=== PATIENT | male | born 1980 | race Caucasian/White ===

== ENCOUNTER 2020-06-23 06:54 | Emergency (ER) | payer OTHER, SELFPAY ==
[2020-06-23 07:03] VITALS: BP 157/84; PULSE 60; RESP 16; TEMP 36.7; O2SAT 100; BMI 22.8
--- NOTE | 2020-06-23 07:28 | PC.NURSE ---
seen by dr leo at this time
--- NOTE | 2020-06-23 07:31 | XR_ITS ---
EXAMINATION: XR HAND, LEFT CLINICAL INFORMATION: Evaluate foreign body at the first MCP joint. Patient unable to straighten fingers. COMPARISON: None TECHNIQUE: PA, lateral, and oblique views of the left hand. FINDINGS: Soft tissue swelling is present at the index finger, most notably at the level of the MCP joint. No acute fracture or malalignment. Bone mineralization is normal. No radiodense foreign bodies. XR/XR hand LT min 3V IMPRESSION: Soft tissue swelling of the index finger without evidence of a radiodense foreign body.
--- NOTE | 2020-06-23 07:31 | ED_ITS ---
HPI - Extremity Problem General Chief complaint: Extremity Injury, Upper Stated complaint: left hand injury Time Seen by Provider: 06/23/20 07:31 Source: patient Mode of arrival: ambulatory Limitations: no limitations History of Present Illness HPI Narrative: R hand dominant MD Complaint: extremity swelling (L 2nd knuckle) Onset (ago): day(s) (3 was doing better but then soaked in salt water today and became more swollen and painful) Pain Consistency: constant Location: left (2nd MCP joint dorsum) Quality: aching Radiation: none Relieving factors: nothing Exacerbating factors: nothing Associated symptoms: denies other symptoms Context: other (scraped area on metal while moving furniture tried to super glue it) Related Data Previous Rx's Medication Instructions Recorded cephalexin 500 mg PO Q8H 7 Days #21 cap 06/23/20 doxycycline hyclate 100 mg PO BID 7 Days #14 tab 06/23/20 hydrocodone-acetaminophen 1 tab PO Q6H PRN #12 tab 06/23/20 Allergies Allergy/AdvReac Type Severity Reaction Status Date / Time Fish Containing Products Allergy Unknown UNKNOWN Unverified 05/06/20 15:22 Review of Systems Review of Systems: Constitutional : No Fever, No Chills ENT/Mouth : No sore throat, No Rhinorrhea Eyes: No Eye Pain, No Swelling, No Redness Cardiovascular : No Chest Pain, No SOB Respiratory : No Cough, No Sputum Gastrointestinal : No Nausea, No Vomiting, No Diarrhea, No abdominal Pain Genitourinary : No Dysuria, No Hematuria Musculoskeletal : pos joint pain, No Myalgias, No Joint Swelling Skin : No Skin Lesions, positive skin rash Neuro : No Weakness, No Numbness, No Headache Psych : No Anxiety, No Depression PMFSH Past Medical History Attestation statement: The following information was validated with the patient. Medical History (Updated 06/23/20 @ 07:56 by Carley Keita DO) No known health problems Surgical History History of back surgery Social History Social History (Updated 06/23/20 @ 07:33 by Carley Keita DO) Smoking Status: Current every day smoker Use of substances other than those prescribed or required for medical reasons: No Advance Directives: No Advance Directives Information Provided: No Physical Exam Vital Signs: Vital Signs: Vital Signs Temp Pulse Resp BP Pulse Ox 06/23/20 07:03 98.1 F 60 16 157/84 H 100 Body Mass Index 22.8 Appearance: Alert. Oriented X3. No acute distress. Eyes: Pupils equal, round and reactive to light. ENT: Pharynx normal. Neck: Normal inspection. Neck supple. CVS: Normal heart rate and rhythm. Pulses normal. Respiratory: No respiratory distress. Breath sounds normal. Abdomen: Soft and nontender. Skin: Skin warm and dry. Normal skin color. Normal skin turgor. Extremities: No lower extremity edema. No calf ttp L hand on dorsum of 2nd MCP joint mild swelling, mild warmth/erythema, abrasion is open mild yellow and no significant drainage, can range index finger - no signs of infection on volar surface, wrist is normal Neuro: Oriented X 3. No motor deficit. No sensory deficit. MDM - Extremity (Nontraumatic) MDM Narrative Medical decision making narrative: 40 yo male with no medical problems scraped his L 2nd knuckle on metal while moving furniture, tried to super glue it, today soaked the area in salt water and then hand became swollen and painful, he has localized swelling/slightly yellow drainage over MCP but able to rage finger, no extension, he is NV intact, I offered IV antibiotics and admission but he declined due to family reasons - he is aware he needs to come back here for any worsening symptoms, xray for FB, PO cephalexin/doxycycline and update tdap. Patient given strict precautions to return. Discharge Plan Discharge Clinical Impression: Cellulitis Qualifiers: Site of cellulitis: extremity Site of cellulitis of extremity: upper extremity Laterality: left Qualified Code(s): L03.114 - Cellulitis of left upper limb Patient Disposition: Home, Self-Care Instructions: Cellulitis (ED) Additional Instructions: return to ED for any worsening symptoms or concerns, you were offered admission but declined, YOU CAN COME BACK AT ANY TIME, DO NOT WAIT IF YOU FEEL LIKE IT IS WORSENING. Prescriptions: New cephalexin 500 mg capsule 500 mg PO Q8H 7 Days Qty: 21 RF: 0 doxycycline hyclate 100 mg tablet 100 mg PO BID 7 Days Qty: 14 RF: 0 hydrocodone-acetaminophen 5-325 mg tablet 1 tab PO Q6H PRN (Reason: pain) Qty: 12 RF: 0 Referrals: [facility] [Primary Care Provider] - 2 days Stand Alone Forms: Work/School Release
[2020-06-23] MEDS: HYDROcodone Bit/Acetam 5/325 TABLET 1 TAB PO ×2 (07:43)
[2020-06-23] MEDS: cephALEXin 500 MG CAPSULE PO (07:43)
--- NOTE | 2020-06-23 07:52 | PC.NURSE ---
medicated per orders with td and tdp
--- NOTE | 2020-06-23 08:19 | PC.NURSE ---
MEDICATED AND XRAYED - CLEARED FOR DC PER ATTENDING. LEFT ED W/O PROBLEMS. WILL RETURN IF REDNESS WORSENS
== END 2020-06-23 08:20 | disposition home or self-care (01) ==
PROVIDERS: Emergency Provider Emergency Medicine
DX: L03.114 Cellulitis of left upper limb (principal); M79.642 Pain in left hand; S60.512A Abrasion of left hand, initial encounter; S60.511A Abrasion of right hand, initial encounter; F17.200 Nicotine dependence, unspecified, uncomplicated; Z71.6 Tobacco abuse counseling; Z79.899 Other long term (current) drug therapy; X58.XXXA Exposure to other specified factors, initial encounter; Y93.9 Activity, unspecified; Y92.9 Unspecified place or not applicable; Y99.9 Unspecified external cause status; Z23 Encounter for immunization
CPT/HCPCS: 73130; 90471; 90715; 99282; 99284

== ENCOUNTER 2020-07-18 19:55 | Emergency (ER) | payer OTHER, SELFPAY ==
[2020-07-18 20:21] VITALS: BP 142/81; PULSE 100; RESP 18; TEMP 36.6; O2SAT 97; BMI 22.1
--- NOTE | 2020-07-18 20:33 | ED.MALEGU ---
HPI - Male Genitourinary General Chief complaint: Urogenital-Male Stated complaint: STD Time Seen by Provider: 07/18/20 20:19 Source: patient Mode of arrival: ambulatory Limitations: no limitations History of Present Illness HPI Narrative: 40-year-old male presents with exposure to sexually transmitted infection. He is asking for treatment, does not want any other testing. Does not report any other symptoms. MD Complaint: penile discharge and possible STD exposure Onset (ago): day(s) Duration: constant Location: penis Severity: moderate Quality: burning Relieving factors: none Exacerbating factors: urination Context: known STD exposure Associated symptoms: Reports discharge and dysuria Related Data Sexually active: Yes Previous Rx's Medication Instructions Recorded cephalexin 500 mg PO Q8H 7 Days #21 cap 06/23/20 doxycycline hyclate 100 mg PO BID 7 Days #14 tab 06/23/20 hydrocodone-acetaminophen 1 tab PO Q6H PRN #12 tab 06/23/20 Allergies Allergy/AdvReac Type Severity Reaction Status Date / Time Fish Containing Products Allergy Unknown UNKNOWN Unverified 05/06/20 15:22 Review of Systems Review of Systems: Constitutional: No Weight loss, No Fever, No Chills, ENT/Mouth: No Hearing loss, No Ear Pain, No Nasal Congestion, No Sinus Pain, No Hoarseness, No sore throat, No Rhinorrhea, No Swallowing Difficulty Cardiovascular: No Chest Pain, No SOB Respiratory: No Cough, No Dyspnea Gastrointestinal: No Nausea, No Vomiting, No Diarrhea, No abdominal Pain, No Hematochezia, No Melena Genitourinary: Positive Dysuria, No Urinary Frequency, No Hematuria, No Urinary Incontinence, positive penile discharge, positive penile pain Musculoskeletal: no back pain Skin: No Skin Lesions, No rash Neuro: No Weakness, No Numbness, No Paresthesias, no loss of bowel or bladder incontinence, no saddle anesthesia Yes all other systems are reviewed and are negative PMFSH Past Medical History Attestation statement: The following information was validated with the patient. Medical History No known health problems Surgical History History of back surgery Social History Social History Smoking Status: Current every day smoker Advance Directives: No Advance Directives Information Provided: Yes Physical Exam Vital Signs: Vital Signs: Last Vital Signs Temp 97.8 F 07/18/20 20:21 Pulse 100 07/18/20 20:21 Resp 18 07/18/20 20:21 BP 142/81 H 07/18/20 20:21 Pulse Ox 97 07/18/20 20:21 Body Mass Index 22.1 Appearance: Alert. Oriented X3. No acute distress. Eyes: Pupils equal, round and reactive to light. ENT: Pharynx normal. Neck: Normal inspection. Neck supple. CVS: Normal heart rate and rhythm. Pulses normal. Respiratory: No respiratory distress. Breath sounds normal. Abdomen: Soft and nontender. Skin: Skin warm and dry. Normal skin color. Normal skin turgor. Extremities: No lower extremity edema. Neuro: No motor deficit. No sensory deficit. Course Course Course Narrative: 40-year-old male with positive exposure to sexually transmitted infection requests treatment. Detailed description regarding need for azithromycin, ceftriaxone, and treatment and testing for syphilis. When RN brought in medications for STI treatment, he stated that he only wanted the p.o. medications and did not want IM antibiotics. He does understand that if he tests positive for these infections that he would need to return for treatment. Patient verbalized understanding of and agrees to plan of care to discharge home. MDM - Male Genitourinary MDM Narrative Medical decision making narrative: Sexually transmitted infection Differential Diagnosis Differential diagnosis: Likely urinary tract infection Discharge Plan Discharge Clinical Impression: Chlamydia, Gonorrhea, Syphilis Patient Disposition: Home, Self-Care Instructions: Chlamydia (ED), Sexually Transmitted Diseases (ED) Additional Instructions: you were evaluated for exposure to chlamydia and other possible sexually transmitted infections. We treated you for syphilis, gonorrhea, and chlamydia. you declined ceftriaxone and penicillin. Your treatment is incomplete at this time. If you test positive you must return for further care. Please use safe sex practices. Thank you for choosing this emergency department for evaluation. Please follow-up with primary care physician as needed. Return to the emergency department for any new, concerning, or worsening symptoms. Prescriptions: No Action cephalexin 500 mg capsule 500 mg PO Q8H 7 Days Qty: 21 RF: 0 doxycycline hyclate 100 mg tablet 100 mg PO BID 7 Days Qty: 14 RF: 0 hydrocodone-acetaminophen 5-325 mg tablet 1 tab PO Q6H PRN (Reason: pain) Qty: 12 RF: 0 Interventions: ED Discharge Assessment Last Done: 07/18/20 21:29 Discharge Date/Time: 07/18/20 21:31
[2020-07-18] MEDS: cefTRIAXone sodium 250 MG, Lidocaine HCl 1 % MPF 0.9 ML IM (21:19)
[2020-07-18] MEDS: Azithromycin 500 MG TABLET 1000 MG PO (21:19)
[2020-07-19 04:18] LABS: Syphilis Screen Nonreactive (Nonreactive)
[2020-07-19 05:57] LABS: CT PCR NOT DETECTED (Not Detect.); NG PCR DETECTED (Not Detect.)
== END 2020-07-18 21:31 | disposition home or self-care (01) ==
PROVIDERS: Nurse Practitioner Family; Emergency Provider Emergency Medicine
DX: A74.9 Chlamydial infection, unspecified (principal); A54.9 Gonococcal infection, unspecified; A53.9 Syphilis, unspecified; F17.200 Nicotine dependence, unspecified, uncomplicated; Z71.6 Tobacco abuse counseling; Z79.899 Other long term (current) drug therapy; Z20.2 Contact with and (suspected) exposure to infections with a predominantly sexual mode of transmission
CPT/HCPCS: 86780; 87491; 87591; 96372; 99283; 99284; J0696

== ENCOUNTER 2023-08-23 18:41 | Emergency (ER) | payer OTHER, SELFPAY ==
[2023-08-23] VITALS (15 sets, daily range): BP systolic 123–164; BP diastolic 71–106; PULSE 16–123; RESP 14–24; TEMP 36.8; O2SAT 88–98; BMI 27.4
--- NOTE | 2023-08-23 19:25 | ED.PSYCH ---
HPI - Psych General Chief Complaint: ETOH/Substance Use Stated Complaint: SI, ETOH/Drug use Source: patient Mode of arrival: EMS Limitations: other (intoxicated) History of Present Illness HPI Narrative: 43 yo male with PMH of substance abuse and ETOH abuse on methadone no dose in 2 days states he got out of [facility] 2 days ago and relapsed on heroin, ETOH, cocaine. He called 911 for help and then made HI statements and possibly SI per EMS. The patient is belligerent. He is aggressive and attempting to leave. Brought in by police. No trauma reported. MD complaint: feels depressed, homicidal ideation and substance abuse Onset (ago): day(s) Duration: intermittent History of same: Yes Relieving factors: none Exacerbating factors: drug use Context: recent drug abuse Associated psychiatric symptoms: depression and homicidal ideation ( I was joking ) Associated symptoms: denies other symptoms Related Data Previous Rx's Medication Instructions Recorded cephalexin 500 mg capsule 500 mg PO Q8H 7 days #21 caps 06/23/20 doxycycline hyclate 100 mg tablet 100 mg PO BID 7 days #14 tabs 06/23/20 hydrocodone 5 mg-acetaminophen 325 1 tab PO Q6H PRN pain #12 tabs 06/23/20 mg tablet cefixime 400 mg capsule 400 mg PO DAILY #1 cap 07/21/20 Allergies Allergy/AdvReac Type Severity Reaction Status Date / Time Fish Containing Products Allergy Unknown UNKNOWN Unverified 08/27/20 12:57 Review of Systems Review of Systems: ROS unable to be obtained due to agitation PMFSH Past Medical History Attestation statement: The following information was validated with the patient. Source: old records reviewed Onset Date is defined in the Problem List Problems that require an onset date and time if occurred within 24 hrs of arrival to the ED Aortic Dissection and Rupture; Neurologic impairment; Cardiopulmonary Arrest; Endotracheal Intubation; Insertion or Replacement of Mechanical Circulatory Assist Device Medical History Alcohol abuse Opiate use No known health problems Surgical History History of back surgery Social History Social History (Updated 08/23/23 @ 19:27 by Jasmina Keita DO) Patient Tobacco Use Status: Current someday Tobacco user Substance Use Type: Crack/Cocaine and Heroin Advance Directives: No Advance Directives Information Provided: No Physical Exam Vital Signs: Vital Signs: Last Vital Signs Temp 98.3 F 08/23/23 18:56 Pulse 111 H 08/23/23 18:56 Resp 20 08/23/23 18:56 BP 164/106 H 08/23/23 18:56 Pulse Ox 97 08/23/23 18:56 O2 Del Method Room Air 08/23/23 18:56 BMI result Body Mass Index 27.4 Appearance: Alert. Oriented X3. appears intoxicated agitated/belligerent, aggressive, posturing at staff, swung at security, has nips and attempting to hide or drink them. moderate acute distress. Eyes: Pupils equal, round and reactive to light. ENT: Pharynx normal. atraumatic Neck: Normal inspection. Neck supple. CVS: Normal heart rate and rhythm. Pulses normal. Respiratory: No respiratory distress. Breath sounds normal. Abdomen: Soft and nontender. Skin: Skin warm and dry. Normal skin color. Normal skin turgor. Extremities: No lower extremity edema. No calf ttp Neuro: Oriented X 3. No motor deficit. No sensory deficit. CN2-12 intact Course Course Course Narrative: on arrival aggressive could not be calmed down posturing threatening to leave states he was joking about HI - could not de-escalate IM medications ordered after IM medications patient still agitated attempted to swing at security had to be physically restrained for patient and staff safety Reevaluation(s) Reevaluation #1: Physician observation started at 734pm. Patient placed in physician observation because the patient needed more time for CARE team to assess the need for psych admission. At the time observation was started the patient's vitals were stable, patient is alert and oriented but agitated, Neuro: nonfocal, CV RRR, Lungs clear Reevaluation #2: slightly hypoxic after medications responds to 4L NC Reevaluation #3: signed out to oncoming provider pending labs and reassessments Medications Administered Discontinued Medications Generic Name Dose Route Start Last Admin Trade Name Freq PRN Reason Stop Dose Admin Diphenhydramine HCl 50 mg 08/23/23 18:50 08/23/23 19:02 Diphenhydramine Hcl 50 Mg/Ml Vial IM 08/23/23 18:51 50 mg ONCE ONE Administration Haloperidol Lactate 5 mg 08/23/23 18:50 08/23/23 19:01 Haloperidol Lactate 5 Mg/Ml Vial IM 08/23/23 18:51 5 mg STAT STA Administration Lorazepam 2 mg 08/23/23 18:50 08/23/23 19:02 Lorazepam 2 Mg/Ml Vial IM 08/23/23 18:51 2 mg STAT STA Administration Medical Decision Making Medical Decision Making [facility] Narrative: 43 yo male with PMH of substance abuse here with recent relapse who made vague HI statements now recants he is volatile and belligerent at this time he will need basic labs, IM medications for aggressive behaviors and agitation, CARE team consult once he is awake in AM. He has no medical complaints - PRN ativan for withdrawal ordered. EKG given cocaine use. No signs of head trauma Differential Diagnosis Differential Diagnoses: The differential diagnosis associated with the presentation includes substance abuse Admission/Observation Consideration of admission/observation: Escalation of care including admission/observation considered observe until seen by CARE team Lab Data [facility] Lab Attestation statement: I reviewed the patient's lab results. 08/23/23 21:28 08/23/23 21:28 Labs: Lab Results 08/23/23 Range/Units 21:28 WBC 6.1 (4.8-10.8) X10*3/uL RBC 4.42 L (4.60-5.80) X10*6/uL Hgb 12.6 L (14.0-18.0) g/dl Hct 37.1 L (42.0-52.0) % MCV 83.9 (80.0-98.0) fL MCH 28.5 (27.0-33.0) pg MCHC 34.0 (31.0-36.0) g/dl RDW 13.7 (11.0-16.0) % Plt Count 180 (160-400) X10*3/uL MPV 8.3 L (9.4-12.4) fL Immature Gran % (Auto) 0.5 H (0.0-0.4) % Neut % (Auto) 50.8 (45-73) % Lymph % (Auto) 37.3 (20-40) % [place] % (Auto) 10.9 (2-11) % Eos % (Auto) 0.2 (0-4) % Baso % (Auto) 0.3 (0-2) % Lymph # (Auto) 2.3 (1.2-4.9) X10*3/uL [place] # (Auto) 0.7 (0.1-1.2) X10*3/uL Eos # (Auto) 0.0 (0.0-0.4) X10*3/uL Baso # (Auto) 0.0 (0.0-0.2) X10*3/uL Abs Immat Gran (auto) 0.03 (0.00-0.03) X10*3/uL Absolute Neuts (auto) 3.1 (2.0-8.3) x10*3/uL Absolute Nucleated RBC 0.000 (0.0-0.012) X10*3/uL Nucleated RBC % (auto) 0.0 (0.0-0.2) /100WBC Sodium 145 (135-145) mmol/L Potassium 3.5 (3.3-5.1) mmol/L Chloride 110 H (96-108) mmol/L Carbon Dioxide 22 (22-29) mmol/L Anion Gap 17 (12-20) BUN 10 (9-16) mg/dL Creatinine 0.74 (0.5-1.4) mg/dL Estim Creat Clear Calc 124.5 Estimated GFR > 60 Random Glucose 101 (60-115) mg/dL Calcium 8.5 (8.4-10.2) mg/dL Total Bilirubin 0.2 (0.0-1.0) mg/dL Direct Bilirubin < 0.2 (0.0-0.5) mg/dL AST 32 (5-37) U/L ALT 23 (0-40) U/L Alkaline Phosphatase 85 (39-117) U/L Total Protein 7.5 (6.5-8.0) g/dL Albumin 4.0 (3.5-5.0) g/dL Ethyl Alcohol 218 mg/dL Independent Interpretation I performed an independent interpretation of an: EKG Interpretation: Rate: 94 Rhythm: NSR [place]: normal Normal P waves. Normal CEDRICK. Normal QRS complex. ST T wave : no NGA, nonspecific anterior changes qTC: 507 prior studies: no acute ischemia The study has been interpreted contemporaneously by me. . Independent Historian Clinical information obtained from an independent historian. History obtained from or confirmed by: EMS External Record Review External record reviewed: Inpatient record Social Determinants Patient?s care significantly limited by Social Determinants of Health including: Problems related to primary support group Critical Care Time Critical Care Time Critical Care Time: Yes Total Critical Care Time: 40 Attestation: acute management of agitation and IM medications/restraints I attest to this time spent taking care of the patient Discharge Plan Discharge Clinical Impression: Polysubstance abuse Alcoholic intoxication Qualifiers: Complication of substance-induced condition: with unspecified complication Qualified Code(s): F10.929 - Alcohol use, unspecified with intoxication, unspecified Patient Disposition: Still a Patient Prescriptions: No Action cefixime 400 mg capsule 400 mg PO DAILY Qty: 1 0RF Rx Instructions: one time dose cephalexin 500 mg capsule 500 mg PO Q8H 7 Days Qty: 21 0RF doxycycline hyclate 100 mg tablet 100 mg PO BID 7 Days Qty: 14 0RF hydrocodone-acetaminophen 5-325 mg tablet 1 tab PO Q6H PRN (Reason: pain) Qty: 12 0RF
[2023-08-23 21:50] LABS: Alanine Aminotransferase 23 U/L (0-40); Alkaline Phosphatase 85 U/L (39-117); Anion Gap 17 (12-20); Aspartate Amino Transferase 32 U/L (5-37); Bilirubin Direct < 0.2 mg/dL (0.0-0.5); Bilirubin Total 0.2 mg/dL (0.0-1.0); Blood Urea Nitrogen 10 mg/dL (9-16); Calcium 8.5 mg/dL (8.4-10.2); Carbon Dioxide 22 mmol/L (22-29); Chloride 110 mmol/L (96-108); Creatinine Clr Calc Pharmacy 124.5; Estimated Glomerular Filt Rate > 60; Ethanol 218 mg/dL; Glucose Random 101 mg/dL (60-115); Potassium 3.5 mmol/L (3.3-5.1); Sodium 145 mmol/L (135-145); Total Protein 7.5 g/dL (6.5-8.0)
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
[2023-08-24 00:12] VITALS: RESP 16
[2023-08-24 03:00] VITALS: BP 119/67; PULSE 90; RESP 18; TEMP 36.8; O2SAT 97
[2023-08-24 05:59] VITALS: BP 127/73; PULSE 80; RESP 18; O2SAT 99
--- NOTE | 2023-08-24 08:49 | HE.PHANOTE ---
METHADONE CONFIRMATION FORM PATIENT TAKES 160 MG FROM [facility]. LAST DOSE OF 08/21
[2023-08-24 10:45] VITALS: BP 136/93; PULSE 83; RESP 15; O2SAT 98
--- NOTE | 2023-08-24 13:07 | MHC.CARE ---
assessment faxed to [facility] for dual dx referral.
[2023-08-24 15:48] VITALS: BP 152/105; PULSE 94; RESP 20; TEMP 36.4; O2SAT 96
--- NOTE | 2023-08-24 15:56 | PC.NURSE ---
Report taken from Valentin RN, assumed care of pt at 1500. Pt A&Ox3 calm and cooperative with care, noted to be tremulous while on phone with spouse. MARIAN Vera MD notified. VSS. Plan for admission to [facility], awaiting details, pt aware of plan of care.
--- NOTE | 2023-08-24 16:24 | PC.NURSE ---
Pt medicated per MAR. Remains calm and cooperative, offers no complaints. On continuous video monitoring for safety, safety maintained.
--- NOTE | 2023-08-24 16:58 | PC.NURSE ---
Pt resting eyes closed, skin pwd respirations even unlabored, NAD. Safety maintained in [facility] Pod, will continue to monitor.
== END 2023-08-24 18:01 | disposition other institution (70) ==
PROVIDERS: Emergency Provider Emergency Medicine
DX: F19.10 Other psychoactive substance abuse, uncomplicated (principal); F10.120 Alcohol abuse with intoxication, uncomplicated; Y90.7 Blood alcohol level of 200-239 mg/100 ml; R45.850 Homicidal ideations; R45.1 Restlessness and agitation; R45.6 Violent behavior; F32.A Depression, unspecified; Z11.52 Encounter for screening for COVID-19; F17.200 Nicotine dependence, unspecified, uncomplicated; Z78.1 Physical restraint status; Z79.899 Other long term (current) drug therapy
CPT/HCPCS: 80048; 80076; 80307; 85025; 87635; 93005; 96372; 99285; J1200; J1630; J2060; S9485

== ENCOUNTER → 2023-08-23 18:51 | Outpatient (BNV) | payer OTHER, SELFPAY | PROVIDERS: Emergency Provider Emergency Medicine; Visit Provider Internal Medicine Cardiovascular Disease | DX: I45.81 Long QT syndrome (principal) | CPT/HCPCS: 93010 ==

== ENCOUNTER 2024-02-17 15:34 | Emergency (ER) | payer OTHER, SELFPAY ==
[2024-02-17 15:39] VITALS: BP 190/110; PULSE 115; O2SAT 100
[2024-02-17 16:01] VITALS: BP 171/99; PULSE 125; RESP 20; TEMP 36.1; O2SAT 99; BMI 34.2
--- NOTE | 2024-02-17 16:10 | ECG_ITS ---
Test Reason : ETOH Blood Pressure : / mmHG Vent. Rate : 102 BPM Atrial Rate : 102 BPM P-R Int : 138 ms QRS Dur : 088 ms QT Int : 370 ms P-R-T Axes : 069 017 040 degrees QTc Int : 482 ms Sinus tachycardia Otherwise normal ECG When compared with ECG of 23-AUG-2023 20:01, Criteria for Inferior infarct are no longer Present Referred By: Jamia Velazquez Electronically Signed By:CARSON CARL
--- NOTE | 2024-02-17 16:11 | ED.ALCOHOL ---
HPI - Alcohol General Chief Complaint: ETOH/Substance Use Stated Complaint: ETOH Time Seen by Provider: 02/17/24 16:03 Source: patient and EMS Mode of arrival: EMS Limitations: other History of Present Illness ED Provider: Dr. Jamia Velazquez HPI narrative: Patient comes to the emergency room via ambulance from home. Patient's mother called because the patient was intoxicated. According to the family, the patient has not been eating or drinking for several days because he drinks too much alcohol. Patient admits to drinking 15 nips today. Patient has not had methadone for 6 days. Patient complaining of nausea and vomiting, no significant abdominal pain. Patient states that he is fine Related Data Home Medications ?Medication ?Instructions ?Recorded ?Confirmed acamprosate 333 mg tablet,delayed 666 mg PO TID 08/24/23 08/24/23 release buspirone 30 mg tablet 30 mg PO BID 08/24/23 08/24/23 clonidine HCl 0.1 mg tablet 0.1 mg PO Q4H PRN Anxiety 08/24/23 08/24/23 cyclobenzaprine 5 mg tablet 5 mg PO TID PRN Pain 08/24/23 08/24/23 hydroxyzine HCl 50 mg tablet 50 mg PO BID 08/24/23 08/24/23 quetiapine 100 mg tablet 100 mg PO BEDTIME 08/24/23 08/24/23 sertraline 100 mg tablet 100 mg PO DAILY 08/24/23 08/24/23 trazodone 100 mg tablet 100 mg PO BEDTIME 08/24/23 08/24/23 Allergies Allergy/AdvReac Type Severity Reaction Status Date / Time Fish Containing Products Allergy Unknown UNKNOWN Verified 02/17/24 16:04 Review of Systems Review of Systems: Constitutional : No Weight loss, No Fever, No Chills, No Night Sweats, No Fatigue, No Malaise ENT/Mouth : No Hearing loss, No Ear Pain, No Nasal Congestion, No Sinus Pain, No Hoarseness, No sore throat, No Rhinorrhea, No Swallowing Difficulty Eyes: No Eye Pain, No Swelling, No Redness, No Foreign Body, No Discharge, No Vision Changes Cardiovascular : No Chest Pain, No SOB, No Dyspnea on Exertion, No Orthopnea, No Edema, No Palpitations Respiratory : No Cough, No Sputum, No Wheezing, No Smoke Exposure, No Dyspnea Gastrointestinal : Complaining of nausea and vomiting No Diarrhea, No Constipation, No abdominal Pain, No Hematochezia, No Melena Genitourinary : no irregular bleeding, No Dysuria, No Urinary Frequency, No Hematuria, No Urinary Incontinence, No Urgency, No Flank Pain, No Urinary Flow Changes, No Hesitancy Musculoskeletal : No joint pain, No Myalgias, No Joint Swelling Skin : No Skin Lesions, No rash Neuro : No Weakness, No Numbness, No Paresthesias, No Loss of Consciousness, No Dizziness, No Headache Psych : No Anxiety/Panic, No Depression, No SI/HI/AH/VH, admits to daily alcohol drinking Heme/Lymph: No Bruising, No Bleeding,No Lymphadenopathy Endocrine : No Polyuria, No Polydipsia, No Temperature Intolerance PMFSH Past Medical History Medical History Alcohol abuse Opiate use No known health problems Surgical History History of back surgery Social History Social History (Updated 08/23/23 @ 19:27 by Jasmina Keita DO) Alcohol intake: current Alcohol intake frequency: 3 or more drinks per day Alcohol type: beer and hard liquor Patient Tobacco Use Status: Current someday Tobacco user Smoked in Last 30 Days: No Use of substances other than those prescribed or required for medical reasons: Refusing to respond Substance Use Type: Crack/Cocaine and Marijuana Advance Directives: No Advance Directives Information Provided: No Do you have a plan to hurt others: No Plan Physical Exam ED Vital Signs: Vital Signs - 24 hr 02/17/24 16:01 02/17/24 18:22 02/17/24 20:32 Temperature 97.0 F 97.0 F 98.7 F Pulse Rate 125 H 107 H 115 H Respiratory Rate 20 18 16 Blood Pressure 171/99 H 156/100 H 159/90 H Pulse Oximetry 99 97 97 Oxygen Delivery Method Room Air Room Air Room Air BMI result Body Mass Index 34.2 Const Other: Appearance: Alert. Oriented X3. No acute distress. Patient is intoxicated Eyes: Pupils equal, round and reactive to light. ENT: Pharynx normal. Neck: Normal inspection. Neck supple. No lymph nodes noted. No crepitus CVS: Normal heart rate and rhythm. Pulses normal. Normal S1 and S2 Respiratory: No respiratory distress. Breath sounds normal. No Wheezing. No rales Abdomen: Soft and nontender. No rigidity. No distention. Actively vomiting Skin: Skin warm and dry. Normal skin color. Normal skin turgor. Extremities: No lower extremity edema. No Lacerations. No Rash Neuro: Oriented X 3. Moving all extremities, answering questions, intoxicated Psych: calm, cooperative, normal affect Course Course Course Narrative: -patient denies falling, no signs of trauma -all of patient's labs pending -patient receiving IV fluids, Zofran Medical Decision Making Medical Decision Making [facility] Narrative: -my interpretation of labs, hematology and chemistry at baseline. ETOH positive, U tox pending. -patient was given Tylenol, lorazepam, Zofran and Compazine p.o.. -we are waiting for the morning to confirm patient's methadone dose. -patient requesting detox for EtOH -care team consult pending -patient is not SI or HI, section 12 not indicated Differential Diagnosis Differential Diagnoses: The differential diagnosis associated with the presentation includes (Polysubstance abuse, alcohol dependence, alcohol abuse) Admission/Observation Consideration of admission/observation: Escalation of care including admission/observation considered (Patient is under physician observation waiting to be seen by the care team) Lab Data [facility] Lab Attestation statement: I reviewed the patient's lab results. 02/17/24 17:09 02/17/24 17:09 Labs: Lab Results 02/17/24 02/17/24 Range/Units 17:09 22:02 WBC 5.2 (4.8-10.8) X10*3/uL RBC 5.66 D (4.60-5.80) X10*6/uL Hgb 16.6 D (14.0-18.0) g/dl Hct 47.2 D (42.0-52.0) % MCV 83.4 (80.0-98.0) fL MCH 29.3 (27.0-33.0) pg MCHC 35.2 (31.0-36.0) g/dl RDW 14.6 (11.0-16.0) % Plt Count 222 (160-400) X10*3/uL MPV 8.2 L (9.4-12.4) fL Immature Gran % (Auto) 0.4 (0.0-0.4) % Neut % (Auto) 71.7 (45-73) % Lymph % (Auto) 20.8 (20-40) % [place] % (Auto) 6.9 (2-11) % Eos % (Auto) 0.0 (0-4) % Baso % (Auto) 0.2 (0-2) % Lymph # (Auto) 1.1 L (1.2-4.9) X10*3/uL [place] # (Auto) 0.4 (0.1-1.2) X10*3/uL Eos # (Auto) 0.0 (0.0-0.4) X10*3/uL Baso # (Auto) 0.0 (0.0-0.2) X10*3/uL Abs Immat Gran (auto) 0.02 (0.00-0.03) X10*3/uL Absolute Neuts (auto) 3.8 (2.0-8.3) x10*3/uL Absolute Nucleated RBC 0.000 (0.0-0.012) X10*3/uL Nucleated RBC % (auto) 0.0 (0.0-0.2) /100WBC PT 11.9 (11.1-13.3) SEC INR 1.0 (0.9-1.1) Sodium 142 (135-145) mmol/L Potassium 4.0 (3.3-5.1) mmol/L Chloride 98 (96-108) mmol/L Carbon Dioxide 25 (22-29) mmol/L Anion Gap 23 H (12-20) BUN 22 H (9-16) mg/dL Creatinine 0.86 (0.5-1.4) mg/dL Estim Creat Clear Calc 126.9 Estimated GFR > 60 Random Glucose 114 (60-115) mg/dL Calcium 8.8 (8.4-10.2) mg/dL Magnesium 2.6 (1.6-2.6) mg/dL Total Bilirubin 0.6 (0.0-1.0) mg/dL Direct Bilirubin 0.3 (0.0-0.5) mg/dL AST 216 H (5-37) U/L ALT 106 H (0-40) U/L Alkaline Phosphatase 101 (39-117) U/L Total Protein 8.2 H (6.5-8.0) g/dL Albumin 4.3 (3.5-5.0) g/dL Lipase 12 (8-78) U/L Urine Color Yellow Urine Appearance Clear Urine pH 7.0 (5.0-9.0) Ur Specific [place] 1.020 (1.005-1.025) Urine Protein Trace (Neg-Trace) mg/dL Urine Glucose (UA) Negative (Negative) mg/dL Urine Ketones Negative (Negative) mg/dL Urine Blood Negative (Negative) Urine Nitrite Negative (Negative) Ur Leukocyte Esterase Negative (Negative) Urine Opiates Screen Not Detected (Not Detect) Ur Buprenorphine Scrn Not Detected (Not Detect) ng/mL Ur Oxycodone Screen Not Detected (Not Detect) ng/mL Urine Methadone Screen Positive H (Not Detect) ng/mL Urine Fentanyl Screen POSITIVE H (Not Detect) Ur Barbiturates Screen Not Detected (Not Detect) Ur Phencyclidine Scrn Not Detected (Not Detect) Ur Amphetamines Screen Not Detected (Not Detect) U Benzodiazepines Scrn POSITIVE H (Not Detect) Urine Cocaine Screen Not Detected (Not Detect) U Marijuana (THC) Screen Not Detected (Not Detect) Ethyl Alcohol 276 mg/dL Medications Administered Discontinued Medications Generic Name Dose Route Start Last Admin Trade Name Freq PRN Reason Stop Dose Admin Acetaminophen 650 mg 02/17/24 19:31 02/17/24 19:33 Acetaminophen 325 Mg Tablet PO 02/17/24 19:32 650 mg ONCE ONE Administration Sodium Chloride 1,000 mls @ 999 mls/hr 02/17/24 16:10 02/17/24 16:58 Ns IVCONT 02/17/24 17:10 0 mls/hr .Q1H1M ONE Infusion Lorazepam 2 mg 02/17/24 22:29 02/17/24 22:35 Lorazepam 1 Mg Tablet PO 02/17/24 22:30 2 mg ONCE ONE Administration Ondansetron HCl 4 mg 02/17/24 16:10 02/17/24 16:23 Ondansetron Hcl 4 Mg/2 Ml Vial IVPUSH 02/17/24 16:11 4 mg ONCE ONE Administration Prochlorperazine Maleate 10 mg 02/17/24 22:30 02/17/24 22:53 Prochlorperazine Maleate 5 Mg Tablet PO 02/17/24 22:31 10 mg ONCE ONE Administration Critical Care Time Critical Care Time Critical Care Time: Yes Total Critical Care Time: 40 Attestation: I have personally provided critical care time. Time includes review of lab data, radiology results, discussion with consultants, and monitoring for potential decompensation. Intervention performed as documented. Discharge Plan Discharge Clinical Impression: Alcoholic intoxication, Alcohol dependence Patient Disposition: Still a Patient Prescriptions: No Action clonidine HCl 0.1 mg tablet 0.1 mg PO Q4H PRN (Reason: Anxiety) sertraline 100 mg tablet 100 mg PO DAILY hydroxyzine HCl 50 mg tablet 50 mg PO BID quetiapine 100 mg tablet 100 mg PO BEDTIME trazodone 100 mg tablet 100 mg PO BEDTIME buspirone 30 mg tablet 30 mg PO BID cyclobenzaprine 5 mg tablet 5 mg PO TID PRN (Reason: Pain) acamprosate 333 mg tablet,delayed release (DR/EC) 666 mg PO TID Print Language: Zambian
[2024-02-17] MEDS: 0.9 % Sodium Chloride 1,000 ML 999 ML IVCONT (16:23)
[2024-02-17] MEDS: ondansetron HCL 4 MG/2 ML VIAL IVPUSH (16:23)
[2024-02-17 17:13] LABS: MANUAL DIFF FLAG NO
[2024-02-17 17:14] LABS: Basophils Percent Auto 0.2 % (0-2); Hematocrit 47.2 % (42.0-52.0); Hemoglobin 16.6 g/dl (14.0-18.0); Imm Gran Abs Auto 0.02 X10*3/uL (0.00-0.03); Imm Gran Pct Auto 0.4 % (0.0-0.4); Lymphocytes Absolute Auto 1.1 X10*3/uL (1.2-4.9); Lymphocytes Percent Auto 20.8 % (20-40); Mean Corpuscular HGB Conc 35.2 g/dl (31.0-36.0); Mean Corpuscular Hemoglobin 29.3 pg (27.0-33.0); Mean Corpuscular Volume 83.4 fL (80.0-98.0); Mean Platelet Volume 8.2 fL (9.4-12.4); Monocytes Absolute Auto 0.4 X10*3/uL (0.1-1.2); Monocytes Percent Auto 6.9 % (2-11); Neutrophils Absolute Auto 3.8 x10*3/uL (2.0-8.3); Neutrophils Percent Auto 71.7 % (45-73); Platelet Count 222 X10*3/uL (160-400); Red Blood Count 5.66 X10*6/uL (4.60-5.80); Red Cell Distribution Width 14.6 % (11.0-16.0); White Blood Count 5.2 X10*3/uL (4.8-10.8)
[2024-02-17 17:21] LABS: Prothrombin Time 11.9 SEC (11.1-13.3)
[2024-02-17 17:29] LABS: Alanine Aminotransferase 106 U/L (0-40); Albumin Level 4.3 g/dL (3.5-5.0); Alkaline Phosphatase 101 U/L (39-117); Anion Gap 23 (12-20); Aspartate Amino Transferase 216 U/L (5-37); Bilirubin Direct 0.3 mg/dL (0.0-0.5); Bilirubin Total 0.6 mg/dL (0.0-1.0); Blood Urea Nitrogen 22 mg/dL (9-16); Calcium 8.8 mg/dL (8.4-10.2); Carbon Dioxide 25 mmol/L (22-29); Chloride 98 mmol/L (96-108); Creatinine Clr Calc Pharmacy 126.9; Estimated Glomerular Filt Rate > 60; Ethanol 276 mg/dL; Glucose Random 114 mg/dL (60-115); Lipase 12 U/L (8-78); Magnesium 2.6 mg/dL (1.6-2.6); Sodium 142 mmol/L (135-145); Total Protein 8.2 g/dL (6.5-8.0)
[2024-02-17 18:22] VITALS: BP 156/100; PULSE 107; RESP 18; TEMP 36.1; O2SAT 97
--- NOTE | 2024-02-17 19:20 | PC.NURSE ---
Patient continues to telling staff passing by I am withdrawing from methadone and alcohol. Informed both patient and family member at bedside that provider is aware patient has not taken methadone in 6 days and ETOH level is almost 300.
[2024-02-17] MEDS: Acetaminophen 325 MG TABLET 650 MG PO (19:33)
--- NOTE | 2024-02-17 19:35 | PC.NURSE ---
Patient continues to refuse IV line, provider aware and okay without line.
[2024-02-17 20:32] VITALS: BP 159/90; PULSE 115; RESP 16; TEMP 37.1; O2SAT 97
--- NOTE | 2024-02-17 20:51 | PC.NURSE ---
Patient changed over with security assistance, patient's belongings in locker 9.
[2024-02-17 22:16] LABS: Appearance Urine Clear; Color Urine Yellow; Glucose Urine UA Negative (Negative); Leukocyte Esterase Urine Negative (Negative); Nitrite Urine Negative (Negative); Urine Blood Negative (Negative); Urine Ketones Negative (Negative); Urine Protein Trace mg/dL (Neg-Trace)
--- NOTE | 2024-02-17 22:20 | PC.NURSE ---
Patient continues to complain of withdrawal, patient now visibly sweaty, c/o nausea w/ dry heaves, wants either methadone or ativan. Provider Dr. Velazquez aware.
[2024-02-17 22:31] LABS: Amphetamine Screen Urine Not Detected (Not Detect); Barbiturates, Urine Not Detected (Not Detect); Benzodiazepines Screen Urine POSITIVE (Not Detect); Buprenorphine Scr Not Detected (Not Detect); Cannabinoid Screen Urine Not Detected (Not Detect); Cocaine Screen Urine Not Detected (Not Detect); Fentanyl, urine POSITIVE (Not Detect); Methadone Screen, Urine Positive (Not Detect); Opiate Screen Urine Not Detected (Not Detect); Oxycodone Screen Urine Not Detected (Not Detect); Phencyclidine Screen Urine Not Detected (Not Detect)
[2024-02-17] MEDS: LORazepam 1 MG TABLET 2 MG PO (22:35)
--- NOTE | 2024-02-17 22:50 | PC.NURSE ---
Pharmacy called regarding compazine
[2024-02-17] MEDS: Prochlorperazine Maleate 5 MG TABLET 10 MG PO (22:53)
[2024-02-18] VITALS: BP 161/95; PULSE 110; RESP 16; TEMP 36.4; O2SAT 96
--- NOTE | 2024-02-18 00:07 | PC.NURSE ---
Assumed care of pt. Pt endorsing tremors, anxious feeling. Ativan previously administered.
[2024-02-18] MEDS: Ondansetron ODT 4 MG TAB.RAPDIS TRANSLINGU (00:28)
[2024-02-18] MEDS: LORazepam 1 MG TABLET 2 MG PO ×5 (00:35→15:13)
--- NOTE | 2024-02-18 00:41 | PC.NURSE ---
Per MD, remaining fluids to be DC'd.
--- NOTE | 2024-02-18 04:35 | PC.NURSE ---
pt medicated with po ativan per MD orders. pt c/o withdrawing from alcohol and also requesting methadone.
[2024-02-18 05:08] VITALS: BP 146/91; PULSE 110; RESP 17; TEMP 37.2; O2SAT 98
--- NOTE | 2024-02-18 05:37 | PC.NURSE ---
this rn called [facility] in [place], [place] to verify methadone dose. pt was last dosed at the clinic on 02/11/24, then received a take home bottle of 190mg from clinic on 02/12/24. dose confirmed will notify
[2024-02-18] MEDS: methADONE HCl 20 MG/2 ML ORAL.CONC 30 MG PO (06:45)
--- NOTE | 2024-02-18 06:46 | HE.PHANOTE ---
RE: METHADONE DOSING Last dose of methadone 190 mg was given at [facility] on 02/11/24 @0545. Nurse Bree Santana called [facility] back and got more info Becky UP is who I spoke with. He was dosed in person at the clinic on 02/10, and then received (1) take home dose for 02/11. So technically his last dose was 02/11.
[2024-02-18 08:00] VITALS: BP 159/89; PULSE 102; RESP 18; TEMP 35.9; O2SAT 95
--- NOTE | 2024-02-18 11:32 | MHC.RECOVRN ---
Met with pt in [id number] after consult placed to CARE Team for ATS. Pt had presented to the ED reporting not eating or drinking x days except for alcohol as well as not having methadone in 6 days. Per notes, pt received last dose of methadone at [facility] (formally [facility] [place] [place] on 02/11/24 and received a take home bottle for 02/12/24, 190 mg. Pt laying in bed, asleep, wakes to voice. Appears diaphoretic and uncomfortable. Pt reports he has been drinking alcohol, 40 nips daily of [place] 100 proof liqueur. Pt reports using one bag heroin/fentanyl, IV, in the past few days due to not being able to receive his methadone dose due to positive breathalyzers. Prior to that, pt reports last opioid use was 5 years ago. Pt reports he has been on methadone x 5 years. Pt reports he has been in and out of detox 20 times in the last year. Pt reports he has a bed at [facility] later today. Plans for girlfriend to pick him up after she gets out of work at 4PM and will transport to [facility]. Pt denies questions or concerns for t/w. Discussed with pts RN as well as ED provider.
[2024-02-18 12:14] VITALS: BP 133/84; PULSE 85; RESP 17; TEMP 36.8; O2SAT 94
--- NOTE | 2024-02-18 12:26 | MHC.EDTECH ---
this tech provided patient with gingerale at their request
[2024-02-18 16:36] VITALS: BP 165/99; PULSE 104; RESP 18; TEMP 36.7; O2SAT 94
[2024-02-18 17:33] VITALS: BP 165/99; PULSE 104; RESP 18; TEMP 36.7; O2SAT 94
== END 2024-02-18 17:33 | disposition home or self-care (01) ==
PROVIDERS: Emergency Provider Emergency Medicine
DX: F10.229 Alcohol dependence with intoxication, unspecified (principal); Y90.8 Blood alcohol level of 240 mg/100 ml or more; R11.2 Nausea with vomiting, unspecified; R00.0 Tachycardia, unspecified; Z79.899 Other long term (current) drug therapy
CPT/HCPCS: 36415; 80048; 80076; 80307; 81003; 83690; 83735; 85025; 85610; 93005; 96361; 96374; 99284; 99285; J2405

== ENCOUNTER → 2024-02-17 16:10 | Outpatient (BNV) | payer OTHER, SELFPAY | PROVIDERS: Emergency Provider Emergency Medicine; Visit Provider Internal Medicine | DX: R00.0 Tachycardia, unspecified (principal) | CPT/HCPCS: 93010 ==

== ENCOUNTER 2024-04-28 13:51 | Outpatient (AMB) | payer OTHER, SELFPAY ==
--- NOTE | 2024-04-28 14:03 | A.OFFPC_ITS ---
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 Intake Note: establish [facility] Allergies Fish Containing Products Allergy (Unknown, Verified 04/28/24 14:03) UNKNOWN Tobacco use date assessed: 04/28/24 Dental Screening Dental Screen Date: 04/28/24 Did you have a dental visit in the last 12 months?: Yes Did you have a dental problem in the last 6 months where you did not have access to dental care?: Yes Was dental information given to patient?: Patient has dentist HPI HPI Comments History of Present Illness Details This is a 44 year old male with a pmhx of alcohol dependence, methadone dependence, anxiety and depression presenting to [facility]. He is here with Daphne- she is a nurse healthcare navigator. He was in the ER in January this year for alcohol intoxication. He is on Acamprosate 666 mg TID. He is followed by [facility]. He is on Methadone from [facility]. He was on 190 mg three weeks ago. He is currently taking 160 mg daily, but he expects the dose is increasing this week. His therapist is out of [facility], [place]. He needs a referral to Psychiatry. His physician at [facility] is prescribing his psychiatric medications temporarily. He had a psych med consult. He is concerned about stutter and tremor on Thorazine. He has a history of hepatitis-C. Denies abdominal pain. He did not see Gastroenterology to discuss treatment. His blood pressure was 165/99 02/18/24 per chart review, and today it is normal today. He is on Nifedipine and Clonidine. He takes inhaler as needed, but it might be . He started walking a mile per day. Smokes MJ and 1 ppd. He has a rash on his neck for five years that is not painful of itchy. Fish allergy-throat itching/tight. He can eat shellfish. He gets mgiraines. Requests Rx for Ibuprofen. Patient is asking today about GLP 1 for weight loss and blood sugar. He had nonfasting labs at [facility], and his glucose was 138. He does not have a history of diabetes or prediabetes. When we were discussing the medications I asked if he has a history of pancreatitis, and he says that they did an ultrasound or CT scan at [facility] that showed his pancreas was ?large. ? Per medical history in chart he has a history of syphilis. Patient says he had chlamydia which was treated, but he does not have a history of syphilis. Agreeable to STI screenings. ROS: Constitutional: No unexplained weight loss, fever, chills Cardiovascular: No chest pain. No palpitations Gastrointestinal: No anorexia, nausea, vomiting or diarrhea. No abdominal pain or blood in stool. Physical exam: Constitutional: Alert, in no distress. Eyes: Pupils are equal, round and reactive to light. Extraocular muscles intact. Neck: Supple, Full range of motion. No lymphadenopathy. No palpable thyroid masses. Respiratory: Clear to auscultation. Cardiovascular: S1 S2 regular. No murmurs. Neurologic: Moves all extremities spontaneously. Sensation intact bilaterally. Patient is shaky and has stutter when speaking sometimes. Skin: Hypo/hyperpigmented macular rash on the neck Extremities: Warm and well perfused. No clubbing, cyanosis or edema. 3+ peripheral pulses bilaterally. Psychiatric: Normal mood and affect [facility] Medical History (Updated 04/28/24 @ 15:52 by JAMES Escudero) Asthma Tobacco use disorder Essential hypertension Atrial fibrillation Depression Anxiety Hepatitis C infection Methadone dependence History of syphilis Polysubstance abuse Alcohol dependence Alcohol abuse Opiate use No known health problems Surgical History History of back surgery Social History (Updated 04/28/24 @ 14:15 by China Coughlin MA) Housing: House Alcohol intake: current Alcohol intake frequency: 3 or more drinks per day Alcohol type: beer and hard liquor Patient Tobacco Use Status: Current everyday Tobacco user Cigarette Packs Per Day: 1 Cigarettes Per Day: 20 e-Cigarette/Vaping Use: Never Used Second Hand Smoke Exposure: Yes Substance Use Type: Crack/Cocaine, Heroin, Marijuana and Opiates service: No Current occupational status: unemployed Current occupational exposures/hazards: No Cognitive needs: Yes (adhd) Hearing needs: No Vision needs: No Questionnaire PHQ-9 Over the last 2 weeks, how often have you been bothered by any of the following problems? 1. Little interest or pleasure in doing things: more than half the days 2. Feeling down, depressed, or hopeless: several days 3. Trouble falling or staying asleep, or sleeping too much: nearly every day 4. Feeling tired or having little energy: several days 5. Poor appetite or overeating: more than half the days 6. Feeling bad about yourself - or that you are a failure or have let yourself or your family down: several days 7. Trouble concentrating on things, such as reading the newspaper or watching television: several days 8. Moving or speaking so slowly that other people could have noticed. Or the opposite - being so fidgety or restless that you have been moving around a lot more than usual: nearly every day 9. Thoughts that you would be better off or of hurting yourself in some way: not at all Total score: 14 Depression Screening Interpretation: Positive Depression Screening Follow-up: Existing condition Depression Screening Done: Yes 32628 - PHQ-9 Billing: Yes Source: Developed by Drs. Christiano Fisher, Rhonda Bernal, Cholo Taylor and colleagues, with an educational renée from [employer]. Thrive Questionnaire Date Thrive assessed: 04/28/24 I am a: Patient What is your living situation today?: I have a place to live, but I am worried about losing it in the future Within the past 12 months, did the food you bought not last and you didn't have the money to get more?: Sometimes True Within the past 12 months, did you worry whether your food would run out before you got money to buy more?: Sometimes True Do you have trouble paying for medicines?: No Do you have trouble getting transportation to medical appointments?: Yes Do you have trouble paying your heating and electricity bill?: Yes Do you have trouble taking care of your child, family member or friend?: No Do you have trouble with day-to-day activities such as bathing, preparing meals, shopping, managing finances, etc.?: I choose not to answer this question Are you currently unemployed and looking for a job?: Yes Are you interested in more education?: Yes Please select the resources that you would like help with: Housing/Fci, Transportation and Education Currently or been in a relationship where the following occur: No concerns reported THRIVE Score: 5 AUDIT C Alcohol Use Questionnaire (AUDIT-C) 1. How often do you have a drink containing alcohol?: 4 or more times a week 2. How many drinks containing alcohol do you have on a typical day when you are drinking?: 10 or more 3. How often do you have six or more drinks on one occasion?: Daily or almost daily Total Score: 12 Score Reviewed/Action Taken: Yes DANAY-7 AMB Questionnaire DANAY-7 Date DANAY - 7 assessed: 04/28/24 Feeling nervous, anxious, or on edge: 3 = Nearly every day Not being able to stop or control worryin = Nearly every day Worrying too much about different things: 3 = Nearly every day Trouble relaxin = Nearly every day Being so restless that it is hard to sit still: 2 = More than half the days Becoming easily annoyed or irritable: 0 = Not at all Feeling afraid as if something awful might happen: 1 = Several days Total DANAY-7 score (0-4 normal; 5-9 mild; 10-14 moderate; 15-21 severe): 15 Source: Developed by Drs. Christiano Fisher, Rhonda Bernal, Cholo Taylor and colleagues, with an educational renée from [employer]. DANAY-7 Assessment Billing DANAY-7 Assessment Tool: DANAY-7 Assessment 21778 ACT Questionnaire During the past 4 weeks, how often have you had shortness of breath?: More than once a day During the past 4 weeks, how often did your asthma symptoms wake you up at night or earlier than usual in the morning?: 2-3 nights a week During the past 4 weeks, how often have you had to use your rescue inhaler or nebulizer medication?: 2-3 times a week How would you rate your asthma control during the past 4 weeks?: Poorly controlled ACT Interpretation: Positive Score: 8 Physical exam (Primary Care) Vital Signs: Last Vital Signs Temp 98.2 F 04/28/24 14:26 Pulse 100 04/28/24 14:26 Resp 16 04/28/24 14:26 BP 125/71 04/28/24 14:26 Pulse Ox 96 04/28/24 14:26 Oxygen Delivery Method Room Air 04/28/24 14:26 BMI result Body Mass Index 34.1 Tobacco/Smoking Status: Tobacco use Status Tobacco use date assessed 04/28/24 04/28/24 14:18 Patient Tobacco Use Status Current everyday Tobacco 04/28/24 14:18 e-Cigarette/Vaping Use Never Used 04/28/24 14:18 PHQ-9: PHQ-9 Score PHQ-9: Total score 14 04/28/24 15:06 Depression Screening Interpretation: Positive Depression Screening Follow-up: Existing condition Thrive Assessment: Date of Thrive Assessment Date Thrive assessed 04/28/24 04/28/24 14:25 Currently or been in a relationship where the following occur: No concerns reported Assessment and Plan Assessment & Plan (1) Alcohol dependence: Code(s): F10.20 - Alcohol dependence, uncomplicated Qualifiers: Substance use status: with intoxication Complication of substance- induced condition: uncomplicated Qualified Code(s): F10.220 - Alcohol dependence with intoxication, uncomplicated (2) Polysubstance abuse: Code(s): F19.10 - Other psychoactive substance abuse, uncomplicated (3) Methadone dependence: Code(s): F11.20 - Opioid dependence, uncomplicated (4) Essential hypertension: Code(s): I10 - Essential (primary) hypertension (5) Tobacco use disorder: Code(s): F17.200 - Nicotine dependence, unspecified, uncomplicated (6) Anxiety: Code(s): F41.9 - Anxiety disorder, unspecified (7) Depression: Code(s): F32.A - Depression, unspecified (8) Hepatitis C infection: Code(s): B19.20 - Unspecified viral hepatitis C without hepatic coma Plan Patient is referred to Psychiatry. He will continue his current medication regimen. Ordered fasting labs and screening for STIs. Refer to Gastroenterology for hepatitis-C. Prescribed topical ketoconazole cream for possible tinea versicolor rash on neck. Sent ibuprofen 600 mg for headaches as needed. Take with food. We will need to discuss headaches in greater detail at his follow up appointment. Continue avoidance of fish. EpiPen sent to pharmacy. Continue albuterol as needed for asthma. Smoking cessation is recommended, but this is not the priority at this time. Patient trying to get sober. Schedule CPE in 1 month to review labs. Orders: Orders Lipid Panel Today B19.20 - Unspecified viral hepatitis C without hepatic coma Hemoglobin A1c Today B19.20 - Unspecified viral hepatitis C without hepatic coma Prostate Specific Antigen Scr Today B19.20 - Unspecified viral hepatitis C without hepatic coma, Z12.5 - Encounter for screening for malignant neoplasm of prostate Hepatitis C Viral Load Today B19.20 - Unspecified viral hepatitis C without hepatic coma HIV Ab/Ag Today B19.20 - Unspecified viral hepatitis C without hepatic coma CT NG by PCR Today B19.20 - Unspecified viral hepatitis C without hepatic coma TSH reflex Free T4 Today B19.20 - Unspecified viral hepatitis C without hepatic coma, E66.9 - Obesity, unspecified Hepatitis C Antibody Today B19.20 - Unspecified viral hepatitis C without hepatic coma Syphilis Screen Today B19.20 - Unspecified viral hepatitis C without hepatic coma Referrals Gastroenterology Referral B19.20 - Unspecified viral hepatitis C without hepatic coma Psychiatry Referral F10.20 - Alcohol dependence, uncomplicated, F19.10 - Other psychoactive substance abuse, uncomplicated, F32.A - Depression, unspecified, F41.9 - Anxiety disorder, unspecified Medications: New ibuprofen 600 mg PO Q8H PRN 30 tabs 0RF pain ketoconazole 2% 1 appl topical BID 14 days 30 grams 0RF albuterol sulfate 90 mcg/actuation 2 inhalations inhalation Q4H PRN 8.5 grams 3RF shortness of breath or wheezing epinephrine (EpiPen) call 911 after administration 0.3 mg (0.3 mL) IM ONCE PRN 2 ea 0RF anaphylaxis Coding Level of Care Code New Pt Level 4 (56175) Complex EM visit Add On G2211 Diagnoses Alcohol dependence with uncomplicated intoxication F10.220 Substance use status: with intoxication Complication of substance-induced condition: uncomplicated Polysubstance abuse F19.10 Methadone dependence F11.20 Essential hypertension I10 Tobacco use disorder F17.200 Anxiety F41.9 Depression F32.A Hepatitis C infection B19.20 Additional Codes DANAY-7 Assessment Billing - DANAY-7 Assessment Tool: DANAY-7 Assessment [id number] ([id number])
[2024-04-28 14:26] VITALS: BP 125/71; PULSE 100; RESP 16; TEMP 36.8; O2SAT 96; BMI 34.1
== END 2024-04-28 15:06 | disposition home or self-care (01) ==
PROVIDERS: PCP Physician Assistant Medical; Visit Provider Physician Assistant Medical
DX: I10 Essential (primary) hypertension (principal); F10.220 Alcohol dependence with intoxication, uncomplicated; F19.10 Other psychoactive substance abuse, uncomplicated; F11.20 Opioid dependence, uncomplicated; F17.200 Nicotine dependence, unspecified, uncomplicated; F41.9 Anxiety disorder, unspecified; F32.A Depression, unspecified; B19.20 Unspecified viral hepatitis C without hepatic coma
CPT/HCPCS: 99204; G2211

== ENCOUNTER 2024-05-20 16:56 | Outpatient (REF) | payer OTHER, SELFPAY ==
[2024-05-20 17:22] LABS: Estimated Average Glucose 108 mg/dL; Hemoglobin A1C 119.9358 umol/L; Hemoglobin A1c % 5.4 % (<6.0); Total Hemoglobin (HGBA1C) 3380.6787 umol/L
[2024-05-20 17:39] LABS: Cholesterol 228 mg/dL (<200); HDL Cholesterol 44 mg/dL (>40); LDL Cholesterol Calculated 128 mg/dL (<100); Triglycerides 280 mg/dL (<150)
[2024-05-20 17:54] LABS: Prostate Specific Antigen Scr 0.22 ng/mL (<0.05-4.0); TSH reflex Free T4 1.74 uIU/mL (0.32-4.0)
[2024-05-21 08:02] LABS: Syphilis Screen Nonreactive (Nonreactive)
[2024-05-21 08:29] LABS: HIV AB/AG Nonreactive (Nonreactive); HIV Num 1 0.47 S/CO (0.00-0.99); ~HepC Num1 15.77 S/CO (0.00-0.79); ~Hepatitis C Antibody Reactive (Nonreactive)
[2024-05-22 09:33] LABS: HCV Log PCR <1.18 NOT DETECTED Log IU/mL (NOT DETECTED); HepC Viral Load <15 NOT DETECTED IU/mL (NOT DETECTED)
== END 2024-05-20 16:57 | disposition home or self-care (01) ==
LOC: HO.LAB 16:56
PROVIDERS: PCP Physician Assistant Medical; Visit Provider Physician Assistant Medical
DX: B19.20 Unspecified viral hepatitis C without hepatic coma (principal); Z12.5 Encounter for screening for malignant neoplasm of prostate; E66.9 Obesity, unspecified
CPT/HCPCS: 36415; 80061; 83036; 84153; 84443; 86780; 86803; 87389; 87522

== ENCOUNTER 2024-08-14 09:17 | Outpatient (AMB) | payer OTHER, SELFPAY ==
--- NOTE | 2024-08-14 09:21 | A.OFFPC_ITS ---
Vital Signs 08/14/24 09:23 Height 5 ft 9 in Weight 220 lb BMI 32.5 BP 134/72 Blood Pressure Location Rt brachial Position Sitting Respiration 14 Pulse 86 Pulse Source Pulse Oximeter Temp 98.5 F Temp Source Oral Pulse Oximetry (%) 94 Oxygen Delivery Method Room Air Intake Visit Reasons: Med Management Intake Note: follow up on med management Count Room Clerk Required: No Allergies Fish Containing Products Allergy (Unknown, Verified 08/14/24 09:21) UNKNOWN Tobacco use date assessed: 04/28/24 Dental Screening Dental Screen Date: 04/28/24 HPI HPI Comments History of Present Illness Details This is a 44 year old male with a pmhx of alcohol dependence, methadone dependence, anxiety and depression presenting for follow up. He is here with his girlfriend. He is not taking Acamprosate anymore. It's unclear why. Patient says he detoxed at [facility] for 11 days since I last saw him, and he was in [facility] in [place] after that. Patient says he's been sober the past month. He is on Methadone from [facility]. He says his current dose is 170 mg daily. He had a therapist from [facility], [place]. It's been a while since he's talked to him. I referred to psychiatry urgently in April. The patient says he was not contacted to schedule this. He reports taking more Seroquel than was prescribed to him, and he has been off this medication for 4 weeks. He also stopped Thorazine. Patient says he is taking Amitriptyline, Clonidine, Hydroxyzine, Buspirone. He has a history of hepatitis-C. Denies abdominal pain. He no showed his appointment with Gastroenterology scheduled 07/07/2024. Hepatitis-C antibody was reactive, but viral load was not detectable. He has a rash on his neck for five years that is not painful of itchy. Topical Ketoconazole ineffective. He would like to see dermatology. Endorses bumpy rash on right upper arm that started three weeks ago. Itching resolved. No pustular discharge. No fevers or chills. Seems to be drying out now. Endorses dry mouth on medications. He gets mgiraines. Requests refil on Ibuprofen. Patient says that he was hospitalized at [facility] 6 weeks ago. MA was able to print a discharge summary. Patient was admitted 06/16/2024 to 06/21/2024. He presented with 5 days of in creased swelling in the bilateral lower extremities, abdominal distention and right upper quadrant pain and orthopnea. Initial vitals showed slight tachycardia to 107, RR 15, BP 125/71 and saturation 91% on room air. D-dimer negative. ProBNP 1300, troponin 7, AST/ALT 35/63, COVID-19 negative. Right upper quadrant ultrasound showed hepatic steatosis and CT of the abdomen showed abdominal wall edema and portal hypertension. Overall was hypervolemic. He was admitted for severe alcohol withdrawal (reported drinking 40 nips per day) along with a new diagnosis of acute systolic heart failure (likely due to alcoholic cardiomyopathy). Echo demonstrated EF 40-45% with mild global hypokinesis of the left ventricle. There was no ascites on the CT abdomen. He was started on aspirin and metoprolol. The patient says he does get episodes of chest pain sometimes which occur when he lays down and he associates it with his chronic acid reflux. Patient reports he is on famotidine 20 mg twice daily. He was seen by Cardiology. His volume status was optimized. Reviewed labs from hospitalization: Total cholesterol 172 HDL 44 Triglycerides 95 LDL 109 The patient was also seen at the emergency department on 06/26/2024 at [facility]. [place] was [place] in [place]. He was initially cooperative when EMS arrived and then became agitated requiring restraints. He denied acute trauma, but he told the ED he wanted to kill himelf. He was not cooperative and was chemically sedated. He was re-evaluated at a later time. He denied homicide or suicidal ideations. He was discharged. ROS: Constitutional: No unexplained weight loss or gain, fever, chills, fatigue or night sweats. Respiratory: No cough or sputum production. Cardiovascular: No chest pain currently. Patient endorses chest pain when he lays down which he associated with reflux. No exertional chest pain. Endorses stable AGUIRRE. No palpitations or pedal edema. Gastrointestinal: No anorexia, nausea, vomiting or diarrhea. No abdominal pain or blood in stool. Genitourinary: No dysuria, hematuria, urinary frequency. Skin: see HPI Psychiatric: No SI/HI. Physical exam: Constitutional: Alert, in no distress. Eyes: Pupils are equal, round and reactive to light. Extraocular muscles intact. Neck: Supple, Full range of motion. No lymphadenopathy. Respiratory: Clear to auscultation. Cardiovascular: S1 S2 regular. No murmurs. Abdomen: soft, nontender, nondistended, no palpable masses Skin: Hypo/hyperpigmented macular rash on the neck. Papular rash on right upper arm with hemorrhagic crusts. Extremities: Warm and well perfused. No clubbing, cyanosis or edema. Psychiatric: Normal mood and affect [facility] Medical History (Updated 08/15/24 @ 14:49 by JAMES Escudero) Dry mouth Alcoholic cardiomyopathy Systolic heart failure Rash of neck Portal hypertension Hepatic steatosis Chest pain Mixed hyperlipidemia Asthma Tobacco use disorder Essential hypertension Atrial fibrillation Depression Anxiety Hepatitis C infection Methadone dependence History of syphilis Polysubstance abuse Alcohol dependence Alcohol abuse Opiate use No known health problems Surgical History History of back surgery Social History (Updated 04/28/24 @ 14:[address] [facility]) Housing: House Alcohol intake: current Alcohol intake frequency: 3 or more drinks per day Alcohol type: beer and hard liquor Patient Tobacco Use Status: Current everyday Tobacco user Cigarette Packs Per Day: 1 Cigarettes Per Day: 20 e-Cigarette/Vaping Use: Never Used Second Hand Smoke Exposure: Yes Substance Use Type: Crack/Cocaine, Heroin, Marijuana and Opiates service: No Current occupational status: unemployed Current occupational exposures/hazards: No Cognitive needs: Yes (adhd) Hearing needs: No Vision needs: No Questionnaire PHQ-9 Over the last 2 weeks, how often have you been bothered by any of the following problems? 1. Little interest or pleasure in doing things: nearly every day 2. Feeling down, depressed, or hopeless: nearly every day 3. Trouble falling or staying asleep, or sleeping too much: nearly every day 4. Feeling tired or having little energy: more than half the days 5. Poor appetite or overeating: not at all 6. Feeling bad about yourself - or that you are a failure or have let yourself or your family down: more than half the days 7. Trouble concentrating on things, such as reading the newspaper or watching television: several days 8. Moving or speaking so slowly that other people could have noticed. Or the opposite - being so fidgety or restless that you have been moving around a lot more than usual: not at all 9. Thoughts that you would be better off or of hurting yourself in some way: not at all Total score: 14 14055 - PHQ-9 Billing: Yes Source: Developed by Drs. Christiano Fisher, Rhonda Bernal, Cholo Taylor and colleagues, with an educational renée from [employer]. Thrive Questionnaire Date Thrive assessed: 08/14/24 I am a: Patient What is your living situation today?: I have a steady place to live Within the past 12 months, did the food you bought not last and you didn't have the money to get more?: Never true Within the past 12 months, did you worry whether your food would run out before you got money to buy more?: Never true Do you have trouble paying for medicines?: No Do you have trouble getting transportation to medical appointments?: No Do you have trouble paying your heating and electricity bill?: No Do you have trouble taking care of your child, family member or friend?: No Do you have trouble with day-to-day activities such as bathing, preparing meals, shopping, managing finances, etc.?: No Are you currently unemployed and looking for a job?: Yes Are you interested in more education?: No Please select the resources that you would like help with: None Currently or been in a relationship where the following occur: No concerns reported THRIVE Score: 0 AUDIT C Alcohol Use Questionnaire (AUDIT-C) 1. How often do you have a drink containing alcohol?: Monthly or less 2. How many drinks containing alcohol do you have on a typical day when you are drinking?: 10 or more 3. How often do you have six or more drinks on one occasion?: Daily or almost daily Total Score: 9 DANAY-7 AMB Questionnaire DANAY-7 Date DANAY - 7 assessed: 08/14/24 Feeling nervous, anxious, or on edge: 2 = More than half the days Not being able to stop or control worryin = Several days Worrying too much about different things: 1 = Several days Trouble relaxin = More than half the days Being so restless that it is hard to sit still: 2 = More than half the days Becoming easily annoyed or irritable: 1 = Several days Feeling afraid as if something awful might happen: 0 = Not at all Total DANAY-7 score (0-4 normal; 5-9 mild; 10-14 moderate; 15-21 severe): 9 Source: Developed by Drs. Christiano Fisher, Rhonda Bernal, Cholo Taylor and colleagues, with an educational renée from [employer]. DANAY-7 Assessment Billing DANAY-7 Assessment Tool: DANAY-7 Assessment 03195 Physical exam (Primary Care) Vital Signs: Last Vital Signs Temp 98.5 F 08/14/24 09:23 Pulse 86 08/14/24 09:23 Resp 14 08/14/24 09:23 BP 134/72 08/14/24 09:23 Pulse Ox 94 08/14/24 09:23 Oxygen Delivery Method Room Air 08/14/24 09:23 BMI result Body Mass Index 32.5 Tobacco/Smoking Status: Tobacco use Status Tobacco use date assessed 04/28/24 08/14/24 09:21 Patient Tobacco Use Status Current everyday Tobacco 08/14/24 09:21 e-Cigarette/Vaping Use Never Used 08/14/24 09:21 PHQ-9: PHQ-9 Score PHQ-9: Total score 14 08/14/24 09:27 Thrive Assessment: Date of Thrive Assessment Date Thrive assessed 08/14/24 08/14/24 09:21 Currently or been in a relationship where the following occur: No concerns reported Office Procedures EKG Details: EKG shows normal sinus rhythm, QT/Qtc 414/480 ms, ventricular rate 81 bpm [id number], Complete Coding Level of Care Code Est Pt Level 5 (08762) Complex EM visit Add On G2211 Diagnoses Alcoholic cardiomyopathy I42.6 Systolic heart failure I50.20 Rash of neck R21 Portal hypertension K76.6 Hepatic steatosis K76.0 Essential hypertension I10 Depression F32.A Anxiety F41.9 Hepatitis C infection B19.20 Polysubstance abuse F19.10 Dry mouth R68.2 Skin rash R21 CPT Codes EKG - CPT: 71623-[id number], Complete ([id number]) Additional Codes DANAY-7 Assessment Billing - DANAY-7 Assessment Tool: DANAY-7 Assessment 64568 ([id number]) PHQ-9 - 67306 - PHQ-9 Billing: Yes ([id number]) Time Spent (min) 65 Comment review chart/records, direct care, documenting Assessment & Plan Assessment & Plan (1) Alcoholic cardiomyopathy: Code(s): I42.6 - Alcoholic cardiomyopathy Category: Medical (2) Systolic heart failure: Code(s): I50.20 - Unspecified systolic (congestive) heart failure Category: Medical (3) Rash of neck: Code(s): R21 - Rash and other nonspecific skin eruption Category: Medical (4) Portal hypertension: Code(s): K76.6 - Portal hypertension Category: Medical (5) Hepatic steatosis: Code(s): K76.0 - Fatty (change of) liver, not elsewhere classified Category: Medical (6) Essential hypertension: Code(s): I10 - Essential (primary) hypertension Category: Medical (7) Depression: Code(s): F32.A - Depression, unspecified Category: Medical (8) Anxiety: Code(s): F41.9 - Anxiety disorder, unspecified Category: Medical (9) Hepatitis C infection: Code(s): B19.20 - Unspecified viral hepatitis C without hepatic coma Category: Medical (10) Polysubstance abuse: Code(s): F19.10 - Other psychoactive substance abuse, uncomplicated Category: Medical (11) Dry mouth: Code(s): R68.2 - Dry mouth, unspecified Category: Medical (12) Skin rash: Code(s): R21 - Rash and other nonspecific skin eruption Plan Patient is referred to Psychiatry again urgently. Recommended follow up with therapist at [facility]. Reviewed importance of sobriety and discussed this in the context of his medical issues. I will see if we can get his notes from detox at [facility]. Refer anew to Gastroenterology for history of hep c (viral load undetectable now), hepatic steatosis, portal hypertension. Refer to dermatology for chronic neck rash, likely tinea versicolor. Apply Mupirocin to rash on arm for 1-2 weeks until resolved. Sent ibuprofen 600 mg for headaches as needed. Take with food. EKG reviewed with Dr. Cohen. Mild QT prolongation. No ischemic change. Refer to cardiology. Continue ASA and current antihypertensive regimen. EKG given to patient for appointment at Methadone clinic tomorrow morning. Follow low sodium diet. Warning signs warranting reevaluation at ED reviewed. Check b12, folate. Patient requests testosterone level. Follow up in 4 weeks. Orders: Orders AMB EKG-In Office 08/14/24 R07.9 - Chest pain, unspecified Vitamin B12 and Folate 08/14/24 F10.220 - Alcohol dependence with intoxication, uncomplicated Testosterone, Free/Total 08/14/24 F19.10 - Other psychoactive substance abuse, uncomplicated Referrals Cardiology Referral I42.6 - Alcoholic cardiomyopathy, I50.20 - Unspecified systolic (congestive) heart failure Dermatology Referral R21 - Rash and other nonspecific skin eruption Gastroenterology Referral B19.20 - Unspecified viral hepatitis C without hepatic coma, K76.0 - Fatty (change of) liver, not elsewhere classified, K76.6 - Portal hypertension Psychiatry Outpatient Consultation Service F10.220 - Alcohol dependence with intoxication, uncomplicated, F19.10 - Other psychoactive substance abuse, uncomplicated, F32.A - Depression, unspecified, F41.9 - Anxiety disorder, unspecified Medications: New mupirocin 2% 1 appl topical TID 10 days 22 grams 0RF saliva stimulant comb. no.3 (Biotene Moisturizing Mouth mucosal spray) while awake 1 appl mucous membrane Q2H PRN 44.3 mL 5RF dry mouth Refilled ibuprofen 600 mg PO Q8H PRN 30 tabs 0RF pain Discontinued ketoconazole 2% Discontinued Reason: Doctor's Order 1 appl topical BID 14 days 30 grams 0RF acamprosate Discontinued Reason: Doctor's Order 666 mg (2 x 333 mg) PO TID 30 days 180 tabs 0RF quetiapine Discontinued Reason: Doctor's Order 100 mg PO BEDTIME 30 tabs 0RF
[2024-08-14 09:23] VITALS: BP 134/72; PULSE 86; RESP 14; TEMP 36.9; O2SAT 94; BMI 32.5
== END 2024-08-14 10:41 | disposition home or self-care (01) ==
PROVIDERS: PCP Physician Assistant Medical; Visit Provider Physician Assistant Medical
DX: I50.20 Unspecified systolic (congestive) heart failure (principal); I42.6 Alcoholic cardiomyopathy; K76.6 Portal hypertension; F19.10 Other psychoactive substance abuse, uncomplicated; R21 Rash and other nonspecific skin eruption; K76.0 Fatty (change of) liver, not elsewhere classified; I10 Essential (primary) hypertension; F32.A Depression, unspecified; F41.9 Anxiety disorder, unspecified; B19.20 Unspecified viral hepatitis C without hepatic coma; R68.2 Dry mouth, unspecified

== ENCOUNTER → 2024-08-14 09:17 | Outpatient (BNVA) | payer OTHER, SELFPAY | PROVIDERS: PCP Physician Assistant Medical; Visit Provider Physician Assistant Medical | DX: I42.6 Alcoholic cardiomyopathy (principal); F10.20 Alcohol dependence, uncomplicated; I50.20 Unspecified systolic (congestive) heart failure; R21 Rash and other nonspecific skin eruption; K76.6 Portal hypertension; K76.0 Fatty (change of) liver, not elsewhere classified; I10 Essential (primary) hypertension; F32.A Depression, unspecified; F41.9 Anxiety disorder, unspecified; B19.20 Unspecified viral hepatitis C without hepatic coma; R68.2 Dry mouth, unspecified; G43.909 Migraine, unspecified, not intractable, without status migrainosus; F19.10 Other psychoactive substance abuse, uncomplicated; F11.20 Opioid dependence, uncomplicated; Z79.899 Other long term (current) drug therapy | CPT/HCPCS: 93005; 96127; 99212 ==

== ENCOUNTER 2024-08-14 10:50 | Outpatient (REF) | payer OTHER, SELFPAY ==
[2024-08-14 15:25] LABS: Folate 8.6 ng/mL (> or = 4.0); Vitamin B12 514 pg/mL (200-900)
[2024-08-19 12:54] LABS: Testosterone, Free 35.4 pg/mL (35.0-155.0); Testosterone, Total 268 ng/dL (250-1100)
== END 2024-08-14 10:51 | disposition home or self-care (01) ==
LOC: HO.WFDLDS 10:50
PROVIDERS: Visit Provider Physician Assistant Medical
DX: F19.10 Other psychoactive substance abuse, uncomplicated (principal); F10.220 Alcohol dependence with intoxication, uncomplicated
CPT/HCPCS: 36415; 82607; 82746; 84402; 84403

== ENCOUNTER 2024-11-08 13:31 | Emergency (ER) | payer OTHER, SELFPAY ==
--- NOTE | ~2024-11-08 | US_ITS ---
CLINICAL HISTORY: pain, swelling bilateral legs Bilateral lower extremity venous duplex ultrasound Comparison: None Findings: The visualized deep veins are fully compressible with normal flow. No popliteal cyst. Prominent sized lymph nodes in the groin are seen with normal morphology, likely reactive. Impression: No deep vein thrombosis. This document has been electronically signed by: Carey William MD on 11/08/2024 18:32:05
--- NOTE | ~2024-11-08 | XR_ITS ---
CLINICAL HISTORY: SOB Chest Radiographs, 2 views Comparison: None Findings: No cardiomegaly. Normal mediastinal contours. No pneumothorax. Faint opacity throughout the right lung seen on the PA view. Peribronchial thickening. Linear opacity in the lingula could be subsegmental atelectasis or scarring. No pleural effusion. Normal upper abdomen. No fracture. Impression: Peribronchial thickening may indicate bronchitis. Question developing right-sided pneumonia. This document has been electronically signed by: Carey William MD on 11/08/2024 14:29:10
[2024-11-08 13:37] VITALS: BP 132/88; PULSE 104; RESP 18; TEMP 37.2; O2SAT 95; BMI 38.2
--- NOTE | 2024-11-08 13:37 | ED.SOB ---
HPI - SOB/Dyspnea General Chief Complaint: Extremity Injury, Lower Stated Complaint: legs swelling and hot to touch, diff breathing Time Seen by Provider: 11/08/24 16:38 Source: patient Mode of arrival: ambulatory Limitations: no limitations History of Present Illness ED Provider: Dr. Jamia Velazquez HPI Narrative: patient comes to the emergency room complaining of 1 week of dry cough, shortness of breath. Patient states that he has been using inhalers with minimal relief. Also, patient complaining of reoccurring bilateral lower extremity redness, edema and pain. Patient states that he has been seen at [facility], given Lasix. Patient denies any chest pain, denies fever chills. Related Data Home Medications ?Medication ?Instructions ?Recorded ?Confirmed methadone 10 mg tablet 170 mg PO DAILY 08/14/24 08/14/24 aspirin 81 mg tablet,delayed 81 mg PO DAILY 08/15/24 08/15/24 release (Adult Aspirin Regimen) metoprolol succinate 25 mg 25 mg PO DAILY 08/15/24 08/15/24 tablet,extended release 24 hr Previous Rx's ?Medication ?Instructions ?Recorded epinephrine 0.3 mg/0.3 mL 0.3 mg (0.3 mL) IM ONCE PRN 04/28/24 injection, auto-injector (EpiPen) anaphylaxis #2 ea albuterol sulfate 90 mcg/actuation 2 inh inhalation Q4H PRN shortness 05/23/24 aerosol inhaler of breath or wheezing #8.5 grams cyclobenzaprine 5 mg tablet 5 mg PO TID PRN Pain #60 tabs 05/23/24 nifedipine 60 mg tablet,extended 60 mg PO DAILY #90 tabs 05/23/24 release 24 hr buspirone 30 mg tablet 30 mg PO BID #180 tabs 06/06/24 amitriptyline 100 mg tablet 100 mg PO BEDTIME #90 tabs 06/17/24 hydroxyzine HCl 50 mg tablet 50 mg PO BID #180 tabs 06/17/24 ibuprofen 600 mg tablet 600 mg PO Q8H PRN pain #30 tabs 08/14/24 mupirocin 2 % topical ointment 1 appl topical TID 10 days #22 08/14/24 grams saliva stimulant comb. no.3 1 appl mucous membrane Q2H PRN dry 08/14/24 (Biotene Moisturizing Mouth mouth #44.3 mL mucosal spray) clonidine HCl 0.1 mg tablet 0.1 mg PO Q6H PRN for anxiety #270 10/03/24 tabs omeprazole 20 mg capsule,delayed 20 mg PO DAILY #90 caps 10/20/24 release cefuroxime axetil 500 mg tablet 500 mg PO BID #14 tabs 11/08/24 doxycycline hyclate 100 mg tablet 100 mg PO BID #14 tabs 11/08/24 furosemide 40 mg tablet (Lasix) 40 mg PO DAILY #5 tabs 11/08/24 Allergies Allergy/AdvReac Type Severity Reaction Status Date / Time Fish Containing Products Allergy Unknown UNKNOWN Verified 11/08/24 13:40 Review of Systems Review of Systems: Constitutional : No Weight loss, No Fever, No Chills, No Night Sweats, No Fatigue, No Malaise ENT/Mouth : No Hearing loss, No Ear Pain, No Nasal Congestion, No Sinus Pain, No Hoarseness, No sore throat, No Rhinorrhea, No Swallowing Difficulty Eyes: No Eye Pain, No Swelling, No Redness, No Foreign Body, No Discharge, No Vision Changes Cardiovascular : No Chest Pain, No SOB, No Dyspnea on Exertion, No Orthopnea, no palpitations Respiratory : Complaining of dry Cough, No Sputum, No Wheezing, No Smoke Exposure, No Dyspnea Gastrointestinal : No Nausea, No Vomiting, No Diarrhea, No Constipation, No abdominal Pain, No Hematochezia, No Melena Genitourinary : no irregular bleeding, No Dysuria, No Urinary Frequency, No Hematuria, No Urinary Incontinence, No Urgency, No Flank Pain, No Urinary Flow Changes, No Hesitancy Musculoskeletal : complaining of bilateral lower extremity edema redness and pain.No joint pain, No Myalgias, No Joint Swelling Skin : Erythema in bilateral lower extremites Neuro : No Weakness, No Numbness, No Paresthesias, No Loss of Consciousness, No Dizziness, No Headache Psych : No Anxiety/Panic, No Depression, No SI/HI/AH/VH, No Social Issues, Heme/Lymph: No Bruising, No Bleeding,No Lymphadenopathy Endocrine : No Polyuria, No Polydipsia, No Temperature Intolerance PMFSH Past Medical History Medical History (Updated 11/08/24 @ 18:24 by Jamia Velazquez MD) Dry mouth Alcoholic cardiomyopathy Systolic heart failure Rash of neck Portal hypertension Hepatic steatosis Chest pain Mixed hyperlipidemia Asthma Tobacco use disorder Essential hypertension Atrial fibrillation Depression Anxiety Hepatitis C infection Methadone dependence History of syphilis Polysubstance abuse Alcohol dependence Alcohol abuse Opiate use No known health problems Surgical History History of back surgery Social History Social History (Updated 04/28/24 @ 14:15 by MELANIE Castorena) Housing: House Alcohol intake: current Alcohol intake frequency: 3 or more drinks per day Alcohol type: beer and hard liquor Patient Tobacco Use Status: Current everyday Tobacco user Cigarette Packs Per Day: 1 Cigarettes Per Day: 20 e-Cigarette/Vaping Use: Never Used Second Hand Smoke Exposure: Yes Substance Use Type: Crack/Cocaine, Heroin, Marijuana and Opiates Advance Directives: No Advance Directives Information Provided: No service: No Current occupational status: unemployed Current occupational exposures/hazards: No Cognitive needs: Yes (adhd) Hearing needs: No Vision needs: No Physical Exam Vital Signs: Vital Signs: Last Vital Signs Temp 98.9 F 11/08/24 13:37 Pulse 104 H 11/08/24 13:37 Resp 18 11/08/24 13:37 BP 132/88 11/08/24 13:37 Pulse Ox 95 11/08/24 13:37 O2 Del Method Room Air 11/08/24 13:37 BMI result Body Mass Index 38.2 Const: Other: Appearance: Alert. Oriented X3. No acute distress. Eyes: Pupils equal, round and reactive to light. ENT: Pharynx normal. Neck: Normal inspection. Neck supple. No lymph nodes noted. No crepitus CVS: Normal heart rate and rhythm. Pulses normal. Normal S1 and S2 Respiratory: No respiratory distress. Breath sounds normal. No Wheezing. No rales Abdomen: Soft and nontender. No rigidity. No distention. Skin: Skin warm and dry. Normal skin color. Normal skin turgor. Extremities: +2 pitting edema bilaterally, erythema from the feet up to the ankles bilaterally. pain to palpation in bilateral calves Neuro: Oriented X 3. No motor deficit. No sensory deficit. Moving all extremities. No slurred speech. CN 2 through 12 grossly intact Psych: calm, cooperative, normal affect Course Course Course Narrative: This is an RME performed by Jaida Monroy CNP: Additional HPI, ROS, PE not included below will be deferred to primary provider. patient is a 44 old male who presents to the emergency department for evaluation of One week with new onset bilateral lower extremity swelling started at the feet increasing up to the proximal thighs at this point, shortness of breath, difficulty breathing, intermittent chest pain. SOB unrelieved with home nebulizers. Endorses some remote history of previously being prescribed Lasix, history of ETOH such drug abuse, sober for the past 3-4 months. History of Pepsi states no cirrhosis. Went to [facility] 5 days ago and was given 2 day prescription for furosemide without improvement plan: Serum labs, viral serologies, CXR Medications Administered Discontinued Medications Generic Name Dose Route Start Last Admin Trade Name Freq PRN Reason Stop Dose Admin Cefuroxime Axetil 500 mg 11/08/24 16:53 11/08/24 17:00 Cefuroxime Axetil 500 Mg Tablet PO 11/08/24 16:54 500 mg ONCE ONE Administration Doxycycline Monohydrate 100 mg 11/08/24 16:53 11/08/24 17:00 Doxycycline Monohydrate 100 Mg Capsule PO 11/08/24 16:54 100 mg ONCE ONE Administration Medical Decision Making Medical Decision Making [facility] [place] Narrative: my interpretation of EKG: Normal sinus rhythm, heart rate 100, no ST segment depression or elevation, no T-wave inversion, QTC 470 my interpretation of labs: Patient's hemoglobin slightly decreased at 10.2, hematocrit 29 0.3. Patient does have history of chronic anemia , no significant abnormality in patient's chemistry, normal troponin, BNP slightly elevated at 113. Chest x-ray shows possible right-sided pneumonia. discussed with the patient that we will give him antibiotics to cover both, pneumonia and the lower extremity cellulitis. Patient was given a dose of cefuroxime and doxycycline. Patient's oxygen saturation remained steady at 95% On room air even after walking. I discussed with the patient that he will also need a higher dose of Lasix, currently taking Lasix 20 mg I reviewed patient's record, the last time with the patient was taking any Lasix was in 2023. Pending: Ultrasound Patient did not want to wait for results. Patient left against medical advice Lab Data [facility] [place] Lab Attestation statement: I reviewed the patient's lab results. 11/08/24 14:01 11/08/24 14:01 Labs: Lab Results 03/22/25 03/22/25 Range/Units 14:01 14:17 WBC 9.9 (4.8-10.8) X10*3/uL RBC 3.62 L D (4.60-5.80) X10*6/uL Hgb 10.2 L D (14.0-18.0) g/dl Hct 29.3 L D (42.0-52.0) % MCV 80.9 (80.0-98.0) fL MCH 28.2 (27.0-33.0) pg MCHC 34.8 (31.0-36.0) g/dl RDW 15.3 (11.0-16.0) % Plt Count 258 (160-400) X10*3/uL MPV 8.2 L (9.4-12.4) fL Immature Gran % (Auto) 1.8 H (0.0-0.4) % Neut % (Auto) 69.8 (45-73) % Lymph % (Auto) 17.9 L (20-40) % Banner % (Auto) 6.9 (2-11) % Eos % (Auto) 3.2 (0-4) % Baso % (Auto) 0.4 (0-2) % Lymph # (Auto) 1.8 (1.2-4.9) X10*3/uL Banner # (Auto) 0.7 (0.1-1.2) X10*3/uL Eos # (Auto) 0.3 (0.0-0.4) X10*3/uL Baso # (Auto) 0.0 (0.0-0.2) X10*3/uL Abs Immat Gran (auto) 0.18 H (0.00-0.03) X10*3/uL Absolute Neuts (auto) 6.9 (2.0-8.3) x10*3/uL Absolute Nucleated RBC 0.000 (0.0-0.012) X10*3/uL Nucleated RBC % (auto) 0.0 (0.0-0.2) /100WBC PT 11.2 (10.9-12.4) SEC INR 1.0 (0.9-1.1) Sodium 138 (135-145) mmol/L Potassium 3.3 (3.3-5.1) mmol/L Chloride 100 (96-108) mmol/L Carbon Dioxide 27 (22-29) mmol/L Anion Gap 14 (12-20) BUN 9 (9-16) mg/dL Creatinine 0.97 (0.5-1.4) mg/dL Estim Creat Clear Calc 119.0 Estimated GFR > 60 Random Glucose 110 (60-115) mg/dL Calcium 8.8 (8.4-10.2) mg/dL Magnesium 1.8 (1.6-2.6) mg/dL Total Bilirubin 0.3 (0.0-1.0) mg/dL AST 30 (5-37) U/L ALT 30 (0-40) U/L Alkaline Phosphatase 113 (39-117) U/L Troponin I High Sens < 2.7 (<3.5-35.0) ng/L B-Natriuretic Peptide 113 H (<100) pg/mL Total Protein 7.8 (6.5-8.0) g/dL Albumin 3.7 (3.5-5.0) g/dL Lipase 6 L (8-78) U/L Urine Color Yellow Urine Appearance Clear Urine pH 5.5 (5.0-9.0) Ur Specific Turner <= 1.005 (1.005-1.025) Urine Protein Negative (Neg-Trace) mg/dL Urine Glucose (UA) Negative (Negative) mg/dL Urine Ketones Negative (Negative) mg/dL Urine Blood Negative (Negative) Urine Nitrite Negative (Negative) Ur Leukocyte Esterase Negative (Negative) Ethyl Alcohol < 10 mg/dL Influenza Type A (PCR) NEGATIVE (Negative) Influenza Type B (PCR) NEGATIVE (Negative) RSV RNA Qual (PCR) NEGATIVE (Negative) SARS-CoV-2 RNA (RT-PCR) NEGATIVE (Negative) Discharge Plan Discharge Clinical Impression: Cellulitis, Bilateral edema of lower extremity, Pneumonia Patient Disposition: Left Against Medical Advice Instructions: Cellulitis (ED), Leg Edema (ED), Community Acquired Pneumonia (DC) Additional Instructions: You did not want to wait for the results of your ultrasound, we can not rule out blood clot in your legs. per medical records, last time that the you had any Lasix was in 2023. Therefore, we will start you on 40 mg once a day. Is follow-up with your primary care physician. You are leaving against medical advice. Please follow-up with your primary care physician tomorrow. If you have any worsening or new symptoms, please return to the emergency room or call 911 Prescriptions: New cefuroxime axetil 500 mg tablet 500 mg PO BID Qty: 14 0RF doxycycline hyclate 100 mg tablet 100 mg PO BID Qty: 14 0RF furosemide [Lasix] 40 mg tablet 40 mg PO DAILY Qty: 5 0RF No Action nifedipine 60 mg tablet extended release 24hr 60 mg PO DAILY Qty: 90 3RF cyclobenzaprine 5 mg tablet 5 mg PO TID PRN (Reason: Pain) Qty: 60 0RF albuterol sulfate 90 mcg/actuation HFA aerosol inhaler 2 inh inhalation Q4H PRN (Reason: shortness of breath or wheezing) Qty: 8.5 3RF buspirone 30 mg tablet 30 mg PO BID Qty: 180 0RF hydroxyzine HCl 50 mg tablet 50 mg PO BID Qty: 180 0RF amitriptyline 100 mg tablet 100 mg PO BEDTIME Qty: 90 0RF clonidine HCl 0.1 mg tablet 0.1 mg PO Q6H PRN (Reason: for anxiety) Qty: 270 0RF omeprazole 20 mg capsule,delayed release(DR/EC) 20 mg PO DAILY Qty: 90 0RF epinephrine [EpiPen] 0.3 mg/0.3 mL auto-injector 0.3 mg IM ONCE PRN (Reason: anaphylaxis) Qty: 2 0RF Rx Instructions: call 911 after administration methadone 10 mg tablet 170 mg PO DAILY mupirocin 2 % ointment 1 appl topical TID 10 Days Qty: 22 0RF ibuprofen 600 mg tablet 600 mg PO Q8H PRN (Reason: pain) Qty: 30 0RF Biotene Moisturizing Mouth [place],Non-Aerosol 1 appl mucous membrane Q2H PRN (Reason: dry mouth) Qty: 44.3 5RF Rx Instructions: while awake aspirin [Adult Aspirin Regimen] 81 mg tablet,delayed release (DR/EC) 81 mg PO DAILY metoprolol succinate 25 mg tablet extended release 24 hr 25 mg PO DAILY Stand Alone Forms: Against Medical Advice Print Language: Barbadian
--- NOTE | 2024-11-08 13:42 | ECG_ITS ---
Test Reason : A FIB Blood Pressure : */* mmHG Vent. Rate : 100 BPM Atrial Rate : 100 BPM P-R Int : 126 ms QRS Dur : 92 ms QT Int : 372 ms P-R-T Axes : 66 25 48 degrees QTcB Int : 479 ms Normal sinus rhythm Normal ECG When compared with ECG of 17-Feb-2024 16:29, No significant change was found Referred By: Marlena Monroy Electronically Signed By: KAMERON VILLATORO MD
[2024-11-08 14:08] LABS: MANUAL DIFF FLAG NO
[2024-11-08 14:20] LABS: Basophils Percent Auto 0.4 % (0-2); Eosinophils Absolute Auto 0.3 X10*3/uL (0.0-0.4); Eosinophils Percent Auto 3.2 % (0-4); Hematocrit 29.3 % (42.0-52.0); Imm Gran Abs Auto 0.18 X10*3/uL (0.00-0.03); Imm Gran Pct Auto 1.8 % (0.0-0.4); Lymphocytes Absolute Auto 1.8 X10*3/uL (1.2-4.9); Lymphocytes Percent Auto 17.9 % (20-40); Mean Corpuscular HGB Conc 34.8 g/dl (31.0-36.0); Mean Corpuscular Hemoglobin 28.2 pg (27.0-33.0); Mean Corpuscular Volume 80.9 fL (80.0-98.0); Mean Platelet Volume 8.2 fL (9.4-12.4); Monocytes Absolute Auto 0.7 X10*3/uL (0.1-1.2); Monocytes Percent Auto 6.9 % (2-11); Neutrophils Absolute Auto 6.9 x10*3/uL (2.0-8.3); Neutrophils Percent Auto 69.8 % (45-73); Platelet Count 258 X10*3/uL (160-400); Prothrombin Time 11.2 SEC (10.9-12.4); Red Blood Count 3.62 X10*6/uL (4.60-5.80); Red Cell Distribution Width 15.3 % (11.0-16.0); White Blood Count 9.9 X10*3/uL (4.8-10.8)
[2024-11-08 14:24] LABS: Appearance Urine Clear; Color Urine Yellow; Glucose Urine UA Negative (Negative); Leukocyte Esterase Urine Negative (Negative); Nitrite Urine Negative (Negative); PH 5.5 (5.0-9.0); Specific Gravity - Urine <= 1.005 (1.005-1.025); Urine Blood Negative (Negative); Urine Ketones Negative (Negative); Urine Protein Negative (Neg-Trace)
[2024-11-08 14:25] LABS: Hemoglobin 10.2 g/dl (14.0-18.0)
[2024-11-08 14:55] LABS: B Type Natriuretic Peptide 113 pg/mL (<100)
[2024-11-08 14:58] LABS: Alanine Aminotransferase 30 U/L (0-40); Albumin Level 3.7 g/dL (3.5-5.0); Alkaline Phosphatase 113 U/L (39-117); Anion Gap 14 (12-20); Aspartate Amino Transferase 30 U/L (5-37); Bilirubin Total 0.3 mg/dL (0.0-1.0); Blood Urea Nitrogen 9 mg/dL (9-16); Calcium 8.8 mg/dL (8.4-10.2); Carbon Dioxide 27 mmol/L (22-29); Chloride 100 mmol/L (96-108); Estimated Glomerular Filt Rate > 60; Ethanol < 10 mg/dL; Glucose Random 110 mg/dL (60-115); Lipase 6 U/L (8-78); Magnesium 1.8 mg/dL (1.6-2.6); Potassium 3.3 mmol/L (3.3-5.1); Sodium 138 mmol/L (135-145); Total Protein 7.8 g/dL (6.5-8.0); Troponin-I High Sensitivity < 2.7 ng/L (<3.5-35.0)
[2024-11-08 15:24] LABS: Influenza A PCR NEGATIVE (Negative); Influenza B PCR NEGATIVE (Negative); Resp Syncy Virus RNA Qual PCR NEGATIVE (Negative); SARS COV2 PCR INHOUSE NEGATIVE (Negative)
[2024-11-08] MEDS: cefuroxime axetiL 500 MG TABLET PO (17:00)
[2024-11-08] MEDS: Doxycycline Monohydrate 100 MG CAPSULE PO (17:00)
--- NOTE | 2024-11-08 18:24 | PC.NURSE ---
t/w spoke to MD donis as pt sts he wishes to leave, per MD pt will be leaving AMA as US is not resulted. upon return to exam area pt had left exam room before paperwork was complete.
[2024-11-08 18:26] VITALS: BP 132/88; PULSE 104; RESP 18; TEMP 37.2; O2SAT 95
== END 2024-11-08 18:26 | disposition left against medical advice (07) ==
PROVIDERS: Nurse Practitioner Family; Emergency Provider Emergency Medicine; PCP Physician Assistant Medical
DX: L03.116 Cellulitis of left lower limb (principal); L03.115 Cellulitis of right lower limb; R60.0 Localized edema; J18.9 Pneumonia, unspecified organism; R05.9 Cough, unspecified; R06.02 Shortness of breath; M79.605 Pain in left leg; M79.604 Pain in right leg; Z03.818 Encounter for observation for suspected exposure to other biological agents ruled out; I10 Essential (primary) hypertension; E78.5 Hyperlipidemia, unspecified; J45.909 Unspecified asthma, uncomplicated; B19.20 Unspecified viral hepatitis C without hepatic coma; F11.20 Opioid dependence, uncomplicated; F17.210 Nicotine dependence, cigarettes, uncomplicated; Z79.82 Long term (current) use of aspirin; Z79.899 Other long term (current) drug therapy; Z53.29 Procedure and treatment not carried out because of patient's decision for other reasons
CPT/HCPCS: 0241U; 71046; 80053; 80307; 81003; 83690; 83735; 83880; 84484; 85025; 85610; 93005; 93970; 99283; 99284

== ENCOUNTER → 2024-11-08 13:42 | Outpatient (BNV) | payer OTHER, SELFPAY | PROVIDERS: Emergency Provider Emergency Medicine; PCP Physician Assistant Medical; Visit Provider Internal Medicine Cardiovascular Disease | DX: I48.91 Unspecified atrial fibrillation (principal) | CPT/HCPCS: 93010 ==

== ENCOUNTER → 2024-11-08 13:43 | Outpatient (BNV) | payer OTHER, SELFPAY | PROVIDERS: PCP Physician Assistant Medical; Visit Provider Radiology Diagnostic Radiology | DX: M79.604 Pain in right leg (principal); M79.605 Pain in left leg; R22.43 Localized swelling, mass and lump, lower limb, bilateral; J98.4 Other disorders of lung | CPT/HCPCS: 71046; 93970 ==

== ENCOUNTER 2024-11-13 13:46 | Outpatient (AMB) | payer OTHER, SELFPAY ==
--- NOTE | 2024-11-13 13:48 | MHC.PC.OV ---
Vital Signs 11/13/24 13:51 Height 5 ft 9 in Weight 243 lb 2 oz BMI 35.9 BP 138/74 Blood Pressure Location Rt brachial Position Sitting Respiration 12 Pulse 93 Pulse Source Pulse Oximeter Temp 96.9 F Temp Source Oral Pulse Oximetry (%) 94 Oxygen Delivery Method Room Air Intake Visit Reasons: ed follow up from [facility] [place] Intake Note: ED follow up from [facility] [place] Finishing Operator Required: No Allergies Fish Containing Products Allergy (Unknown, Verified 11/13/24 13:48) UNKNOWN Tobacco use date assessed: 11/13/24 Dental Screening Dental Screen Date: 11/13/24 Did you have a dental visit in the last 12 months?: Yes Did you have a dental problem in the last 6 months where you did not have access to dental care?: No Was dental information given to patient?: Patient has dentist HPI HPI Comments History of Present Illness Details This is a 44 year old male with a pmhx of alcohol dependence, alcoholic cardiomyopathy, methadone dependence, anxiety and depression presents for ER follow up. He is accompanied by his mother. [facility] ED note 11/08/2024 states patient was seen at [facility] for dry cough, shortness of breath and increased lower extremity edema. Patient was reportedly given Lasix at [facility]. He endorsed difficulty breathing and intermittent chest pain. He had shortness of breath unrelieved with nebulizers at home. Patient had EKG with no ischemic changes. Negative troponin. BNP slightly elevated at 113. His chest x-ray showed possible right-sided pneumonia versus bronchitis. He was given cefuroxime and doxycycline to cover for pneumonia and possible lower extremity cellulitis. His oxygen saturation remained steady at 95% even with ambulation. Patient left hospital against medical advice. Was discharged on Lasix 40 mg a day. Bilateral lower extremity ultrasound negative for DVT. Patient reports improvement in swelling in his lower legs. He is happy can put on sneakers again. He still has a mild cough but denies chest pain, shortness of breath, dizziness, hemoptysis. He has a history of hepatitis-C. No known history of cirrhosis. LFTs at ED normal. Denies abdominal pain. He no showed his appointment with Gastroenterology scheduled 07/07/2024. Hepatitis-C antibody was reactive, but viral load was not detectable. Patient states he has been sober for the past 3 months. He still has not seen Gastroenterology. Patient was previously admitted to [facility] 06/16/2024 to 06/21/2024. He presented with 5 days of increased swelling in the bilateral lower extremities, abdominal distention and right upper quadrant pain and orthopnea. Initial vitals showed slight tachycardia to 107, RR 15, BP 125/71 and saturation 91% on room air. D-dimer negative. ProBNP 1300, troponin 7, AST/ALT 35/63, COVID-19 negative. Right upper quadrant ultrasound showed hepatic steatosis and CT of the abdomen showed abdominal wall edema and portal hypertension. Overall was hypervolemic. He was admitted for severe alcohol withdrawal (reported drinking 40 nips per day) along with a new diagnosis of acute systolic heart failure (likely due to alcoholic cardiomyopathy). Echo demonstrated EF 40-45% with mild global hypokinesis of the left ventricle. There was no ascites on the CT abdomen. I referred to Cardiology, but he did not follow up with them. Reviewed labs from hospitalization: Total cholesterol 172 HDL 44 Triglycerides 95 LDL 109 Patient is on 170 mg of methadone. He is not following with a psychiatrist. He has been referred multiple times. Patient says he has bought methadone on the street but is currently getting it from clinic. ROS: Constitutional: No unexplained weight loss or gain, fever, chills, fatigue or night sweats. Respiratory: No hemoptysis, wheezing or shortness of breath. See HPI. Cardiovascular: Denies chest pain, palpitations. +lower extremity edema-see HPI Gastrointestinal: No anorexia, nausea, vomiting or diarrhea. No abdominal pain or blood in stool. Genitourinary: No dysuria, hematuria, urinary frequency. Psychiatric: No SI/HI. Physical exam: Constitutional: Alert, in no distress. Eyes: Pupils are equal, round and reactive to light. Extraocular muscles intact. Neck: Supple, Full range of motion. No lymphadenopathy. Respiratory: Clear to auscultation. No tachypnea. Cardiovascular: S1 S2 regular. No murmurs. Abdomen: soft, nontender, nondistended, no palpable masses Extremities: Warm and well perfused. Intact DP pulses. 2+ edema of the lower legs, ankles and feet. No open wounds. No weeping. There is mild erythema of both feet and lower legs, but there is no calor or shininess or tenderness to palpation. Psychiatric: Tangential, but he is cooperative. [facility] Medical History (Updated 11/13/24 @ 14:08 by JAMES Escudero) Abnormal chest x-ray Dry mouth Alcoholic cardiomyopathy Systolic heart failure Rash of neck Portal hypertension Hepatic steatosis Chest pain Mixed hyperlipidemia Asthma Tobacco use disorder Essential hypertension Atrial fibrillation Depression Anxiety Hepatitis C infection Methadone dependence History of syphilis Polysubstance abuse Alcohol dependence Alcohol abuse Opiate use No known health problems Surgical History History of back surgery Social History (Updated 04/28/24 @ 14:15 by China Coughlin [facility]) Housing: House Alcohol intake: current Alcohol intake frequency: 3 or more drinks per day Alcohol type: beer and hard liquor Patient Tobacco Use Status: Current everyday Tobacco user Cigarette Packs Per Day: 1 Cigarettes Per Day: 20 e-Cigarette/Vaping Use: Never Used Second Hand Smoke Exposure: Yes Substance Use Type: Crack/Cocaine, Heroin, Marijuana and Opiates service: No Current occupational status: unemployed Current occupational exposures/hazards: No Cognitive needs: Yes (adhd) Hearing needs: No Vision needs: No Questionnaire PHQ-9 Over the last 2 weeks, how often have you been bothered by any of the following problems? 1. Little interest or pleasure in doing things: several days 2. Feeling down, depressed, or hopeless: several days 3. Trouble falling or staying asleep, or sleeping too much: several days 4. Feeling tired or having little energy: more than half the days 5. Poor appetite or overeating: several days 6. Feeling bad about yourself - or that you are a failure or have let yourself or your family down: nearly every day 7. Trouble concentrating on things, such as reading the newspaper or watching television: several days 8. Moving or speaking so slowly that other people could have noticed. Or the opposite - being so fidgety or restless that you have been moving around a lot more than usual: several days 9. Thoughts that you would be better off or of hurting yourself in some way: not at all Total score: 11 Depression Screening Interpretation: Positive Depression Screening Follow-up: Other (Referred) Depression Screening Done: Yes 12304 - PHQ-9 Billing: Yes Source: Developed by Drs. Christiano Fisher, Rhonda Bernal, Cholo Taylor and colleagues, with an educational renée from [employer]. Thrive Questionnaire Date Thrive assessed: 11/13/24 I am a: Patient What is your living situation today?: I have a steady place to live Within the past 12 months, did the food you bought not last and you didn't have the money to get more?: Sometimes True Within the past 12 months, did you worry whether your food would run out before you got money to buy more?: Sometimes True Do you have trouble paying for medicines?: Yes Do you have trouble getting transportation to medical appointments?: No Do you have trouble paying your heating and electricity bill?: No Do you have trouble taking care of your child, family member or friend?: No Do you have trouble with day-to-day activities such as bathing, preparing meals, shopping, managing finances, etc.?: Yes Are you currently unemployed and looking for a job?: Yes Are you interested in more education?: No Please select the resources that you would like help with: Paying for medicine and Daily support Currently or been in a relationship where the following occur: No concerns reported THRIVE Score: 2 AUDIT C Alcohol Use Questionnaire (AUDIT-C) 1. How often do you have a drink containing alcohol?: 2-4 times a month 2. How many drinks containing alcohol do you have on a typical day when you are drinking?: 7 to 9 3. How often do you have six or more drinks on one occasion?: Weekly Total Score: 8 DANAY-7 AMB Questionnaire DANAY-7 Date DANAY - 7 assessed: 11/13/24 Feeling nervous, anxious, or on edge: 1 = Several days Not being able to stop or control worryin = More than half the days Worrying too much about different things: 2 = More than half the days Trouble relaxin = More than half the days Being so restless that it is hard to sit still: 2 = More than half the days Becoming easily annoyed or irritable: 2 = More than half the days Feeling afraid as if something awful might happen: 1 = Several days Total DANAY-7 score (0-4 normal; 5-9 mild; 10-14 moderate; 15-21 severe): 12 Source: Developed by Drs. Christiano Fisher, hColo Agnuiano and colleagues, with an educational renée from [employer]. DANAY-7 Assessment Billing DANAY-7 Assessment Tool: DANAY-7 Assessment 67145 Physical exam (Primary Care) Vital Signs: Last Vital Signs Temp 96.9 F 11/13/24 13:51 Pulse 93 11/13/24 13:51 Resp 12 11/13/24 13:51 BP 138/74 11/13/24 13:51 Pulse Ox 94 11/13/24 13:51 Oxygen Delivery Method Room Air 11/13/24 13:51 BMI result Body Mass Index 35.9 Tobacco/Smoking Status: Tobacco use Status Tobacco use date assessed 11/13/24 11/13/24 13:53 Patient Tobacco Use Status Current everyday Tobacco 11/13/24 13:53 e-Cigarette/Vaping Use Never Used 11/13/24 13:53 PHQ-9: PHQ-9 Score PHQ-9: Total score 11 11/13/24 13:53 Depression Screening Interpretation: Positive Depression Screening Follow-up: Other (Referred) Thrive Assessment: Date of Thrive Assessment Date Thrive assessed 11/13/24 11/13/24 13:53 Currently or been in a relationship where the following occur: No concerns reported Coding Level of Care Code Est Pt Level 4 (93068) Complex EM visit Add On G2211 Diagnoses Alcoholic cardiomyopathy I42.6 Systolic heart failure I50.20 Portal hypertension K76.6 Hepatic steatosis K76.0 Essential hypertension I10 Depression F32.A Anxiety F41.9 Hepatitis C infection B19.20 Polysubstance abuse F19.10 Abnormal chest x-ray R93.89 Additional Codes DANAY-7 Assessment Billing - DANAY-7 Assessment Tool: DANAY-7 Assessment 43507 ([id number]) PHQ-9 - 57111 - PHQ-9 Billing: Yes ([id number]) Assessment & Plan Assessment & Plan (1) Alcoholic cardiomyopathy: Code(s): I42.6 - Alcoholic cardiomyopathy Category: Medical (2) Systolic heart failure: Code(s): I50.20 - Unspecified systolic (congestive) heart failure Category: Medical (3) Portal hypertension: Code(s): K76.6 - Portal hypertension Category: Medical (4) Hepatic steatosis: Code(s): K76.0 - Fatty (change of) liver, not elsewhere classified Category: Medical (5) Essential hypertension: Code(s): I10 - Essential (primary) hypertension Category: Medical (6) Depression: Code(s): F32.A - Depression, unspecified Category: Medical (7) Anxiety: Code(s): F41.9 - Anxiety disorder, unspecified Category: Medical (8) Hepatitis C infection: Code(s): B19.20 - Unspecified viral hepatitis C without hepatic coma Category: Medical (9) Polysubstance abuse: Code(s): F19.10 - Other psychoactive substance abuse, uncomplicated Category: Medical (10) Abnormal chest x-ray: Code(s): R93.89 - Abnormal findings on diagnostic imaging of other specified body structures Category: Medical Plan ER follow up for lower extremity swelling likely secondary to acute on chronic systolic heart failure and alcoholic cardiomyopathy and abnormal chest x-ray with possible bronchitis versus pneumonia Patient is instructed to complete both courses of antibiotics. He is improving. We will repeat chest x-ray in 6 weeks to ensure resolution of findings. Continue Lasix 40 mg daily. Check renal function and CBC today. Check echocardiogram and refer to Cardiology. Patient is referred to Psychiatry again urgently. I have also referred to addiction Medicine. Patient says he is getting methadone from clinic now and is aware of the risks of buying this drug on the street. Recommended follow up with therapist at [facility]. Reviewed importance of sobriety and discussed this in the context of his medical issues. Refer anew to Gastroenterology for history of hep c (viral load undetectable now), hepatic steatosis, portal hypertension. Follow up in 1 week. Orders: Orders XR chest 2V 6 Weeks R93.89 - Abnormal findings on diagnostic imaging of other specified body structures Complete Blood Count Auto Diff Today I50.20 - Unspecified systolic (congestive) heart failure CA echo transthoracic complete Today I42.6 - Alcoholic cardiomyopathy Basic Metabolic Panel Today I50.20 - Unspecified systolic (congestive) heart failure Referrals Cardiology Referral I42.6 - Alcoholic cardiomyopathy, I50.20 - Unspecified systolic (congestive) heart failure Gastroenterology Referral B19.20 - Unspecified viral hepatitis C without hepatic coma, K76.0 - Fatty (change of) liver, not elsewhere classified, K76.6 - Portal hypertension Addiction Medicine Referral F19.10 - Other psychoactive substance abuse, uncomplicated Psychiatry Referral F10.220 - Alcohol dependence with intoxication, uncomplicated, F19.10 - Other psychoactive substance abuse, uncomplicated, F32.A - Depression, unspecified, F41.9 - Anxiety disorder, unspecified Medications: Refilled furosemide (Lasix) 40 mg PO DAILY 90 tabs 0RF
[2024-11-13 13:51] VITALS: BP 138/74; PULSE 93; RESP 12; TEMP 36.1; O2SAT 94; BMI 35.9
== END 2024-11-13 14:25 | disposition home or self-care (01) ==
LOC: HO.HMCFM 13:47
PROVIDERS: PCP Physician Assistant Medical; Visit Provider Physician Assistant Medical
DX: I50.20 Unspecified systolic (congestive) heart failure (principal); I42.6 Alcoholic cardiomyopathy; K76.6 Portal hypertension; F19.10 Other psychoactive substance abuse, uncomplicated; K76.0 Fatty (change of) liver, not elsewhere classified; I10 Essential (primary) hypertension; F32.A Depression, unspecified; F41.9 Anxiety disorder, unspecified; B19.20 Unspecified viral hepatitis C without hepatic coma; R93.89 Abnormal findings on diagnostic imaging of other specified body structures

== ENCOUNTER → 2024-11-13 13:46 | Outpatient (BNVA) | payer OTHER, SELFPAY | PROVIDERS: PCP Physician Assistant Medical; Visit Provider Physician Assistant Medical | DX: I42.6 Alcoholic cardiomyopathy (principal); I11.0 Hypertensive heart disease with heart failure; I50.20 Unspecified systolic (congestive) heart failure; K76.6 Portal hypertension; K76.0 Fatty (change of) liver, not elsewhere classified; F32.A Depression, unspecified; F41.9 Anxiety disorder, unspecified; B19.20 Unspecified viral hepatitis C without hepatic coma; F19.10 Other psychoactive substance abuse, uncomplicated; R93.89 Abnormal findings on diagnostic imaging of other specified body structures; Z79.899 Other long term (current) drug therapy | CPT/HCPCS: 96127; 99212 ==

== ENCOUNTER 2024-11-13 14:41 | Outpatient (REF) | payer OTHER, SELFPAY ==
[2024-11-13 17:58] LABS: MANUAL DIFF FLAG NO
[2024-11-13 18:05] LABS: Basophils Absolute Auto 0.1 X10*3/uL (0.0-0.2); Basophils Percent Auto 0.8 % (0-2); Eosinophils Absolute Auto 0.3 X10*3/uL (0.0-0.4); Eosinophils Percent Auto 3.3 % (0-4); Hematocrit 33.8 % (42.0-52.0); Hemoglobin 11.1 g/dl (14.0-18.0); Lymphocytes Absolute Auto 2.5 X10*3/uL (1.2-4.9); Lymphocytes Percent Auto 31.4 % (20-40); Mean Corpuscular HGB Conc 32.8 g/dl (31.0-36.0); Mean Corpuscular Hemoglobin 27.3 pg (27.0-33.0); Mean Corpuscular Volume 83.3 fL (80.0-98.0); Mean Platelet Volume 8.4 fL (9.4-12.4); Monocytes Absolute Auto 0.7 X10*3/uL (0.1-1.2); Monocytes Percent Auto 9.3 % (2-11); Neutrophils Percent Auto 50.2 % (45-73); Platelet Count 378 X10*3/uL (160-400); Red Blood Count 4.06 X10*6/uL (4.60-5.80); Red Cell Distribution Width 15.4 % (11.0-16.0)
[2024-11-13 18:16] LABS: Anion Gap 13 (12-20); Blood Urea Nitrogen 15 mg/dL (9-16); Calcium 9.3 mg/dL (8.4-10.2); Carbon Dioxide 28 mmol/L (22-29); Chloride 101 mmol/L (96-108); Estimated Glomerular Filt Rate 58; Glucose Random 98 mg/dL (60-115); Potassium 3.4 mmol/L (3.3-5.1); Sodium 139 mmol/L (135-145)
== END 2024-11-13 14:42 | disposition home or self-care (01) ==
LOC: HO.WFDLDS 14:41
PROVIDERS: Visit Provider Physician Assistant Medical
DX: I50.20 Unspecified systolic (congestive) heart failure (principal); F32.A Depression, unspecified; I10 Essential (primary) hypertension
CPT/HCPCS: 36415; 80048; 85025

== ENCOUNTER → 2025-01-01 11:18 | Outpatient (BNVA) | payer OTHER, SELFPAY | PROVIDERS: PCP Physician Assistant Medical ==

== ENCOUNTER 2025-02-21 08:52 | Inpatient (IN) | payer OTHER, SELFPAY ==
[2025-02-21] VITALS (10 sets, daily range): BP systolic 92–135; BP diastolic 52–89; PULSE 78–93; RESP 14–22; TEMP 36.3–36.9; O2SAT 92–97; BMI 35.7; BMI 34.5
--- NOTE | 2025-02-21 | ECG_ITS ---
Test Reason : SHORTNESS OF BREATH Blood Pressure : */* mmHG Vent. Rate : 91 BPM Atrial Rate : 91 BPM P-R Int : 132 ms QRS Dur : 98 ms QT Int : 412 ms P-R-T Axes : 47 49 40 degrees QTcB Int : 506 ms Normal sinus rhythm Prolonged QT Abnormal ECG When compared with ECG of 08-Nov-2024 13:45, No significant change was found Referred By: Generic ED Physician Electronically Signed By: KAMERON VILLATORO MD
--- NOTE | ~2025-02-21 | CT_ITS ---
CLINICAL HISTORY: abdominal distention and abdominal pain CT abdomen and pelvis without IV or oral contrast Comparison: None Findings: Minimal discoid atelectasis lung bases. No dependent layering pleural effusions. The heart is not enlarged. No stones are identified in the kidneys, ureters or bladder. There is no hydronephrosis or perinephric stranding/fluid. Evaluation of the liver, spleen, adrenal glands and pancreas demonstrates no lesions. Hepatomegaly with hepatic steatosis. It should be noted that isodense masses may be obscured in the absence of intravenous contrast. No radiopaque gallstones. Heavy stool burden throughout. No evidence of mechanical bowel obstruction. Normal appendix. No pathologically enlarged lymph nodes . No ascites demonstrated. Well-distended urinary bladder. No prostatomegaly. No vertebral body compression fractures or spondylolisthesis. No bony destructive lesions. Discogenic changes L3-4 and L4-5 level. Associated spur disc complexes. Impression: 1. No nephrolithiasis or urinary tract obstruction demonstrated. 2. Hepatomegaly with hepatic steatosis. Diffuse increased stool burden without a transition point to suggest mechanical bowel obstruction. Normal appendix. 3. Ancillary findings as described This document has been electronically signed by: Alvin Leahy MD on 02/21/2025 11:13:19
--- NOTE | ~2025-02-21 | XR_ITS ---
CLINICAL HISTORY: CP Single view chest Comparison: CR - XR CHEST 2V - 11/08/24 14:07 EDT Findings: No consolidation or pneumothorax/pleural effusion. Minimal discoid atelectasis. Mild interstitial/ peribronchial wall thickening. The cardiac silhouette appears prominent due to the slight lordotic positioning No mediastinal shift or tracheal deviation. Osseous structures intact. Impression: 1. Mild central interstitial/ bronchial wall thickening. 2. No airspace disease. This document has been electronically signed by: Alvin Leahy MD on 02/21/2025 11:03:59
--- NOTE | 2025-02-21 09:24 | ED_ITS ---
HPI - General Adult General Chief complaint: Dyspnea Stated complaint: SOB,ABD/BACK PAIN Time Seen by Provider: 02/21/25 09:13 Source: patient and EMS Mode of arrival: EMS Limitations: no limitations History of Present Illness ED Provider: DR. Alas HPI narrative: 45-year-old male history of alcoholic cardiomyopathy, systolic heart failure, hepatitis-C, portal hypertension, polysubstance abuse, alcohol abuse patient was brought in by EMS for evaluation of shortness of breath and abdominal distention. Patient stated he was sober from ETOH for while but he relapsed for about week and a half now been drinking every day including last night, patient report severe distention of the abdomen, causing him difficulty breathing. bilateral ankle edema. No fever, no chills, improvement of shortness of breath , no nausea, no vomiting. Patient admitted to drinking alcohol last night. Related Data Home Medications ?Medication ?Instructions ?Recorded ?Confirmed methadone 10 mg tablet 170 mg PO DAILY 08/14/24 aspirin 81 mg tablet,delayed 81 mg PO DAILY 08/15/24 1 10/16/23 release (Adult Aspirin Regimen) metoprolol succinate 25 mg 25 mg PO DAILY 08/15/24 tablet,extended release 24 hr Previous Rx's ?Medication ?Instructions ?Recorded epinephrine 0.3 mg/0.3 mL 0.3 mg (0.3 mL) IM ONCE PRN 04/28/24 injection, auto-injector (EpiPen) anaphylaxis #2 ea albuterol sulfate 90 mcg/actuation 2 inh inhalation Q4 H PRN shortness 05/23/24 aerosol inhaler of breath or wheezing #8.5 g ale cyclobenzaprine 5 mg tablet 5 mg PO TID PRN Pain #60 t abs 05/23/24 nifedipine 60 mg tablet,extended 60 mg PO DAILY #90 ta bs 05/23/24 release 24 hr buspirone 30 mg tablet 30 mg PO BID #180 tabs 06/06 amitriptyline 100 mg tablet 100 mg PO BEDTIME #90 tabs 06/17/24 hydroxyzine HCl 50 mg tablet 50 mg PO BID #180 tabs mupirocin 2 % topical ointment 1 appl topical TID 10 d ays #22 08/14/24 grams saliva stimulant comb. no.3 1 appl mucous membrane Q2H PRN dry 08/14/24 (Biotene Moisturizing Mouth mouth #44.3 mL mucosal spray) clonidine HCl 0.1 mg tablet 0.1 mg PO Q6H PRN for anxi ety #270 10/03/24 tabs cefuroxime axetil 500 mg tablet 500 mg PO BID #14 tabs 11/08/24 doxycycline hyclate 100 mg tablet 100 mg PO BID #14 ta bs 11/08/24 furosemide 40 mg tablet (Lasix) 40 mg PO DAILY #90 tab s 11/13/24 ibuprofen 600 mg tablet 600 mg PO Q8H PRN pain #30 t abs 11/18/24 omeprazole 20 mg capsule,delayed 20 mg PO DAILY #90 ca ps 02/02/25 release Allergies Allergy/AdvReac Type Severity Reaction Status Date / Time Fish Containing Products Allergy Unknown UNKNOWN Verified 02/21/25 09:05 Review of Systems 2 Review of Systems: All other systems are reviewed and are negative Constitutional: Reports as per HPI and Reports no additional constitutional complaints Eyes: Reports as per HPI and Reports no additional eye complaints Reports system reviewed and no additional complaints, except as documented Cardiovascular: Reports as per HPI and Reports no additional cardiovascular complaints Respiratory: Reports as per HPI and Reports no additional respiratory complaints Gastrointestinal: Reports as per HPI and Reports no additional gastrointestinal complaints Genitourinary: Reports no additional female genitourinary complaints Musculoskeletal: Reports no additional musculoskeletal complaints Skin/Breast: Reports system reviewed and no additional complaints, except as docu Psychiatric: Reports no additional psychiatric complaints Endocrine: Reports no additional endocrine complaints Hematologic/Lymphatic: Reports no additional hematologic/lymphatic complaints Allergic/Immunologic: Reports no additional allergic/immunologic complaints Reports system reviewed and no additional complaints, except as documented and Reports Abnormal speech present [facility] Past Medical History Medical History Abnormal chest x-ray Dry mouth Alcoholic cardiomyopathy Systolic heart failure Rash of neck Portal hypertension Hepatic steatosis Chest pain Mixed hyperlipidemia Asthma Tobacco use disorder Essential hypertension Atrial fibrillation Depression Anxiety Hepatitis C infection Methadone dependence History of syphilis Polysubstance abuse Alcohol dependence Alcohol abuse Opiate use No known health problems Surgical History History of back surgery Social History Social History Housing: House Alcohol intake: current Alcohol intake frequency: 3 or more drinks per day Alcohol type: beer and hard liquor Patient Tobacco Use Status: Current everyday Tobacco user Cigarette Packs Per Day: 1 Cigarettes Per Day: 20 Smoked in Last 30 Days: Yes e-Cigarette/Vaping Use: Never Used Second Hand Smoke Exposure: Yes Use of substances other than those prescribed or required for medical reasons: Yes Substance Use Type: Crack/Cocaine and Opiates Substance Use Frequency: Chronic Longstanding Last Used Substance: Unknown Any prior treatment program specific to substance use: Yes (on methadone) Advance Directives: No Advance Directives Information Provided: No Do you have a plan to hurt others: No Plan service: No Current occupational status: unemployed Current occupational exposures/hazards: No Cognitive needs: Yes (adhd) Hearing needs: No Vision needs: No Physical Exam ED Vital Signs: Vital Signs - 24 hr 02/21/25 09:02 02/21/25 09:03 02/21/25 10:14 Temperature 98.2 F 97.8 F Pulse Rate 92 93 80 Respiratory Rate 22 H 20 16 Blood Pressure 92/53 L 92/53 L 92/52 L Pulse Oximetry 93 97 93 Oxygen Delivery Method Room Air Nasal Cannula Nasal Cannula Oxygen Flow Rate 2 2 02/21/25 11:49 02/21/25 12:00 Temperature 98 F 98.4 F Pulse Rate 80 79 Respiratory Rate 18 14 Blood Pressure 98/59 L 97/52 L Pulse Oximetry 93 92 Oxygen Delivery Method Nasal Cannula Nasal Cannula Oxygen Flow Rate 4 2 BMI result Body Mass Index 35.7 Vital signs have been reviewed and appear to be correct. Blood pressure elevated. Heart rate normal. Respiratory rate normal. Temperature normal. Oxygen saturation normal. Appearance: Alert. Oriented X3. No acute distress. Head: Normal external exam. Normocephalic. Atraumatic. No [place] signs noted. No raccoon eyes noted Eyes: PERRLA. EOMI. Conjunctiva and sclera normal. Eyelids normal. ENT: TM's Normal. Pharynx normal. Uvula midline. Moist mucous membranes. No trismus noted. No drooling noted. No muffled voice noted. Neck: Normal inspection. Neck supple. FROM. No adenopathy. Thyroid Normal. No meningeal signs. No neck mass noted. CVS: Normal heart rate and rhythm. Heart sound normal. No murmurs noted. Pulses normal throughout. Respiratory: No respiratory distress. Painless inspiration. Breath sounds normal. No wheezes/rales/rhonchi noted. Chest nontender. No accessory muscle usage noted or decreased air movement noted. Abdomen: Soft and nontender. Bowel sounds normal in all 4 quadrants. No distention noted. No organomegaly noted. No visible injury noted. Back: No CVA tenderness. Full range of motion noted. Skin: Skin warm and dry. Normal skin color. Normal skin turgor. No rashes/lesions/lacerations noted. Extremities: No lower extremity edema. Extremities exhibit normal range of motion. Extremities nontender. Neuro: Oriented X 3. Cranial nerve exam: II-XII are grossly intact No motor deficit. No sensory deficit. Reflexes normal. Course Reevaluation(s) Reevaluation #1: patient feeling very anxious, tremor, tongue fasciculation, feeling nauseous, vomited once, no visual hallucination, CIWA score is 16 will start the patient on phenobarb. Patient with history of hypertension his blood pressure in the 90s, no sepsis, patient received 1 empirical dose of ceftriaxone and albumin to support his hypotension, will discontinue antibiotic. Has not urinated today complaining of abdominal distention, CT showed distended bladder Angel catheter was placed 1000 cc of clear urine was drained. Will admit the patient. Time: 13:40 Medications Administered Discontinued Medications Generic Name Dose Route Start Last Admin Trade Name Freq PRN Reason Stop Dose Admin Ceftriaxone Sodium 1 gm 02/21/25 11:45 02/21/25 11:53 Ceftriaxone Sodium 1 Gm Vial IVPUSH 02/21/25 11:46 1 gm ONCE ONE Administration Albumin Human 100 mls @ 133.333 mls/hr 02/21/25 09:30 02/21/25 11:16 Kedbumin 25 % IV 02/21/25 11:14 Infused Q1H JEAN Infusion Sodium Chloride 1,000 mls @ 999 mls/hr 02/21/25 10:45 02/21/25 11:16 Ns IV 02/21/25 11:45 Infused .Q1H1M JEAN Infusion Medical Decision Making Differential Diagnosis Differential Diagnoses: The differential diagnosis associated with the presentation includes ( ascites, hypotension, ACS, electrolyte derangement, urinary retention, UTI, alcohol withdrawal.) Admission/Observation Consideration of admission/observation: Escalation of care including admission/observation considered Consult Healthcare Provider Management of the patient was discussed with: Hospitalist ( Dr. Monroy) Lab Data MDM Lab Attestation statement: I reviewed the patient's lab results. 02/21/25 09:20 02/21/25 09:20 Labs: Lab Results 02/21/25 02/21/25 02/21/25 Range/Units 09:20 09:22 10:42 WBC 6.9 (4.8-10.8) X10*3/uL RBC 4.21 L (4.60-5.80) X10*6/uL Hgb 11.6 L (14.0-18.0) g/dl Hct 34.2 L (42.0-52.0) % MCV 81.2 (80.0-98.0) fL MCH 27.6 (27.0-33.0) pg MCHC 33.9 (31.0-36.0) g/dl RDW 15.1 (11.0-16.0) % Plt Count 250 D (160-400) X10*3/uL MPV 8.1 L (9.4-12.4) fL Immature Gran % (Auto) 0.4 (0.0-0.4) % Neut % (Auto) 65.1 (45-73) % Lymph % (Auto) 23.0 (20-40) % [place] % (Auto) 8.9 (2-11) % Eos % (Auto) 2.2 (0-4) % Baso % (Auto) 0.4 (0-2) % Lymph # (Auto) 1.6 (1.2-4.9) X10*3/uL [place] # (Auto) 0.6 (0.1-1.2) X10*3/uL Eos # (Auto) 0.2 (0.0-0.4) X10*3/uL Baso # (Auto) 0.0 (0.0-0.2) X10*3/uL Abs Immat Gran (auto) 0.03 (0.00-0.03) X10*3/uL Absolute Neuts (auto) 4.5 (2.0-8.3) x10*3/uL Absolute Nucleated RBC 0.000 (0.0-0.012) X10*3/uL Nucleated RBC % (auto) 0.0 (0.0-0.2) /100WBC Sodium 136 (135-145) mmol/L Potassium 3.8 (3.3-5.1) mmol/L Chloride 101 (96-108) mmol/L Carbon Dioxide 22 (22-29) mmol/L Anion Gap 17 (12-20) BUN 5 L (9-16) mg/dL Creatinine 1.37 (0.5-1.4) mg/dL Estim Creat Clear Calc 83.1 Estimated GFR 56 Random Glucose 240 H (60-115) mg/dL Lactic Acid 3.0 H* (0.5-2.0) mmol/L Calcium 8.6 D (8.4-10.2) mg/dL Magnesium 2.0 Cancelled (1.6-2.6) mg/dL Total Bilirubin 0.2 (0.0-1.0) mg/dL AST 121 H (5-37) U/L ALT 114 H (0-40) U/L Alkaline Phosphatase 102 (39-117) U/L Ammonia 32 (13-55) umol/L Troponin I High Sens < 2.7 (<3.5-35.0) ng/L B-Natriuretic Peptide < 10 (<100) pg/mL Total Protein 7.7 (6.5-8.0) g/dL Albumin 3.8 (3.5-5.0) g/dL Lipase 15 (8-78) U/L Urine Color Urine Appearance Urine pH (5.0-9.0) Ur Specific [place] (1.005-1.025) Urine Protein (Neg-Trace) mg/dL Urine Glucose (UA) (Negative) mg/dL Urine Ketones (Negative) mg/dL Urine Blood (Negative) Urine Nitrite (Negative) Ur Leukocyte Esterase (Negative) Urine Opiates Screen (Not Detect) Ur Buprenorphine Scrn (Not Detect) ng/mL Ur Oxycodone Screen (Not Detect) ng/mL Urine Methadone Screen (Not Detect) ng/mL Urine Fentanyl Screen (Not Detect) Ur Barbiturates Screen (Not Detect) Ur Phencyclidine Scrn (Not Detect) Ur Amphetamines Screen (Not Detect) U Benzodiazepines Scrn (Not Detect) Urine Cocaine Screen (Not Detect) U Marijuana (THC) Screen (Not Detect) Ethyl Alcohol 140 mg/dL Influenza Type A (PCR) NEGATIVE (Negative) Influenza Type B (PCR) NEGATIVE (Negative) RSV RNA Qual (PCR) NEGATIVE (Negative) SARS-CoV-2 RNA (RT-PCR) NEGATIVE (Negative) 02/21/25 Range/Units 11:44 WBC (4.8-10.8) X10*3/uL RBC (4.60-5.80) X10*6/uL Hgb (14.0-18.0) g/dl Hct (42.0-52.0) % MCV (80.0-98.0) fL MCH (27.0-33.0) pg MCHC (31.0-36.0) g/dl RDW (11.0-16.0) % Plt Count (160-400) X10*3/uL MPV (9.4-12.4) fL Immature Gran % (Auto) (0.0-0.4) % Neut % (Auto) (45-73) % Lymph % (Auto) (20-40) % [place] % (Auto) (2-11) % Eos % (Auto) (0-4) % Baso % (Auto) (0-2) % Lymph # (Auto) (1.2-4.9) X10*3/uL [place] # (Auto) (0.1-1.2) X10*3/uL Eos # (Auto) (0.0-0.4) X10*3/uL Baso # (Auto) (0.0-0.2) X10*3/uL Abs Immat Gran (auto) (0.00-0.03) X10*3/uL Absolute Neuts (auto) (2.0-8.3) x10*3/uL Absolute Nucleated RBC (0.0-0.012) X10*3/uL Nucleated RBC % (auto) (0.0-0.2) /100WBC Sodium (135-145) mmol/L Potassium (3.3-5.1) mmol/L Chloride (96-108) mmol/L Carbon Dioxide (22-29) mmol/L Anion Gap (12-20) BUN (9-16) mg/dL Creatinine (0.5-1.4) mg/dL Estim Creat Clear Calc Estimated GFR Random Glucose (60-115) mg/dL Lactic Acid (0.5-2.0) mmol/L Calcium (8.4-10.2) mg/dL Magnesium (1.6-2.6) mg/dL Total Bilirubin (0.0-1.0) mg/dL AST (5-37) U/L ALT (0-40) U/L Alkaline Phosphatase (39-117) U/L Ammonia (13-55) umol/L Troponin I High Sens (<3.5-35.0) ng/L B-Natriuretic Peptide (<100) pg/mL Total Protein (6.5-8.0) g/dL Albumin (3.5-5.0) g/dL Lipase (8-78) U/L Urine Color Yellow Urine Appearance Clear Urine pH 6.0 (5.0-9.0) Ur Specific [place] 1.010 (1.005-1.025) Urine Protein Negative (Neg-Trace) mg/dL Urine Glucose (UA) Negative (Negative) mg/dL Urine Ketones Negative (Negative) mg/dL Urine Blood Negative (Negative) Urine Nitrite Negative (Negative) Ur Leukocyte Esterase Negative (Negative) Urine Opiates Screen Not Detected (Not Detect) Ur Buprenorphine Scrn Not Detected (Not Detect) ng/mL Ur Oxycodone Screen Not Detected (Not Detect) ng/mL Urine Methadone Screen Positive H (Not Detect) ng/mL Urine Fentanyl Screen POSITIVE H (Not Detect) Ur Barbiturates Screen Not Detected (Not Detect) Ur Phencyclidine Scrn Not Detected (Not Detect) Ur Amphetamines Screen Not Detected (Not Detect) U Benzodiazepines Scrn POSITIVE H (Not Detect) Urine Cocaine Screen Not Detected (Not Detect) U Marijuana (THC) Screen Not Detected (Not Detect) Ethyl Alcohol mg/dL Influenza Type A (PCR) (Negative) Influenza Type B (PCR) (Negative) RSV RNA Qual (PCR) (Negative) SARS-CoV-2 RNA (RT-PCR) (Negative) Independent Interpretation I performed an independent interpretation of an: Plain X-Ray ( Chest:. Mild central interstitial/ bronchial wall thickening. 2. No airspace disease.) and CT Scan ( abdomen pelvis:1. No nephrolithiasis or urinary tract obstruction demonstrated. 2. Hepatomegaly with hepatic steatosis. Diffuse increased stool burden without a transition point to suggest mechanical bowel obstruction. Normal appendix. 3. Ancillary findings as described) Radiology Impression Discussion of test interpretation with radiology: I have reviewed the radiologist's reading. Discharge Plan Discharge Clinical Impression: Alcohol withdrawal, Hypotension, Acute urinary retention Patient Disposition: Admitted As Inpatient Print Language: Chinese
[2025-02-21 09:28] LABS: MANUAL DIFF FLAG NO
[2025-02-21 09:32] LABS: Hematocrit 34.2 % (42.0-52.0); Hemoglobin 11.6 g/dl (14.0-18.0); Imm Gran Abs Auto 0.03 X10*3/uL (0.00-0.03); Imm Gran Pct Auto 0.4 % (0.0-0.4); Lymphocytes Absolute Auto 1.6 X10*3/uL (1.2-4.9); Mean Corpuscular HGB Conc 33.9 g/dl (31.0-36.0); Mean Corpuscular Hemoglobin 27.6 pg (27.0-33.0); Mean Corpuscular Volume 81.2 fL (80.0-98.0); NRBC Abs Auto 0.000 X10*3/uL (0.0-0.012); NRBC Pct Auto 0.0 /100WBC (0.0-0.2); Platelet Count 250 X10*3/uL (160-400); Red Blood Count 4.21 X10*6/uL (4.60-5.80); White Blood Count 6.9 X10*3/uL (4.8-10.8)
[2025-02-21] MEDS: Albumin Human 25 % 100 ML 133.33 ML IV ×2 (09:54→10:35)
--- NOTE | 2025-02-21 10:07 | PC.NURSE ---
Pt's methadone removed from box and sealed bottle of 100mg/10ml sent to pharmacy; pt is aware; receipt in chart
[2025-02-21 10:10] LABS: Alanine Aminotransferase 114 U/L (0-40); Albumin Level 3.8 g/dL (3.5-5.0); Alkaline Phosphatase 102 U/L (39-117); Anion Gap 17 (12-20); Aspartate Amino Transferase 121 U/L (5-37); Blood Urea Nitrogen 5 mg/dL (9-16); Calcium 8.6 mg/dL (8.4-10.2); Carbon Dioxide 22 mmol/L (22-29); Chloride 101 mmol/L (96-108); Creatinine Clr Calc Pharmacy 83.1; Estimated Glomerular Filt Rate 56; Lipase 15 U/L (8-78); Magnesium 2.0 mg/dL (1.6-2.6); Potassium 3.8 mmol/L (3.3-5.1); Sodium 136 mmol/L (135-145); Total Protein 7.7 g/dL (6.5-8.0)
[2025-02-21 10:11] LABS: Ammonia 32 umol/L (13-55)
--- NOTE | 2025-02-21 10:11 | PC.NURSE ---
Pt hypotensive since arrival; Albumin infusing per orders; MD aware
[2025-02-21 10:22] LABS: Resp Syncy Virus RNA Qual PCR NEGATIVE (Negative); SARS COV2 PCR INHOUSE NEGATIVE (Negative)
[2025-02-21 11:42] LABS: B Type Natriuretic Peptide < 10 pg/mL (<100)
[2025-02-21 11:46] LABS: Troponin-I High Sensitivity < 2.7 ng/L (<3.5-35.0)
--- NOTE | 2025-02-21 11:46 | PC.NURSE ---
Per MD, pt's bladder full on xray; pt attempted to use urinal unsuccessfully/states he has difficulty urinating at time; 16Fr Angel cather inserted per orders; pt tolerated well; 8ooml clear yellow urine out immediately; pt's bp 99/59; pt reports he feels like he's withdrawing from ETOH; pt tremulous and anxious, mild headache; MD made aware
[2025-02-21 11:58] LABS: Cannabinoid Screen Urine Not Detected (Not Detect)
[2025-02-21 12:47] LABS: Reflex Lactate? Lactic Acid Added
[2025-02-21 13:04] LABS: Appearance Urine Clear; Glucose Urine UA Negative (Negative); PH 6.0 (5.0-9.0); Specific Gravity - Urine 1.010 (1.005-1.025)
[2025-02-21] MEDS: PHENobarbitaL sodium 130 MG/ML IM ONCE 283 MG IM (13:46)
[2025-02-21] MEDS: diazePAM 10 MG/2 ML CARTRIDGE 5 MG IVPUSH (13:47)
[2025-02-21 13:51] LABS: ~Lactic Acid-LAB USE ONLY 2.2 mmol/L (0.5-2.0)
--- NOTE | 2025-02-21 13:54 | PM.IMHP ---
History of Present Illness Date of Service: 02/21/25 Attending physician on admission: Luis Rodriguez Chief Complaint: SOB, abd distention Pt is a 45-year-old male with a PMH significant for?alcoholic cardiomyopathy with systolic dysfunction, hepatitis-C, portal hypertension, polysubstance use disorder with IVDU on methadone, alcohol use disorder with hx of withdrawal, and mood disorder who presents to the ED with?with abdominal pain and swelling, back pain, and SOB for the past 2-3 days. Per EMS pt called earlier this morning with slurred speech and actively intoxicated on ETOH, with last drink 07:00 this morning. Pt has been drinking 20 nips per day for the past few weeks. Reports has not been urinating much the past 2-3 days and last bowel movement 3 days ago. No previous episodes of urinary retention, but reports urinary hesitancy for many years. Angel catheter was inserted in the ED which drained 1 L of urine. Currently abdominal and back pain have resolved since Angel insertion. Abdominal distention better, though still more than baseline. Some increased anxiety and headache. Denies auditory or visual hallucinations; no tactile disturbances. Pt reports normally sees black bugs when goes through withdrawals. Denies chest pain/pressure. No cough. Of note, pt reports relapsed 10 days ago, injecting heroin into his neck. Has not seen a PCP for many years. In the ED pt with soft BP as as 9252 vitals otherwise stable. Labs were significant for random glucose 240, initial lactic acid 3.0 with repeat 2.2, AST 121, and ALT 114. No leukocytosis. Stable H&H. No significant electrolyte abnormalities. Creatinine 1.37, similar to prior. Troponins negative. Ammonia WNL. UA negative for UTI. Tox screen positive for methadone, fentanyl, and benzos. CXR showed no airspace disease but mild central interstitial/bronchial wall thickening. CT?abdomen/pelvis negative for nephrolithiasis or urinary tract obstruction. Did show hepatomegaly with hepatic steatosis, as well as diffuse increased stool burden without transition point. EKG demonstrated normal sinus rhythm with QTc of 506 but no evidence of significant ST elevations or depressions. Pt was treated in the ED with IVF, albumin, ceftriaxone, diazepam, and started on phenobarb protocol. Pt is admitted to the hospital for treatment and further evaluation of acute urinary retention and likely impending acute alcohol withdrawal. Review of Systems Review of Systems: Negative except for that which is stated in the HPI. [facility] Medical History Abnormal chest x-ray Dry mouth Alcoholic cardiomyopathy Systolic heart failure Rash of neck Portal hypertension Hepatic steatosis Chest pain Mixed hyperlipidemia Asthma Tobacco use disorder Essential hypertension Atrial fibrillation Depression Anxiety Hepatitis C infection Methadone dependence History of syphilis Polysubstance abuse Alcohol dependence Alcohol abuse Opiate use No known health problems Surgical History History of back surgery Social History Housing: House Alcohol intake: current Alcohol intake frequency: 3 or more drinks per day Alcohol type: beer and hard liquor Patient Tobacco Use Status: Current someday Tobacco user Cigarette Packs Per Day: 1 Cigarettes Per Day: 20 Smoked in Last 30 Days: Yes e-Cigarette/Vaping Use: Never Used Second Hand Smoke Exposure: Yes Use of substances other than those prescribed or required for medical reasons: Yes Substance Use Type: Crack/Cocaine and Opiates Substance Use Frequency: Chronic Longstanding Last Used Substance: Unknown Any prior treatment program specific to substance use: Yes (on methadone) Advance Directives: No Advance Directives Information Provided: No Do you have a plan to hurt others: No Plan Nutrition Risks: No Nutritional Risk service: No Current occupational status: unemployed Current occupational exposures/hazards: No Cognitive needs: Yes (adhd) Hearing needs: No Vision needs: No Meds Allergies Allergy/AdvReac Type Severity Reaction Status Date / Time Fish Containing Products Allergy Unknown UNKNOWN Verified 02/21/25 09:05 Active Medications: Current Medications Pharmacy Consult (Consult Rx Etoh Phenob Im/Po) 1 each MISCELLANE ONCE PRN; Protocol PRN Reason: Consult order Phenobarbital (Phenobarbital 15 Mg Tablet) 45 mg PO BID [facility] Stop: 02/23/25 21:01 Phenobarbital (Phenobarbital 30 Mg Tablet) 30 mg PO BID [facility] Stop: 02/25/25 21:01 Phenobarbital (Phenobarbital 30 Mg Tablet) 30 mg PO DAILY [facility] Stop: 02/27/25 09:01 Phenobarbital Sodium (Phenobarbital Sodium 130 Mg/Ml Im Once) 283 mg IM ONCE ONE Stop: 02/21/25 14:01 Last Admin: 02/21/25 13:46 Dose: 283 mg Phenobarbital Sodium (Phenobarbital Sodium 130 Mg/Ml Vial Im Q3hx2) 212 mg IM Q3H JEAN Stop: 02/21/25 20:01 Home Medications ?Medication ?Instructions ?Recorded ?Confirmed ?Last Taken ?Type aspirin 81 mg tablet,delayed 81 mg PO DAILY 08/15/24 02/21/25 02/20/25 History release (Adult Aspirin Regimen) calcium 600 mg (as 1 tab PO DAILY 02/21/25 02/21/25 02/20/25 History carbonate)-vitamin D3 10 mcg (400 unit) tablet chlorpromazine 50 mg tablet 50 mg PO BID 02/21/25 02/21/25 02/20/25 History clonidine HCl 0.1 mg tablet 0.1 mg PO TID PRN for anxiety 02/21/25 02/21/25 Unknown History hydroxyzine pamoate 50 mg capsule 50 mg PO TID 02/21/25 02/21/25 02/20/25 History magnesium oxide 400 mg (241.3 mg 400 mg PO DAILY 02/21/25 02/21/25 02/20/25 History magnesium) tablet methadone 10 mg/mL oral concentrate 180 mg PO DAILY 02/21/25 Unknown History metoprolol succinate 50 mg 50 mg PO DAILY 02/21/25 02/21/25 02/20/25 History tablet,extended release 24 hr potassium chloride 10 mEq 40 meq PO DAILY 02/21/25 02/21/25 02/20/25 History tablet,extended release(part/cryst) quetiapine 100 mg tablet 200 mg PO BEDTIME 02/21/25 02/21/25 02/20/25 History quetiapine 50 mg tablet 50 mg PO BID@0800,1400 02/21/25 02/21/25 Unknown History Physical Exam Vital Signs and Narrative: Vital Signs: Last Vital Signs Temp 98.4 F 02/21/25 12:00 Pulse 79 02/21/25 12:00 Resp 14 02/21/25 12:00 BP 97/52 L 02/21/25 12:00 Pulse Ox 92 02/21/25 12:00 O2 Del Method Nasal Cannula 02/21/25 12:00 O2 Flow Rate 2 02/21/25 12:00 BMI result Body Mass Index 35.7 General: AOx3, no acute distress Resp: Trace diffuse wheezing bilaterally CVS: S1, S2, RRR GI: +BS, firm with moderate distension, NT Skin: Warm, dry Neuro: Cranial nerves II-XII grossly intact bilaterally. Motor grossly intact bilaterally. Minor upper extremity tremors noted. Extremities: No edema Psych: Appropriate affect Results Labs 02/21/25 09:20 02/21/25 09:20 Labs: Laboratory Results - last 24 hr 02/21/25 02/21/25 02/21/25 09:20 09:22 10:42 MCV 81.2 MCH 27.6 MCHC 33.9 RDW 15.1 Plt Count 250 D MPV 8.1 L Immature Gran % (Auto) 0.4 Neut % (Auto) 65.1 Lymph % (Auto) 23.0 [place] % (Auto) 8.9 Eos % (Auto) 2.2 Baso % (Auto) 0.4 Lymph # (Auto) 1.6 [place] # (Auto) 0.6 Eos # (Auto) 0.2 Baso # (Auto) 0.0 Abs Immat Gran (auto) 0.03 Absolute Neuts (auto) 4.5 Absolute Nucleated RBC 0.000 Nucleated RBC % (auto) 0.0 Anion Gap 17 Estim Creat Clear Calc 83.1 Estimated GFR 56 Random Glucose 240 H Lactic Acid 3.0 H* Lactic Acid F/U @ 2Hr Calcium 8.6 D Magnesium 2.0 Cancelled Total Bilirubin 0.2 AST 121 H ALT 114 H Alkaline Phosphatase 102 Ammonia 32 Troponin I High Sens < 2.7 B-Natriuretic Peptide < 10 Total Protein 7.7 Albumin 3.8 Lipase 15 Urine Color Urine Appearance Urine pH Ur Specific [place] Urine Protein Urine Glucose (UA) Urine Ketones Urine Blood Urine Nitrite Ur Leukocyte Esterase Urine Opiates Screen Ur Buprenorphine Scrn Ur Oxycodone Screen Urine Methadone Screen Urine Fentanyl Screen Ur Barbiturates Screen Ur Phencyclidine Scrn Ur Amphetamines Screen U Benzodiazepines Scrn Urine Cocaine Screen U Marijuana (THC) Screen Ethyl Alcohol 140 Influenza Type A (PCR) NEGATIVE Influenza Type B (PCR) NEGATIVE RSV RNA Qual (PCR) NEGATIVE SARS-CoV-2 RNA (RT-PCR) NEGATIVE 02/21/25 02/21/25 11:44 13:20 MCV MCH MCHC RDW Plt Count MPV Immature Gran % (Auto) Neut % (Auto) Lymph % (Auto) [place] % (Auto) Eos % (Auto) Baso % (Auto) Lymph # (Auto) [place] # (Auto) Eos # (Auto) Baso # (Auto) Abs Immat Gran (auto) Absolute Neuts (auto) Absolute Nucleated RBC Nucleated RBC % (auto) Anion Gap Estim Creat Clear Calc Estimated GFR Random Glucose Lactic Acid Lactic Acid F/U @ 2Hr 2.2 H* Calcium Magnesium Total Bilirubin AST ALT Alkaline Phosphatase Ammonia Troponin I High Sens B-Natriuretic Peptide Total Protein Albumin Lipase Urine Color Yellow Urine Appearance Clear Urine pH 6.0 Ur Specific [place] 1.010 Urine Protein Negative Urine Glucose (UA) Negative Urine Ketones Negative Urine Blood Negative Urine Nitrite Negative Ur Leukocyte Esterase Negative Urine Opiates Screen Not Detected Ur Buprenorphine Scrn Not Detected Ur Oxycodone Screen Not Detected Urine Methadone Screen Positive H Urine Fentanyl Screen POSITIVE H Ur Barbiturates Screen Not Detected Ur Phencyclidine Scrn Not Detected Ur Amphetamines Screen Not Detected U Benzodiazepines Scrn POSITIVE H Urine Cocaine Screen Not Detected U Marijuana (THC) Screen Not Detected Ethyl Alcohol Influenza Type A (PCR) Influenza Type B (PCR) RSV RNA Qual (PCR) SARS-CoV-2 RNA (RT-PCR) Assessment and Plan (1) Acute urinary retention: Status: Acute (2) Alcohol withdrawal: Status: Acute (3) Constipation: Status: Acute Plan Pt is a 45-year-old male with a PMH significant for?alcoholic cardiomyopathy with systolic dysfunction, hepatitis-C, portal hypertension, polysubstance use disorder with IVDU on methadone, alcohol use disorder with hx of withdrawal, and mood disorder who presents to the ED with?with abdominal pain and swelling, back pain, and SOB for the past 2-3 days. Pt is admitted to the hospital for treatment and further evaluation of acute urinary retention and likely impending acute alcohol withdrawal. Acute urinary retention Little urine output x2-3 days, abd distention, lower abd and back pain Hx of urinary hesitancy for many years Angel inserted in ED, immediately drained over 1 L Continue with Angel Start tamsulosin Urology consult Constipation No bowel movement for the past 2-[address] showing large amount of stool burden, no clear evidence of bowel obstruction Will give lactulose 30g Colace bid, miralax prn Impending alcohol withdrawal Pt drinking 20 nips daily, hx of withdrawal Continue Phenobarb protocol Daily multivitamin, folic acid, thiamine, famotidine Follow lytes, Mag, BMP CIWA scale Addiction medicine consult Monitor on telemetry Acute lactic acidosis Initial lactic acid 3.0 with repeat 2.2 after IVF Multifactorial: Secondary to alcohol use and urinary retention, not sepsis No indication to continue ABX at this time Elevated glucose Unclear falsely elevated due to urinary retention; past readings have been WNL Follow labs, check A1c tomorrow HTN BP has been soft Pt received IVF and albumin Hold clonidine, metoprolol, nifedipine Resume antihypertensives as warranted Chronic lower leg edema Hold furosemide due to soft BP Mood disorder Continue amitriptyline, buspirone, and quetiapine Full Code Attending:?Dr. oRdriguez DVT Prophylaxis: Lovenox Pt will require a hospitalization of at least two nights for treatment of acute urinary retention and likely impending alcohol withdrawal. Pt will require hospital level care while Angel is inserted, and awaiting specialist consultation with Urology, as well as being on phenobarb protocol for impending withdrawal. Quality Stroke Does the patient have a stroke diagnosis?: No VTE Prior VTE?: No VTE Risk Level:: Medical - moderate - high VTE Device Contraindication: Treatment Not Indicated VTE Drug Contraindication: N/A - Med Ordered
[2025-02-21 14:08] LABS: Cancel Lactic Acid Canceled
--- NOTE | 2025-02-21 15:20 | PHA.MEDREC ---
Pharmacy Consult ? Medication Reconciliation Pharmacy has completed the medication reconciliation, spoke to patient at bedside who was able to confirm all medications when presented with the name. Pt stated he is not taking omeprazole, and ran out of his BID quetiapine but is supposed to be on it.
[2025-02-21] MEDS: Nicotine 21 MG PATCH.TD24 TRANSDERMA (16:48)
[2025-02-21] MEDS: PHENobarbitaL sodium 130 MG/ML VIAL IM Q3Hx2 212 MG IM ×2 (16:50→20:47)
[2025-02-21] MEDS: 0.9 % Sodium Chloride Flush 3 ML SYRINGE IVFLUSH ×2 (17:07→20:53)
[2025-02-22 03:13] VITALS: BP 131/87; PULSE 80; RESP 18; TEMP 36.6; O2SAT 98
[2025-02-22 07:40] VITALS: BP 120/82; PULSE 72; RESP 20; TEMP 36.8; O2SAT 95
[2025-02-22 07:41] LABS: Hemoglobin A1C 124.8788 umol/L; Total Hemoglobin (HGBA1C) 2967.7402 umol/L
[2025-02-22 07:43] LABS: Anion Gap 13 (12-20); Blood Urea Nitrogen 6 mg/dL (9-16); Calcium 8.3 mg/dL (8.4-10.2); Carbon Dioxide 27 mmol/L (22-29); Chloride 102 mmol/L (96-108); Creatinine Clr Calc Pharmacy 145.3; Estimated Glomerular Filt Rate > 60; Potassium 3.4 mmol/L (3.3-5.1); Sodium 139 mmol/L (135-145)
--- NOTE | 2025-02-22 08:42 | P.PNIM_ITS ---
Subjective Subjective Date of Service: 02/22/25 Interval History: anxious, no bm, abd discomfort Physical Exam 2 Vital Signs: Vital Signs: Last Vital Signs Temp 98.3 F 02/22/25 07:40 Pulse 72 02/22/25 07:40 Resp 20 02/22/25 07:40 BP 120/82 02/22/25 07:40 Pulse Ox 95 02/22/25 07:40 O2 Del Method Room Air 02/22/25 07:40 O2 Flow Rate 2 02/22/25 03:13 BMI result Body Mass Index 34.5 General: AO X 3, anxious Resp: CTA bilateral, no accessory muscles used CVS: S1,S2,RRR GI: soft, non tender, distended Neuro: motor grossly intact, alert, tremor Psych: appropriate affect, appropriate insight Objective Data Active Medications Acetaminophen (Acetaminophen 325 Mg Tablet) 650 mg PO Q6H PRN PRN Reason: Pain, Mild 1-3,fever,headache Albuterol Sulfate (Albuterol Sulfate 90 Mcg 8 Gm Inhaler) 2 puff INHALE Q4H PRN PRN Reason: shortness of breath or wheezing Albuterol/Ipratropium (Albuterol/Iprat 2.5/0.5mg 3 Ml Ampul.Neb) 3 ml INHALE RQ4H WHILE AWAKE PRN PRN Reason: Shortness of Breath/Wheezing Amitriptyline HCl (Amitriptyline Hcl 50 Mg Tablet) 100 mg PO BEDTIME [facility] Last Admin: 02/21/25 20:47 Dose: 100 mg Documented By: CLARITZA Aspirin (Aspirin Enteric Coated 81 Mg Tablet.Dr) 81 mg PO DAILY [facility] Buspirone HCl (Buspirone Hcl 10 Mg Tablet) 30 mg PO BID [facility] Last Admin: 02/21/25 20:47 Dose: 30 mg Documented By: CLARITZA Calcium Carbonate (Calcium Carbonate 750 Mg Tab.Chew) 750 mg PO Q4H PRN PRN Reason: Heartburn Chlorpromazine HCl (Chlorpromazine Hcl 25 Mg Tablet) 50 mg PO BID [facility] Last Admin: 02/21/25 20:47 Dose: 50 mg Documented By: CLARITZA Cyclobenzaprine HCl (Cyclobenzaprine Hcl 5 Mg Tablet) 5 mg PO TID PRN PRN Reason: Pain, Mild (Pain Scale 1-3) Docusate Sodium (Docusate Sodium 100 Mg Capsule) 100 mg PO BID [facility] Last Admin: 02/21/25 20:47 Dose: 100 mg Documented By: CLARITZA Enoxaparin Sodium (Enoxaparin Sodium 40 Mg/0.4 Ml Syringe) 40 mg SUBCUT Q24H [facility] Last Admin: 02/21/25 17:12 Dose: 40 mg Documented By: CHRISTI Famotidine (Famotidine 20 Mg Tablet) 20 mg PO BID [facility] Last Admin: 02/21/25 20:47 Dose: 20 mg Documented By: CLARITZA Folic Acid (Folic Acid 1 Mg Tablet) 1 mg PO DAILY [facility] Stop: 02/24/25 15:24 Last Admin: 02/21/25 16:49 Dose: 1 mg Documented By: CHRISTI Hydroxyzine HCl (Hydroxyzine Hcl 50 Mg Tablet) 50 mg PO TID [facility] Last Admin: 02/21/25 20:47 Dose: 50 mg Documented By: CLARITZA Ibuprofen (Ibuprofen 600 Mg Tablet) 600 mg PO Q8H PRN PRN Reason: Pain, Mild (Pain Scale 1-3) Magnesium Hydroxide (Milk Of Magnesia 30 Ml Oral.Susp) 30 ml PO DAILY PRN PRN Reason: Constipation Magnesium Oxide (Magnesium Oxide 400 Mg Tablet) 400 mg PO DAILY [facility] Last Admin: 02/21/25 16:50 Dose: 400 mg Documented By: CHRISTI Multivitamins/Vitamin C (Multivitamin Tablet) 1 tab PO DAILY [facility] Stop: 02/24/25 15:24 Last Admin: 02/21/25 16:49 Dose: 1 tab Documented By: CHRISTI Nicotine (Nicotine 21 Mg Patch.Td24) 21 mg TRANSDERMA DAILY [facility] Last Admin: 02/21/25 16:48 Dose: 21 mg Documented By: CHRISTI Pharmacy Consult (Consult Rx Etoh Phenob Im/Po) 1 each MISCELLANE ONCE PRN; Protocol PRN Reason: Consult order Phenobarbital (Phenobarbital 15 Mg Tablet) 45 mg PO BID [facility] Stop: 02/23/25 21:01 Last Admin: 02/22/25 05:15 Dose: 45 mg Documented By: CLARITZA Comments: okay to give early per dr. clayton Phenobarbital (Phenobarbital 30 Mg Tablet) 30 mg PO BID [facility] Stop: 02/25/25 21:01 Phenobarbital (Phenobarbital 30 Mg Tablet) 30 mg PO DAILY [facility] Stop: 02/27/25 09:01 Polyethylene Glycol (Polyethylene Glycol 3350 17 Gm Powd.Pack) 17 gm PO DAILY PRN PRN Reason: Constipation Potassium Chloride (Potassium Chloride Er 20 Meq Tab.Er.Prt) 40 meq PO DAILY [facility] Quetiapine Fumarate (Quetiapine Fumarate 50 Mg Tablet) 50 mg PO BID@0800,1400 [facility] Quetiapine Fumarate (Quetiapine Fumarate 200 Mg Tablet) 200 mg PO BEDTIME [facility] Last Admin: 02/21/25 20:47 Dose: 200 mg Documented By: CLARITZA Sodium Chloride (0.9 % Sodium Chloride Flush 3 Ml Syringe) 3 ml IVFLUSH QSHIFT [facility] Last Admin: 02/21/25 20:53 Dose: 3 ml Documented By: CLARITZA Tamsulosin HCl (Tamsulosin Hcl 0.4 Mg Capsule) 0.4 mg PO BEDTIME [facility] Last Admin: 02/21/25 14:59 Dose: 0.4 mg Documented By: CHRISTI Thiamine HCl (Thiamine Hcl 100 Mg Tablet) 100 mg PO DAILY [facility] Stop: 02/24/25 15:24 Last Admin: 02/21/25 16:49 Dose: 100 mg Documented By: CHRISTI Labs 02/21/25 09:20 02/22/25 07:06 Labs: Laboratory Results - last 24 hr 02/21/25 02/21/25 02/21/25 09:20 09:22 10:42 MCV 81.2 MCH 27.6 MCHC 33.9 RDW 15.1 Plt Count 250 D MPV 8.1 L Immature Gran % (Auto) 0.4 Neut % (Auto) 65.1 Lymph % (Auto) 23.0 [place] % (Auto) 8.9 Eos % (Auto) 2.2 Baso % (Auto) 0.4 Lymph # (Auto) 1.6 [place] # (Auto) 0.6 Eos # (Auto) 0.2 Baso # (Auto) 0.0 Abs Immat Gran (auto) 0.03 Absolute Neuts (auto) 4.5 Absolute Nucleated RBC 0.000 Nucleated RBC % (auto) 0.0 Anion Gap 17 Estim Creat Clear Calc 83.1 Estimated GFR 56 Random Glucose 240 H Estimat Average Glucose Hemoglobin A1c % Lactic Acid 3.0 H* Lactic Acid F/U @ 2Hr Calcium 8.6 D Magnesium 2.0 Cancelled Total Bilirubin 0.2 AST 121 H ALT 114 H Alkaline Phosphatase 102 Ammonia 32 Troponin I High Sens < 2.7 B-Natriuretic Peptide < 10 Total Protein 7.7 Albumin 3.8 Lipase 15 Urine Color Urine Appearance Urine pH Ur Specific [place] Urine Protein Urine Glucose (UA) Urine Ketones Urine Blood Urine Nitrite Ur Leukocyte Esterase Urine Opiates Screen Ur Buprenorphine Scrn Ur Oxycodone Screen Urine Methadone Screen Urine Fentanyl Screen Ur Barbiturates Screen Ur Phencyclidine Scrn Ur Amphetamines Screen U Benzodiazepines Scrn Urine Cocaine Screen U Marijuana (THC) Screen Ethyl Alcohol 140 Influenza Type A (PCR) NEGATIVE Influenza Type B (PCR) NEGATIVE RSV RNA Qual (PCR) NEGATIVE SARS-CoV-2 RNA (RT-PCR) NEGATIVE 02/21/25 02/21/25 02/22/25 11:44 13:20 07:06 MCV MCH MCHC RDW Plt Count MPV Immature Gran % (Auto) Neut % (Auto) Lymph % (Auto) [place] % (Auto) Eos % (Auto) Baso % (Auto) Lymph # (Auto) [place] # (Auto) Eos # (Auto) Baso # (Auto) Abs Immat Gran (auto) Absolute Neuts (auto) Absolute Nucleated RBC Nucleated RBC % (auto) Anion Gap 13 Estim Creat Clear Calc 145.3 Estimated GFR > 60 Random Glucose 108 Estimat Average Glucose 126 Hemoglobin A1c % 6.0 Lactic Acid Lactic Acid F/U @ 2Hr 2.2 H* Calcium 8.3 L Magnesium Total Bilirubin AST ALT Alkaline Phosphatase Ammonia Troponin I High Sens B-Natriuretic Peptide Total Protein Albumin Lipase Urine Color Yellow Urine Appearance Clear Urine pH 6.0 Ur Specific [place] 1.010 Urine Protein Negative Urine Glucose (UA) Negative Urine Ketones Negative Urine Blood Negative Urine Nitrite Negative Ur Leukocyte Esterase Negative Urine Opiates Screen Not Detected Ur Buprenorphine Scrn Not Detected Ur Oxycodone Screen Not Detected Urine Methadone Screen Positive H Urine Fentanyl Screen POSITIVE H Ur Barbiturates Screen Not Detected Ur Phencyclidine Scrn Not Detected Ur Amphetamines Screen Not Detected U Benzodiazepines Scrn POSITIVE H Urine Cocaine Screen Not Detected U Marijuana (THC) Screen Not Detected Ethyl Alcohol Influenza Type A (PCR) Influenza Type B (PCR) RSV RNA Qual (PCR) SARS-CoV-2 RNA (RT-PCR) Assessment and Plan (1) Anxiety: Status: Acute Plan 45M PMH alcohol dependence with alcoholic cardiomyopathy and systolic dysfunction, hepatitis-C, portal hypertension, polysubstance dependence on methadone, mood disorder presented with abdominal pain and swelling and shortness of breath. Found to have 1 L urinary retention Acute urinary retention 1 L after Angel insertion, continue Flomax, urology eval Constipation Continue oral laxatives No ileus or obstruction on imaging Alcohol dependence with withdrawal Phenobarbital protocol Monitor CIWA Acute lactic acidosis Due to alcohol and liver disease, no sepsis Alcoholic steatohepatitis Abstinence recommended History of hypertension Blood pressures have been low normal, continue to hold diuretics and antihypertensives Mood disorder Continue buspirone, Seroquel, amitriptyline Polysubstance dependence Addiction eval DVT prophylaxis with Lovenox Full code reason for continued hospitalization: Active withdrawal Quality Stroke Does the patient have a stroke diagnosis?: No VTE Prior VTE?: No VTE Risk Level:: Medical - moderate - high VTE Device Contraindication: Treatment Not Indicated VTE Drug Contraindication: N/A - Med Ordered
[2025-02-22] MEDS: Nicotine 21 MG PATCH.TD24 TRANSDERMA (09:04)
[2025-02-22] MEDS: Potassium Chloride ER 20 MEQ TAB.ER.PRT 40 MEQ PO (09:04)
[2025-02-22] MEDS: Aspirin Enteric Coated 81 MG TABLET.DR PO (09:04)
--- NOTE | 2025-02-22 09:07 | HE.PHANOTE ---
Methadone Verification Patient brought in methadone take home bottles from home. Patient receives Methadone 100 mg from [facility]. Last had take home bottles filled on 02/21/25. Patient reporting he took his last methadone dose on 02/21. Nae Slater, PharmD
[2025-02-22] MEDS: 0.9 % Sodium Chloride Flush 3 ML SYRINGE IVFLUSH ×3 (09:09→21:50)
[2025-02-22] MEDS: methADONE HCl 20 MG/2 ML ORAL.CONC 100 MG PO (09:44)
[2025-02-22 11:57] VITALS: BP 124/72; PULSE 80; RESP 20; TEMP 36.3; O2SAT 96
--- NOTE | 2025-02-22 14:25 | MHC.CM.PN ---
DX ETOH WITHDRAWAL He lives with his and adult children. He reports that he is independent with all functional mobility. No DME Consult Recovery Team ETOH Polysubstance He is active with Nurse Navigator [facility] Declined offer to document a HCP. DP Home vs community resource info provided by the Recovery team
[2025-02-22 15:11] VITALS: BP 130/81; PULSE 86; RESP 17; TEMP 36.9; O2SAT 96
[2025-02-22 19:06] VITALS: BP 151/82; PULSE 100; RESP 18; TEMP 36.4; O2SAT 98
[2025-02-22] MEDS: Milk of Magnesia 30 ML ORAL.SUSP PO (21:49)
[2025-02-22 23:21] VITALS: BP 144/95; PULSE 92; RESP 18; TEMP 36.1; O2SAT 92
--- NOTE | 2025-02-23 | ECG_ITS ---
Test Reason : check qt Blood Pressure : */* mmHG Vent. Rate : 77 BPM Atrial Rate : 77 BPM P-R Int : 130 ms QRS Dur : 88 ms QT Int : 396 ms P-R-T Axes : 60 29 40 degrees QTcB Int : 448 ms Sinus rhythm with marked sinus arrhythmia Otherwise normal ECG When compared with ECG of 21-Feb-2025 09:08, QT has shortened Referred By: Cailin Regan Electronically Signed By: Lucio Jean-Baptiste
[2025-02-23 04:00] VITALS: BP 153/94; PULSE 77; RESP 18; TEMP 36.6; O2SAT 96
[2025-02-23 06:52] LABS: Alanine Aminotransferase 95 U/L (0-40); Albumin Level 3.9 g/dL (3.5-5.0); Alkaline Phosphatase 99 U/L (39-117); Anion Gap 14 (12-20); Aspartate Amino Transferase 78 U/L (5-37); Blood Urea Nitrogen 8 mg/dL (9-16); Calcium 8.6 mg/dL (8.4-10.2); Carbon Dioxide 25 mmol/L (22-29); Chloride 103 mmol/L (96-108); Creatinine Clr Calc Pharmacy 128.6; Estimated Glomerular Filt Rate > 60; Magnesium 2.3 mg/dL (1.6-2.6); Potassium 3.9 mmol/L (3.3-5.1); Sodium 138 mmol/L (135-145); Total Protein 7.2 g/dL (6.5-8.0)
[2025-02-23 06:55] LABS: Hematocrit 34.8 % (42.0-52.0); Hemoglobin 11.7 g/dl (14.0-18.0); Mean Corpuscular HGB Conc 33.6 g/dl (31.0-36.0); Mean Corpuscular Hemoglobin 27.8 pg (27.0-33.0); Mean Corpuscular Volume 82.7 fL (80.0-98.0); NRBC Abs Auto 0.000 X10*3/uL (0.0-0.012); NRBC Pct Auto 0.0 /100WBC (0.0-0.2); Platelet Count 211 X10*3/uL (160-400); Red Blood Count 4.21 X10*6/uL (4.60-5.80); White Blood Count 5.1 X10*3/uL (4.8-10.8)
[2025-02-23 07:00] LABS: INTERNATIONAL NORM RATIO 1.0 (0.9-1.1); Prothrombin Time 10.9 SEC (10.9-12.4)
[2025-02-23 07:12] VITALS: BP 140/70; PULSE 100; RESP 18; TEMP 36.6; O2SAT 98
--- NOTE | 2025-02-23 09:18 | HO.PM.IMPN ---
Subjective Subjective Date of Service: 02/23/25 Interval History: anxious, no bm, abd discomfort Physical Exam Vital Signs: Vital Signs: Last Vital Signs Temp 97.9 F 02/23/25 07:12 Pulse 100 02/23/25 07:12 Resp 18 02/23/25 07:12 BP 140/70 H 02/23/25 07:12 Pulse Ox 98 02/23/25 07:12 O2 Del Method Room Air 02/23/25 07:12 O2 Flow Rate 2 02/22/25 03:13 BMI result Body Mass Index 34.5 General: AO X 3, anxious Resp: CTA bilateral, no accessory muscles used CVS: S1,S2,RRR GI: soft, non tender, distended Neuro: motor grossly intact, alert, tremor Psych: appropriate affect, appropriate insight Objective Data Active Medications Acetaminophen (Acetaminophen 325 Mg Tablet) 650 mg PO Q6H PRN PRN Reason: Pain, Mild 1-3,fever,headache Albuterol Sulfate (Albuterol Sulfate 90 Mcg 8 Gm Inhaler) 2 puff INHALE Q4H PRN PRN Reason: shortness of breath or wheezing Albuterol/Ipratropium (Albuterol/Iprat 2.5/0.5mg 3 Ml Ampul.Neb) 3 ml INHALE RQ4H WHILE AWAKE PRN PRN Reason: Shortness of Breath/Wheezing Amitriptyline HCl (Amitriptyline Hcl 50 Mg Tablet) 100 mg PO BEDTIME [facility] Last Admin: 02/22/25 21:39 Dose: 100 mg Documented By: DIANNA Aspirin (Aspirin Enteric Coated 81 Mg Tablet.) 81 mg PO DAILY [facility] Last Admin: 02/22/25 09:04 Dose: 81 mg Documented By: CÉSAR Buspirone HCl (Buspirone Hcl 10 Mg Tablet) 30 mg PO BID [facility] Last Admin: 02/22/25 21:42 Dose: 30 mg Documented By: DIANNA Calcium Carbonate (Calcium Carbonate 750 Mg Tab.Chew) 750 mg PO Q4H PRN PRN Reason: Heartburn Chlorpromazine HCl (Chlorpromazine Hcl 25 Mg Tablet) 50 mg PO BID [facility] Last Admin: 02/22/25 21:38 Dose: 50 mg Documented By: DIANNA Cyclobenzaprine HCl (Cyclobenzaprine Hcl 5 Mg Tablet) 5 mg PO TID PRN PRN Reason: Pain, Mild (Pain Scale 1-3) Last Admin: 02/23/25 05:37 Dose: 5 mg Documented By: DIANNA Docusate Sodium (Docusate Sodium 100 Mg Capsule) 100 mg PO BID [facility] Last Admin: 02/22/25 21:43 Dose: 100 mg Documented By: DIANNA Enoxaparin Sodium (Enoxaparin Sodium 40 Mg/0.4 Ml Syringe) 40 mg SUBCUT Q24H [facility] Last Admin: 02/22/25 16:34 Dose: 40 mg Documented By: GERARDO Famotidine (Famotidine 20 Mg Tablet) 20 mg PO BID [facility] Last Admin: 02/22/25 21:39 Dose: 20 mg Documented By: DIANNA Folic Acid (Folic Acid 1 Mg Tablet) 1 mg PO DAILY [facility] Stop: 02/24/25 15:24 Last Admin: 02/22/25 09:04 Dose: 1 mg Documented By: CÉSAR Hydroxyzine HCl (Hydroxyzine Hcl 50 Mg Tablet) 50 mg PO TID [facility] Last Admin: 02/22/25 21:44 Dose: 50 mg Documented By: DIANNA Ibuprofen (Ibuprofen 600 Mg Tablet) 600 mg PO Q8H PRN PRN Reason: Pain, Mild (Pain Scale 1-3) Last Admin: 02/23/25 05:38 Dose: 600 mg Documented By: DIANNA Magnesium Hydroxide (Milk Of Magnesia 30 Ml Oral.Susp) 30 ml PO DAILY PRN PRN Reason: Constipation Last Admin: 02/22/25 21:49 Dose: 30 ml Documented By: DIANNA Magnesium Oxide (Magnesium Oxide 400 Mg Tablet) 400 mg PO DAILY [facility] Last Admin: 02/22/25 09:03 Dose: 400 mg Documented By: CÉSAR Methadone HCl (Methadone Hcl 20 Mg/2 Ml Oral.Conc) 100 mg PO DAILY [facility] Last Admin: 02/22/25 09:44 Dose: 100 mg Documented By: CÉSAR Co-signed By: GERARDO Multivitamins/Vitamin C (Multivitamin Tablet) 1 tab PO DAILY [facility] Stop: 02/24/25 15:24 Last Admin: 02/22/25 09:03 Dose: 1 tab Documented By: HO.MALDONA Nicotine (Nicotine 21 Mg Patch.Td24) 21 mg TRANSDERMA DAILY [facility] Last Admin: 02/22/25 09:04 Dose: 21 mg Documented By: CÉSAR Pharmacy Consult (Consult Rx Etoh Phenob Im/Po) 1 each MISCELLANE ONCE PRN; Protocol PRN Reason: Consult order Phenobarbital (Phenobarbital 15 Mg Tablet) 45 mg PO BID [facility] Stop: 02/23/25 21:01 Last Admin: 02/22/25 21:39 Dose: 45 mg Documented By: DIANNA Phenobarbital (Phenobarbital 30 Mg Tablet) 30 mg PO BID [facility] Stop: 02/25/25 21:01 Phenobarbital (Phenobarbital 30 Mg Tablet) 30 mg PO DAILY [facility] Stop: 02/27/25 09:01 Polyethylene Glycol (Polyethylene Glycol 3350 17 Gm Powd.Pack) 17 gm PO DAILY PRN PRN Reason: Constipation Potassium Chloride (Potassium Chloride Er 20 Meq Tab.Er.Prt) 40 meq PO DAILY [facility] Last Admin: 02/22/25 09:04 Dose: 40 meq Documented By: CÉSAR Quetiapine Fumarate (Quetiapine Fumarate 50 Mg Tablet) 50 mg PO BID@0800,1400 [facility] Last Admin: 02/22/25 13:56 Dose: 50 mg Documented By: CÉSAR Quetiapine Fumarate (Quetiapine Fumarate 200 Mg Tablet) 200 mg PO BEDTIME [facility] Last Admin: 02/22/25 21:38 Dose: 200 mg Documented By: DIANNA Sodium Chloride (0.9 % Sodium Chloride Flush 3 Ml Syringe) 3 ml IVFLUSH QSHIFT [facility] Last Admin: 02/22/25 21:50 Dose: 3 ml Documented By: DIANNA Tamsulosin HCl (Tamsulosin Hcl 0.4 Mg Capsule) 0.4 mg PO BEDTIME [facility] Last Admin: 02/22/25 21:38 Dose: 0.4 mg Documented By: DIANNA Thiamine HCl (Thiamine Hcl 100 Mg Tablet) 100 mg PO DAILY [facility] Stop: 02/24/25 15:24 Last Admin: 02/22/25 09:03 Dose: 100 mg Documented By: CÉSAR Labs 02/23/25 05:50 02/23/25 05:50 Labs: Laboratory Results - last 24 hr 02/23/25 05:50 MCV 82.7 MCH 27.8 MCHC 33.6 RDW 15.3 Plt Count 211 MPV 8.6 L Absolute Nucleated RBC 0.000 Nucleated RBC % (auto) 0.0 PT 10.9 INR 1.0 Anion Gap 14 Estim Creat Clear Calc 128.6 Estimated GFR > 60 Random Glucose 138 H Calcium 8.6 Magnesium 2.3 Total Bilirubin 0.2 Direct Bilirubin < 0.2 AST 78 H ALT 95 H Alkaline Phosphatase 99 Total Protein 7.2 Albumin 3.9 Microbiology Microbiology Results: Microbiology 02/21/25 10:36 Blood Culture - Preliminary Blood - Venous No growth after 24 hours. 02/21/25 10:42 Blood Culture - Preliminary Blood - Venous No growth after 24 hours. Assessment and Plan (1) Anxiety: Status: Acute Plan 45M PMH alcohol dependence with alcoholic cardiomyopathy and systolic dysfunction, hepatitis-C, portal hypertension, polysubstance dependence on methadone, mood disorder presented with abdominal pain and swelling and shortness of breath. Found to have 1 L urinary retention Acute urinary retention 1 L after Angel insertion, continue Flomax, will do trial of void Constipation Continue oral laxatives and HI No ileus or obstruction on imaging Alcohol dependence with withdrawal Phenobarbital protocol Monitor CIWA Acute lactic acidosis Due to alcohol and liver disease, no sepsis Alcoholic steatohepatitis Abstinence recommended History of hypertension Blood pressures have been low normal, continue to hold diuretics and antihypertensives Mood disorder Continue buspirone, Seroquel, amitriptyline Polysubstance dependence Addiction eval DVT prophylaxis with Lovenox Full code reason for continued hospitalization: Active withdrawal Quality Stroke Does the patient have a stroke diagnosis?: No VTE Prior VTE?: No VTE Risk Level:: Medical - moderate - high VTE Device Contraindication: Treatment Not Indicated VTE Drug Contraindication: N/A - Med Ordered
[2025-02-23] MEDS: Potassium Chloride ER 20 MEQ TAB.ER.PRT 40 MEQ PO (09:30)
[2025-02-23] MEDS: Aspirin Enteric Coated 81 MG TABLET.DR PO (09:31)
[2025-02-23] MEDS: Nicotine 21 MG PATCH.TD24 TRANSDERMA (09:36)
[2025-02-23] MEDS: methADONE HCl 20 MG/2 ML ORAL.CONC 100 MG PO (09:37)
--- NOTE | 2025-02-23 11:04 | MHC.CM.PN ---
Per ROUNDS discussion, Patient is still withdrawing and not yet medically cleared for dc. Home/resume services is the goal and CM will continue to follow.
--- NOTE | 2025-02-23 11:47 | HO.ADDICT_ITS ---
History of Present Illness Date of Service: 02/23/2025 Chief Complaint: Alcohol withdrawl Reason for Consult: NONA Sources of Information: patient interviewed and chart reviewed HPI Narrative: Patient is a 45 year old male with history of AUD, OUD, portal hypertension, and alcohol related cardiopmyopathy. Presented to ED with abdominal discomfort, found to retaining 1,000ml of urine and shortly after showing sx of acute alcohol withdrawal and subsequently admitted. Seen by correctional nurse on 02/22, history obtained and reviewed. When seen by t/w patient requesting methadone dose increase. He reports regular dose is 180mg, however when he presented to the [facility] on Sunday, he was administered a brethalyzer test and due to alcohol level, provider decreased dose for that day and take home bottle of 100mg given as well. Patient was to see provider today, 02/23, however ended up admitted. When seen by this advertising copy writer, he is awake, alert, appropriate. He does not appear to be in any distress. He states that he is starting to not feel well due to dose decrease. correctional nurse called clinic and verified patients report. [facility] staff advising that increasing dose back to 180mg would be appropriate, given that dose was decreased due to active alcohol use. In terms of alcohol use-patient states he is planning to restart ESTEPHANIA. Found Campral to be the most helpful, however this medication has been on backorder for many months. No withdrawal sx noted or reported Labs and EKG reviewed--QTcB 507 at admission Medical Evaluation Reviewed: Yes Review of Systems Constitutional: Reports as per HPI and Reports body ache(s) Gastrointestinal: Denies diarrhea, Denies loose stools and Denies nausea Musculoskeletal: Reports myalgias Psychiatric: Reports irritability Diagnostics Vital Signs (24Hr): Vital Signs - 24 hr 02/22/25 11:57 02/22/25 15:11 02/22/25 19:06 Temperature 97.3 F 98.5 F 97.6 F Pulse Rate 80 86 100 Respiratory Rate 20 17 18 Blood Pressure 124/72 130/81 151/82 H Pulse Oximetry 96 96 98 Oxygen Delivery Method Room Air Room Air Room Air 02/22/25 23:21 02/23/25 04:00 02/23/25 07:12 Temperature 96.9 F 97.8 F 97.9 F Pulse Rate 92 77 100 Respiratory Rate 18 18 18 Blood Pressure 144/95 H 153/94 H 140/70 H Pulse Oximetry 92 96 98 Oxygen Delivery Method Room Air Room Air Room Air BMI result Body Mass Index 34.5 Labs 02/23/25 05:50 02/23/25 05:50 Labs: Laboratory Results - last 48 hr 02/21/25 02/21/25 02/21/25 09:20 11:44 13:20 WBC RBC Hgb Hct MCV MCH MCHC RDW Plt Count MPV Absolute Nucleated RBC Nucleated RBC % (auto) PT INR Sodium Potassium Chloride Carbon Dioxide Anion Gap BUN Creatinine Estim Creat Clear Calc Estimated GFR Random Glucose Estimat Average Glucose Hemoglobin A1c % Lactic Acid F/U @ 2Hr 2.2 H* Calcium Magnesium Total Bilirubin Direct Bilirubin AST ALT Alkaline Phosphatase Troponin I High Sens < 2.7 Total Protein Albumin Urine Color Yellow Urine Appearance Clear Urine pH 6.0 Ur Specific [place] 1.010 Urine Protein Negative Urine Glucose (UA) Negative Urine Ketones Negative Urine Blood Negative Urine Nitrite Negative Ur Leukocyte Esterase Negative Urine Opiates Screen Not Detected Ur Buprenorphine Scrn Not Detected Ur Oxycodone Screen Not Detected Urine Methadone Screen Positive H Urine Fentanyl Screen POSITIVE H Ur Barbiturates Screen Not Detected Ur Phencyclidine Scrn Not Detected Ur Amphetamines Screen Not Detected U Benzodiazepines Scrn POSITIVE H Urine Cocaine Screen Not Detected U Marijuana (THC) Screen Not Detected 02/22/25 02/23/25 07:06 05:50 WBC 5.1 RBC 4.21 L Hgb 11.7 L Hct 34.8 L MCV 82.7 MCH 27.8 MCHC 33.6 RDW 15.3 Plt Count 211 MPV 8.6 L Absolute Nucleated RBC 0.000 Nucleated RBC % (auto) 0.0 PT 10.9 INR 1.0 Sodium 139 138 Potassium 3.4 3.9 Chloride 102 103 Carbon Dioxide 27 25 Anion Gap 13 14 BUN 6 L 8 L Creatinine 0.77 0.87 Estim Creat Clear Calc 145.3 128.6 Estimated GFR > 60 > 60 Random Glucose 108 138 H Estimat Average Glucose 126 Hemoglobin A1c % 6.0 Lactic Acid F/U @ 2Hr Calcium 8.3 L 8.6 Magnesium 2.3 Total Bilirubin 0.2 Direct Bilirubin < 0.2 AST 78 H ALT 95 H Alkaline Phosphatase 99 Troponin I High Sens Total Protein 7.2 Albumin 3.9 Urine Color Urine Appearance Urine pH Ur Specific [place] Urine Protein Urine Glucose (UA) Urine Ketones Urine Blood Urine Nitrite Ur Leukocyte Esterase Urine Opiates Screen Ur Buprenorphine Scrn Ur Oxycodone Screen Urine Methadone Screen Urine Fentanyl Screen Ur Barbiturates Screen Ur Phencyclidine Scrn Ur Amphetamines Screen U Benzodiazepines Scrn Urine Cocaine Screen U Marijuana (THC) Screen Mental Status Exam Mental Status Exam Patient Appearance: Appropriate Level of Consciousness: Awake, Appropriate and Alert Patient Behavior: Appropriate and Talkative Affect Description: Calm Speech Pattern: Clear Hallucinations: None Thought Content: positive for Intact Judgement: Good Medications Medications Current Medications Acetaminophen (Acetaminophen 325 Mg Tablet) 650 mg PO Q6H PRN PRN Reason: Pain, Mild 1-3,fever,headache Albuterol Sulfate (Albuterol Sulfate 90 Mcg 8 Gm Inhaler) 2 puff INHALE Q4H PRN PRN Reason: shortness of breath or wheezing Albuterol/Ipratropium (Albuterol/Iprat 2.5/0.5mg 3 Ml Ampul.Neb) 3 ml INHALE RQ4H WHILE AWAKE PRN PRN Reason: Shortness of Breath/Wheezing Amitriptyline HCl (Amitriptyline Hcl 50 Mg Tablet) 100 mg PO BEDTIME [facility] Last Admin: 02/22/25 21:39 Dose: 100 mg Aspirin (Aspirin Enteric Coated 81 Mg Tablet.Dr) 81 mg PO DAILY [facility] Last Admin: 02/23/25 09:31 Dose: 81 mg Buspirone HCl (Buspirone Hcl 10 Mg Tablet) 30 mg PO BID [facility] Last Admin: 02/23/25 09:34 Dose: 30 mg Calcium Carbonate (Calcium Carbonate 750 Mg Tab.Chew) 750 mg PO Q4H PRN PRN Reason: Heartburn Chlorpromazine HCl (Chlorpromazine Hcl 25 Mg Tablet) 50 mg PO BID [facility] Last Admin: 02/23/25 09:30 Dose: 50 mg Cyclobenzaprine HCl (Cyclobenzaprine Hcl 5 Mg Tablet) 5 mg PO TID PRN PRN Reason: Pain, Mild (Pain Scale 1-3) Last Admin: 02/23/25 05:37 Dose: 5 mg Docusate Sodium (Docusate Sodium 100 Mg Capsule) 100 mg PO BID [facility] Last Admin: 02/23/25 09:33 Dose: 100 mg Enoxaparin Sodium (Enoxaparin Sodium 40 Mg/0.4 Ml Syringe) 40 mg SUBCUT Q24H [facility] Last Admin: 02/22/25 16:34 Dose: 40 mg Famotidine (Famotidine 20 Mg Tablet) 20 mg PO BID [facility] Last Admin: 02/23/25 09:33 Dose: 20 mg Folic Acid (Folic Acid 1 Mg Tablet) 1 mg PO DAILY [facility] Stop: 02/24/25 15:24 Last Admin: 02/23/25 09:34 Dose: 1 mg Hydroxyzine HCl (Hydroxyzine Hcl 50 Mg Tablet) 50 mg PO TID [facility] Last Admin: 02/23/25 09:32 Dose: 50 mg Ibuprofen (Ibuprofen 600 Mg Tablet) 600 mg PO Q8H PRN PRN Reason: Pain, Mild (Pain Scale 1-3) Last Admin: 02/23/25 05:38 Dose: 600 mg Magnesium Hydroxide (Milk Of Magnesia 30 Ml Oral.Susp) 30 ml PO DAILY PRN PRN Reason: Constipation Last Admin: 02/22/25 21:49 Dose: 30 ml Magnesium Oxide (Magnesium Oxide 400 Mg Tablet) 400 mg PO DAILY [facility] Last Admin: 02/23/25 09:31 Dose: 400 mg Methadone HCl (Methadone Hcl 20 Mg/2 Ml Oral.Conc) 100 mg PO DAILY [facility] Last Admin: 02/23/25 09:37 Dose: 100 mg Multivitamins/Vitamin C (Multivitamin Tablet) 1 tab PO DAILY [facility] Stop: 02/24/25 15:24 Last Admin: 02/23/25 09:35 Dose: 1 tab Nicotine (Nicotine 21 Mg Patch.Td24) 21 mg TRANSDERMA DAILY [facility] Last Admin: 02/23/25 09:36 Dose: 21 mg Pharmacy Consult (Consult Rx Etoh Phenob Im/Po) 1 each MISCELLANE ONCE PRN; Protocol PRN Reason: Consult order Phenobarbital (Phenobarbital 15 Mg Tablet) 45 mg PO BID [facility] Stop: 02/23/25 21:01 Last Admin: 02/23/25 09:33 Dose: 45 mg Phenobarbital (Phenobarbital 30 Mg Tablet) 30 mg PO BID [facility] Stop: 02/25/25 21:01 Phenobarbital (Phenobarbital 30 Mg Tablet) 30 mg PO DAILY [facility] Stop: 02/27/25 09:01 Polyethylene Glycol (Polyethylene Glycol 3350 17 Gm Powd.Pack) 17 gm PO DAILY PRN PRN Reason: Constipation Potassium Chloride (Potassium Chloride Er 20 Meq Tab.Er.Prt) 40 meq PO DAILY [facility] Last Admin: 02/23/25 09:30 Dose: 40 meq Quetiapine Fumarate (Quetiapine Fumarate 50 Mg Tablet) 50 mg PO BID@0800,1400 [facility] Last Admin: 02/23/25 09:35 Dose: 50 mg Quetiapine Fumarate (Quetiapine Fumarate 200 Mg Tablet) 200 mg PO BEDTIME [facility] Last Admin: 02/22/25 21:38 Dose: 200 mg Sodium Chloride (0.9 % Sodium Chloride Flush 3 Ml Syringe) 3 ml IVFLUSH QSHIFT [facility] Last Admin: 02/22/25 21:50 Dose: 3 ml Tamsulosin HCl (Tamsulosin Hcl 0.4 Mg Capsule) 0.4 mg PO BEDTIME [facility] Last Admin: 02/22/25 21:38 Dose: 0.4 mg Thiamine HCl (Thiamine Hcl 100 Mg Tablet) 100 mg PO DAILY [facility] Stop: 02/24/25 15:24 Last Admin: 02/23/25 09:35 Dose: 100 mg Allergies Allergies Allergy/AdvReac Type Severity Reaction Status Date / Time Fish Containing Products Allergy Unknown UNKNOWN Verified 02/21/25 09:05 Assessment & Plan Assessment & Plan (1) Opioid use disorder: Status: Acute Code(s): F11.90 - Opioid use, unspecified, uncomplicated Assessment and Plan: * EKG and if no issues, methadone dose to go back to previous dose of 180mg QD * already connected to [facility] (2) Alcohol use disorder, severe, dependence: Status: Acute Code(s): F10.20 - Alcohol dependence, uncomplicated Assessment and Plan: * pheno taper in place, alcohol withdrawal sx well managed * [facility] appt to discuss ESTEPHANIA * IOP level of care may be of some benefit to patient Total time managing care of this patient today _35___ minutes. PMFSH Past Medical History Medical History Abnormal chest x-ray Dry mouth Alcoholic cardiomyopathy Systolic heart failure Rash of neck Portal hypertension Hepatic steatosis Chest pain Mixed hyperlipidemia Asthma Tobacco use disorder Essential hypertension Atrial fibrillation Depression Anxiety Hepatitis C infection Methadone dependence History of syphilis Polysubstance abuse Alcohol dependence Alcohol abuse Opiate use No known health problems Surgical History Surgical History History of back surgery Social History Social History Household Members: Spouse Housing: House Do you presently have visiting nurse or other home services: No Alcohol intake: current Alcohol intake frequency: 3 or more drinks per day Alcohol type: beer and hard liquor Patient Tobacco Use Status: Current someday Tobacco user Tobacco use type: Cigarette Cigarette Packs Per Day: 1 Cigarettes Per Day: 20.0 e-Cigarette/Vaping Use: Never Used Second Hand Smoke Exposure: Yes Substance Use Type: Crack/Cocaine and Opiates service: No Current occupational status: unemployed Current occupational exposures/hazards: No Cognitive needs: Yes (adhd) Hearing needs: No Vision needs: No
[2025-02-23 12:00] VITALS: BP 146/72; PULSE 88; RESP 15; TEMP 36.4; O2SAT 93
[2025-02-23] MEDS: methADONE HCl 20 MG/2 ML ORAL.CONC 80 MG PO (13:18)
[2025-02-23] MEDS: 0.9 % Sodium Chloride Flush 3 ML SYRINGE IVFLUSH ×2 (13:19→17:38)
[2025-02-23 15:54] VITALS: BP 154/93; PULSE 98; RESP 18; TEMP 36; O2SAT 97
[2025-02-23 19:55] VITALS: BP 148/72; PULSE 92; RESP 18; TEMP 36.6; O2SAT 94
[2025-02-24] VITALS: BP 155/100; PULSE 97; RESP 16; TEMP 36.4; O2SAT 97
[2025-02-24 03:38] VITALS: BP 157/112; PULSE 87; RESP 16; TEMP 36.3; O2SAT 97
[2025-02-24 06:43] LABS: Hematocrit 38.9 % (42.0-52.0); Hemoglobin 12.7 g/dl (14.0-18.0); Mean Corpuscular HGB Conc 32.6 g/dl (31.0-36.0); Mean Corpuscular Hemoglobin 27.3 pg (27.0-33.0); Mean Corpuscular Volume 83.7 fL (80.0-98.0); NRBC Abs Auto 0.000 X10*3/uL (0.0-0.012); NRBC Pct Auto 0.0 /100WBC (0.0-0.2); Platelet Count 215 X10*3/uL (160-400); Red Blood Count 4.65 X10*6/uL (4.60-5.80); White Blood Count 5.8 X10*3/uL (4.8-10.8)
[2025-02-24 06:46] LABS: Anion Gap 14 (12-20); Blood Urea Nitrogen 8 mg/dL (9-16); Calcium 9.0 mg/dL (8.4-10.2); Carbon Dioxide 25 mmol/L (22-29); Chloride 104 mmol/L (96-108); Creatinine Clr Calc Pharmacy 128.6; Estimated Glomerular Filt Rate > 60; Potassium 4.3 mmol/L (3.3-5.1); Sodium 139 mmol/L (135-145)
[2025-02-24 07:24] VITALS: BP 150/90; PULSE 84; RESP 20; TEMP 36.3; O2SAT 98
[2025-02-24] MEDS: methADONE HCl 20 MG/2 ML ORAL.CONC 180 MG PO (09:02)
[2025-02-24] MEDS: Potassium Chloride ER 20 MEQ TAB.ER.PRT 40 MEQ PO (09:02)
[2025-02-24] MEDS: Aspirin Enteric Coated 81 MG TABLET.DR PO (09:03)
[2025-02-24] MEDS: Nicotine 21 MG PATCH.TD24 TRANSDERMA (09:05)
--- NOTE | 2025-02-24 10:42 | P.DS_ITS ---
DS: Providers Provider Date of Service: 02/24/25 Date of admission: 02/21/25 13:47 Date of discharge: 02/24/25 Primary care physician: JAMES Escudero Consults: 02/21/25 14:27 Addiction Medicine Provider Routine Consulting Provider: Addiction Covering Reason for consultation: AUD, 20 nips daily Consult to Urology Routine Consulting Provider: [facility] Reason for consultation: Acute urinary retintion, 1L drained DS: Diagnosis Discharge Diagnosis (1) Opioid use disorder: Status: Acute (2) Alcohol use disorder, severe, dependence: Status: Acute DS: Summary Hospital Course Hospital Course: from initial hpi: 45-year-old male with a PMH significant for?alcoholic cardiomyopathy with systolic dysfunction, hepatitis-C, portal hypertension, polysubstance use disorder with IVDU on methadone, alcohol use disorder with hx of withdrawal, and mood disorder who presents to the ED with?with abdominal pain and swelling, back pain, and SOB for the past 2-3 days. Per EMS pt called earlier this morning with slurred speech and actively intoxicated on ETOH, with last drink 07:00 this morning. Pt has been drinking 20 nips per day for the past few weeks. Reports has not been urinating much the past 2-3 days and last bowel movement 3 days ago. No previous episodes of urinary retention, but reports urinary hesitancy for many years. Angel catheter was inserted in the ED which drained 1 L of urine. Currently abdominal and back pain have resolved since Angel insertion. Abdominal distention better, though still more than baseline. Some increased anxiety and headache. Denies auditory or visual hallucinations; no tactile disturbances. Pt reports normally sees black bugs when goes through withdrawals. Denies chest pain/pressure. No cough. Of note, pt reports relapsed 10 days ago, injecting heroin into his neck. Has not seen a PCP for many years. In the ED pt with soft BP as as 9252 vitals otherwise stable. Labs were significant for random glucose 240, initial lactic acid 3.0 with repeat 2.2, AST 121, and ALT 114. No leukocytosis. Stable H&H. No significant electrolyte abnormalities. Creatinine 1.37, similar to prior. Troponins negative. Ammonia WNL. UA negative for UTI. Tox screen positive for methadone, fentanyl, and benzos. CXR showed no airspace disease but mild central interstitial/bronchial wall thickening. CT?abdomen/pelvis negative for nephrolithiasis or urinary tract obstruction. Did show hepatomegaly with hepatic steatosis, as well as diffuse increased stool burden without transition point. EKG demonstrated normal sinus rhythm with QTc of 506 but no evidence of significant ST elevations or depressions. Pt was treated in the ED with IVF, albumin, ceftriaxone, diazepam, and started on phenobarb protocol. Pt is admitted to the hospital for treatment and further evaluation of acute urinary retention and likely impending acute alcohol withdrawal. hospital course: Patient was admitted for acute urinary retention likely due to alcohol use, Angel was inserted 1 L came out, was initially started on Flomax but patient did well with voiding trial and will discontinue Flomax on discharge as this was likely due to alcohol use. For constipation received oral laxatives and suppository with resolution. For alcohol dependence with withdrawal was treated with phenobarbital protocol and symptoms resolved. For acute lactic acidosis this was due to alcohol liver disease not sepsis. For alcoholic steatohepatitis abstinence is recommended. For history of hypertension nifedipine has been discontinued for low normal blood pressures. For mood disorder was continued on buspirone, Seroquel, amitriptyline. For polysubstance dependence will follow up with addiction. Patient is feeling better will be discharged home. Time Attestation Discharge Coordination Time (in mins): 33 Quality: Safe Use of Opioids Does Pt have an Active Cancer Diagnosis on the Problem List?: No Quality: Stroke Does the patient have a stroke diagnosis?: No Physical Exam Vital Signs: Vital Signs: Last Vital Signs Temp 97.4 F 02/24/25 07:24 Pulse 84 02/24/25 07:24 Resp 20 02/24/25 07:24 BP 150/90 H 02/24/25 07:24 Pulse Ox 98 02/24/25 07:24 O2 Del Method Room Air 02/24/25 07:24 O2 Flow Rate 2 02/22/25 03:13 BMI result Body Mass Index 34.5 General: AO X 3, no acute distress Resp: CTA bilateral, no accessory muscles used CVS: S1,S2,RRR GI: soft, non tender, non distended Neuro: motor grossly intact, alert Psych: appropriate affect, appropriate insight DS: Data Data Completed and Pending Labs on day of discharge: Laboratory Results - last 24 hr 02/24/25 05:41 WBC 5.8 RBC 4.65 Hgb 12.7 L Hct 38.9 L MCV 83.7 MCH 27.3 MCHC 32.6 RDW 15.3 Plt Count 215 MPV 8.8 L Absolute Nucleated RBC 0.000 Nucleated RBC % (auto) 0.0 Sodium 139 Potassium 4.3 Chloride 104 Carbon Dioxide 25 Anion Gap 14 BUN 8 L Creatinine 0.87 Estim Creat Clear Calc 128.6 Estimated GFR > 60 Random Glucose 104 Calcium 9.0 Preliminary micro results at discharge 02/21/25 10:36 Blood Culture - Preliminary Blood - Venous No growth after 48 hours. 02/21/25 10:42 Blood Culture - Preliminary Blood - Venous No growth after 48 hours. Discharge Plan Discharge Anticipated Discharge Date/Time: 02/24/25 10:35 Patient Disposition: Home, Self-Care Discharge Diagnosis: urinary retention, etoh withdrawal, constipation Referrals: [facility] [Provider Group, Addiction Medicine] - 03/03/25 9:30 am Referral Note: Please go to your appointment on March 03, 2025 @ 9:30am for your intake. It's on the 4th floor [address] ([address]). Anushka Gaona PA [Primary Care Provider, Endocrinology] - 1 Week Discharge Medications: Continued cyclobenzaprine 5 mg tablet 5 mg PO TID PRN (Reason: Pain) Qty: 60 0RF calcium carbonate-vitamin D3 600 mg-10 mcg (400 unit) tablet 1 tab PO DAILY methadone 10 mg/mL Concentrate 100 mg PO DAILY furosemide [Lasix] 40 mg tablet 40 mg PO DAILY Qty: 90 0RF metoprolol succinate 50 mg tablet extended release 24 hr 50 mg PO DAILY Qty: 90 0RF hydroxyzine pamoate 50 mg capsule 50 mg PO TID Qty: 270 0RF aspirin [Adult Aspirin Regimen] 81 mg tablet,delayed release (DR/EC) 81 mg PO DAILY Qty: 90 0RF quetiapine 100 mg tablet 200 mg PO BEDTIME 90 Days Qty: 180 0RF magnesium oxide 400 mg (241.3 mg magnesium) tablet 400 mg PO DAILY 90 Days Qty: 90 0RF buspirone 30 mg tablet 30 mg PO BID Qty: 180 0RF albuterol sulfate 90 mcg/actuation HFA aerosol inhaler 2 inh inhalation Q4H PRN (Reason: shortness of breath or wheezing) Qty: 8.5 3RF amitriptyline 100 mg tablet 100 mg PO BEDTIME Qty: 90 0RF chlorpromazine 50 mg tablet 50 mg PO BID Qty: 180 0RF quetiapine 50 mg tablet 50 mg PO BID@0800,1400 90 Days Qty: 0 0RF Changed clonidine HCl 0.1 mg tablet 0.1 mg PO TID PRN (Reason: for anxiety) Qty: 90 0RF potassium chloride 10 mEq tablet,ER particles/crystals 10 meq PO DAILY Qty: 90 0RF Discontinued nifedipine 60 mg tablet extended release 24hr 60 mg PO DAILY Qty: 90 3RF ibuprofen 600 mg tablet 600 mg PO Q8H PRN (Reason: pain) Qty: 30 0RF Discharge Orders: Discharge Order (Routine); Ordered 02/24/25 Ordered By: Luis Rodriguez Diet: Advance to usual diet Activity on Discharge: As tolerated Stand Alone Forms: Patient Portal Discharge page Print Language: Moroccan Care Plan Goals: Recovery Health Concerns: Alcohol dependence Plan of Treatment: Avoid alcohol follow up with support programs Assessment: See above
--- NOTE | 2025-02-24 10:46 | MHC.CM.PN ---
Patient has been medically cleared for dc to home today, self care.
[2025-02-24 10:56] VITALS: BP 133/98; PULSE 111; RESP 20; TEMP 36.1; O2SAT 97
== END 2025-02-24 12:43 | disposition home or self-care (01) | DRG 773 ==
LOC: HO.ED 13:39 → HO.EDOVER 14:11 → HO.IMC 16:24
PROVIDERS: Admitting Provider Student in an Organized Health Care Education/Training Program; Emergency Provider Emergency Medicine; PCP Physician Assistant Medical; Visit Provider Internal Medicine
DX: F10.239 Alcohol dependence with withdrawal, unspecified (principal); F11.20 Opioid dependence, uncomplicated; E87.21 Acute metabolic acidosis; K76.6 Portal hypertension; I11.0 Hypertensive heart disease with heart failure; K70.0 Alcoholic fatty liver; I95.9 Hypotension, unspecified; I50.22 Chronic systolic (congestive) heart failure; F39 Unspecified mood [affective] disorder; F19.20 Other psychoactive substance dependence, uncomplicated; R33.9 Retention of urine, unspecified; F17.210 Nicotine dependence, cigarettes, uncomplicated; Z71.6 Tobacco abuse counseling; Y90.6 Blood alcohol level of 120-199 mg/100 ml; K59.00 Constipation, unspecified; Z20.822 Contact with and (suspected) exposure to COVID-19; Z79.82 Long term (current) use of aspirin; Z79.899 Other long term (current) drug therapy
CPT/HCPCS: 36415; 71045; 74176; 80048; 80053; 80076; 80307; 81003; 82140; 83036; 83605; 83690; 83735; 83880; 84484; 85025; 85027; 85610; 87040; 87637; 93005; 99285; J0696; J1650; J2560; J3360; P9047; S9485

== ENCOUNTER → 2025-02-21 09:08 | Outpatient (BNV) | payer OTHER, SELFPAY | PROVIDERS: Admitting Provider Student in an Organized Health Care Education/Training Program; Emergency Provider Emergency Medicine; PCP Physician Assistant Medical; Visit Provider Internal Medicine Cardiovascular Disease | DX: R94.31 Abnormal electrocardiogram [ECG] [EKG] (principal); R06.02 Shortness of breath | CPT/HCPCS: 93010 ==

== ENCOUNTER → 2025-02-21 09:18 | Outpatient (BNV) | payer OTHER, SELFPAY | PROVIDERS: Emergency Provider Emergency Medicine; PCP Physician Assistant Medical; Visit Provider Radiology Diagnostic Radiology | DX: R10.84 Generalized abdominal pain (principal); R07.9 Chest pain, unspecified | CPT/HCPCS: 71045; 74176 ==

== ENCOUNTER 2025-02-21 13:47 | Outpatient (BNV) | payer OTHER, SELFPAY | END 2025-02-23 12:21 | PROVIDERS: Admitting Provider Student in an Organized Health Care Education/Training Program; Emergency Provider Emergency Medicine; PCP Physician Assistant Medical; Visit Provider Internal Medicine Cardiovascular Disease | DX: Z13.6 Encounter for screening for cardiovascular disorders (principal) | CPT/HCPCS: 93010 ==

== ENCOUNTER → 2025-02-21 13:47 | Outpatient (BNV) | payer OTHER, SELFPAY | PROVIDERS: Admitting Provider Student in an Organized Health Care Education/Training Program; Emergency Provider Emergency Medicine; PCP Physician Assistant Medical; Visit Provider Student in an Organized Health Care Education/Training Program | DX: R33.8 Other retention of urine (principal); F10.939 Alcohol use, unspecified with withdrawal, unspecified; K59.00 Constipation, unspecified; F41.9 Anxiety disorder, unspecified | CPT/HCPCS: 99223; 99232; 99233 ==

== ENCOUNTER → 2025-02-21 13:47 | Outpatient (BNV) | payer OTHER, SELFPAY | PROVIDERS: Admitting Provider Student in an Organized Health Care Education/Training Program; Emergency Provider Emergency Medicine; PCP Physician Assistant Medical; Visit Provider Nurse Practitioner Psychiatric/Mental Health | DX: F11.90 Opioid use, unspecified, uncomplicated (principal); F10.20 Alcohol dependence, uncomplicated | CPT/HCPCS: 99222 ==

== ENCOUNTER 2025-06-14 14:00 | Inpatient (IN) | payer OTHER, SELFPAY ==
[2025-06-14] VITALS (16 sets, daily range): BP systolic 121–152; BP diastolic 50–93; PULSE 120–144; RESP 19–35; TEMP 36.6–36.9; O2SAT 83–98; BMI 27.7
--- NOTE | ~2025-06-14 | XR_ITS ---
EXAMINATION: XR CHEST CLINICAL INFORMATION: Hypoxia COMPARISON: Previous chest x-ray most recent June 15, 2025 TECHNIQUE: Frontal view of the chest was obtained. FINDINGS: Endotracheal tube tip 4 cm above the dimitris. Nasogastric tube tip projects over the proximal to mid stomach. There is bilateral multilobar airspace disease right greater than left. This may be slightly increased at the left lung base compared to most recent June 15, 2025 exam. The lung volumes are low. The cardiac and mediastinal contours are stable. No pleural effusion or pneumothorax. Degenerative changes of the spine. There is increased sclerosis of the right femoral head questionable for AVN. XR/XR chest 1V IMPRESSION: Satisfactory position of support tubes. Bilateral multilobar airspace disease probably representing pneumonia and low lung volumes. This may be slightly increased at the left lung base compared to most recent exam. Electronically signed by: Ranjana Tinoco MD 06/18/2025 10:06 AM EDT
--- NOTE | ~2025-06-14 | XR_ITS ---
CLINICAL HISTORY: hypoxemia 1 view chest x-ray Comparison: CR/SR - XR CHEST 1 VIEW - 06/18/25 09:37 EDT CR - XR CHEST 1V - 06/15/25 04:00 EDT Findings: Persistent mid and lower lung airspace disease right worse than left, slightly improved in comparison with the prior exam. The heart size and pulmonary blood flow appear within normal limits. An endotracheal and enteric tube are in satisfactory position. Cardiac monitoring leads overlie the chest. No acute fracture. IMPRESSION: Persistent airspace disease predominating within the right lung base slightly improved on comparison with the prior exam. This should be followed to radiographic clearing. This document has been electronically signed by: Stevie Tapia MD on 06/20/2025 06:39:32
--- NOTE | ~2025-06-14 | CT_ITS ---
EXAMINATION: CT ANGIOGRAM CHEST CLINICAL INFORMATION: Tachycardia COMPARISON: Chest x-ray 06/25/2025 TECHNIQUE: Multiple axial images were obtained through the chest after the administration of 65 mL of Omnipaque 350 intravenous contrast. Extensive vascular post-processing including two-dimensional and three-dimensional reformatted images were created and reviewed on an independent workstation. This CT examination was performed using dose optimization techniques as appropriate, variously including the following: *Automated exposure control *Adjustment of mA and/or kV according to patient size (this includes techniques or standardized protocols for targeted exams where dose is matched to indication/reason for exam; i.e. extremities or head) Use of iterative reconstruction technique. DLP: 336 mGy/cm. FINDINGS: Vascular: There is good opacification of pulmonary artery and its branches without intraluminal filling defect. The thoracic aorta is of normal caliber without aneurysm or dissection. There is a three-vessel branching of the aortic arch with widely patent origins of the branches. The SVC is of unspecified normal caliber. The heart size is normal. No pericardial effusion seen. No coronary artery calcification noted. Nonvascular: Thyroid lobes are symmetrical. The central trachea and bronchial airway are widely patent. No abnormal size mediastinal or hilar lymph nodes seen. The lungs are expanded with right lower lobe superior and basilar segment consolidation/atelectasis and patchy infiltrate right upper lobe. Focal linear atelectasis seen in the left lung base and lingula as well. Visualized liver, spleen, pancreas and bilateral glands are unremarkable. CT/CT angio chest PE protocol IMPRESSION: No evidence of PE. No evidence of aneurysm or dissection. Right upper and lower lobe infiltrate/atelectasis. Platelike atelectasis in the lingula and left lower lobe. Fleischner guidelines were followed. Electronically signed by: Zac Fonseca MD 07/01/2025 07:19 AM [facility]
--- NOTE | ~2025-06-14 | XR_ITS ---
CLINICAL HISTORY: OG tube 1 view chest x-ray Comparison: CR - XR CHEST 1V - 06/20/25 06:18 EDT Findings: Endotracheal tube and enteric tubes are in stable positions. Mildly improved right-sided airspace opacity. Interval worsening of left sided airspace opacities. Stable cardiac silhouette. No acute osseous abnormality. IMPRESSION: 1. Compared to prior examination on 06/20/2025, mild improvement in right sided airspace opacity, however with worsening in left-sided airspace opacities. This document has been electronically signed by: Lynn Phlilips MD on 06/23/2025 22:06:43
--- NOTE | ~2025-06-14 | XR_ITS ---
EXAMINATION: XR CHEST 1 VIEW HISTORY: hypoxia COMPARISON: Comparison is made with the prior examination dated 06/23/2025. FINDINGS: A single AP portable view of the chest performed at 8:32 AM is submitted. Endotracheal and orogastric tubes are unchanged in position. There has been improvement in previously seen airspace opacity in the left upper lung zone. Airspace opacities in the lower lung zones are unchanged. There is no pleural effusion, pneumothorax, or pulmonary vascular congestion. The heart is normal in size. 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 XR/XR chest 1V IMPRESSION: 1. Lines and tubes in place without change. 2. Improvement in airspace opacity in the left upper lung zone. Opacities in the lower lung zones are unchanged. Electronically signed by: Christiano Avelar MD 06/25/2025 08:56 AM [facility]
--- NOTE | ~2025-06-14 | XR_ITS ---
CLINICAL HISTORY: SOB, cough ; ordering provider OK'd image for purpose of treating PT. Single view of the chest. COMPARISON: XR chest dated 02/21/25 at 10:38 EDT FINDINGS: Right heart border is obscured. Consolidation within the right mid to lower lung. No pleural effusion or pneumothorax. Degenerative changes of the bilateral shoulders. IMPRESSION: 1. Right lower lobe pneumonia. This document has been electronically signed by: Jase Mack MD on 06/14/2025 15:50:05
--- NOTE | ~2025-06-14 | XR_ITS ---
CLINICAL HISTORY: ETT OGT 1 view chest x-ray Comparison: CR - XR CHEST 1V - 06/14/25 14:28 EDT Findings: ET tube terminates approximately 4.7 cm from the dimitris. Feeding tube terminates in the left upper quadrant within the expected position of the stomach. Lungs are hypoinflated. Right mid and lower lung consolidation increased from prior with likely superimposed pleural effusion. Right heart border remains obscured. No acute fracture. IMPRESSION: 1. ETT terminates 4.7 cm from the dimitris. Feeding tube terminates in the expected position of the stomach. 2. Interval increase in right mid and lower lung consolidation with likely superimposed pleural effusion. This document has been electronically signed by: Jay Esparza MD on 06/15/2025 06:39:07
--- NOTE | 2025-06-14 14:22 | ECG_ITS ---
Test Reason : TACHY Blood Pressure : */* mmHG Vent. Rate : 132 BPM Atrial Rate : 132 BPM P-R Int : 128 ms QRS Dur : 92 ms QT Int : 264 ms P-R-T Axes : 63 48 49 degrees QTcB Int : 391 ms Poor data quality, interpretation may be adversely affected Sinus tachycardia Possible Left atrial enlargement Borderline ECG When compared with ECG of 23-Feb-2025 12:21, Vent. rate has increased by 55 bpm Referred By: Tova Jacobo Electronically Signed By: CARSON CARL
--- NOTE | 2025-06-14 14:36 | ED_ITS ---
HPI - General Adult General Chief complaint: Fever Stated complaint: DRANK LISTERINE Time Seen by Provider: 06/14/25 14:06 Source: patient and EMS Mode of arrival: EMS Limitations: no limitations History of Present Illness ED Provider: Tova Jacobo PA-C HPI narrative: Patient is a 45 year old assigned male at with a history of HTN, alcohol use disorder, hepatitis C, polysubstance use, on 200mg of methadone, HLD, and asthma presenting to the emergency department today with a cough, fever, and feeling generally unwell. Patient states that he drank a liter of alcohol last night but has only had listerine to drink today. Patient states that he has had several days of a cough. Patient states that he had his dose of methadone this morning. Patient denies any other complaints at this time. Related Data Home Medications ?Medication ?Instructions ?Recorded ?Confirmed calcium 600 mg (as 1 tab PO DAILY 02/21/2505/21 carbonate)-vitamin D3 10 mcg (400 unit) tablet methadone 10 mg/mL oral concentrate 100 mg PO DAILY 02/22/25 omeprazole 20 mg capsule,delayed 20 mg PO DAILY@0630 1 06/14/25 release Previous Rx's ?Medication ?Instructions ?Recorded cyclobenzaprine 5 mg tablet 5 mg PO TID PRN Pain #60 t abs 05/23/24 albuterol sulfate 90 mcg/actuation 2 inh inhalation Q4 H PRN shortness 02/24/25 aerosol inhaler of breath or wheezing #8.5 g ale amitriptyline 100 mg tablet 100 mg PO BEDTIME #90 tabs 02/24/25 aspirin 81 mg tablet,delayed 81 mg PO DAILY #90 tabs 0 02/24/25 release (Adult Aspirin Regimen) buspirone 30 mg tablet 30 mg PO BID #180 tabs 02/24 chlorpromazine 50 mg tablet 50 mg PO BID #180 tabs 04/13 clonidine HCl 0.1 mg tablet 0.1 mg PO TID PRN for anxi ety #90 02/24/25 tabs furosemide 40 mg tablet (Lasix) 40 mg PO DAILY #90 tab s 02/24/25 hydroxyzine pamoate 50 mg capsule 50 mg PO TID #270 ca ps 02/24/25 magnesium oxide 400 mg (241.3 mg 400 mg PO DAILY 90 da ys #90 tabs 02/24/25 magnesium) tablet metoprolol succinate 50 mg 50 mg PO DAILY #90 tabs 04/13 tablet,extended release 24 hr potassium chloride 10 mEq 10 meq PO DAILY #90 tabs 04/13 tablet,extended release(part/cryst) quetiapine 100 mg tablet 200 mg (2 x 100 mg) PO BEDTI ME 90 05/07/25 days #180 tabs quetiapine 50 mg tablet 50 mg PO BID@0800,1400 90 da ys 05/07/25 #180 tabs Allergies Allergy/AdvReac Type Severity Reaction Status Date / Time Fish Containing Products Allergy Unknown UNKNOWN Verified 06/14/25 14:19 Review of Systems 2 Constitutional: Constitutional: Reports as per HPI Eyes: Eyes: Reports as per HPI ENT: Reports as per HPI Cardiovascular: Cardiovascular: Reports as per HPI Respiratory: Respiratory: Reports as per HPI Gastrointestinal: Gastrointestinal: Reports as per HPI Genitourinary: Genitourinary: Reports as per HPI Musculoskeletal: Musculoskeletal: Reports as per HPI Integumentary/Breasts: Skin/Breast: Reports as per HPI Neurologic: Reports as per HPI Psychiatric: Psychiatric: Reports as per HPI Endocrine: Endocrine: Reports as per HPI Hematologic/Lymphatic: Hematologic/Lymphatic: Reports as per HPI Allergic/Immunologic: Allergic/Immunologic: Reports as per HPI PMF Past Medical History Attestation statement: The following information was validated with the patient. Source: old records reviewed and nursing notes reviewed Medical History Abnormal chest x-ray Dry mouth Alcoholic cardiomyopathy Systolic heart failure Rash of neck Portal hypertension Hepatic steatosis Chest pain Mixed hyperlipidemia Asthma Tobacco use disorder Essential hypertension Atrial fibrillation Depression Anxiety Hepatitis C infection Methadone dependence History of syphilis Polysubstance abuse Alcohol dependence Alcohol abuse Opiate use No known health problems Surgical History History of back surgery Social History Social History Household Members: Unknown / Unable to assess Housing: Unknown / Unable to assess Do you presently have visiting nurse or other home services: No Alcohol intake: current Alcohol intake frequency: 3 or more drinks per day Alcohol type: beer and hard liquor Patient Tobacco Use Status: Tobacco use Unknown Tobacco use type: Cigarette Cigarette Packs Per Day: 1 Cigarettes Per Day: 20.0 e-Cigarette/Vaping Use: Never Used Second Hand Smoke Exposure: Yes Substance Use Type: Crack/Cocaine and Opiates Currently Displaying Signs/Symptoms of Drug Intoxication Withdrawal: No Advance Directives: No Advance Directives Information Provided: No Do you have a plan to hurt others: No Plan service: No Current occupational status: unemployed Current occupational exposures/hazards: No Cognitive needs: Yes (adhd) Hearing needs: No Vision needs: No Physical Exam ED Vital Signs: Vital Signs - 24 hr 06/14/25 14:20 06/14/25 14:25 06/14/25 14:30 Pulse Rate 133 H Respiratory Rate 25 H Blood Pressure Pulse Oximetry 83 L 89 L 91 L Oxygen Delivery Method Oxymask Non-Rebreather Mask Non-Rebreather Mask Oxygen Flow Rate 10 15 15 06/14/25 14:54 06/14/25 14:59 06/14/25 15:04 Pulse Rate 137 H 133 H Respiratory Rate 23 H 24 H 35 H Blood Pressure 126/61 121/50 L Pulse Oximetry 88 L 92 Oxygen Delivery Method Non-Rebreather Mask Non-Rebreather Mask Oxygen Flow Rate 15 15 BMI result Body Mass Index 27.7 Const General: cooperative, no acute distress, alert and awake Nutritional Appearance: well nourished Orientation/consciousness: patient oriented x3 HENMT Head: Yes normal to inspection and Yes atraumatic Ears: hearing grossly normal bilaterally and external ears normal General nose exam: Normal external nose present, no nasal discharge noted and no epistaxis Face and sinus: Yes normal facial exam, No abrasion and No laceration Mouth: Normal oral and palatal mucosa present, no drooling and no muffled voice Eyes General: appearance normal, both eyes and all related structures Periorbital: periorbital findings normal Eyelids: Yes eyelids normal Conjunctivae: conjunctivae normal Pupils: Equal, round and reactive pupils present EOM: EOMs intact bilaterally Neck Neck: Yes normal visual inspection and Yes full ROM Resp Effort & Inspection: able to speak in complete sentences, Actively coughing and labored Cardio Rate: tachycardic Rhythm: regular rhythm GI Inspection: Yes distended Palpation (GI): Soft to palpation, not firm, nontender and no guarding Neuro General: patient oriented x3, moves all extremities and CN's II-XI intact bilaterally Cranial nerves: Yes Equal, round and reactive pupils present Cognition (Neuro): normal cognition Extrem General: Yes normal to inspection, Yes full ROM and Yes capillary refill normal Psych Appearance: grossly normal Mental Status: mental status grossly normal Affect: normal affect Attitude: cooperative Thought process: Normal thought process present Thought content: Normal thought content present Insight: Good insight present (Psych) Course Course Course Narrative: Time: 15:52 Date: 06/14/25 Provider: Ozzy Hernandez MD Attending Physician Note: 45-year-old male with a PMH significant for alcoholic cardiomyopathy with systolic dysfunction, hepatitis-C, portal hypertension, polysubstance use disorder with IVDU on methadone, alcohol use disorder with hx of withdrawal, and mood disorder who presents who presents fever, chest pain and shortness of breath. Patient was drinking alcohol earlier in the day. He states he then switch to Listerine and drank a full bottle of Listerine. Patient states that at 1 point he did have episodes of vomiting. Vital signs revealed elevated heart rate 133, elevated respiratory rate 25 and low O2 saturation of 83% on 100% non-rebreather. Exam: General: Awake, answers questions appropriately, appears dyspneic in his respiratory distress Head: Normocephalic, atraumatic EENT: PERRL, sclera and conjunctiva are normal, mouth with no erythema or exudates Neck: Supple, no adenopathy Lung: Diffuse rhonchi, diminished breath sounds at the bases Heart: Tachycardia with a regular rhythm, normal S1, S2 no murmurs or rubs Abdomen: soft, non-tender, nondistended, normal bowel sounds Neuro: Awake, alert, oriented, cranial nerves 2-12 intact, moves all extremities symmetrically Differential diagnosis: ?Includes but is not limited to acute viral syndrome, COVID-19, influenza, pneumonia, pneumothorax, alcohol intoxication, anemia, electrolyte abnormalities Course: The patient's O2 saturation was 83% on 100% non-rebreather mask which was concerning. Given his alcohol use disorder in his vomiting you were concerned that he may have aspiration pneumonia. Portable chest x-ray revealed a large right lower lobe consolidated infiltrate. Respiratory therapist place the patient on high-flow oxygen via nasal cannula in his O2 saturations came up to 92%. Given the severity of his hypoxia and his past history of alcohol withdrawal, that has patient is at high-risk for decompensating therefore patient was presented to the continuous drier operator, Dr. Wesley and the patient was accepted into the intensive care unit for further management. Patient was treated with Zosyn 3.375 g and vancomycin 2000 mg IV. Patient was also treated with the phenobarbital alcohol withdrawal protocol. I, Dr. Ozzy Hernandez, personally evaluated the patient. I reviewed the physician assistant manager airside operations, Latonya Jacobo's documentation and I was available to supervise the management of the patient throughout his course in the ED. I agree with the treatment and plan. Further, I agree with t all orders as written by the physician assistant manager airside operations Latonya Jacobo.. My note reflects my personal findings on my history and exam. Medications Administered Generic Name Dose Route Start Last Admin Trade Name Freq PRN Reason Stop Dose Admin Chlorhexidine Gluconate 15 ml 06/15/25 09:00 06/15/25 08:55 Chlorhexidine Gluc Oral Rinse 15 Ml Mouthwash BUCCAL 15 ml TID JEAN Administration Enoxaparin Sodium 40 mg 06/14/25 16:30 06/14/25 17:46 Enoxaparin Sodium 40 Mg/0.4 Ml Syringe SUBCUT 40 mg Q24H JEAN Administration Furosemide 10 mg 06/15/25 09:00 06/15/25 09:25 Furosemide 20 Mg/2 Ml Vial IVPUSH 10 mg DAILY JEAN Administration Protocol Thiamine HCl 100 mg/ Sodium 101 mls @ 202 mls/hr 06/14/25 19:40 06/15/25 09:26 Chloride IV Infused DAILY JEAN Infusion Folic Acid 1 mg/ Sodium 50.2 mls @ 100.4 mls/hr 06/14/25 19:40 06/15/25 09:58 Chloride IV Infused DAILY JEAN Infusion Piperacillin Sod/Tazobactam 100 mls @ 200 mls/hr 06/15/25 04:00 06/15/25 04:56 Sod 4.5 gm/ Sodium Chloride IV Infused Q8H JEAN Infusion Propofol 1,000 mg in 100 mls @ 0 mls/hr 06/15/25 03:45 06/15/25 06:43 Diprivan IVCONT 50 mcg/kg/min .Q0M JEAN 25.53 mls/hr Protocol Administration Per Protocol Pantoprazole Sodium 40 mg 06/15/25 06:30 06/15/25 05:29 Pantoprazole Sodium 40 Mg/10 Ml Vial IVPUSH 40 mg DAILY@0630 JEAN Administration Sodium Chloride 3 ml 06/15/25 00:00 06/15/25 08:40 0.9 % Sodium Chloride Flush 3 Ml Syringe IVFLUSH 3 ml QSHIFT JEAN Administration Discontinued Medications Generic Name Dose Route Start Last Admin Trade Name Colbyq PRN Reason Stop Dose Admin Sodium Chloride 1,000 mls @ 999 mls/hr 06/14/25 14:30 06/14/25 17:11 Ns IV 06/14/25 15:30 Infused .Q1H1M JEAN Infusion Vancomycin HCl 1,000 mg/ 270 mls @ 270 mls/hr 06/14/25 14:36 06/14/25 16:19 Sodium Chloride IV 06/14/25 15:35 Infused ONCE ONE Infusion Piperacillin Sod/Tazobactam 50 mls @ 100 mls/hr 06/14/25 14:36 06/14/25 17:11 Sod 3.375 gm/ Sodium Chloride IV 06/14/25 15:05 Infused ONCE ONE Infusion Vancomycin HCl 1,000 mg/ 270 mls @ 270 mls/hr 06/14/25 16:11 06/14/25 18:54 Sodium Chloride IV 06/14/25 17:10 Infused ONCE ONE Infusion Lactated Ringer's 1,000 mls @ 100 mls/hr 06/14/25 16:30 06/15/25 08:30 Lr IVCONT Infused .Q10H JEAN Infusion Albumin Human 100 mls @ 133.333 mls/hr 06/14/25 19:45 06/14/25 22:15 Kedbumin 25 % IV 06/14/25 21:29 Infused Q1H JEAN Infusion Piperacillin Sod/Tazobactam 100 mls @ 200 mls/hr 06/14/25 21:00 06/14/25 21:06 Sod 4.5 gm/ Sodium Chloride IV Infused Q6H JEAN Infusion Lorazepam 1 mg 06/14/25 14:21 06/14/25 15:25 Lorazepam 1 Mg Tablet PO 06/14/25 14:22 Not Given ONCE ONE Metoprolol Tartrate 5 mg 06/15/25 04:00 06/15/25 04:12 Metoprolol Tartrate 5 Mg/5 Ml Vial IVPUSH 06/15/25 04:01 5 mg ONCE ONE Administration Protocol Midazolam HCl 4 mg 06/15/25 03:59 06/15/25 03:25 Midazolam Hcl 2 Mg/2 Ml Vial IVPUSH 06/15/25 04:00 2 mg ONCE ONE Administration Pantoprazole Sodium 40 mg 06/14/25 16:45 06/14/25 17:46 Pantoprazole Sodium 40 Mg/10 Ml Vial IVPUSH 40 mg DAILY@0630 JEAN Administration Phenobarbital Sodium 280 mg 06/14/25 15:00 06/14/25 14:46 Phenobarbital Sodium 130 Mg/Ml Im Once IM 06/14/25 15:01 280 mg ONCE ONE Administration Phenobarbital Sodium 212 mg 06/14/25 18:00 06/14/25 20:06 Phenobarbital Sodium 130 Mg/Ml Vial Im Q3hx2 IM 06/14/25 21:01 212 mg Q3H JEAN Administration Propofol 100 mg 06/15/25 03:40 06/15/25 03:53 Propofol 200 Mg/20 Ml Vial IVPUSH 06/15/25 03:41 100 mg ONCE ONE Administration Propofol 50 mg 06/15/25 04:32 06/15/25 05:25 Propofol 200 Mg/20 Ml Vial IVPUSH 06/15/25 04:33 Not Given ONCE ONE Rocuronium [place] 50 mg 06/15/25 03:40 06/15/25 03:53 Rocuronium [place] 50 Mg/5 Ml Vial IVPUSH 06/15/25 03:41 50 mg ONCE ONE Administration Medical Decision Making Medical Decision Making [facility] Narrative: Patient is a 45 year old assigned male at with a history of HTN, alcohol use disorder, hepatitis C, polysubstance use, on 200mg of methadone, HLD, and asthma presenting to the emergency department today with a cough, fever, and feeling generally unwell. Patient's physical exam was as noted in the physical exam portion of this note. Patient was tachypneic, hypoxic, and tachycardic. Patient was at 82% on oxymask. Patient was maintaining his airway on his own and remained alert / oriented. Patient's blood work showed a hgb of 9.9, bandemia of 19%, sodium of 131, lactic acid of 5.0, albumin of 3.3, and ALT of 44. Patient's EKG showed sinus tachycardia. Patient's chest x-ray showed a right lower lobe pneumonia. Patient was placed on high flow oxygen which increased his oxygenation to 90% at 50lpm. I considered the patient to be septic secondary to his aspiration pneumonia [id number]. Patient was given IV vancomycin and zosyn. Given the patient's risk of severe alcohol withdrawal in the presence of his hypoxia, aspiration pneumonia, and sepsis - I consulted with my attending physician, Dr. Hill, who recommended ICU admission. I spoke with the continuous drier operator Dr. Wesley, who agreed to admission. I explained my physical exam findings as well as all test results to the patient. I answered all questions asked by the patient. Patient verbalized agreement and understanding with this treatment plan and admission. Differential Diagnosis Differential Diagnoses: The differential diagnosis associated with the presentation includes Aspiration pneumonia Sepsis Hypoxia Admission/Observation Consideration of admission/observation: Escalation of care including admission/observation considered Patient admitted to the ICU as noted in the MDM Rationale portion of this note. Consult Healthcare Provider Management of the patient was discussed with: Filter Tip Catcher (spoke with the continuous drier operator as noted in the MDM Rationale portion of this note. ) Lab Data [facility] Lab Attestation statement: I reviewed the patient's lab results. My interpretation of these results are in the MDM Rationale portion of this note. 06/15/25 06:13 06/15/25 04:25 Labs: Lab Results 06/14/25 06/14/25 Range/Units 14:31 14:45 WBC 5.9 (4.8-10.8) X10*3/uL RBC 3.63 L D (4.60-5.80) X10*6/uL Hgb 9.9 L D (14.0-18.0) g/dl Hct 30.0 L D (42.0-52.0) % MCV 82.6 (80.0-98.0) fL MCH 27.3 (27.0-33.0) pg MCHC 33.0 (31.0-36.0) g/dl RDW 13.7 (11.0-16.0) % Plt Count 183 (160-400) X10*3/uL MPV 9.2 L (9.4-12.4) fL Immature Gran % (Auto) Cancelled Neut % (Auto) Cancelled Lymph % (Auto) Cancelled Blount % (Auto) Cancelled Eos % (Auto) Cancelled Baso % (Auto) Cancelled Lymph # (Auto) Cancelled [place] # (Auto) Cancelled Eos # (Auto) Cancelled Baso # (Auto) Cancelled Abs Immat Gran (auto) Cancelled Absolute Neuts (auto) Cancelled Absolute Nucleated RBC 0.120 H (0.0-0.012) X10*3/uL Nucleated RBC % (auto) 2.0 H (0.0-0.2) /100WBC Neutrophils % (Manual) 51 (45-73) % Band Neutrophils % 19 H (3-5) % Lymphocytes % (Manual) 19 L (20-40) % Monocytes % (Manual) 6 (2-11) % Eosinophils % (Manual) 1 (0-4) % Basophils % (Manual) 1 (0-2) % Metamyelocytes % 3 % Abs Neuts (Manual) 4.1 (2.0-8.3) X10*3/uL Lymphocytes # (Manual) 1.1 L (1.2-4.9) X10*3/uL Monocytes # (Manual) 0.4 (0.1-1.2) X10*3/uL Eosinophils # (Manual) 0.1 (0.0-0.4) X10*3/uL Basophils # (Manual) 0.1 (0.0-0.2) X10*3/uL Metamyelocytes # 0.2 X10*3/uL Nucleated RBCs 2 H (0-0) /100WBC Toxic Granulation PRESENT Toxic Vacuolation PRESENT Dohle Bodies PRESENT Platelet Estimate NORMAL (NORMAL) Large Platelets PRESENT Plt Morphology Comment NOTED RBC Morphology NOTED Hypochromasia 1+ (5-14) /OIF Basophilic Stippling 1+ (0-2) /OIF O2 Saturation 92.0 % ABG pH at Pt Temp 7.43 (7.35-7.45) ABG pCO2 at Pt Temp 39 (32-45) mmHg ABG pO2 at Pt Temp 70 L (83-108) mmHg ABG HCO3 26 (22-26) mmol/L ABG Base Excess (Actual) 2.2 mmol/L Sodium 131 L (135-145) mmol/L Potassium 3.3 D (3.3-5.1) mmol/L Chloride 93 L (96-108) mmol/L Carbon Dioxide 23 (22-29) mmol/L Anion Gap 18 (12-20) BUN 18 H (9-16) mg/dL Creatinine 1.01 (0.5-1.4) mg/dL Estim Creat Clear Calc 99.8 Estimated GFR > 60 Random Glucose 223 H (60-115) mg/dL Lactic Acid 5.0 H* (0.5-2.0) mmol/L Calcium 9.0 (8.4-10.2) mg/dL Magnesium 2.0 (1.6-2.6) mg/dL Total Bilirubin 0.6 (0.0-1.0) mg/dL AST 36 (5-37) U/L ALT 44 H (0-40) U/L Alkaline Phosphatase 86 (39-117) U/L Troponin I High Sens < 2.7 (<3.5-35.0) ng/L Total Protein 7.1 (6.5-8.0) g/dL Albumin 3.3 L (3.5-5.0) g/dL Independent Interpretation I performed an independent interpretation of an: EKG and Plain X-Ray Interpretation: My interpretation is in agreement with the radiologist's impression of this imaging study. L Reason for Exam: SOB, cough CLINICAL HISTORY: SOB, cough ; ordering provider OK'd image for purpose of treating PT. Single view of the chest. COMPARISON: XR chest dated 02/21/25 at 10:38 EDT FINDINGS: Right heart border is obscured. Consolidation within the right mid to lower lung. No pleural effusion or pneumothorax. Degenerative changes of the bilateral shoulders. IMPRESSION: 1. Right lower lobe pneumonia. This document has been electronically signed by: Jase Mack MD on 06/14/2025 15:50:05 Dictated By: Jase Mack MD Signed By: Electronically signed by Jase Mack MD 06/14/25 1550 I independently interpreted this EKG and am in agreement with the below findings: Vent. Rate: 132 BPM Atrial Rate: 132 BPM P-R Int: 128 ms QRS Dur: 92 ms QT Int: 264 ms P-R-T Axes: 63 48 49 degrees QTcB Int: 391 ms Sinus tachycardia Possible Left atrial enlargement When compared with ECG of 23-Feb-2025 12:21, Vent. rate has increased by 55 bpm DD/ 1424 Radiology Impression Discussion of test interpretation with radiology: I have reviewed the radiologist's reading. Independent Historian Clinical information obtained from an independent historian. History obtained from or confirmed by: EMS (EMS provided additional history and confirmed the history provided by the patient. ) and Other (Patient's mother provided additional history over the phone. ) Critical Care Time Critical Care Time Critical Care Time: Yes Total Critical Care Time: 62 Attestation: I spent 62 minutes of Critical Care Time with this patient. This does not include time spent on separately reported billable procedures. Discharge Plan Discharge Clinical Impression: Pneumonia Qualifiers: Pneumonia type: due to unspecified organism Laterality: right Lung location: l ower lobe of lung Qualified Code(s): J18.9 - Pneumonia, unspecified organism Patient Disposition: Admitted As Inpatient Interventions: Admission Worksheet (ED) Last Done: 06/14/25 18:13 Discharge Date/Time: 06/14/25 16:50
[2025-06-14 14:41] LABS: Hematocrit 30.0 % (42.0-52.0); Hemoglobin 9.9 g/dl (14.0-18.0); Mean Corpuscular HGB Conc 33.0 g/dl (31.0-36.0); Mean Corpuscular Hemoglobin 27.3 pg (27.0-33.0); Mean Corpuscular Volume 82.6 fL (80.0-98.0); NRBC Abs Auto 0.120 X10*3/uL (0.0-0.012); Platelet Count 183 X10*3/uL (160-400); Red Blood Count 3.63 X10*6/uL (4.60-5.80)
[2025-06-14 14:42] LABS: NRBC Pct Auto 2.0 /100WBC (0.0-0.2); WBC ABN SCTR FOR CBC 1
[2025-06-14] MEDS: PHENobarbitaL sodium 130 MG/ML IM ONCE 280 MG IM (14:46)
[2025-06-14 14:49] LABS: ABG HCO3 26 mmol/L (22-26); ABG O2 % Saturation 92.0 %
[2025-06-14 15:19] LABS: Alanine Aminotransferase 44 U/L (0-40); Albumin Level 3.3 g/dL (3.5-5.0); Alkaline Phosphatase 86 U/L (39-117); Anion Gap 18 (12-20); Aspartate Amino Transferase 36 U/L (5-37); Blood Urea Nitrogen 18 mg/dL (9-16); Calcium 9.0 mg/dL (8.4-10.2); Carbon Dioxide 23 mmol/L (22-29); Chloride 93 mmol/L (96-108); Creatinine Clr Calc Pharmacy 99.8; Estimated Glomerular Filt Rate > 60; Magnesium 2.0 mg/dL (1.6-2.6); Potassium 3.3 mmol/L (3.3-5.1); Sodium 131 mmol/L (135-145); Total Protein 7.1 g/dL (6.5-8.0)
[2025-06-14 15:28] LABS: Neutrophils Percent Manual 51 % (45-73)
[2025-06-14 15:29] LABS: Troponin-I High Sensitivity < 2.7 ng/L (<3.5-35.0)
[2025-06-14 15:31] LABS: Band Neutrophils Percent 19 % (3-5); Basophils Percent Manual 1 % (0-2); Eosinophils Percent Manual 1 % (0-4); Lymphocytes Percent Manual 19 % (20-40); Metamyelocytes Percent 3 %; Monocytes Percent Manual 6 % (2-11)
[2025-06-14 15:33] LABS: Basophilic Stippling 1+ (0-2) /OIF; Hypochromasia 1+ (5-14) /OIF; RBC Morphology NOTED; Toxic Granulation PRESENT; Toxic Vacuolation PRESENT
[2025-06-14 15:34] LABS: Dohle Bodies PRESENT
[2025-06-14 15:35] LABS: Large Platelet PRESENT
--- OUTSIDE RECORDS SUMMARY | 2025-06-14 15:35 | XMS_ITS | Clinical Summary ---
Author Organization [facility] Address [address] [place] [address] Care Team Providers Care Color Paste Mixing Supervisor Name Role Phone Ref, Has No Pcp Or Primary Care Provider Unavail able Allergies Active Allergy Reactions Criticality Noted Date Comments Bee Venom Protein (Honey Bee) Itching 2023 Fish Containing Products Itching 01/26/2024 Medications busPIRone (BUSPAR) 15 mg tablet Take 30 mg by mouth 2 times a day. Active NIFEdipine XL (PROCARDIA XL) 60 mg tablet Take 60 mg by mouth once a day. Active QUEtiapine XR (SEROquel XR) 200 mg tablet Take 200 mg by mouth nightly. Active QUEtiapine (SEROquel) 25 mg tablet Take 25 mg by mouth 3 times a day. Active sertraline (ZOLOFT) 100 mg tablet Take 100 mg by mouth once a day. Active Active Problems Problem Noted Date Diagnosed Date Sinus tachycardia by electrocardiogram Assessment & Plan (04/03/2024 11:22 AM EDT): Patient was found to be in sinus tachycardia on EKG and telemetry. Overnight on 04/02, patient was tachycardic into the 120s while resting and up to 145 while ambulating. EKG was acquired this morning which showed mild sinus tach at around 103 bpm. We will trial Toprol-XL at 25 mg daily. -Trial of Toprol-XL 25 mg daily. -Follow-up on response. Urinary hesitancy 04/01/2024 Assessment & Plan (04/03/2024 11:20 AM EDT): Patient reported to me on the morning of 04/01 that he has had issues with initiating urination. He said that he feels pressure and when he goes to urinate, it is difficult to begin and he has a week stream. He denies nocturia. Tamsulosin was trialed and it was effective in helping his urinary stream. -Continue tamsulosin .4mg daily Assessment & Plan (04/01/2024 2:09 PM EDT): Patient reported to me on the morning of 04/01 that he has had issues with initiating urination. He said that he feels pressure and when he goes to urinate, it is difficult to begin and he has a week stream. He denies nocturia. Will initiate a trial of tamsulosin for now and see how he responds. -Tamsulosin .4mg daily -Follow up response -Consider urology consult if no response to tamsulosin Alcohol abuse with withdrawal 03/31/2024 Assessment & Plan (04/01/2024 2:20 PM EDT): Patient coming in from [facility]. He self admitted himself for alcohol withdrawal. Reports using 20 nips a day. Last drink 1 PM yesterday. He believes [facility] is saving a bed for him. -Addiction psych consult in a.m. -Changed to Valium CIWA. Since changing his scores have been 8 2 and 8 so much improved over the phenobarb CIWA. -Thiamine folic acid Assessment & Plan (03/31/2024 11:04 PM EDT): Patient coming in from [facility]. He self admitted himself for alcohol withdrawal. Reports using 20 nips a day. Last drink 1 PM yesterday. He believes [facility] is saving a bed for him. -Addiction psych consult in a.m. -Changed to Valium CIWA. Since changing his scores have been 8 2 and 8 so much improved over the phenobarb CIWA. -Thiamine folic acid Assessment & Plan (03/31/2024 6:17 AM EDT): Patient coming in from [facility]. He self admitted himself for alcohol withdrawal. Reports using 20 nips a day. Last drink 1 PM yesterday. CIWA scores in the ER have been 11 x 16 x 12. Patient was started on phenobarbital, transition to Valium. 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 -Continue CIAR protocol -Thiamine folic acid Shortness of breath 03/31/2024 Assessment & Plan (04/02/2024 2:15 PM EDT): Patient transferred from [facility] for sudden onset shortness of breath. Patient states that he could not breathe for a few seconds but then it got better and is completely resolved now. States no chest pain with this episode but he did have some palpitations. Also reports history of A-fib.Chest x-ray clear. Troponins 8 then 10. EKG showing normal sinus rhythm with deep Q waves in isolated lead 2 and T wave inversion in lead V2. -Continue to monitor on telemetry -No further cardiac workup ordered at this time Assessment & Plan (04/01/2024 2:21 PM EDT): Patient transferred from [facility] for sudden onset shortness of breath. Patient states that he could not breathe for a few seconds but then it got better and is completely resolved now. States no chest pain with this episode but he did have some palpitations. Also reports history of A-fib.Chest x-ray clear. Troponins 8 x 10. EKG showing normal sinus rhythm with deep Q waves in isolated lead 2 and T wave inversion in lead V2 -Continue to monitor on telemetry -No further cardiac workup ordered at this time Assessment & Plan (03/31/2024 11:08 PM EDT): Patient transferred from [facility] for sudden onset shortness of breath. Patient states that he could not breathe for a few seconds but then it got better and is completely resolved now. States no chest pain with this episode but he did have some palpitations. Also reports history of A-fib.Chest x-ray clear. Troponins 8 x 10. EKG showing normal sinus rhythm with deep Q waves in isolated lead 2 and T wave inversion in lead V2 -Continue to monitor on telemetry -No further cardiac workup ordered at this time Assessment & Plan (03/31/2024 6:22 AM EDT): Patient transferred from [facility] to [facility] for sudden onset shortness of breath. Patient states that he could not breathe for a few seconds but then it got better and is completely resolved now. States no chest pain with this episode but he did have some palpitations. Also reports history of A-fib.Chest x-ray clear. Troponins 8 x 10. EKG showing normal sinus rhythm with deep Q waves in isolated lead 2 and T wave inversion in lead V2 -Continue to monitor on telemetry -No further cardiac workup ordered at this time Depression 03/31/2024 Assessment & Plan (04/02/2024 2:14 PM EDT): Patient with history of depression. Home medication includes sertraline 100 mg p.o. daily, quetiapine 25 mg p.o. 3 times a day with 200 mg at night, buspirone 30 mg twice daily -Continue with home medications Assessment & Plan (04/01/2024 2:20 PM EDT): Patient with history of depression. Home medication includes sertraline 100 mg p.o. daily, quetiapine 25 mg p.o. 3 times a day with 200 mg at night, buspirone 30 mg twice daily -Continue with home medications Assessment & Plan (03/31/2024 11:06 PM EDT): Patient with history of depression. Home medication includes sertraline 100 mg p.o. daily, quetiapine 25 mg p.o. 3 times a day with 200 mg at night, buspirone 30 mg twice daily -Continue with home medications Assessment & Plan (03/31/2024 6:16 AM EDT): Patient with history of depression. Home medication includes sertraline 100 mg p.o. daily, quetiapine 25 mg p.o. 3 times a day with 200 mg at night, buspirone 30 mg twice daily -Continue with home medications Opioid use disorder 03/31/2024 Assessment & Plan (04/02/2024 2:14 PM EDT): Patient also reports taking methadone 160 mg from [facility] in [place] . Dose confirmed. Last given sunday -Methadone 160mg Po daily Assessment & Plan (04/01/2024 2:21 PM EDT): Patient also reports taking methadone 160 mg from [facility] in [place] . Dose confirmed. Last given sunday -Methadone 160mg Po daily Assessment & Plan (03/31/2024 11:07 PM EDT): Patient also reports taking methadone 160 mg from [facility] [place] . Dose confirmed. Last given sunday -Methadone 160mg Po daily Assessment & Plan (03/31/2024 6:43 AM EDT): Patient also reports taking methadone 160 mg from [facility] [place] . Dose confirmed. Last given sunday -Methadone 160mg Po daily Atrial fibrillation 03/31/2024 Assessment & Plan (04/03/2024 11:24 AM EDT): Patient reports he also has a history of A-fib. Not on anticoagulation but is on nifedipine. EKG today showing normal sinus rhythm. Apparently not a candidate for anticoagulation likely because of his history of falls. 04/02 patient appears to be in atrial fibrillation with an irregularly irregular heartbeat. Due to his low [id number] of 1, we decided to place him on aspirin 81 mg daily and defer a DOAC. -Trial of metoprolol XL 25 mg daily -Continue with aspirin EC 81 mg -Continue with nifedipine -Maintain on telemetry Assessment & Plan (04/01/2024 2:21 PM EDT): Patient reports he also has a history of A-fib. Not on anticoagulation but is on nifedipine. EKG today showing normal sinus rhythm. Apparently not a candidate for anticoagulation likely because of his history of falls. -Continue with nifedipine -Maintain on telemetry Assessment & Plan (03/31/2024 11:05 PM EDT): Patient reports he also has a history of A-fib. Not on anticoagulation but is on nifedipine. EKG today showing normal sinus rhythm. Apparently not a candidate for anticoagulation likely because of his history of falls. -Continue with nifedipine -Maintain on telemetry Assessment & Plan (03/31/2024 6:22 AM EDT): Patient reports he also has a history of A-fib. Not on anticoagulation but is on nifedipine. EKG today showing normal sinus rhythm. -Continue with nifedipine -Maintain on telemetry Social History Tobacco Use Types Packs/Day Years Used Date Smoking Tobacco: Every Day Cigarettes Smokeless Tobacco: Former Tobacco Cessation:Ready to Q uit: Not Asked; Counseling Given: Not Answered Alcohol Use Standard Drinks/Week Comments Yes 0 (1 standard drink = 0.6 oz pure alcohol) a bottle of hard liquor or more a day [facility] Utilities Answer Date Recorded In the past 12 months has e [employer], gas, oil, or water [employer] threatened to shut off services in your home? No 04/03/2024 Hunger Vital Sign Answer Date Recorded Within the past 12 months, y ou worried that your food would run out before you got the money to buy more. Never true 04/03/20 24 Within the past 12 months, t he food you bought just didn't last and you didn't have money to get more. Never true 04/03/2024 Transportation Answer Date Recorded In the past 12 months, has l ack of reliable transportation kept you from medical appointments, meetings, work or from getting things needed for daily living? Yes 04/03/2024 Housing Answer Date Recorded Housing Risk Low 2 04/03/2024 Housing Risk Medium Not on file 04/03/2024 Housing Risk High Not on file 04/03/2024 What is your living situation today? [facility] 04/03/2024 Sex and Gender Information Value Date Recorded Sex Assigned at Male 01/26/2024 5:16 PM EDT Legal Sex Male 4:12 PM EDT Gender Identity Not on file Sexual Orientation Not on file Last Filed Vital Signs Vital Sign Reading Time Taken Comments Blood Pressure 143/97 04/04/2024 8:37 AM EDT Pulse 96 04/04/2024 8:37 AM EDT Temperature 36.4 C (97.5 F) 04/03/2024 8:03 PM EDT Respiratory Rate 18 04/03/2024 8:03 PM EDT Oxygen Saturation 95% 04/03/2024 8:03 PM EDT Inhaled Oxygen Concentration - - Weight 103 kg (227 lb 1.2 oz) 04/03/2024 1:05 AM EDT Height 177.8 cm (5' 10 ) 04/03/2024 1:05 AM EDT Body Mass Index 32.58 04/03/2024 1:05 AM EDT Plan of Treatment Health Maintenance Due Date Last Done Comments Cologuard 1980 Colon Cancer Screening 1980 Colonoscopy 1980 FOBT / Fit Test 1980 HIV Screening 1980 Hepatitis C Screening 1980 Sigmoidoscopy 1980 Varicella Vaccines (1 of 2 - 13+ 2-dose series) 1992 Hepatitis B Vaccines (1 of 3 - 19+ 3-dose series) 12/19 Pneumococcal Vaccine: Pediat sarah (0-5 Years) and At-Risk Patients (6-50 Years) (1 of 2 - PCV) 01/06/1999 DTaP,Tdap,and Td Vaccines (1 - Tdap) 01/06/2002 Alcohol/Substance Use Screening 08/20/2024 Depression Screening and Follow-Up 08/20/2024 Social Drivers of Health Annual Screening 08/20/2024 COVID-19 Vaccine ( - 2024- season) 2025 Influenza Vaccine (#1) 2025 RSV Vaccine (60+ years old a nd patients) (1 - 1-dose 75+ series) 01/06/2055 Insurance [facility] MEDICAID Advance Directives * Full Code (Latest Code Status on File) Date Activated Date Inactivated Comments 03/31/2024 6:00 AM 04/04/2024 12:41 PM Care Teams Color Paste Mixing Supervisor Relationship Specialty Start Date End Date Ref, Has No Pcp Or DO NOT EDIT THIS RECORD VIA PROVIDER ON THE FLY PCP - General Real Estate Clerk 01/26/24
--- OUTSIDE RECORDS SUMMARY | 2025-06-14 15:35 | XMS_ITS | Clinical Summary ---
Author Organization [facility] Address [address] [place] [address] Care Team Providers Care Environmental Test Technician Name Role Phone Unavailable Primary Care Provider Unavailabl e Source Comments PLEASE NOTE, if this patient is a minor, it may be UNLAWFUL to discuss sensitive information that is contained in these records (such as FAMILY PLANNING, MENTAL HEALTH or SUBSTANCE ABUSE) with the minor patient's parent or other person without the patient's specific authorization.[facility] Social History Tobacco Use Types Packs/Day Years Used Date Smoking Tobacco: Never Assessed Social Connections Answer Date Recorded Social Connections and Isolation 0 08/22/2021 Financial Resource Strain Answer Date R ecorded Financial Resource Strain 0 2021 Stress Answer Date Recorded Stress 0 08/22/2021 Physical Activity Answer Date Recorded Physical Activity 0 08/22/2021 Food Insecurity Answer Date Recorded Food 0 08/22/2021 Transportation Needs Answer Date Record ed Transportation 0 08/22/2021 Housing Stability Answer Date Recorded Housing 0 08/22/2021 Safety and Environment Answer Date Tj rded Safety 0 08/22/2021 Utilities Answer Date Recorded Utilities 0 08/22/2021 Employment Answer Date Recorded Employment 0 08/22/2021 Sex and Gender Information Value Date Recorded Sex Assigned at Not on file Legal Sex Male 8:17 AM PST Gender Identity Not on file Sexual Orientation Not on file Plan of Treatment Not on file Insurance [place]
--- OUTSIDE RECORDS SUMMARY | 2025-06-14 15:35 | XMS_ITS | Clinical Summary ---
Author Organization [facility] Address [address] [place] [address] Phone Care Team Providers Care Behavioral Scientist Name Role Phone Physician, No Pcp Primary Care Provider Unavaila ble Allergies Active Allergy Reactions Criticality Noted Date Comments Bee Pollen 11/03/2024 Bee Venom Protein (Honey Bee) Unknown 2024 Fish Containing Products Unknown 11/03/2024 Medications furosemide (LASIX) 20 mg tablet Take 1 tablet (20 mg total) by mouth 1 (one) time each day for 5 days. 5 tablet 11/04/2024 Active Surgical History Surgery Date Site/Laterality Comments OTHER SURGICAL HISTORY 2002 PROCEDURE: ---- OTHER ----; COMMENT: back surgery, L4-L5 Family History Medical History Relation Name Comments Stroke Maternal Grandfather COPD Mother Hypertension Mother Stroke Sister 1 Relation Name Status Comments Maternal Grandfather Mother Sister 1 Sister 2 Social History Tobacco Use Types Packs/Day Years Used Date Smoking Tobacco: Every Day Cigarettes Smokeless Tobacco: Never Alcohol Use Standard Drinks/Week Comments No 0 (1 standard drink = 0.6 oz pur e alcohol) Sex and Gender Information Value Date Recorded Sex Assigned at Not on file Legal Sex Male 9:05 PM EST Gender Identity Not on file Sexual Orientation Not on file Obstetrics History Last Filed Vital Signs Vital Sign Reading Time Taken Comments Blood Pressure 136/93 11/04/2024 12:55 AM EDT Pulse 104 11/04/2024 12:55 AM EDT Temperature 36.7 C (98.1 F) 11/03/2024 8:33 PM EDT Respiratory Rate 18 11/04/2024 12:55 AM EDT Oxygen Saturation 98% 11/04/2024 12:55 AM EDT Inhaled Oxygen Concentration - - Weight 113 kg (250 lb) 11/03/2024 8:53 PM EDT Height 175.3 cm (5' 9 ) 11/03/2024 8:53 PM EDT Body Mass Index 36.92 11/03/2024 8:53 PM EDT Plan of Treatment Health Maintenance Due Date Last Done Comments Colorectal Cancer Screening: Colonoscopy 1980 Hepatitis B Vaccines (1 of 3 - 19+ 3-dose series) 01/06/1999 HPV Vaccines (1 - 3-dose SCD M series) 01/06/2007 Hepatitis A Vaccines (2 of 2 - Risk 2-dose series) 06/30/2022 12/28/2021 Pneumococcal Vaccine: Pediatrics (0 to 5 Years) and At-Risk Patients (6 to 49 Years) (2 of 2 - PCV) 07/31/2022 07/31/2021 Cholesterol Screening (Lipid Panel) 09/14/2023 HIV Screening 09/14/2023 Hepatitis C Screening 09/14/2023 Social Influencers of Health Screening 09/14/2023 Depression Screening 08/20/2024 COVID-19 Vaccine (4 - 2024-2 6 season) 2025 12/28/2021, 03/16/2021, 02/15/2021 Influenza Vaccine (#1) 2025 06/17/2024 DTaP,Tdap,and Td Vaccines (2 - Td or Tdap) 06/23/2030 06/23/2020 RSV Immunization Adult Patients (1 - 1-dose 75+ series) 01/06/2055 HIB Vaccines Aged Out No longer eligi ble based on patient's age to complete this topic IPV Vaccines Aged Out No longer eligi ble based on patient's age to complete this topic MMR Vaccines Aged Out No longer eligi ble based on patient's age to complete this topic Meningococcal ACWY Vaccine Aged Out N o longer eligible based on patient's age to complete this topic Meningococcal B Vaccine Aged Out No l onger eligible based on patient's age to complete this topic RSV Immunization Patients Under 20 months Aged Out No longer eligible b ased on patient's age to complete this topic Varicella Vaccines Aged Out No longer eligible based on patient's age to complete this topic Insurance MEDICAID - [place] [facility] [employer] Care Teams Behavioral Scientist Relationship Specialty Start Date End Date Physician, No Pcp PCP - General 11/03/24
[2025-06-14 15:36] LABS: Basophils Abs Manual 0.1 X10*3/uL (0.0-0.2); Eosinophils Absolute Manual 0.1 X10*3/uL (0.0-0.4); Lymphocytes Absolute Manual 1.1 X10*3/uL (1.2-4.9); Metamyelocytes Absolute 0.2 X10*3/uL; Monocytes Absolute Manual 0.4 X10*3/uL (0.1-1.2); Neutrophils Absolute Manual 4.1 X10*3/uL (2.0-8.3); White Blood Count 5.9 X10*3/uL (4.8-10.8)
[2025-06-14 16:37] LABS: Reflex Lactate? Lactic Acid Added
[2025-06-14 17:18] LABS: ~Lactic Acid-LAB USE ONLY 2.9 mmol/L (0.5-2.0)
[2025-06-14] MEDS: Lactated Ringers 1,000 ML 100 ML IVCONT (17:46)
[2025-06-14] MEDS: PHENobarbitaL sodium 130 MG/ML VIAL IM Q3Hx2 212 MG IM ×2 (17:51→20:06)
--- NOTE | 2025-06-14 17:54 | PHA.MEDREC ---
Addendum entered by Sia Garcia RPh 06/14/25 18:25: reviewed by [facility]. Original Note: Pharmacy Consult ? Medication Reconciliation Pharmacy has completed the medication reconciliation. Confirmed medication list with patient's mother. She confirmed most of list and remaining was confirmed with claims history. Mom does not know when he last took any of his medications.
--- NOTE | 2025-06-14 18:05 | PC.NURSE ---
Pt. admitted to ICU 255, arrived at approx 1720. Pt. A&Ox 4 but drowsy and quickly falling back to sleep in between questions. Vague and forgetful with soft-spoken, garbled speech. ST on tele, HR 110s-120s. SBPs 130s. Pt. on HFNC 50L 80%, O2 sat >92%. LS rhonchi throughout, pt. with loose intermittent cough. RR 20-30. Pt. provided with urinal, voided 900cc dark yellow urine. Bed alarm on, call henriquez within reach. Pt. states he receives his methadone from [facility] [place] [facility] [address] [facility] in [place]. Plan of care ongoing.
[2025-06-14 19:00] LABS: Reflex Lactate? 2 Y
--- NOTE | 2025-06-14 19:27 | PM.CCHP ---
History of Present Illness Date of Service: 06/14/25 Attending physician on admission: Cruzito Wesley Chief Complaint: Acute sepsis, aspiration pneumonitis 45-year-old male with underlying history of alcohol abuse, hepatitis-C, polysubstance abuse, hypertension, depression, systolic CHF, alcoholic cardiomyopathy, asthma, methadone dependence , hyperlipidemia .? Presented to emergency room with complaints of having a fever, he was transported via EMS.? The patient reported feeling unwell after drinking about a L of hard liquor last night followed by ingestion of listerine today.? The patient's reported he has had a cough for several days and did not look well.? The patient has had some vomiting.? On arrival to the emergency room he was noted to be tachycardic, hypoxic with O2 sat of 83% on 100% non-rebreather mask.? His workup showed white count 5.9, H and H of 9.9 and 30.0 respectively, platelets 183, 19% band neutrophils.? ABG showed PO2 of 70 otherwise normal.? No electrolyte abnormalities.? Lactic acid was 5.0 and subsequently came down to 2.9 and 1.9.? Albumin 3.4.? Chest x-ray showed right lower lobe pneumonia. The patient had received 1 L of IV fluid and was started on broad-spectrum antibiotics including vancomycin and Zosyn.? The patient had been placed on high-flow and given the possibility of decompensation both from the respiratory standpoint as well as his alcohol withdrawal risk the patient was admitted to the ICU for further care. Review of Systems Review of Systems: Yes Unobtainable due to mental status PMFSH Past Medical History Medical History Abnormal chest x-ray Dry mouth Alcoholic cardiomyopathy Systolic heart failure Rash of neck Portal hypertension Hepatic steatosis Chest pain Mixed hyperlipidemia Asthma Tobacco use disorder Essential hypertension Atrial fibrillation Depression Anxiety Hepatitis C infection Methadone dependence History of syphilis Polysubstance abuse Alcohol dependence Alcohol abuse Opiate use No known health problems Surgical History Surgical History History of back surgery Social History Social History Household Members: Unknown / Unable to assess Housing: Unknown / Unable to assess Do you presently have visiting nurse or other home services: No Alcohol intake: current Alcohol intake frequency: 3 or more drinks per day Alcohol type: beer and hard liquor Patient Tobacco Use Status: Tobacco use Unknown Tobacco use type: Cigarette Cigarette Packs Per Day: 1 Cigarettes Per Day: 20.0 e-Cigarette/Vaping Use: Never Used Second Hand Smoke Exposure: Yes Substance Use Type: Crack/Cocaine and Opiates Advance Directives: No Advance Directives Information Provided: No Do you have a plan to hurt others: No Plan service: No Current occupational status: unemployed Current occupational exposures/hazards: No Cognitive needs: Yes (adhd) Hearing needs: No Vision needs: No Meds Allergies Allergy/AdvReac Type Severity Reaction Status Date / Time Fish Containing Products Allergy Unknown UNKNOWN Verified 06/14/25 14:19 Active Medications: Current Medications Acetaminophen (Acetaminophen 325 Mg Tablet) 650 mg PO Q6H PRN PRN Reason: Pain, Moderate(Pain Scale 4-6) Enoxaparin Sodium (Enoxaparin Sodium 40 Mg/0.4 Ml Syringe) 40 mg SUBCUT Q24H [facility] Last Admin: 06/14/25 17:46 Dose: 40 mg Hydromorphone HCl (Hydromorphone Hcl 1 Mg/Ml Syringe) 0.25 mg IVPUSH Q6H PRN; Protocol PRN Reason: Pain, Severe (Pain Scale 7-10) Lactated Ringer's (Lr) 1,000 mls @ 100 mls/hr IVCONT .Q10H [facility] Last Admin: 06/14/25 17:46 Dose: 100 mls/hr Ondansetron HCl (Ondansetron Hcl 4 Mg/2 Ml Vial) 4 mg IVPUSH Q8H PRN PRN Reason: Nausea Pantoprazole Sodium (Pantoprazole Sodium 40 Mg/10 Ml Vial) 40 mg IVPUSH DAILY@0630 [facility] Last Admin: 06/14/25 17:46 Dose: 40 mg Pharmacy Consult (Consult Rx Etoh Phenob Im/Po) 1 each MISCELLANE ONCE PRN; Protocol PRN Reason: Consult order Phenobarbital (Phenobarbital 15 Mg Tablet) 45 mg PO BID [facility] Stop: 06/16/25 21:01 Phenobarbital (Phenobarbital 30 Mg Tablet) 30 mg PO BID [facility] Stop: 06/18/25 21:01 Phenobarbital (Phenobarbital 30 Mg Tablet) 30 mg PO DAILY [facility] Stop: 06/20/25 09:01 Phenobarbital Sodium (Phenobarbital Sodium 130 Mg/Ml Vial Im Q3hx2) 212 mg IM Q3H JEAN Stop: 06/14/25 21:01 Last Admin: 06/14/25 17:51 Dose: 212 mg Home Medications ?Medication ?Instructions ?Recorded ?Confirmed ?Last Taken ?Type calcium 600 mg (as 1 tab PO DAILY 02/21/25 06/14/25 02/20/25 History carbonate)-vitamin D3 10 mcg (400 unit) tablet methadone 10 mg/mL oral concentrate 100 mg PO DAILY 02/21/25 02/22/25 02/21/25 History omeprazole 20 mg capsule,delayed 20 mg PO DAILY@0630 06/14/25 06/14/25 Unknown History release Physical Exam Vital Signs: Vital Signs: Last Vital Signs Temp 97.8 F 06/14/25 17:55 Pulse 121 H 06/14/25 19:00 Resp 23 H 06/14/25 19:00 BP 126/89 06/14/25 19:00 Pulse Ox 94 06/14/25 19:00 O2 Del Method High Flow Nasal C annula 06/14/25 19:00 O2 Flow Rate 50 06/14/25 19:00 FiO2 80 06/14/25 19:00 BMI result Body Mass Index 27.7 Sepsis exam done at 1940 General:? Somnolent, pupils dilated. ?Does wake up with painful stimuli.? No using accessory muscles Skin:? Thin, Intact, no lesions, edema, erythema, clubbing or cyanosis.? No ulcers. HEENT:? Head is normocephalic, atraumatic, pupils equal. Buccal mucosa is dry.? Cardiac:? Clear S1-S2, no murmurs rubs or gallops. Pulmonary:? Diminished lung sounds bilaterally fine, right lung basilar rhonchi.? No crackles or rales, no wheezes. Abdomen:? Protuberant, positive bowel sounds in all 4 quadrants.? Soft, nontender, no rebound or guarding.? Musculoskeletal:? Moving all 4 extremities upon request a major joints, there is no crepitus or tenderness.? The strength is 5/5 bilaterally and throughout all 4 extremities.? There is no leg edema , no calf tenderness , no leg asymmetry.? Gait not assessed at this point. Neurologic:? As above.? No focal deficits noted. Vascular:? 2+ pulses upper and lower extremities distally.? Less than 2nd capillary refill of fingers and toes bilaterally upper and lower extremities Results Labs 06/14/25 14:31 06/14/25 19:57 Labs: Laboratory Results - last 24 hr 06/14/25 06/14/25 06/14/25 14:31 14:45 16:56 MCV 82.6 MCH 27.3 MCHC 33.0 RDW 13.7 Plt Count 183 MPV 9.2 L Immature Gran % (Auto) Cancelled Neut % (Auto) Cancelled Lymph % (Auto) Cancelled [place] % (Auto) Cancelled Eos % (Auto) Cancelled Baso % (Auto) Cancelled Lymph # (Auto) Cancelled [place] # (Auto) Cancelled Eos # (Auto) Cancelled Baso # (Auto) Cancelled Abs Immat Gran (auto) Cancelled Absolute Neuts (auto) Cancelled Absolute Nucleated RBC 0.120 H Nucleated RBC % (auto) 2.0 H Neutrophils % (Manual) 51 Band Neutrophils % 19 H Lymphocytes % (Manual) 19 L Monocytes % (Manual) 6 Eosinophils % (Manual) 1 Basophils % (Manual) 1 Metamyelocytes % 3 Abs Neuts (Manual) 4.1 Lymphocytes # (Manual) 1.1 L Monocytes # (Manual) 0.4 Eosinophils # (Manual) 0.1 Basophils # (Manual) 0.1 Metamyelocytes # 0.2 Nucleated RBCs 2 H Toxic Granulation PRESENT Toxic Vacuolation PRESENT Dohle Bodies PRESENT Platelet Estimate NORMAL Large Platelets PRESENT Plt Morphology Comment NOTED RBC Morphology NOTED Hypochromasia 1+ (5-14) Basophilic Stippling 1+ (0-2) O2 Saturation 92.0 ABG pH at Pt Temp 7.43 ABG pCO2 at Pt Temp 39 ABG pO2 at Pt Temp 70 L ABG HCO3 26 ABG Base Excess (Actual) 2.2 Anion Gap 18 Estim Creat Clear Calc 99.8 Estimated GFR > 60 Random Glucose 223 H Lactic Acid 5.0 H* Lactic Acid F/U @ 2Hr 2.9 H* Calcium 9.0 Magnesium 2.0 Total Bilirubin 0.6 AST 36 ALT 44 H Alkaline Phosphatase 86 Troponin I High Sens < 2.7 Total Protein 7.1 Albumin 3.3 L Assessment and Plan (1) Acute respiratory failure with hypoxia: Status: Acute Plan ASSESSMENT : 1. Acute sepsis without shock 2. Acute hypoxic respiratory failure due to aspiration pneumonitis of the right lung 3. Improved acute lactic and metabolic acidosis 4. Hypoalbuminemia 5. Chronic alcohol abuse with acute alcohol withdrawal 6. Normocytic anemia likely due to bone marrow suppression in the setting of alcoholism 7. Methadone dependence, dose to be confirmed PLAN OF CARE: Admitted to the ICU monitor vital signs, I's and o's, patient received 1 L of IV fluid and we will give albumin due to risk of CHF given his underlying alcoholic cardiomyopathy and history of systolic heart failure..? Continue phenobarbital protocol, resume Zosyn.? Start him on thiamine and folic acid.? I had a lengthy discussion with the patient's who is at bedside regarding his goals of care.? She clearly stated in case of deterioration, she would like to be contacted but remains full code. GI PROPHYLAXIS:? IV ppi DVT PROPHYLAXIS:? Lovenox subQ Follow-up Sepsis exam done at 2140 General:? More awake, following commands, speech is coherent.? Somewhat tremors in no acute distress.? Accessory muscle usage. Cardiac:? Tachycardic 110 beats per minute.? No murmurs, rubs, gallops ? Pulmonary:? Diminished lung sounds bilaterally fine, right lung basilar rhonchi.? No crackles or rales, no wheezes. Neurologic:? As above.? No asterixis. ?No focal deficits noted. Vascular:? 2+ pulses upper and lower extremities distally.? Less than 2nd capillary refill of fingers and toes bilaterally upper and lower extremities The patient has not had increased oxygen requirements, he is more awake.? We will continue with phenobarbital.? Antibiotics were resumed, albumin given x 200 mL at 133 cc an hour. This patient counter and care had a high probability of a clinically significant, sudden, or life threatening deterioration of this patient's condition which required my full and direct attention, intervention and personal management. Critical care time used for critical evaluation of this patient, diagnosis, treatment and coordination of care, review her records and documentation TOTAL CRITICAL CARE TIME?90 MIN . discussion and coordination with consultants, completely separate from any procedures performed. Patient's care was discussed in detail with Dr. Wesley who is aware of all the above as well as the plan of care for this patient.
[2025-06-14] MEDS: Albumin Human 25 % 100 ML 133.33 ML IV ×2 (19:41→21:02)
--- NOTE | 2025-06-14 19:47 | PM.SEPBOLA4 ---
Sepsis Bolus Exclusion Sepsis Bolus Exclusion CHF/Renal Failure Date of Occurrence: 06/14/25 Time of Occurrence:: 14:36 This patient met severe sepsis criteria due to the following condition(s):: Hypotension and Lactate>=4mmol/L In my clinical judgement the administration of 30 ml/kg of crystalloid would be detrimental to this patient due to the patient's following conditions:: Concern for fluid overload Replace the 30 mls/kg with (Zero amount not acceptable and all fluids for severe sepsis must be given at GREATER than 125 mls/hr) *Note: One of the tan must be documented Crystalloids amount given in mls: (rate must be at least 150cc/hr): 1,000 At a rate of (must be > 125 cchr):: 999
[2025-06-14 19:54] LABS: ~Lactic Acid-LAB USE ONLY 1.9 mmol/L (0.5-2.0)
[2025-06-14 20:12] LABS: Venous Blood Gas Refer to POC result
[2025-06-14 20:13] LABS: VBG HCO3 29 mmol/L (22-26); VBG O2 % Saturation 95.0 %
[2025-06-14] MEDS: Thiamine HCL 100 MG in 0.9 % Sodium Chloride 100 ML 202 MG IV (20:20)
[2025-06-14 20:25] LABS: Alanine Aminotransferase 39 U/L (0-40); Albumin Level 3.4 g/dL (3.5-5.0); Alkaline Phosphatase 86 U/L (39-117); Anion Gap 15 (12-20); Aspartate Amino Transferase 33 U/L (5-37); Blood Urea Nitrogen 11 mg/dL (9-16); Calcium 8.8 mg/dL (8.4-10.2); Carbon Dioxide 25 mmol/L (22-29); Chloride 99 mmol/L (96-108); Creatinine Clr Calc Pharmacy 108.4; Estimated Glomerular Filt Rate > 60; Potassium 3.7 mmol/L (3.3-5.1); Sodium 135 mmol/L (135-145); Total Protein 7.1 g/dL (6.5-8.0)
[2025-06-15] VITALS (40 sets, daily range): BP systolic 90–172; BP diastolic 47–102; PULSE 92–134; RESP 16–25; TEMP 34.9–38.3; O2SAT 88–97; BMI 31.5
--- NOTE | 2025-06-15 03:42 | P.PCNCC_ITS ---
Procedures Date of Service Date of Service: 06/15/25 Intubation Intubation Comments: Pt become more agitated despite of Phenobarbital, in worsening respiratoty distress with increase accessory muscle ussage and barely satting 89% on hiflow FiO2 become more and more restless and coughing as he was chocking on his own saliva, the decisssion to intubate to protect his airway and braden treat his PNA and hypoxic Resp Failure, Etoh withdrawal was made, I did call his mother Tsering Beth who consented the procedure. Consent for Procedure: Elective - informed consent obtained Time out performed: Yes Sedative: propofol Mg given: 100 Paralytic: rocuronium Mg given: 50 Laryngoscope: fiber optic video scope ET tube size: 8 ET tube uncuffed: Yes Tube secured depth (cm): 26 Tube secured location: lips Tube placement confirmation: visualized tube passing through cords, equal breath sounds bilaterally, no breath sounds over epigastrium and confirmation by capnom etry Patient tolerated procedure: well and other (Patient x-ray shows the tip of the endotracheal tube out about 3-4 cm from the dimitris. Right lung whiteout which appears worse than x-ray from admission.) Intubation complications: none
[2025-06-15 04:34] LABS: VBG HCO3 21 mmol/L (22-26); VBG O2 % Saturation 100.0 %
[2025-06-15] MEDS: Lactated Ringers 1,000 ML 100 ML IVCONT (04:34)
[2025-06-15 04:35] LABS: Venous Blood Gas Refer to POC result
[2025-06-15 05:02] LABS: Anion Gap 15 (12-20); Blood Urea Nitrogen 10 mg/dL (9-16); Calcium 8.9 mg/dL (8.4-10.2); Carbon Dioxide 25 mmol/L (22-29); Chloride 101 mmol/L (96-108); Creatinine Clr Calc Pharmacy 129.3; Estimated Glomerular Filt Rate > 60; Magnesium 2.3 mg/dL (1.6-2.6); Potassium 3.7 mmol/L (3.3-5.1); Sodium 137 mmol/L (135-145)
--- NOTE | 2025-06-15 06:12 | PC.NURSE ---
Upon initial assessment at 1999 ? pt A&Ox3, restless but cooperative and verbally redirectable. CIWA 9?10. ST on tele, HR 120s. SBP > 90, MAP > 65. SpO2 > 92% via HFNC 50 L/80%. RR 20?30, LS with rhonchi throughout; encouraged TCDB. NPO. Pt requiring straight cath for urinary retention. Skin overall intact. At approximately 0200/0300 ? pt increasingly restless, pulling at lines/tubing, not redirectable. Versed 2 mg IVP given with partial effect. Increased WOB with accessory muscle use; SpO2 90% via HFNC. Decision made to intubate per JAMSE Myers; consent obtained. Given propofol 100 mg IVP and rocuronium 50 mg IVP for RSI. ETT #8.0 at 27 cm at lip, on VCV. OGT placed and clamped. Tube placement confirmed by pCXR. Propofol gtt initiated for sedation. HR to 130s; metoprolol 5 mg IVP x1 with effect. BP WNL. SpO2 > 92% on 100% FiO2; required saline lavage by RT. Indwelling urinary catheter placed per JAMES; UOP as charted. Repositioned q2h with wedges/pillows. Bed locked in lowest position, alarm on. See EMR/flowsheet for further details.
[2025-06-15 06:24] LABS: Hematocrit 26.7 % (42.0-52.0); Hemoglobin 8.7 g/dl (14.0-18.0); Mean Corpuscular HGB Conc 32.6 g/dl (31.0-36.0); Mean Corpuscular Hemoglobin 27.0 pg (27.0-33.0); Mean Corpuscular Volume 82.9 fL (80.0-98.0); NRBC Abs Auto 0.090 X10*3/uL (0.0-0.012); NRBC Pct Auto 1.4 /100WBC (0.0-0.2); Platelet Count 165 X10*3/uL (160-400); Red Blood Count 3.22 X10*6/uL (4.60-5.80); WBC ABN SCTR FOR CBC 1
[2025-06-15 06:55] LABS: Atypical Lymphs Percent Manual 1 % (0-6); Band Neutrophils Percent 25 % (3-5); Lymphocytes Percent Manual 15 % (20-40); Metamyelocytes Percent 4 %; Monocytes Percent Manual 2 % (2-11); Neutrophils Percent Manual 53 % (45-73)
[2025-06-15 06:57] LABS: RBC Morphology NOTED
[2025-06-15 06:58] LABS: Basophilic Stippling 1+ (0-2) /OIF; Dohle Bodies PRESENT; Hypochromasia 1+ (5-14) /OIF; Polychromasia 1+ (0-2) /OIF; Toxic Granulation PRESENT; Toxic Vacuolation PRESENT
[2025-06-15 07:24] LABS: Atypical Lymph Absolute Manual 0.1 x10*3/uL; Lymphocytes Absolute Manual 1.0 X10*3/uL (1.2-4.9); Metamyelocytes Absolute 0.3 X10*3/uL; Monocytes Absolute Manual 0.1 X10*3/uL (0.1-1.2); Neutrophils Absolute Manual 5.1 X10*3/uL (2.0-8.3); White Blood Count 6.5 X10*3/uL (4.8-10.8)
--- NOTE | 2025-06-15 08:30 | P.PNCC_ITS ---
Subjective Subjective Date of Service: 06/15/25 Critical Care Time (minutes): 60 Physical Exam 2 Vital Signs: Vital Signs: Last Vital Signs Temp 100.0 F 06/15/25 07:00 Pulse 92 06/15/25 07:00 Resp 19 06/15/25 07:00 BP 96/52 L 06/15/25 07:00 Pulse Ox 97 06/15/25 07:00 O2 Del Method Mechanical Ventil ation 06/15/25 07:00 O2 Flow Rate 50 06/15/25 03:00 FiO2 65 06/15/25 07:50 BMI result Body Mass Index 31.5 Const: Other: intubated, sedated; grimaces to tactile stimuli General: no acute distress and well developed HEENT: Head: Yes normal to inspection, Yes normocephalic and Yes atraumatic Eyes: General: appearance normal, both eyes and all related structures Neck: Neck: Yes normal visual inspection, Yes full ROM, Yes no meningeal signs, Yes trachea midline and Yes supple Chest: Chest palpation & inspection: normal inspection of the chest Resp: Other: no appreciable overt rales, rhonchi, wheezing Effort & Inspection: normal respiratory effort Cardio: Rate: regular rate Rhythm: regular rhythm GI: Other: abdomen distended, though soft, compressible Inspection: Yes normal to inspection Palpation (GI): Soft to palpation, not firm, nontender, no guarding and not rigid Skin: General skin exam: no rashes or lesions noted Neuro: General: tone normal and no meningeal signs Extrem: General: Yes normal to inspection, Yes full ROM, Yes capillary refill normal and Yes no clubbing, cyanosis or edema Psych: Other: unable to assess Objective Data Labs 06/15/25 06:13 06/15/25 04:25 Labs: Laboratory Results - last 24 hr 06/14/25 06/14/25 06/14/25 14:31 14:45 16:56 WBC 5.9 RBC 3.63 L D Hgb 9.9 L D Hct 30.0 L D MCV 82.6 MCH 27.3 MCHC 33.0 RDW 13.7 Plt Count 183 MPV 9.2 L Immature Gran % (Auto) Cancelled Neut % (Auto) Cancelled Lymph % (Auto) Cancelled [place] % (Auto) Cancelled Eos % (Auto) Cancelled Baso % (Auto) Cancelled Lymph # (Auto) Cancelled [place] # (Auto) Cancelled Eos # (Auto) Cancelled Baso # (Auto) Cancelled Abs Immat Gran (auto) Cancelled Absolute Neuts (auto) Cancelled Absolute Nucleated RBC 0.120 H Nucleated RBC % (auto) 2.0 H Neutrophils % (Manual) 51 Band Neutrophils % 19 H Lymphocytes % (Manual) 19 L Atypical Lymphs % (Man) Monocytes % (Manual) 6 Eosinophils % (Manual) 1 Basophils % (Manual) 1 Metamyelocytes % 3 Abs Neuts (Manual) 4.1 Lymphocytes # (Manual) 1.1 L Atyp Lymphs # (Manual) Monocytes # (Manual) 0.4 Eosinophils # (Manual) 0.1 Basophils # (Manual) 0.1 Metamyelocytes # 0.2 Nucleated RBCs 2 H Toxic Granulation PRESENT Toxic Vacuolation PRESENT Dohle Bodies PRESENT Platelet Estimate NORMAL Large Platelets PRESENT Plt Morphology Comment NOTED RBC Morphology NOTED Polychromasia Hypochromasia 1+ (5-14) Basophilic Stippling 1+ (0-2) O2 Saturation 92.0 ABG pH at Pt Temp 7.43 ABG pCO2 at Pt Temp 39 ABG pO2 at Pt Temp 70 L ABG HCO3 26 ABG Base Excess (Actual) 2.2 VBG pH VBG pCO2 VBG pO2 VBG HCO3 VBG O2 Saturation VBG Base Excess Sodium 131 L Potassium 3.3 D Chloride 93 L Carbon Dioxide 23 Anion Gap 18 BUN 18 H Creatinine 1.01 Estim Creat Clear Calc 99.8 Estimated GFR > 60 Random Glucose 223 H Lactic Acid 5.0 H* Lactic Acid F/U @ 2Hr 2.9 H* Lactic Acid F/U @ 4Hr Calcium 9.0 Phosphorus Magnesium 2.0 Total Bilirubin 0.6 AST 36 ALT 44 H Alkaline Phosphatase 86 Troponin I High Sens < 2.7 Total Protein 7.1 Albumin 3.3 L 06/14/25 06/14/25 06/14/25 19:27 19:57 20:10 WBC RBC Hgb Hct MCV MCH MCHC RDW Plt Count MPV Immature Gran % (Auto) Neut % (Auto) Lymph % (Auto) [place] % (Auto) Eos % (Auto) Baso % (Auto) Lymph # (Auto) [place] # (Auto) Eos # (Auto) Baso # (Auto) Abs Immat Gran (auto) Absolute Neuts (auto) Absolute Nucleated RBC Nucleated RBC % (auto) Neutrophils % (Manual) Band Neutrophils % Lymphocytes % (Manual) Atypical Lymphs % (Man) Monocytes % (Manual) Eosinophils % (Manual) Basophils % (Manual) Metamyelocytes % Abs Neuts (Manual) Lymphocytes # (Manual) Atyp Lymphs # (Manual) Monocytes # (Manual) Eosinophils # (Manual) Basophils # (Manual) Metamyelocytes # Nucleated RBCs Toxic Granulation Toxic Vacuolation Dohle Bodies Platelet Estimate Large Platelets Plt Morphology Comment RBC Morphology Polychromasia Hypochromasia Basophilic Stippling O2 Saturation ABG pH at Pt Temp ABG pCO2 at Pt Temp ABG pO2 at Pt Temp ABG HCO3 ABG Base Excess (Actual) VBG pH 7.43 VBG pCO2 44 VBG pO2 78 VBG HCO3 29 H VBG O2 Saturation 95.0 VBG Base Excess 4.9 Sodium 135 Potassium 3.7 Chloride 99 Carbon Dioxide 25 Anion Gap 15 BUN 11 Creatinine 0.93 Estim Creat Clear Calc 108.4 Estimated GFR > 60 Random Glucose 144 H Lactic Acid Lactic Acid F/U @ 2Hr Lactic Acid F/U @ 4Hr 1.9 Calcium 8.8 Phosphorus Magnesium Total Bilirubin 0.7 AST 33 ALT 39 Alkaline Phosphatase 86 Troponin I High Sens Total Protein 7.1 Albumin 3.4 L 06/15/25 06/15/25 06/15/25 04:25 04:30 06:13 WBC 6.5 RBC 3.22 L Hgb 8.7 L Hct 26.7 L MCV 82.9 MCH 27.0 MCHC 32.6 RDW 14.2 Plt Count 165 MPV 9.1 L Immature Gran % (Auto) Cancelled Neut % (Auto) Cancelled Lymph % (Auto) Cancelled [place] % (Auto) Cancelled Eos % (Auto) Cancelled Baso % (Auto) Cancelled Lymph # (Auto) Cancelled [place] # (Auto) Cancelled Eos # (Auto) Cancelled Baso # (Auto) Cancelled Abs Immat Gran (auto) Cancelled Absolute Neuts (auto) Cancelled Absolute Nucleated RBC 0.090 H Nucleated RBC % (auto) 1.4 H Neutrophils % (Manual) 53 Band Neutrophils % 25 H Lymphocytes % (Manual) 15 L Atypical Lymphs % (Man) 1 Monocytes % (Manual) 2 Eosinophils % (Manual) Basophils % (Manual) Metamyelocytes % 4 Abs Neuts (Manual) 5.1 Lymphocytes # (Manual) 1.0 L Atyp Lymphs # (Manual) 0.1 Monocytes # (Manual) 0.1 Eosinophils # (Manual) Basophils # (Manual) Metamyelocytes # 0.3 Nucleated RBCs 1 H Toxic Granulation PRESENT Toxic Vacuolation PRESENT Dohle Bodies PRESENT Platelet Estimate NORMAL Large Platelets Plt Morphology Comment NORMAL RBC Morphology NOTED Polychromasia 1+ (0-2) Hypochromasia 1+ (5-14) Basophilic Stippling 1+ (0-2) O2 Saturation ABG pH at Pt Temp ABG pCO2 at Pt Temp ABG pO2 at Pt Temp ABG HCO3 ABG Base Excess (Actual) VBG pH 7.54 H VBG pCO2 25 VBG pO2 168 VBG HCO3 21 L VBG O2 Saturation 100.0 VBG Base Excess 0.5 Sodium 137 Potassium 3.7 Chloride 101 Carbon Dioxide 25 Anion Gap 15 BUN 10 Creatinine 0.78 Estim Creat Clear Calc 129.3 Estimated GFR > 60 Random Glucose 119 H Lactic Acid Lactic Acid F/U @ 2Hr Lactic Acid F/U @ 4Hr Calcium 8.9 Phosphorus 3.1 Magnesium 2.3 Total Bilirubin AST ALT Alkaline Phosphatase Troponin I High Sens Total Protein Albumin Microbiology Microbiology Results: Microbiology 06/14/25 14:31 Blood - Venous Blood Culture - Preliminary Prelim: GPC Gram Stain only 06/14/25 14:33 Blood - Venous Blood Culture - Preliminary Prelim: GPC Gram Stain only Progress Note: A&P Assessment and plan (1) Acute respiratory failure with hypoxia: Status: Acute (2) Pneumonia: Status: Acute (3) Polysubstance abuse: Status: Acute Plan Patient?is a 45 Y M w/ hypertension, hyperlipidemia, asthma, and polysubstance misuse including alcohol c/b dilated cardiomyopathy, opioids c/b hepatitis?C, presented?to ED on 06/14 w/ cough found to be in acute hypoxic respiratory failure; ED work-up suggestive of pneumonia; ICU course c/b persistent acute hypoxic respiratory failure, intubated 06/14 N: intubated, sedated w/ propofol gtt, wean as tolerated CV: no acute issues; to closely monitor hemodynamics R: acute hypoxic respiratory failure d/t pneumonia, intubated 06/14, wean as tolerated GI: NPO, to consider tube feeds : no acute issues H: no acute issues; chemical DVT prophylaxis ID: pneumonia, empiric vanc/zosyn, follow-up BCx 06/14, MRSA swab E: to monitor hypo-/hyper-glycemia P: polysubstance misuse, on methadone, addition medicine when appropriate S: daily updates given to mother Quality Stroke Does the patient have a stroke diagnosis?: No VTE Prior VTE?: No VTE Risk Level:: Medical - moderate - high VTE Device Contraindication: N/A - Device Ordered VTE Drug Contraindication: N/A - Med Ordered
[2025-06-15] MEDS: Thiamine HCL 100 MG in 0.9 % Sodium Chloride 100 ML 202 MG IV (08:40)
[2025-06-15] MEDS: 0.9 % Sodium Chloride Flush 3 ML SYRINGE IVFLUSH ×3 (08:40→23:51)
[2025-06-15] MEDS: Chlorhexidine Gluc Oral Rinse 15 ML MOUTHWASH BUCCAL ×3 (08:55→20:02)
[2025-06-15 09:07] LABS: MRSA Nasal PCR POSITIVE (Negative); SA Nasal PCR POSITIVE (Negative)
[2025-06-15] MEDS: Furosemide 20 MG/2 ML VIAL 10 MG IVPUSH (09:25)
--- NOTE | 2025-06-15 10:09 | MHC.CLN ---
PT IS INTUBATED AND SEDATED CURRENTLY NPO IF TF NEEDED; RECOMMEND VITAL AF 1.2 AT MA GOAL RATE 40ML/HR WITH 240ML FWF Q 6 HRS TO PROVIDE 1152KCALS (1826 TOTAL KCALS; 22KCALS/KG), 72G PROTEIN, 1738ML TOTAL FREE WATER FROM FORMULA AND FLUSHES MONITOR TOLERANCE AND LYTES FOLLOWING FOR DIET ADVANCEMENT SEE FULL ASSESSMENT
--- NOTE | 2025-06-15 11:43 | PHA.PROG ---
Admission Date/Time: June 14, 2025 16:18 Indication: resp inf Weight in k.9 kg Adjusted body weight in K.18 kg [place] body weight in K.7 Obesity Dosing Indication % IBW: Serum Creatinine - Last 168 Hours 06/14/25 06/14/25 06/15/25 14:31 19:57 04:25 Creatinine 1.01 0.93 0.78 Estimated CrCl and GFR - Last 168 Hours 06/14/25 06/14/25 06/15/25 14:31 19:57 04:25 Estim Creat Clear Calc 99.8 108.4 129.3 Estimated GFR > 60 > 60 > 60 Vancomycin Loading Dose: 1000 mg plus 1000 mg = 2000 mg between 1444 and 1746 on 06/14 Current Vancomycin Dosing Regimen: 1500 mg q12h Vancomycin Monitoring using AUC goal of 400 - 600 range with trough as surrogate marker: predicted AUC 550 Date and Time for next Vancomycin Level to be drawn: random level 06/16 @1000 Pharmacist Comments on Vancomycin Plan: LD giving between 1444 and 1746, maintaince dosing order approximately 20 hours after load Vancomycin dosing will take advantage of [employer] as a clinical decision support tool that uses Bayesian modeling to calculate individual patient's pharmacokinetic parameters and forecast the patient's drug concentration time course with the target goal AUC 24 range of 400 - 600 mg/L/hr.
--- NOTE | 2025-06-15 12:28 | MHC.CM.PN ---
Pt intubated in ICU: Information obtained from EMR and conversation w/family. Pt resides w/family and indepenedent w/ADL's. He receives Methadone from [facility] and may need ETOH cessation services at d/c d/t hx and presenting condition. No HCP on file: will approach pt once medically stable for completion of d/c planning and HCP. CM to follow.
[2025-06-15 13:48] LABS: Chlamydia pneumoniae PCR Not Detected (Not Detect.); Coronavirus 229E PCR Not Detected (Not Detect.); Coronavirus HKU1 PCR Not Detected (Not Detect.); Coronavirus NL63 PCR Not Detected (Not Detect.); Coronavirus OC43 PCR Not Detected (Not Detect.); RSV PCR Not Detected (Not Detect.); Rhino/Enterovirus PCR Detected (Not Detect.)
[2025-06-15 14:01] LABS: Influenza A H1 PCR Not Detected (Not Detect.); Influenza A H1-2009 PCR Not Detected (Not Detect.); Influenza A H3 PCR Not Detected (Not Detect.); SARS-CoV-2 PCR Not Detected (Not Detect.)
--- NOTE | 2025-06-15 18:19 | PC.NURSE ---
Assumed care @ 0700? Neuro/Resp: Sedated/intubated, on? propofol gtt. does not open eyes, does not follow commands,? Flaccid extremities (passive ROM performed)? Cardiac: Sinus Rhythm- Tachy, HR up to 110s, on Levophed gtt - see MAR, MAP goal >65. GI: unknown LBM, +bowel sounds, OGT in place/clamp. : Angel in place, patent /draining. Skin: intact (repositioning maintained)? Infectious: IV antibiotics? Lines: peripheral IVs
[2025-06-16] VITALS (36 sets, daily range): BP systolic 97–143; BP diastolic 48–94; PULSE 91–127; RESP 19–29; TEMP 34.9–38.4; O2SAT 34–95; BMI 30.6
[2025-06-16 05:25] LABS: VBG HCO3 26 mmol/L (22-26); VBG O2 % Saturation 100.0 %; Venous Blood Gas Refer to POC result
[2025-06-16 05:48] LABS: Anion Gap 16 (12-20); Blood Urea Nitrogen 11 mg/dL (9-16); Calcium 9.1 mg/dL (8.4-10.2); Carbon Dioxide 25 mmol/L (22-29); Chloride 107 mmol/L (96-108); Creatinine Clr Calc Pharmacy 130.3; Estimated Glomerular Filt Rate > 60; Magnesium 2.3 mg/dL (1.6-2.6); Potassium 3.0 mmol/L (3.3-5.1); Sodium 145 mmol/L (135-145)
[2025-06-16 05:54] LABS: Hematocrit 25.8 % (42.0-52.0); PLT CLUMP 1
[2025-06-16 05:56] LABS: Hemoglobin 8.4 g/dl (14.0-18.0); Mean Corpuscular HGB Conc 32.6 g/dl (31.0-36.0); Mean Corpuscular Hemoglobin 26.9 pg (27.0-33.0); Mean Corpuscular Volume 82.7 fL (80.0-98.0); NRBC Abs Auto 0.100 X10*3/uL (0.0-0.012); NRBC Pct Auto 0.8 /100WBC (0.0-0.2); Red Blood Count 3.12 X10*6/uL (4.60-5.80)
[2025-06-16 06:21] LABS: Platelet Count 250 X10*3/uL (160-400); White Blood Count 12.6 X10*3/uL (4.8-10.8)
[2025-06-16 06:39] LABS: Band Neutrophils Percent 16 % (3-5); Lymphocytes Absolute Manual 2.3 X10*3/uL (1.2-4.9); Lymphocytes Percent Manual 18 % (20-40); Metamyelocytes Absolute 0.3 X10*3/uL; Metamyelocytes Percent 2 %; Monocytes Absolute Manual 0.6 X10*3/uL (0.1-1.2); Monocytes Percent Manual 5 % (2-11); Myelocytes Absolute 0.4 X10*/uL; Myelocytes Percent 3 %; Neutrophils Absolute Manual 9.1 X10*3/uL (2.0-8.3); Neutrophils Percent Manual 56 % (45-73)
[2025-06-16 06:40] LABS: RBC Morphology NOTED
[2025-06-16 06:41] LABS: Large Platelet PRESENT; Ovalocytes 1+ (5-14) /OIF
[2025-06-16 06:42] LABS: Basophilic Stippling 1+ (0-2) /OIF; Dohle Bodies PRESENT; Hypochromasia 1+ (5-14) /OIF; Polychromasia 1+ (0-2) /OIF; Toxic Granulation PRESENT; Toxic Vacuolation PRESENT
--- NOTE | 2025-06-16 08:29 | P.PNCC_ITS ---
Subjective Subjective Date of Service: 06/16/25 Interval History: no significant overnight events; persistent acute hypoxic respiratory failure, critical and guarded clinical status Critical Care Time (minutes): 60 Physical Exam 2 Vital Signs: Vital Signs: Last Vital Signs Temp 100.4 F 06/16/25 07:00 Pulse 97 06/16/25 07:00 Resp 19 06/16/25 07:00 BP 131/86 06/16/25 07:00 Pulse Ox 93 06/16/25 07:00 O2 Del Method Mechanical Ventil ation 06/16/25 07:00 O2 Flow Rate 50 06/15/25 03:00 FiO2 75 06/16/25 08:10 BMI result Body Mass Index 30.6 Const: Other: intubated, sedated; no appreciable spontaneous movements General: no acute distress and well developed HEENT: Head: Yes normal to inspection, Yes normocephalic and Yes atraumatic Eyes: General: appearance normal, both eyes and all related structures Neck: Neck: Yes normal visual inspection, Yes full ROM, Yes no meningeal signs, Yes trachea midline and Yes supple Chest: Chest palpation & inspection: normal inspection of the chest Resp: Other: appreciable rales and rhonchi throughout; no appreciable overt wheezing Cardio: Rate: regular rate Rhythm: regular rhythm GI: Other: distended, though soft, compressible Inspection: Yes normal to inspection Palpation (GI): not firm, nontender, no guarding and not rigid Skin: General skin exam: no rashes or lesions noted Neuro: General: tone normal and no meningeal signs Extrem: Other: appreciable trace pitting edema to bilateral shins General: Yes normal to inspection, Yes full ROM and Yes capillary refill normal Psych: Other: unable to asses Objective Data Labs 06/16/25 05:15 06/16/25 05:15 Labs: Laboratory Results - last 24 hr 06/14/25 06/14/25 06/15/25 14:31 20:55 10:57 WBC RBC Hgb Hct MCV MCH MCHC RDW Plt Count MPV Immature Gran % (Auto) Neut % (Auto) Lymph % (Auto) [place] % (Auto) Eos % (Auto) Baso % (Auto) Lymph # (Auto) [place] # (Auto) Eos # (Auto) Baso # (Auto) Abs Immat Gran (auto) Absolute Neuts (auto) Absolute Nucleated RBC Nucleated RBC % (auto) Neutrophils % (Manual) Band Neutrophils % Lymphocytes % (Manual) Monocytes % (Manual) Metamyelocytes % Myelocytes % Abs Neuts (Manual) Lymphocytes # (Manual) Monocytes # (Manual) Metamyelocytes # Myelocytes # Toxic Granulation Toxic Vacuolation Dohle Bodies Platelet Estimate Large Platelets Plt Morphology Comment RBC Morphology Polychromasia Hypochromasia Basophilic Stippling Ovalocytes Smear Path Review SEE NOTE VBG pH VBG pCO2 VBG pO2 VBG HCO3 VBG O2 Saturation VBG Base Excess Sodium Potassium Chloride Carbon Dioxide Anion Gap BUN Creatinine Estim Creat Clear Calc Estimated GFR Random Glucose Calcium Phosphorus Magnesium Nasal Screen MRSA (PCR) POSITIVE A Nasal S. aureus Screen POSITIVE A Nasal MRSA/S.aureus Interp SEE NOTE Respiratory Panel Chance See Note Adenovirus (Rapid PCR) Not Detected B.pert (TEM-PCR) Not Detected B.parapertussis DNA PCR Not Detected C. pneumoniae DNA (PCR) Not Detected Coronavirus OC43 (PCR) Not Detected Coronavirus HKU1 (PCR) Not Detected Coronavirus 229E (PCR) Not Detected Coronavirus NL63 (PCR) Not Detected Human Metapneumovir PCR Not Detected Influenza A (RT-PCR) Not Detected Influenza A (H1) PCR Not Detected Influ A (H1/09) PCR Not Detected Influenza A (H3) PCR Not Detected Influenza B (RT-PCR) Not Detected M. pneumoniae (PCR) Not Detected Parainfluenza 1 (PCR) Not Detected Parainfluenza 2 (PCR) Not Detected Parainfluenza 3 (PCR) Not Detected Parainfluenza 4 (PCR) Not Detected RSV (PCR) Not Detected Entero/Rhino (PCR) Detected A SARS-CoV-2 RNA (RT-PCR) Not Detected 06/16/25 06/16/25 05:15 05:20 WBC 12.6 H RBC 3.12 L Hgb 8.4 L Hct 25.8 L MCV 82.7 MCH 26.9 L MCHC 32.6 RDW 14.6 Plt Count 250 D MPV 9.4 Immature Gran % (Auto) Cancelled Neut % (Auto) Cancelled Lymph % (Auto) Cancelled [place] % (Auto) Cancelled Eos % (Auto) Cancelled Baso % (Auto) Cancelled Lymph # (Auto) Cancelled [place] # (Auto) Cancelled Eos # (Auto) Cancelled Baso # (Auto) Cancelled Abs Immat Gran (auto) Cancelled Absolute Neuts (auto) Cancelled Absolute Nucleated RBC 0.100 H Nucleated RBC % (auto) 0.8 H Neutrophils % (Manual) 56 Band Neutrophils % 16 H Lymphocytes % (Manual) 18 L Monocytes % (Manual) 5 Metamyelocytes % 2 Myelocytes % 3 Abs Neuts (Manual) 9.1 H Lymphocytes # (Manual) 2.3 Monocytes # (Manual) 0.6 Metamyelocytes # 0.3 Myelocytes # 0.4 Toxic Granulation PRESENT Toxic Vacuolation PRESENT Dohle Bodies PRESENT Platelet Estimate NORMAL Large Platelets PRESENT Plt Morphology Comment NOTED RBC Morphology NOTED Polychromasia 1+ (0-2) Hypochromasia 1+ (5-14) Basophilic Stippling 1+ (0-2) Ovalocytes 1+ (5-14) Smear Path Review VBG pH 7.60 H* VBG pCO2 26 VBG pO2 110 VBG HCO3 26 VBG O2 Saturation 100.0 VBG Base Excess 5.3 Sodium 145 Potassium 3.0 L Chloride 107 Carbon Dioxide 25 Anion Gap 16 BUN 11 Creatinine 0.81 Estim Creat Clear Calc 130.3 Estimated GFR > 60 Random Glucose 80 Calcium 9.1 Phosphorus 3.4 Magnesium 2.3 Nasal Screen MRSA (PCR) Nasal S. aureus Screen Nasal MRSA/S.aureus Interp Respiratory Panel Chance Adenovirus (Rapid PCR) B.pert (TEM-PCR) B.parapertussis DNA PCR C. pneumoniae DNA (PCR) Coronavirus OC43 (PCR) Coronavirus HKU1 (PCR) Coronavirus 229E (PCR) Coronavirus NL63 (PCR) Human Metapneumovir PCR Influenza A (RT-PCR) Influenza A (H1) PCR Influ A (H1/09) PCR Influenza A (H3) PCR Influenza B (RT-PCR) M. pneumoniae (PCR) Parainfluenza 1 (PCR) Parainfluenza 2 (PCR) Parainfluenza 3 (PCR) Parainfluenza 4 (PCR) RSV (PCR) Entero/Rhino (PCR) SARS-CoV-2 RNA (RT-PCR) Microbiology Microbiology Results: Microbiology 06/15/25 04:00 Sputum - Suctioned Gram Stain - Final 06/14/25 14:31 Blood - Venous Blood Culture - Preliminary Prelim: GPC Gram Stain only 06/14/25 14:33 Blood - Venous Blood Culture - Preliminary Prelim: GPC Gram Stain only Progress Note: A&P Assessment and plan (1) Pneumonia: Status: Acute (2) Acute respiratory failure with hypoxia: Status: Acute (3) Polysubstance abuse: Status: Acute Plan Patient?is a 45 Y M w/ hypertension, hyperlipidemia, asthma, and polysubstance misuse including alcohol c/b dilated cardiomyopathy, opioids c/b hepatitis?C, presented?to ED on 06/14 w/ cough found to be in acute hypoxic respiratory failure; ED work-up suggestive of pneumonia; ICU course c/b persistent acute hypoxic respiratory failure, intubated 06/14 N: intubated, sedated w/ propofol gtt, wean as tolerated CV: no acute issues; to closely monitor hemodynamics R: acute hypoxic respiratory failure d/t pneumonia, intubated 06/14, wean as tolerated GI: NPO, to consider tube feeds : no acute issues H: no acute issues; chemical DVT prophylaxis ID: pneumonia, likely d/t enterovirus and superimposed MRSA, vanc/zosyn E: to monitor hypo-/hyper-glycemia P: polysubstance misuse, on methadone, addiction medicine when appropriate S: daily updates given to mother Quality Stroke Does the patient have a stroke diagnosis?: No VTE Prior VTE?: No VTE Risk Level:: Medical - moderate - high VTE Device Contraindication: N/A - Device Ordered VTE Drug Contraindication: N/A - Med Ordered
[2025-06-16] MEDS: Furosemide 20 MG/2 ML VIAL 10 MG IVPUSH (08:47)
[2025-06-16] MEDS: Chlorhexidine Gluc Oral Rinse 15 ML MOUTHWASH BUCCAL ×3 (08:47→20:11)
[2025-06-16] MEDS: Potassium Chloride Packet 20 MEQ PACKET 40 MEQ PO (08:48)
[2025-06-16] MEDS: 0.9 % Sodium Chloride Flush 3 ML SYRINGE IVFLUSH ×3 (08:48→23:06)
[2025-06-16] MEDS: Thiamine HCL 100 MG in 0.9 % Sodium Chloride 100 ML 202 MG IV (08:52)
[2025-06-16] MEDS: fentaNYL citrate/NS 1,000 MCG/100 ML PLAST..BAG 2.5 MCG IVCONT (09:30)
--- NOTE | 2025-06-16 10:09 | MHC.CLN ---
F/U PT REMAINS INTUBATED AND SEDATED CURRENTLY NPO DISCUSSED WITH PROVIDER-PLAN TO START TF RECOMMEND VITAL AF 1.2 AT MAX GOAL RATE 40ML/HR WITH 240ML FWF Q 6 HRS TO PROVIDE 1152KCALS (1826 TOTAL KCALS; 22KCALS/KG), 72G PROTEIN, 1738ML TOTAL FREE WATER FROM FORMULA AND FLUSHES MONITOR TOLERANCE AND LYTES
--- NOTE | 2025-06-16 10:49 | HE.PHANOTE ---
Re: [place]ith[place] Renal function is improving, trough returned at 9.7, pt is subtherapeutic. Dose increased to 1500mg q8h, with predicted AUC 573, predicted 15.5. Next trough 06/17 @ 1000.
[2025-06-16] MEDS: fentaNYL citrate/NS 1,000 MCG/100 ML PLAST..BAG 15 MCG IVCONT (14:58)
--- NOTE | 2025-06-16 16:13 | P.CDIM_ITS ---
PROVIDER RESPONSE TEXT: To clarify, the appropriate diagnosis supported by the clinical indicators: Sepsis is/was present QUERY TEXT: PHYSICIAN'S DOCUMENTATION REQUEST Date of Query: 06/16/2025 11:06 AM EDT Patient Name: Ole Gonzalez Admit Date: 06/14/2025 Dear Genia Bailey MD, A review of the medical record indicates additional documentation may be needed. Please review below and update the documentation accordingly. Clinical indicators: ICU H&P 06/14/25 - Chief complaint: Acute Sepsis, aspiration pneumonitis Presented to ED with fever of 100.6 bands 19% LA 5.0 HR 114 WBC 12.6 Vancomycin, Zosyn, IVF. Acute Sepsis without shock/acute hypoxic respiratory failure/aspiration pneumonitis right lung. Sepsis Systemic manifestations of infection, with 2 or more SIRS criteria which include: Fever > 100.4?F or hypothermia < 96.8?F Leukocytosis - WBC > 12,000 or leukopenia, WBC < 4,000, or > 10% bands Tachycardia- > 90 beats/minute Tachypnea- RR > 20 breaths/minute or PaCO2 < 32mmHg Severe Sepsis Sepsis with associated acute organ dysfunction, such as renal or respiratory failure Consistency of a principal diagnosis: If agree with Sepsis present on arrival, possible to place it within your progress note? Sepsis is/was present After study Sepsis has been ruled out Other (explain) Clinically unable to determine (explain) Thank you, Brianna Llanos, CCS, CDIS Use of terms such as suspected, likely, concern for, or probable (associated with a specific diagnosis that is being evaluated, monitored, or treated as if it exists) are acceptable and can be coded in the inpatient setting, when documented at the time of discharge. Please use your independent medical judgment in providing your response. THIS QUERY IS PART OF THE PERMANENT MEDICAL RECORD
--- NOTE | 2025-06-16 18:25 | PC.NURSE ---
Assumed care @ 0700? Neuro/Resp: Sedated/intubated,? does not open eyes, does not follow commands,? DICK Occasionally (passive ROM performed).? Cardiac: Sinus Rhythm- Tachy, MAP goal >65. GI: unknown LBM, +bowel sounds, OGT in place, tolerating TF w/o signs of intolerance.? : Angel in place, patent /draining. Skin: intact (repositioning maintained)? Infectious: IV antibiotics? Lines: peripheral IVs
[2025-06-16] MEDS: fentaNYL citrate/NS 1,000 MCG/100 ML PLAST..BAG 20 MCG IVCONT (20:11)
[2025-06-17] VITALS (34 sets, daily range): BP systolic 123–155; BP diastolic 72–99; PULSE 88–123; RESP 19–38; TEMP 34.7–38.5; O2SAT 86–94; BMI 31.6
[2025-06-17] MEDS: fentaNYL citrate/NS 1,000 MCG/100 ML PLAST..BAG 20 MCG IVCONT ×5 (01:08→20:57)
[2025-06-17 06:02] LABS: VBG HCO3 24 mmol/L (22-26); VBG O2 % Saturation 96.0 %
[2025-06-17 06:21] LABS: Hematocrit 26.6 % (42.0-52.0); Hemoglobin 8.7 g/dl (14.0-18.0); Mean Corpuscular HGB Conc 32.7 g/dl (31.0-36.0); Mean Corpuscular Hemoglobin 26.9 pg (27.0-33.0); Mean Corpuscular Volume 82.4 fL (80.0-98.0); NRBC Abs Auto 0.070 X10*3/uL (0.0-0.012); NRBC Pct Auto 0.5 /100WBC (0.0-0.2); Platelet Count 225 X10*3/uL (160-400); Red Blood Count 3.23 X10*6/uL (4.60-5.80); White Blood Count 13.0 X10*3/uL (4.8-10.8)
[2025-06-17 06:32] LABS: Albumin Level 2.8 g/dL (3.5-5.0)
[2025-06-17 06:39] LABS: Anion Gap 15 (12-20); Blood Urea Nitrogen 11 mg/dL (9-16); Calcium 8.7 mg/dL (8.4-10.2); Carbon Dioxide 23 mmol/L (22-29); Chloride 111 mmol/L (96-108); Creatinine Clr Calc Pharmacy 153.1; Estimated Glomerular Filt Rate > 60; Magnesium 2.1 mg/dL (1.6-2.6); Potassium 3.0 mmol/L (3.3-5.1); Sodium 146 mmol/L (135-145)
[2025-06-17 06:51] LABS: Venous Blood Gas Refer to POC result
[2025-06-17 07:36] LABS: Band Neutrophils Percent 11 % (3-5); Lymphocytes Absolute Manual 2.3 X10*3/uL (1.2-4.9); Lymphocytes Percent Manual 18 % (20-40); Metamyelocytes Absolute 0.7 X10*3/uL; Metamyelocytes Percent 5 %; Monocytes Absolute Manual 0.3 X10*3/uL (0.1-1.2); Monocytes Percent Manual 2 % (2-11); Myelocytes Absolute 0.5 X10*/uL; Myelocytes Percent 4 %; Neutrophils Absolute Manual 9.2 X10*3/uL (2.0-8.3); Neutrophils Percent Manual 60 % (45-73)
[2025-06-17 07:40] LABS: Hypochromasia 1+ (5-14) /OIF; Polychromasia 1+ (0-2) /OIF; RBC Morphology NOTED; Toxic Granulation PRESENT
--- NOTE | 2025-06-17 07:54 | P.PNCC_ITS ---
Subjective Subjective Date of Service: 06/17/25 Interval History: no significant overnight events; persistent ARDS, critical and guarded clinical status Critical Care Time (minutes): 60 Physical Exam 2 Vital Signs: Vital Signs: Last Vital Signs Temp 100.9 F H 06/17/25 07:00 Pulse 89 06/17/25 07:00 Resp 20 06/17/25 07:00 BP 125/77 06/17/25 07:00 Pulse Ox 92 06/17/25 07:00 O2 Del Method Mechanical Ventil ation 06/17/25 07:00 O2 Flow Rate 50 06/15/25 03:00 FiO2 100 06/17/25 05:54 BMI result Body Mass Index 31.6 Const: Other: intubated, sedated; appreciable spontaneous, non-purposeful movements General: comfortable, no acute distress and well developed HEENT: Head: Yes normal to inspection, Yes normocephalic and Yes atraumatic Eyes: General: appearance normal, both eyes and all related structures Neck: Neck: Yes normal visual inspection, Yes full ROM, Yes no meningeal signs, Yes trachea midline and Yes supple Chest: Chest palpation & inspection: normal inspection of the chest Resp: Other: appreciable rhonchi, R greater than L lung tan; no apprecuable overt rales, wheezing Effort & Inspection: normal respiratory effort Cardio: Rate: regular rate Rhythm: regular rhythm GI: Inspection: Yes normal to inspection, No Abdominal wall edema and No distended Palpation (GI): Soft to palpation, not firm, nontender, no guarding and not rigid Skin: General skin exam: no rashes or lesions noted Neuro: General: tone normal and no meningeal signs Extrem: Other: appreciable trace pitting edema to bilateral shins General: Yes normal to inspection, Yes full ROM and Yes capillary refill normal Psych: Other: unable to assess Objective Data Labs 06/17/25 05:58 06/17/25 05:58 Labs: Laboratory Results - last 24 hr 06/16/25 06/17/25 06/17/25 10:00 05:58 05:59 WBC 13.0 H RBC 3.23 L Hgb 8.7 L Hct 26.6 L MCV 82.4 MCH 26.9 L MCHC 32.7 RDW 14.6 Plt Count 225 MPV 8.8 L Immature Gran % (Auto) Cancelled Neut % (Auto) Cancelled Lymph % (Auto) Cancelled [place] % (Auto) Cancelled Eos % (Auto) Cancelled Baso % (Auto) Cancelled Lymph # (Auto) Cancelled [place] # (Auto) Cancelled Eos # (Auto) Cancelled Baso # (Auto) Cancelled Abs Immat Gran (auto) Cancelled Absolute Neuts (auto) Cancelled Absolute Nucleated RBC 0.070 H Nucleated RBC % (auto) 0.5 H Neutrophils % (Manual) 60 Band Neutrophils % 11 H Lymphocytes % (Manual) 18 L Monocytes % (Manual) 2 Metamyelocytes % 5 Myelocytes % 4 Abs Neuts (Manual) 9.2 H Lymphocytes # (Manual) 2.3 Monocytes # (Manual) 0.3 Metamyelocytes # 0.7 Myelocytes # 0.5 Nucleated RBCs 1 H Toxic Granulation PRESENT Platelet Estimate NORMAL Plt Morphology Comment NORMAL RBC Morphology NOTED Polychromasia 1+ (0-2) Hypochromasia 1+ (5-14) VBG pH 7.51 H VBG pCO2 29 VBG pO2 79 VBG HCO3 24 VBG O2 Saturation 96.0 VBG Base Excess 1.9 Sodium 146 H Potassium 3.0 L Chloride 111 H Carbon Dioxide 23 Anion Gap 15 BUN 11 Creatinine 0.70 Estim Creat Clear Calc 153.1 Estimated GFR > 60 Random Glucose 130 H Calcium 8.7 Phosphorus 4.1 Magnesium 2.1 Albumin 2.8 L Random Vancomycin 9.7 L Microbiology Microbiology Results: Microbiology 06/15/25 04:00 Sputum - Suctioned Gram Stain - Final 06/15/25 04:00 Sputum - Suctioned Sputum Culture - Preliminary Culture in progress. 06/14/25 14:33 Blood - Venous Blood Culture - Preliminary Streptococcus species 06/14/25 14:31 Blood - Venous Blood Culture - Preliminary Streptococcus species Progress Note: A&P Assessment and plan (1) ARDS (adult respiratory distress syndrome): Status: Acute (2) Pneumonia: Status: Acute Plan Patient?is a 45 Y M w/ hypertension, hyperlipidemia, asthma, and polysubstance misuse including alcohol c/b dilated cardiomyopathy, opioids c/b hepatitis?C, presented?to ED on 06/14 w/ cough found to be in acute hypoxic respiratory failure; ED work-up suggestive of pneumonia; ICU course c/b persistent acute hypoxic respiratory failure, intubated 06/14 N: intubated, sedated w/ propofol gtt, wean as tolerated CV: hypotension, likely d/t sedation, norepinephrine gtt as needed; to closely monitor hemodynamics R: acute hypoxic respiratory failure/ARDS d/t pneumonia, intubated 06/14, wean as tolerated GI: tube feeds : no acute issues H: no acute issues; chemical DVT prophylaxis ID: pneumonia, likely d/t enterovirus and superimposed MRSA, vanc/zosyn; BCx 06/14 w/ strep spp. x2, to follow-up speciation E: to monitor hypo-/hyper-glycemia P: polysubstance misuse, on methadone, addiction medicine when appropriate S: daily updates given to mother Quality Stroke Does the patient have a stroke diagnosis?: No VTE Prior VTE?: No VTE Risk Level:: Medical - moderate - high VTE Device Contraindication: N/A - Device Ordered VTE Drug Contraindication: N/A - Med Ordered
[2025-06-17] MEDS: Albumin Human 25 % 50 ML 100 ML IV (08:52)
[2025-06-17] MEDS: 0.9 % Sodium Chloride Flush 3 ML SYRINGE IVFLUSH ×3 (08:52→21:51)
[2025-06-17] MEDS: Potassium Phosphate/NS 15 MMOL/250 ML PLAST..BAG 62.5 MMOL IV (08:52)
[2025-06-17] MEDS: Furosemide 20 MG/2 ML VIAL 10 MG IVPUSH ×2 (08:53→18:22)
[2025-06-17 08:54] LABS: Glucose, Whole Blood 126 mg/dL (60-115)
[2025-06-17] MEDS: Chlorhexidine Gluc Oral Rinse 15 ML MOUTHWASH BUCCAL ×3 (08:54→20:27)
[2025-06-17] MEDS: Thiamine HCL 100 MG in 0.9 % Sodium Chloride 100 ML 202 MG IV (09:32)
--- NOTE | 2025-06-17 10:37 | HE.PHANOTE ---
RE: VANCO DOSING Trough came back as 13.1 mg/L, renal function is stable. Even though trough level is low for respiratory infection, predicted AUC by Insight is 520 mg/L.hr which is therapeutic for indication. Keeping dose of 1500 mg q8h, next trough is scheduled for 06/18/25 @1000.
--- NOTE | 2025-06-17 11:26 | MHC.CLN ---
F/U PT REMAINS INTUBATED AND SEDATED DISCUSSED AT ROUNDS WITH MD CONTINUE VITAL AF 1.2 AT MAX GOAL RATE 40ML/HR WITH 240ML FWF Q 6 HRS PROVIDES 1152KCALS (1826 TOTAL KCALS; 22KCALS/KG), 72G PROTEIN, 1738ML TOTAL FREE WATER FROM FORMULA AND FLUSHES MONITOR TOLERANCE AND LYTES
--- NOTE | 2025-06-17 14:51 | MHC.CM.PN ---
EMR REVIEWED AND PER ICU ROUNDS, PATIENT REMAINS ON VENTILATORY SUPPORT DUE TO ARDS.
[2025-06-17] MEDS: Midazolam HCl/NS 50 MG/50 ML PLAST..BAG IVCONT (16:40)
--- NOTE | 2025-06-17 19:43 | HE.ICUCC ---
ICU Critical Care Nursing Note Neuro: Sedated on Propofol, Fentanyl and Versed added due to asynchrony, See MAR for full details. Cardiac:SR to ST at times this shift, ST with restlessness, no edema noted Resp: Vented on ACVC at 100% FIO2, see vent assessment for full details GI/: no BM noted on Tube feeds at goal, indwelling catheter in place Endocrine: POC checked once this shift for noted dyapharesis, 126 MD celeste terrazas Integumentary/Musculoskeletal: weakness noted due to sedation, non behavioral restrainst in place Skin assessed Psychosocial (family etc.): Mother and in to see patient Infectious Disease: Contact and droplet precautions in place
[2025-06-18] VITALS (44 sets, daily range): BP systolic 128–176; BP diastolic 75–100; PULSE 94–145; RESP 20–49; TEMP 34.7–38.5; O2SAT 86–95; BMI 31.9
[2025-06-18] MEDS: fentaNYL citrate/NS 1,000 MCG/100 ML PLAST..BAG 20 MCG IVCONT ×5 (01:20→20:49)
[2025-06-18 05:11] LABS: VBG HCO3 25 mmol/L (22-26); VBG O2 % Saturation 93.0 %
[2025-06-18 05:19] LABS: Venous Blood Gas Refer to POC result
[2025-06-18] MEDS: Midazolam HCl/NS 50 MG/50 ML PLAST..BAG IVCONT ×2 (05:57→18:26)
[2025-06-18 06:09] LABS: Hematocrit 26.9 % (42.0-52.0); Hemoglobin 8.7 g/dl (14.0-18.0); Mean Corpuscular HGB Conc 32.3 g/dl (31.0-36.0); Mean Corpuscular Hemoglobin 26.7 pg (27.0-33.0); Mean Corpuscular Volume 82.5 fL (80.0-98.0); NRBC Abs Auto 0.070 X10*3/uL (0.0-0.012); NRBC Pct Auto 0.4 /100WBC (0.0-0.2); Platelet Count 281 X10*3/uL (160-400); Red Blood Count 3.26 X10*6/uL (4.60-5.80); White Blood Count 18.5 X10*3/uL (4.8-10.8)
[2025-06-18 06:23] LABS: Albumin Level 2.8 g/dL (3.5-5.0); Anion Gap 14 (12-20); Blood Urea Nitrogen 9 mg/dL (9-16); Calcium 8.6 mg/dL (8.4-10.2); Carbon Dioxide 25 mmol/L (22-29); Chloride 109 mmol/L (96-108); Creatinine Clr Calc Pharmacy 160.0; Estimated Glomerular Filt Rate > 60; Magnesium 1.8 mg/dL (1.6-2.6); Potassium 3.1 mmol/L (3.3-5.1); Sodium 145 mmol/L (135-145)
--- NOTE | 2025-06-18 06:43 | P.PNCC_ITS ---
Subjective Subjective Date of Service: 06/18/25 Interval History: agitation, necessitating midazolam gtt, though maintaining spontaneous respirations; persistent ARDS, critical and guarded clinical status Critical Care Time (minutes): 60 Physical Exam 2 Vital Signs: Vital Signs: Last Vital Signs Temp 100.8 F H 06/18/25 06:00 Pulse 101 H 06/18/25 06:00 Resp 28 H 06/18/25 06:00 BP 136/79 06/18/25 06:00 Pulse Ox 89 L 06/18/25 06:00 O2 Del Method Mechanical Ventil ation 06/18/25 06:00 O2 Flow Rate 50 06/15/25 03:00 FiO2 100 06/18/25 06:00 BMI result Body Mass Index 31.6 Const: Other: intubated, sedated on multiple gtts, though still agitated General: well developed HEENT: Head: Yes normal to inspection, Yes normocephalic and Yes atraumatic Eyes: General: appearance normal, both eyes and all related structures Neck: Neck: Yes normal visual inspection, Yes full ROM, Yes no meningeal signs, Yes trachea midline and Yes supple Chest: Chest palpation & inspection: normal inspection of the chest Resp: Other: diminished breath sounds throughout; appreciable wheezing; no appreciable overt rales, rhonchi Effort & Inspection: abnormal respiratory pattern and tachypneic Cardio: Rate: tachycardic Rhythm: regular rhythm GI: Inspection: Yes normal to inspection, No Abdominal wall edema and No distended Palpation (GI): Soft to palpation, not firm, nontender, no guarding and not rigid Skin: General skin exam: no rashes or lesions noted Neuro: General: tone normal, moves all extremities and no meningeal signs Extrem: Other: appreciable 1+ pitting edema to bilateral shins General: Yes normal to inspection, Yes full ROM and Yes capillary refill normal Psych: Other: agitated Objective Data Labs 06/18/25 05:05 06/18/25 05:05 Labs: Laboratory Results - last 24 hr 06/17/25 06/17/25 06/17/25 05:58 08:50 09:44 WBC RBC Hgb Hct MCV MCH MCHC RDW Plt Count MPV Immature Gran % (Auto) Neut % (Auto) Lymph % (Auto) [place] % (Auto) Eos % (Auto) Baso % (Auto) Lymph # (Auto) [place] # (Auto) Eos # (Auto) Baso # (Auto) Abs Immat Gran (auto) Absolute Neuts (auto) Absolute Nucleated RBC Nucleated RBC % (auto) Neutrophils % (Manual) 60 Band Neutrophils % 11 H Lymphocytes % (Manual) 18 L Monocytes % (Manual) 2 Metamyelocytes % 5 Myelocytes % 4 Abs Neuts (Manual) 9.2 H Lymphocytes # (Manual) 2.3 Monocytes # (Manual) 0.3 Metamyelocytes # 0.7 Myelocytes # 0.5 Nucleated RBCs 1 H Toxic Granulation PRESENT Platelet Estimate NORMAL Plt Morphology Comment NORMAL RBC Morphology NOTED Polychromasia 1+ (0-2) Hypochromasia 1+ (5-14) VBG pH VBG pCO2 VBG pO2 VBG HCO3 VBG O2 Saturation VBG Base Excess Sodium Potassium Chloride Carbon Dioxide Anion Gap BUN Creatinine Estim Creat Clear Calc Estimated GFR POC Glucose 126 H Random Glucose Calcium Phosphorus Magnesium Albumin Vancomycin Trough 13.1 06/18/25 05:05 WBC 18.5 H RBC 3.26 L Hgb 8.7 L Hct 26.9 L MCV 82.5 MCH 26.7 L MCHC 32.3 RDW 14.6 Plt Count 281 MPV 9.2 L Immature Gran % (Auto) Cancelled Neut % (Auto) Cancelled Lymph % (Auto) Cancelled [place] % (Auto) Cancelled Eos % (Auto) Cancelled Baso % (Auto) Cancelled Lymph # (Auto) Cancelled [place] # (Auto) Cancelled Eos # (Auto) Cancelled Baso # (Auto) Cancelled Abs Immat Gran (auto) Cancelled Absolute Neuts (auto) Cancelled Absolute Nucleated RBC 0.070 H Nucleated RBC % (auto) 0.4 H Neutrophils % (Manual) Band Neutrophils % Lymphocytes % (Manual) Monocytes % (Manual) Metamyelocytes % Myelocytes % Abs Neuts (Manual) Lymphocytes # (Manual) Monocytes # (Manual) Metamyelocytes # Myelocytes # Nucleated RBCs Toxic Granulation Platelet Estimate Plt Morphology Comment RBC Morphology Polychromasia Hypochromasia VBG pH 7.55 H VBG pCO2 29 VBG pO2 68 VBG HCO3 25 VBG O2 Saturation 93.0 VBG Base Excess 4.0 Sodium 145 Potassium 3.1 L Chloride 109 H Carbon Dioxide 25 Anion Gap 14 BUN 9 Creatinine 0.67 Estim Creat Clear Calc 160.0 Estimated GFR > 60 POC Glucose Random Glucose 140 H Calcium 8.6 Phosphorus 4.3 Magnesium 1.8 Albumin 2.8 L Vancomycin Trough Microbiology Microbiology Results: Microbiology 06/14/25 14:33 Blood - Venous Blood Culture - Final Streptococcus pneumoniae 06/14/25 14:31 Blood - Venous Blood Culture - Final Streptococcus pneumoniae 06/15/25 04:00 Sputum - Suctioned Gram Stain - Final 06/15/25 04:00 Sputum - Suctioned Sputum Culture - Preliminary Culture in progress. Progress Note: A&P Assessment and plan (1) ARDS (adult respiratory distress syndrome): Status: Acute (2) Pneumonia: Status: Acute Plan Patient?is a 45 Y M w/ hypertension, hyperlipidemia, asthma, and polysubstance misuse including alcohol c/b dilated cardiomyopathy, opioids c/b hepatitis?C, presented?to ED on 06/14 w/ cough found to be in acute hypoxic respiratory failure; ED work-up suggestive of pneumonia; ICU course c/b persistent acute hypoxic respiratory failure, intubated 06/14 N: intubated, sedated w/ propofol, fentanyl, midazolam gtts, though remains agitated, started on cisatricurium gtt CV: hypotension, likely d/t sedation, norepinephrine gtt as needed; to closely monitor hemodynamics R: acute hypoxic respiratory failure/ARDS d/t pneumonia, intubated 06/14, persistent and worsening ARDS GI: tube feeds : no acute issues H: no acute issues; chemical DVT prophylaxis ID: pneumonia, likely d/t enterovirus and superimposed MRSA, vanc/zosyn; BCx 06/14 w/ streptococcus pneumoniae E: to monitor hypo-/hyper-glycemia P: polysubstance misuse S: daily updates given to [facility] Quality Stroke Does the patient have a stroke diagnosis?: No VTE Prior VTE?: No VTE Risk Level:: Medical - moderate - high VTE Device Contraindication: N/A - Device Ordered VTE Drug Contraindication: N/A - Med Ordered
[2025-06-18 06:56] LABS: Atypical Lymph Absolute Manual 0.2 x10*3/uL; Band Neutrophils Percent 7 % (3-5); Eosinophils Absolute Manual 0.6 X10*3/uL (0.0-0.4); Eosinophils Percent Manual 3 % (0-4); Lymphocytes Absolute Manual 2.6 X10*3/uL (1.2-4.9); Lymphocytes Percent Manual 14 % (20-40); Metamyelocytes Absolute 0.6 X10*3/uL; Metamyelocytes Percent 3 %; Monocytes Absolute Manual 0.4 X10*3/uL (0.1-1.2); Monocytes Percent Manual 2 % (2-11); Myelocytes Absolute 0.4 X10*/uL; Myelocytes Percent 2 %; Neutrophils Absolute Manual 14.1 X10*3/uL (2.0-8.3); Neutrophils Percent Manual 69 % (45-73)
[2025-06-18 06:58] LABS: Ovalocytes 1+ (5-14) /OIF; Polychromasia 1+ (0-2) /OIF; RBC Morphology NOTED
[2025-06-18 06:59] LABS: Toxic Granulation PRESENT
--- NOTE | 2025-06-18 07:34 | PC.NURSE ---
Assumed care of pt at 1900. Pt remains intubated and sedated. On fentanyl, propofol, and midazolam IV for sedation. Pt agitated/restless at times. PRN dilaudid given for pain and PRN IVP midazolam given for restlessness. See MAR for full details. Pt developed a fever overnight, IV acetaminophen given per [facility]. KAPIL at times. Pt remains in non behavioral restraints as he is unable to follow commands at this time. Pt on droplet and contact precautions. During shift, RT changed vent settings to ACVC+, pt seems to tolerate this better. Pt repo q2hr. All fall precautions in place. Angel catheter was d/c at 0545, male purewik placed. See flowsheets and MAR for more information. Plan of care continues.
[2025-06-18] MEDS: levalbuterol HCL 5 MG, Ipratropium Bromide 0.5 MG INHALE (08:30)
[2025-06-18] MEDS: 0.9 % Sodium Chloride Flush 3 ML SYRINGE IVFLUSH ×3 (08:31→20:00)
[2025-06-18] MEDS: Cisatracurium Besylate 100 MG in 0.9 % Sodium Chloride 40 ML 5.88 MG IVCONT ×2 (08:53→14:15)
--- NOTE | 2025-06-18 08:55 | P.CDIM_ITS ---
PROVIDER RESPONSE TEXT: To clarify, the appropriate diagnosis supported by the clinical indicators: Diagnosis is still a likely, suspected, probable diagnosis QUERY TEXT: PHYSICIAN'S DOCUMENTATION REQUEST Date of Query: 06/18/2025 08:39 AM EDT Patient Name: Ole Gonzalez Admit Date: 06/14/2025 Dear Genia Bailey MD, A review of the medical record indicates additional documentation may be needed. Please review below and update the documentation accordingly. Clinical Indicators: ICU H7P 06/14/25 - Chief complaint: Acute Sepsis, Aspiration pneumonitis The patient started on broad-spectrum antibiotics including vancomycin and Zosyn. Tachycardic, hypoxic with O2 sat of 83% on 100% non-breather mask. Chest X-ray showed right lower lobe pneumonia. Assessment: Acute hypoxic respiratory failure due to Aspiration pneumonitis of the right lung. Diminished lung sounds bilaterally fine, right lung basilar rhonchi. No crackles or rales, no wheezes. ICU progress note 06/15- - Pneumonia, likely due to enterovirus and superimposed MRSA, Vanco/zosyn. Please clarify the following: Aspiration pneumonitis was present on admission and is now resolved Aspiration pneumonitis was present on admission and is still being monitored, evaluated, or treated Aspiration pneumonitis was ruled out Diagnosis is still a likely, suspected, probable diagnosis Other (explain) Clinically unable to determine (explain) Thank you, Brianna Llanos, CCS, CDIS Use of terms such as suspected, likely, concern for, or probable (associated with a specific diagnosis that is being evaluated, monitored, or treated as if it exists) are acceptable and can be coded in the inpatient setting, when documented at the time of discharge. Please use your independent medical judgment in providing your response. THIS QUERY IS PART OF THE PERMANENT MEDICAL RECORD
[2025-06-18 09:50] LABS: ABG HCO3 26 mmol/L (22-26); ABG O2 % Saturation 91.0 %
[2025-06-18] MEDS: Potassium Chloride Packet 20 MEQ PACKET 40 MEQ PO (10:26)
[2025-06-18] MEDS: Albumin Human 25 % 50 ML 100 ML IV ×3 (10:30→12:40)
[2025-06-18] MEDS: Furosemide 20 MG/2 ML VIAL 10 MG IVPUSH (10:36)
[2025-06-18] MEDS: Chlorhexidine Gluc Oral Rinse 15 ML MOUTHWASH BUCCAL ×3 (10:38→20:22)
[2025-06-18] MEDS: Thiamine HCL 100 MG in 0.9 % Sodium Chloride 100 ML 202 MG IV (10:48)
--- NOTE | 2025-06-18 10:54 | HE.PHANOTE ---
RE: VANCO DOSING Trough came back as 15.8 mg/L (predicted trough is 11.9), renal function is stable. Trough of 15.8 mg/L correlates with auc = 625 according to insight. Dose is decreased to 1250 mg q8h, next trough is scheduled for 06/19/25 @1000.
--- NOTE | 2025-06-18 14:22 | MHC.CM.PN ---
Pt remains intubated: on maximum ventilatory support with Fi02 at 100%. Original d/c plan - return to home w/family. CM to follow for finalization of d/c planning needs.
[2025-06-18] MEDS: Furosemide 20 MG/2 ML VIAL IVPUSH (18:23)
--- NOTE | 2025-06-18 19:19 | PC.NURSE ---
This morning at approximately 08:30 until 09:50, patient became increasing tachypneic from 30s up to 60 respirations per minute. At approx 0830 RT and MD made aware and to the bedisde in regards to hypoxia and tachypnea. Patient PRNs given multiple times ahead of schedule per MD Verbal order at bedside. Despite escalating sedation patinet continued to be hypoxic to the low 80s, RT began to manually bag patient. Patient became hypertensive, and tachycardic escalating up to 160s. Versed Gtt then titrated per MD with little effect. Pacer Pads Placed. MD called family to come to hospital as soon as possible in the setting of patient critical status. Assisting RN to the bedside aided in obtaining additional IV access. Nimbex gtt started per MD according to MAR with little immediate effect therefore patient given additional Nimbex IVP per MD verbal order. Baseline TOF 4/4 @ setting of 3. Patient became more synchronous with bagging and ventilator after IVP Nimbex, but maintained hypoxia. Patient then repositioned to left lung down in the setting of predominatiely Right sided pneumonia with positive effect on O2 sats. Per MD, do not perform Q2hr repositioning. Patient remained Left for most of the day. When supine Repo attempted later in the shift patient became hypoxic to 86%, therefore placed on the Left Side again. Family discussions with MD and RN held with patient family this morning.
[2025-06-18] MEDS: Cisatracurium Besylate 100 MG in 0.9 % Sodium Chloride 40 ML 8.82 MG IVCONT (20:08)
[2025-06-19] VITALS (47 sets, daily range): BP systolic 125–183; BP diastolic 82–114; PULSE 92–133; RESP 22; TEMP 34.3–38.5; O2SAT 87–96; BMI 31.9
[2025-06-19 01:09] LABS: Glucose, Whole Blood 152 mg/dL (60-115)
[2025-06-19] MEDS: fentaNYL citrate/NS 1,000 MCG/100 ML PLAST..BAG 20 MCG IVCONT ×5 (01:36→21:46)
[2025-06-19 01:40] LABS: Anion Gap 14 (12-20); Blood Urea Nitrogen 13 mg/dL (9-16); Calcium 9.5 mg/dL (8.4-10.2); Carbon Dioxide 27 mmol/L (22-29); Chloride 108 mmol/L (96-108); Creatinine Clr Calc Pharmacy 170.9; Estimated Glomerular Filt Rate > 60; Potassium 4.3 mmol/L (3.3-5.1); Sodium 145 mmol/L (135-145)
[2025-06-19] MEDS: Cisatracurium Besylate 100 MG in 0.9 % Sodium Chloride 40 ML 8.82 MG IVCONT ×4 (01:44→20:29)
[2025-06-19 05:08] LABS: VBG HCO3 29 mmol/L (22-26); VBG O2 % Saturation 99.0 %
[2025-06-19 05:09] LABS: Venous Blood Gas Refer to POC result
[2025-06-19 05:17] LABS: Hematocrit 29.3 % (42.0-52.0); Hemoglobin 8.8 g/dl (14.0-18.0); Mean Corpuscular HGB Conc 30.0 g/dl (31.0-36.0); Mean Corpuscular Hemoglobin 26.7 pg (27.0-33.0); Mean Corpuscular Volume 88.8 fL (80.0-98.0); NRBC Abs Auto 0.060 X10*3/uL (0.0-0.012); NRBC Pct Auto 0.4 /100WBC (0.0-0.2); Platelet Count 269 X10*3/uL (160-400); Red Blood Count 3.30 X10*6/uL (4.60-5.80)
[2025-06-19 05:38] LABS: WBC ABN SCTR FOR CBC 1
[2025-06-19 05:39] LABS: White Blood Count 13.5 X10*3/uL (4.8-10.8)
[2025-06-19] MEDS: Midazolam HCl/NS 50 MG/50 ML PLAST..BAG IVCONT ×2 (05:42→17:01)
[2025-06-19 05:46] LABS: Albumin Level 3.3 g/dL (3.5-5.0); Anion Gap 16 (12-20); Blood Urea Nitrogen 15 mg/dL (9-16); Calcium 9.2 mg/dL (8.4-10.2); Carbon Dioxide 25 mmol/L (22-29); Chloride 109 mmol/L (96-108); Creatinine Clr Calc Pharmacy 173.6; Estimated Glomerular Filt Rate > 60; Magnesium 2.5 mg/dL (1.6-2.6); Potassium 4.3 mmol/L (3.3-5.1); Sodium 146 mmol/L (135-145)
[2025-06-19 06:08] LABS: Band Neutrophils Percent 4 % (3-5); Lymphocytes Absolute Manual 0.9 X10*3/uL (1.2-4.9); Lymphocytes Percent Manual 7 % (20-40); Monocytes Absolute Manual 0.3 X10*3/uL (0.1-1.2); Monocytes Percent Manual 2 % (2-11); Myelocytes Absolute 0.1 X10*/uL; Myelocytes Percent 1 %
[2025-06-19 06:09] LABS: Metamyelocytes Absolute 0.3 X10*3/uL; Metamyelocytes Percent 2 %; Neutrophils Absolute Manual 11.9 X10*3/uL (2.0-8.3); Neutrophils Percent Manual 84 % (45-73)
[2025-06-19 06:11] LABS: Ovalocytes 1+ (5-14) /OIF; Polychromasia 1+ (0-2) /OIF; RBC Morphology NOTED; Tear Drop Cells 1+ (0-2) /OIF; Toxic Granulation PRESENT
--- NOTE | 2025-06-19 06:38 | PC.NURSE ---
19:00: Signal Constructor assumed care of this patient. Nimbex gtt infusing per MAR. Tube feeds noted to be infusing via OG tube at 10ml/hr. Tube feeds immediately paused and GRV assessed in the setting of therapeutic paralytic use. GRV showed 30ml. TEST TUBE MAKER Miller made aware with verbal orders given to this brief writer to not replace the 30ml. No vomiting noted. Aspiration precautions in place.? 21:00 hour: Bladder scan obtained by brief writer due to continuation of therapeutic paralytic use as per TEST TUBE MAKER Miller. Of note, patient is on lasix IVP BID per MAR review. Bladder scan showed 780ml. Just after bladder scan was performed by brief writer, the patient spontaneously voided 800ml odorless clear yellow urine via the male purewick in place with this brief writer still at this patient's bedside. This brief writer then obtained a post-void residual scan that showed 117ml. TEST TUBE MAKER made aware with verbal orders to assess bladder scan next in four hours during 01:00 hour.? ? ? 22:00-23:00 hours: TOF performed and nimbex gtt adjusted per TEST TUBE MAKER verbal order at bedside. Please see TOF assessments, vitals, and MAR for full details.? ~0045: Patient bladder scanned for 461ml after 200ml new urine noted in male PW canister. TEST TUBE MAKER notified with orders to place IUC for retention r/t therapeutic paralysis, done as ordered. Immediate UOP 475ml produced.? 01:00 hour: POC obtained due to being NPO and tube feeds held, showed 152. BMP ordered and obtained to rule out electrolyte imbalances given repletions during the day and patient notably on IVP lasix BID. No remarkable imbalances noted on results.? ? 02:00 hour: Patient hypertensive 160's SBP again; medicated with prn dilaudid per TEST TUBE MAKER verbal order and patient repositioned. 03:00 hour: Patient remained hypertensive and tachycardia 120's; Discussed with TEST TUBE MAKER. Patient appears to take metoprolol at home on med review. Orders for 1x IVP metoprolol,?+effect, SBP improved to 120-130's and HR low 100's. 05:00 hour: VBG resulted with critical pH 7.62. RT aware and TEST TUBE MAKER notified. Vent settings adjusted by RT ( peep reduced to 14 from 16 and Pi reduced to 16 from 17). Spo2 maintaining low 90's as per co2 retainer protocol order in place.? Bed alarm on, bed in lowest position/locked with safety measures in place. Please see shift assessments, tasks, and MAR for full details. Plan of care ongoing.?
--- NOTE | 2025-06-19 07:00 | CA_ITS ---
Transthoracic Echocardiogram Patient (Last, First, Middle): Ole Gonzalez T Gender: M Date of : 1980 Age: 45 Procedure Date: 06/19/2025 Procedure Type: Transthoracic Echocardiogram Location: ICU Height: 175.26 cm Weight: 98.01 kg BSA: 2.13 m2 Heart Rate: 130 bpm BP: 172 / 102 mmHg Ski Technician: Referring MD: Genia Bailey MD Symptoms: Please Assess Function Study Quality: Adequate ECG Rhythm: Tachycardia Conclusions: - The left ventricular systolic function is normal. The visually estimated ejection fraction is between 55-60%. - No obvious valvular pathology seen on this study. Findings Procedure Information The quality of the study was technically difficult. The study quality is limited by the presence of a ventilator. Left Ventricle Normal left ventricular cavity size. There is mildly increased left ventricular wall thickness. The left ventricular systolic function is normal. The visually estimated ejection fraction is between 55-60%. There is no evidence of regional wall motion abnormalities. Diastolic function is normal for age. Right Ventricle Normal right ventricular cavity size and systolic function. Atria The left atrium is mildly dilated. The right atrium is normal in size. Aortic Valve The aortic valve was not well visualized. There is no aortic valve stenosis. There is no aortic valve regurgitation. Mitral Valve The mitral valve appears normal. There is no mitral valve regurgitation. There is no mitral valve stenosis. Pulmonic Valve The pulmonic valve is likely normal. Tricuspid Valve There is mild tricuspid valve regurgitation. Mild pulmonary hypertension is present. (patient intubated). Great Vessels The asc aorta is normal in size. Venous The inferior vena cava is mildly dilated and collapses less than 50% with inspiration. Pericardium/Pleural There is a trivial pericardial effusion. Prior Study Comparison No prior study available for comparison. Recommendations, Care & Conclusions No obvious valvular pathology seen on this study. Measurements 2D Linear Measurements IVSd: 1.22 0.6-0.9/0.6-1.0 cm LVIDd: 5.09 3.9-5.3/4.2-5.9 cm LVIDd Index: 2.39 2.4-3.2/2.2-3.1 cm/m2 LVIDs: 2.71 2.0-3.6 cm LVPWd: 1.26 0.7-1.1 cm LA Diam: 3.60 2.7-3.8/3.0-4.0 cm LAIDs Index: 1.69 1.5-2.3 cm/m2 LV Mass: 314.00 67-162/88-224 g LV Mass Index: 147.42 43-95/49-115 g/m2 LVOT Diam: 2.10 3.0+(-)1.3 cm Mitral Valve MV Pk E: 0.78 MV PK A: 1.21 MV Decel Time: 99.00 E/A: 0.60 E'Lateral: 5.87 E'Medial: 11.60 E/E' Med: 6.70 E/E' Lat: 13.20 PHT: 29.00 MVA PHT: 7.59 Decel [place]: 7.82 Aortic Valve AoV Pk Stevie: 1.33 AoV Mn Stevie: 0.92 AoV VTI: 0.24 AoV Pk Grad: 7.00 Aov Mn Grad: 4.00 MARLENI Cont.VTI: 2.75 LVOT LVOT Pk Stevie: 1.09 LVOT Mn Stevie: 0.69 LVOT VTI: 0.19 LVOT Pk Grad: 5.00 LVOT Mn Grad: 2.00 LVOT Diam: 2.10 LVOT Area: 3.46 Diastolic Function MV Pk E: 0.78 MV Pk A: 1.21 E/A: 0.60 E'Medial: 11.60 E/E' Med: 6.70 E' Laterial: 5.87 E/E' Lat: 13.20 Right Ventricle TAPSE (mm): 26.20 TVS' Stevie: 14.60 Tricuspid Valve TR Pk Stevie: 3.33 TR Pk Grad: 44.00 RA Press: 8.00 RVSP: 52.00 Great Vessels Aorta Sinus of Valsalva: 3.40 2.0-3.5 cm Pulmonary Valve PV Pk Stevie: 1.28 Peak PV Grad: 7.00 Updated in Other Vendor System with Status of Final Francisco Pineda MD electronically signed on 06/19/2025 3:20:50 PM with status of Final
--- NOTE | 2025-06-19 08:22 | PM.CCPN ---
Subjective Subjective Date of Service: 06/19/25 Interval History: persistent agitation 06/18 AM, necessitating escalating sedative gtts and paralytics; persistent ARDS, critical and guarded clinical status Critical Care Time (minutes): 60 Physical Exam Vital Signs: Vital Signs: Last Vital Signs Temp 100.0 F 06/19/25 07:00 Pulse 124 H 06/19/25 07:00 Resp 22 H 06/19/25 07:00 BP 164/107 H 06/19/25 07:00 Pulse Ox 89 L 06/19/25 07:00 O2 Del Method Mechanical Ventil ation 06/19/25 07:00 O2 Flow Rate 50 06/15/25 03:00 FiO2 100 06/19/25 08:03 BMI result Body Mass Index 31.9 Const: Other: intubated, sedated; no appreciable spontaneous movements General: well developed HEENT: Head: Yes normal to inspection, Yes normocephalic and Yes atraumatic Eyes: General: appearance normal, both eyes and all related structures Neck: Neck: Yes normal visual inspection, Yes full ROM, Yes no meningeal signs, Yes trachea midline and Yes supple Chest: Chest palpation & inspection: normal inspection of the chest Resp: Other: some appreciable wheezing; no appreciable overt rales, rhonchi Cardio: Rate: tachycardic Rhythm: regular rhythm GI: Other: distended, though soft, compressible Inspection: Yes normal to inspection, No Abdominal wall edema and Yes distended Palpation (GI): Soft to palpation, not firm, nontender, no guarding and not rigid Skin: General skin exam: no rashes or lesions noted Neuro: General: no meningeal signs Extrem: Other: appreciable 1+ pitting edema to bilateral shins General: Yes normal to inspection, Yes full ROM and Yes capillary refill normal Psych: Other: unable to assess Objective Data Labs 06/19/25 05:02 06/19/25 05:02 Labs: Laboratory Results - last 24 hr 06/18/25 06/18/25 06/19/25 09:47 10:01 01:04 WBC RBC Hgb Hct MCV MCH MCHC RDW Plt Count MPV Immature Gran % (Auto) Neut % (Auto) Lymph % (Auto) [place] % (Auto) Eos % (Auto) Baso % (Auto) Lymph # (Auto) [place] # (Auto) Eos # (Auto) Baso # (Auto) Abs Immat Gran (auto) Absolute Neuts (auto) Absolute Nucleated RBC Nucleated RBC % (auto) Neutrophils % (Manual) Band Neutrophils % Lymphocytes % (Manual) Monocytes % (Manual) Metamyelocytes % Myelocytes % Abs Neuts (Manual) Lymphocytes # (Manual) Monocytes # (Manual) Metamyelocytes # Myelocytes # Toxic Granulation Platelet Estimate Plt Morphology Comment RBC Morphology Polychromasia Tear Drop Cells Ovalocytes O2 Saturation 91.0 ABG pH at Pt Temp 7.39 ABG pCO2 at Pt Temp 43 ABG pO2 at Pt Temp 73 L ABG HCO3 26 ABG Base Excess (Actual) 1.7 VBG pH VBG pCO2 VBG pO2 VBG HCO3 VBG O2 Saturation VBG Base Excess Sodium 145 Potassium 4.3 D Chloride 108 Carbon Dioxide 27 Anion Gap 14 BUN 13 Creatinine 0.63 Estim Creat Clear Calc 170.9 Estimated GFR > 60 POC Glucose Random Glucose 142 H Calcium 9.5 D Phosphorus Magnesium Albumin Random Vancomycin 15.8 06/19/25 06/19/25 06/19/25 01:05 05:02 05:04 WBC 13.5 H RBC 3.30 L Hgb 8.8 L Hct 29.3 L MCV 88.8 D MCH 26.7 L MCHC 30.0 L RDW 15.6 Plt Count 269 MPV 9.6 Immature Gran % (Auto) Cancelled Neut % (Auto) Cancelled Lymph % (Auto) Cancelled [place] % (Auto) Cancelled Eos % (Auto) Cancelled Baso % (Auto) Cancelled Lymph # (Auto) Cancelled [place] # (Auto) Cancelled Eos # (Auto) Cancelled Baso # (Auto) Cancelled Abs Immat Gran (auto) Cancelled Absolute Neuts (auto) Cancelled Absolute Nucleated RBC 0.060 H Nucleated RBC % (auto) 0.4 H Neutrophils % (Manual) 84 H Band Neutrophils % 4 Lymphocytes % (Manual) 7 L Monocytes % (Manual) 2 Metamyelocytes % 2 Myelocytes % 1 Abs Neuts (Manual) 11.9 H Lymphocytes # (Manual) 0.9 L Monocytes # (Manual) 0.3 Metamyelocytes # 0.3 Myelocytes # 0.1 Toxic Granulation PRESENT Platelet Estimate NORMAL Plt Morphology Comment NORMAL RBC Morphology NOTED Polychromasia 1+ (0-2) Tear Drop Cells 1+ (0-2) Ovalocytes 1+ (5-14) O2 Saturation ABG pH at Pt Temp ABG pCO2 at Pt Temp ABG pO2 at Pt Temp ABG HCO3 ABG Base Excess (Actual) VBG pH 7.62 H* VBG pCO2 29 VBG pO2 151 VBG HCO3 29 H VBG O2 Saturation 99.0 VBG Base Excess 8.9 Sodium 146 H Potassium 4.3 Chloride 109 H Carbon Dioxide 25 Anion Gap 16 BUN 15 Creatinine 0.62 Estim Creat Clear Calc 173.6 Estimated GFR > 60 POC Glucose 152 H Random Glucose 129 H Calcium 9.2 Phosphorus 4.1 Magnesium 2.5 Albumin 3.3 L Random Vancomycin Microbiology Microbiology Results: Microbiology 06/15/25 04:00 Sputum - Suctioned Gram Stain - Final 06/15/25 04:00 Sputum - Suctioned Sputum Culture - Final 06/14/25 14:33 Blood - Venous Blood Culture - Final Streptococcus pneumoniae 06/14/25 14:31 Blood - Venous Blood Culture - Final Streptococcus pneumoniae Progress Note: A&P Assessment and plan (1) ARDS (adult respiratory distress syndrome): Status: Acute (2) Pneumonia: Status: Acute Plan Patient?is a 45 Y M w/ hypertension, hyperlipidemia, asthma, and polysubstance misuse including alcohol c/b dilated cardiomyopathy, opioids c/b hepatitis?C, presented?to ED on 06/14 w/ cough found to be in acute hypoxic respiratory failure; ED work-up suggestive of pneumonia; ICU course c/b persistent acute hypoxic respiratory failure, intubated 06/14 N: intubated, agitated, sedated w/ propofol, fentanyl, midazolam gtts, cisatricurium gtts CV: hypotension, likely d/t sedation, norepinephrine gtt as needed; to closely monitor hemodynamics R: acute hypoxic respiratory failure/ARDS d/t pneumonia, intubated 06/14, persistent and worsening ARDS GI: tube feeds : no acute issues H: no acute issues; chemical DVT prophylaxis ID: pneumonia, likely d/t enterovirus, superimposed MRSA, and strep, c/b strep bacteremia, vanc/zosyn E: to monitor hypo-/hyper-glycemia P: polysubstance misuse S: daily updates given to [facility] Stroke Does the patient have a stroke diagnosis?: No VTE Prior VTE?: No VTE Risk Level:: Medical - moderate - high VTE Device Contraindication: N/A - Device Ordered VTE Drug Contraindication: N/A - Med Ordered
[2025-06-19] MEDS: Chlorhexidine Gluc Oral Rinse 15 ML MOUTHWASH BUCCAL ×3 (08:36→21:42)
[2025-06-19] MEDS: 0.9 % Sodium Chloride Flush 3 ML SYRINGE IVFLUSH ×3 (08:36→21:43)
[2025-06-19] MEDS: Furosemide 20 MG/2 ML VIAL IVPUSH ×2 (08:45→17:14)
[2025-06-19] MEDS: Thiamine HCL 100 MG in 0.9 % Sodium Chloride 100 ML 202 MG IV (09:18)
[2025-06-19 09:44] LABS: Triglycerides 363 mg/dL (<150)
[2025-06-19] MEDS: Albumin Human 25 % 50 ML 100 ML IV (09:51)
--- NOTE | 2025-06-19 09:56 | MHC.CLN ---
F/U PT REMAINS INTUBATED AND SEDATED TF CURRENTLY ON HOLD IF TF TO RESUME, RECOMMEND VITAL AF 1.2 AT MAX GOAL RATE 40ML/HR WITH 240ML FWF Q 6 HRS PROVIDES 1152KCALS (1826 TOTAL KCALS; 22KCALS/KG), 72G PROTEIN, 1738ML TOTAL FREE WATER FROM FORMULA AND FLUSHES MONITOR TOLERANCE AND LYTES RD CAN BE REACHED VIA TIGER CONNECT DURING OFF HOURS IF NEEDED
[2025-06-19] MEDS: Metoprolol Tartrate 5 MG in 0.9 % Sodium Chloride 50 ML 220 MG IV ×2 (10:13→17:12)
--- NOTE | 2025-06-19 13:08 | MHC.CM.PN ---
Pt on vent support for ARDS: VS abnormal: Pt's condition fragile and d/c planning has been pended at this time. CM to follow
--- NOTE | 2025-06-19 18:29 | PC.NURSE ---
No events during dayshift. Patient hospital course uncomplicated today. Per MD move patient minimally and only if patient is tolerating well. After performing Trian of Four (TOF) to left temporal this morning patient had 4/4 twitches at 4 milliamp. Additionally, around noon patient appeared to break paralysis more by moving mouth, fluttering eyes ajar, and raising eyebrows to name and with mouth-care. Clarified the goal of paralytic gtt treatment with MD at both times. MD stated in both incidence we will for vent synchrony instead of titrating to meet Train of Four goal or total paralysis. MD stated that as long as patient appears comfortably sedated and is synchronous, do not increase paralytic gtt. PER MD Rate stayed the same per MAR
[2025-06-19 23:56] LABS: Glucose, Whole Blood 114 mg/dL (60-115)
[2025-06-20] VITALS (55 sets, daily range): BP systolic 114–177; BP diastolic 74–116; PULSE 88–150; RESP 22–30; TEMP 34.4–38.7; O2SAT 85–97; BMI 31.9
[2025-06-20] MEDS: Cisatracurium Besylate 100 MG in 0.9 % Sodium Chloride 40 ML 8.82 MG IVCONT ×5 (00:54→21:57)
[2025-06-20] MEDS: fentaNYL citrate/NS 1,000 MCG/100 ML PLAST..BAG 20 MCG IVCONT ×5 (02:41→21:57)
[2025-06-20 04:29] LABS: VBG HCO3 28 mmol/L (22-26); VBG O2 % Saturation 90.0 %
[2025-06-20 04:40] LABS: Hematocrit 31.8 % (42.0-52.0); Hemoglobin 10.1 g/dl (14.0-18.0); Mean Corpuscular HGB Conc 31.8 g/dl (31.0-36.0); Mean Corpuscular Hemoglobin 26.9 pg (27.0-33.0); Mean Corpuscular Volume 84.8 fL (80.0-98.0); NRBC Abs Auto 0.040 X10*3/uL (0.0-0.012); NRBC Pct Auto 0.2 /100WBC (0.0-0.2); Platelet Count 420 X10*3/uL (160-400); Red Blood Count 3.75 X10*6/uL (4.60-5.80); White Blood Count 16.2 X10*3/uL (4.8-10.8)
[2025-06-20 04:51] LABS: Albumin Level 3.6 g/dL (3.5-5.0)
[2025-06-20 04:57] LABS: Anion Gap 15 (12-20); Blood Urea Nitrogen 22 mg/dL (9-16); Calcium 9.5 mg/dL (8.4-10.2); Carbon Dioxide 25 mmol/L (22-29); Chloride 110 mmol/L (96-108); Creatinine Clr Calc Pharmacy 165.6; Estimated Glomerular Filt Rate > 60; Magnesium 2.4 mg/dL (1.6-2.6); Potassium 3.8 mmol/L (3.3-5.1); Sodium 146 mmol/L (135-145)
[2025-06-20 05:07] LABS: Band Neutrophils Percent 7 % (3-5); Basophils Abs Manual 0.2 X10*3/uL (0.0-0.2); Basophils Percent Manual 1 % (0-2); Eosinophils Absolute Manual 0.2 X10*3/uL (0.0-0.4); Eosinophils Percent Manual 1 % (0-4); Lymphocytes Absolute Manual 1.9 X10*3/uL (1.2-4.9); Lymphocytes Percent Manual 12 % (20-40); Metamyelocytes Absolute 0.5 X10*3/uL; Metamyelocytes Percent 3 %; Monocytes Absolute Manual 1.3 X10*3/uL (0.1-1.2); Monocytes Percent Manual 8 % (2-11); Myelocytes Absolute 0.2 X10*/uL; Myelocytes Percent 1 %; Neutrophils Absolute Manual 12.0 X10*3/uL (2.0-8.3); Neutrophils Percent Manual 67 % (45-73)
[2025-06-20 05:09] LABS: Macrocytosis 1+ (5-14) /OIF; RBC Morphology NOTED
[2025-06-20 05:10] LABS: Burr Cells 1+ (0-2) /OIF; Ovalocytes 1+ (5-14) /OIF; Polychromasia 1+ (0-2) /OIF; Schistocytes 1+ (0-2) /OIF; Target Cells 1+ (5-14) /OIF; Toxic Granulation PRESENT
[2025-06-20 05:11] LABS: Toxic Vacuolation PRESENT
[2025-06-20] MEDS: Midazolam HCl/NS 50 MG/50 ML PLAST..BAG IVCONT (05:28)
[2025-06-20 06:29] LABS: Thyroid Stimulating Hormone 1.54 uIU/mL (0.32-4.0)
--- NOTE | 2025-06-20 07:07 | PC.NURSE ---
Upon initial assessment at 1900 ? pt sedated on propofol, fentanyl, and Versed infusions; RASS -5. Nimbex infusing for ARDS, titrated for ventilator synchrony; TOF monitored. Tmax 101.6?F via core bladder probe. Ice bags applied to bilateral axilla and PRN acetaminophen administered with no effect; cooling blanket applied anteriorly. NSR/ST on tele, HR 90?150s. PRN Lopressor administered per RECYCLING DIRECTOR Miller for hypertension. Nicardipine infusion initiated and titrated to maintain SBP <160. Generalized non-pitting edema noted; palpable pulses in all four extremities. ETT #8.0 secured at 27 cm at lip, on PCV. Switched to ACVC+ at approximately 0600 per RT due to SpO2 84% on 100% FiO2; pCXR obtained. OGT taped at 65 cm at lip; NPO. No BM. Indwelling urinary catheter in place; UOP as charted. Skin overall intact; posterior skin unable to be assessed due to hemodynamic instability?RECYCLING DIRECTOR aware. Repositioned every 2 hours as tolerated with pillows/wedges; on IsoTour mattress. Family present at bedside and updated on plan of care and patient status. See EMR/flowsheet for further details.
--- NOTE | 2025-06-20 07:22 | HE.PHANOTE ---
METHADONE Pt last received 190mg on 06/14 @ 0700 from [facility], [place], per Roseline Dukes at facility.
[2025-06-20] MEDS: 0.9 % Sodium Chloride Flush 3 ML SYRINGE IVFLUSH ×3 (08:08→22:00)
[2025-06-20] MEDS: Chlorhexidine Gluc Oral Rinse 15 ML MOUTHWASH BUCCAL ×3 (08:10→19:43)
[2025-06-20] MEDS: Furosemide 20 MG/2 ML VIAL IVPUSH ×2 (08:11→17:00)
[2025-06-20 08:25] LABS: VBG HCO3 27 mmol/L (22-26); VBG O2 % Saturation 92.0 %
[2025-06-20] MEDS: Thiamine HCL 100 MG in 0.9 % Sodium Chloride 100 ML 202 MG IV (08:49)
--- NOTE | 2025-06-20 08:56 | PM.CCPN ---
Subjective Subjective Date of Service: 06/20/25 Interval History: persistent ARDS, critical and guarded clinical status Critical Care Time (minutes): 90 Physical Exam Vital Signs: Vital Signs: Last Vital Signs Temp 101.5 F H 06/20/25 08:00 Pulse 139 H 06/20/25 08:25 Resp 28 H 06/20/25 08:00 BP 136/83 06/20/25 08:25 Pulse Ox 86 L 06/20/25 08:00 O2 Del Method Mechanical Ventil ation 06/20/25 08:00 O2 Flow Rate 50 06/15/25 03:00 FiO2 100 06/20/25 08:41 BMI result Body Mass Index 31.9 Const: Other: intubated, sedated; no appreciable spontaneous movements; diaphoretic General: well developed HEENT: Head: Yes normal to inspection, Yes normocephalic and Yes atraumatic Eyes: General: appearance normal, both eyes and all related structures Neck: Neck: Yes normal visual inspection, Yes full ROM, Yes no meningeal signs, Yes trachea midline and Yes supple Chest: Chest palpation & inspection: normal inspection of the chest Resp: Other: appreciable rales, rhonchi throughout; no appreciable overt wheezing Effort & Inspection: normal respiratory effort Cardio: Rate: tachycardic Rhythm: regular rhythm GI: Inspection: Yes normal to inspection, No Abdominal wall edema and No distended Palpation (GI): Soft to palpation, not firm, nontender, no guarding and not rigid Skin: General skin exam: no rashes or lesions noted Neuro: General: tone normal and no meningeal signs Extrem: Other: appreciable 1+ pitting edema to bilateral shins General: Yes normal to inspection, Yes full ROM and Yes capillary refill normal Psych: Other: unable to asses Objective Data Labs 06/20/25 04:22 06/20/25 04:22 Labs: Laboratory Results - last 24 hr 06/19/25 06/19/25 06/20/25 09:24 23:42 04:22 WBC 16.2 H RBC 3.75 L Hgb 10.1 L Hct 31.8 L MCV 84.8 MCH 26.9 L MCHC 31.8 RDW 15.2 Plt Count 420 H D MPV 8.6 L Immature Gran % (Auto) Cancelled Neut % (Auto) Cancelled Lymph % (Auto) Cancelled [place] % (Auto) Cancelled Eos % (Auto) Cancelled Baso % (Auto) Cancelled Lymph # (Auto) Cancelled [place] # (Auto) Cancelled Eos # (Auto) Cancelled Baso # (Auto) Cancelled Abs Immat Gran (auto) Cancelled Absolute Neuts (auto) Cancelled Absolute Nucleated RBC 0.040 H Nucleated RBC % (auto) 0.2 Neutrophils % (Manual) 67 Band Neutrophils % 7 H Lymphocytes % (Manual) 12 L Monocytes % (Manual) 8 Eosinophils % (Manual) 1 Basophils % (Manual) 1 Metamyelocytes % 3 Myelocytes % 1 Abs Neuts (Manual) 12.0 H Lymphocytes # (Manual) 1.9 Monocytes # (Manual) 1.3 H Eosinophils # (Manual) 0.2 Basophils # (Manual) 0.2 Metamyelocytes # 0.5 Myelocytes # 0.2 Toxic Granulation PRESENT Toxic Vacuolation PRESENT Platelet Estimate NORMAL Plt Morphology Comment NORMAL RBC Morphology NOTED Polychromasia 1+ (0-2) Macrocytosis 1+ (5-14) Target Cells 1+ (5-14) Ovalocytes 1+ (5-14) [place] Cells 1+ (0-2) Schistocytes 1+ (0-2) VBG pH VBG pCO2 VBG pO2 VBG HCO3 VBG O2 Saturation VBG Base Excess Sodium 146 H Potassium 3.8 Chloride 110 H Carbon Dioxide 25 Anion Gap 15 BUN 22 H Creatinine 0.65 Estim Creat Clear Calc 165.6 Estimated GFR > 60 POC Glucose 114 Random Glucose 108 Calcium 9.5 Phosphorus 3.2 Magnesium 2.4 Albumin 3.6 Triglycerides 363 H TSH 1.54 Random Vancomycin 16.3 06/20/25 06/20/25 04:25 08:21 WBC RBC Hgb Hct MCV MCH MCHC RDW Plt Count MPV Immature Gran % (Auto) Neut % (Auto) Lymph % (Auto) [place] % (Auto) Eos % (Auto) Baso % (Auto) Lymph # (Auto) [place] # (Auto) Eos # (Auto) Baso # (Auto) Abs Immat Gran (auto) Absolute Neuts (auto) Absolute Nucleated RBC Nucleated RBC % (auto) Neutrophils % (Manual) Band Neutrophils % Lymphocytes % (Manual) Monocytes % (Manual) Eosinophils % (Manual) Basophils % (Manual) Metamyelocytes % Myelocytes % Abs Neuts (Manual) Lymphocytes # (Manual) Monocytes # (Manual) Eosinophils # (Manual) Basophils # (Manual) Metamyelocytes # Myelocytes # Toxic Granulation Toxic Vacuolation Platelet Estimate Plt Morphology Comment RBC Morphology Polychromasia Macrocytosis Target Cells Ovalocytes [place] Cells Schistocytes VBG pH 7.47 H 7.44 H VBG pCO2 38 40 VBG pO2 67 75 VBG HCO3 28 H 27 H VBG O2 Saturation 90.0 92.0 VBG Base Excess 4.6 3.4 Sodium Potassium Chloride Carbon Dioxide Anion Gap BUN Creatinine Estim Creat Clear Calc Estimated GFR POC Glucose Random Glucose Calcium Phosphorus Magnesium Albumin Triglycerides TSH Random Vancomycin Microbiology Microbiology Results: Microbiology 06/15/25 04:00 Sputum - Suctioned Gram Stain - Final 06/15/25 04:00 Sputum - Suctioned Sputum Culture - Final 06/14/25 14:33 Blood - Venous Blood Culture - Final Streptococcus pneumoniae 06/14/25 14:31 Blood - Venous Blood Culture - Final Streptococcus pneumoniae Progress Note: A&P Assessment and plan (1) ARDS (adult respiratory distress syndrome): Status: Acute (2) Pneumonia: Status: Acute Plan Patient?is a 45 Y M w/ hypertension, hyperlipidemia, asthma, and polysubstance misuse including alcohol c/b dilated cardiomyopathy, opioids c/b hepatitis?C, presented?to ED on 06/14 w/ cough found to be in acute hypoxic respiratory failure; ED work-up suggestive of pneumonia; ICU course c/b persistent acute hypoxic respiratory failure, intubated 06/14 N: intubated, agitated, sedated w/ propofol, fentanyl, midazolam gtts, cisatricurium gtts CV: hypertension; to closely monitor hemodynamics R: acute hypoxic respiratory failure/ARDS d/t pneumonia, intubated 06/14, persistent and worsening ARDS GI: tube feeds : no acute issues H: no acute issues; chemical DVT prophylaxis ID: pneumonia, likely d/t enterovirus, superimposed MRSA, and strep, c/b strep bacteremia, vanc/zosyn E: to monitor hypo-/hyper-glycemia P: polysubstance misuse S: daily updates given to [facility] Stroke Does the patient have a stroke diagnosis?: No VTE Prior VTE?: No VTE Risk Level:: Medical - moderate - high VTE Device Contraindication: N/A - Device Ordered VTE Drug Contraindication: N/A - Med Ordered
[2025-06-20 10:39] LABS: Venous Blood Gas Refer to POC result
[2025-06-20 10:39] LABS: Venous Blood Gas Refer to POC result
--- NOTE | 2025-06-20 11:19 | HE.PHANOTE ---
RE: VANCO Trough returned @ 12.1. Renal function is stable. Increasing dose to 1500 mg q8H with predicted AUC of 490 and trough 11.8. Patient was therapeutic on this dose 06/17. Next trough due 06/21 @1000. Will continue to monitor.
[2025-06-20 12:37] LABS: Glucose, Whole Blood 249 mg/dL (60-115)
[2025-06-20] MEDS: Midazolam HCl/NS 50 MG/50 ML PLAST..BAG 6 MG IVCONT ×2 (14:00→22:02)
[2025-06-20 18:17] LABS: Glucose, Whole Blood 172 mg/dL (60-115)
--- NOTE | 2025-06-20 18:35 | PC.NURSE ---
Per MD: reposition patient minimally due to severe ongoing respiratory distress with movement. On assuming care of patient, Satting was 87-88%, HR 130-140s, Hypertensive on Cardene Gtt, sedated with paralytics per OCT. Per MD if patient had not recovered to sats > 90% by noon time then plan was to prone patient. However, with repositioning, vent adjustment, chest PT, suctioning, routine medications and PRNs per OCT... patient oxygen improved to > 90% therefore patient not repositioned prone. Patient BPs and HR improved at approx noon with PRN Metoprolol, Cardene Gtt titrated off subsequently. (see MAR). Also, fever broke at approx 13:00-14:00. Additionally of note, at approx 17:00 lasix given with limited effect when compared with this morning. With first lasix dose today patient voided >600mls for the hour. With 2nd lasix dose patient only voided ~150 for the hour. Patient is sinus rhythm in the 94-99bpm, afebrile, normotensive, sats 93-94%, supine/flat/reverse trendelenburged, end tital 33, intubated, sedated, under therapeutic paralysis, and stable at time of RN to RN handoff. Gtts per OCT
[2025-06-20 21:00] LABS: Albumin Level 3.2 g/dL (3.5-5.0)
[2025-06-20 23:57] LABS: Glucose, Whole Blood 150 mg/dL (60-115)
[2025-06-21] VITALS (37 sets, daily range): BP systolic 133–180; BP diastolic 71–113; PULSE 58–135; RESP 16–22; TEMP 34.8–38.6; O2SAT 87–99; BMI 29.5
[2025-06-21] MEDS: fentaNYL citrate/NS 1,000 MCG/100 ML PLAST..BAG 20 MCG IVCONT ×5 (02:01→21:08)
[2025-06-21] MEDS: Cisatracurium Besylate 100 MG in 0.9 % Sodium Chloride 40 ML 8.82 MG IVCONT ×4 (02:32→20:09)
[2025-06-21] MEDS: levalbuterol HCL 5 MG, Ipratropium Bromide 0.5 MG INHALE ×3 (04:21→15:52)
[2025-06-21 04:37] LABS: VBG HCO3 28 mmol/L (22-26); VBG O2 % Saturation 90.0 %
[2025-06-21] MEDS: Midazolam HCl/NS 50 MG/50 ML PLAST..BAG 6 MG IVCONT ×3 (04:45→22:41)
[2025-06-21 04:58] LABS: Hematocrit 29.6 % (42.0-52.0); Hemoglobin 9.3 g/dl (14.0-18.0); Mean Corpuscular HGB Conc 31.4 g/dl (31.0-36.0); Mean Corpuscular Hemoglobin 26.9 pg (27.0-33.0); Mean Corpuscular Volume 85.5 fL (80.0-98.0); NRBC Abs Auto 0.020 X10*3/uL (0.0-0.012); NRBC Pct Auto 0.2 /100WBC (0.0-0.2); Platelet Count 415 X10*3/uL (160-400); Red Blood Count 3.46 X10*6/uL (4.60-5.80); White Blood Count 10.4 X10*3/uL (4.8-10.8)
[2025-06-21 05:42] LABS: Band Neutrophils Percent 6 % (3-5); Basophils Abs Manual 0.3 X10*3/uL (0.0-0.2); Basophils Percent Manual 3 % (0-2); Eosinophils Absolute Manual 0.5 X10*3/uL (0.0-0.4); Eosinophils Percent Manual 5 % (0-4); Lymphocytes Absolute Manual 0.7 X10*3/uL (1.2-4.9); Lymphocytes Percent Manual 7 % (20-40); Metamyelocytes Absolute 0.2 X10*3/uL; Metamyelocytes Percent 2 %; Monocytes Absolute Manual 0.6 X10*3/uL (0.1-1.2); Monocytes Percent Manual 6 % (2-11); Neutrophils Absolute Manual 8.0 X10*3/uL (2.0-8.3); Neutrophils Percent Manual 71 % (45-73)
[2025-06-21 05:44] LABS: Macrocytosis 1+ (5-14) /OIF; Ovalocytes 1+ (5-14) /OIF; RBC Morphology NOTED; Target Cells 1+ (5-14) /OIF; Tear Drop Cells 1+ (0-2) /OIF
[2025-06-21 05:45] LABS: Basophilic Stippling 1+ (0-2) /OIF; Polychromasia 1+ (0-2) /OIF; Toxic Granulation PRESENT
[2025-06-21 06:32] LABS: Alanine Aminotransferase 37 U/L (0-40); Albumin Level 3.1 g/dL (3.5-5.0); Alkaline Phosphatase 86 U/L (39-117); Anion Gap 13 (12-20); Aspartate Amino Transferase 37 U/L (5-37); Blood Urea Nitrogen 27 mg/dL (9-16); Calcium 8.6 mg/dL (8.4-10.2); Carbon Dioxide 25 mmol/L (22-29); Chloride 114 mmol/L (96-108); Creatinine Clr Calc Pharmacy 164.6; Estimated Glomerular Filt Rate > 60; Magnesium 2.5 mg/dL (1.6-2.6); Potassium 3.7 mmol/L (3.3-5.1); Sodium 148 mmol/L (135-145); Total Protein 7.6 g/dL (6.5-8.0)
[2025-06-21 06:49] LABS: Venous Blood Gas Refer to POC result
--- NOTE | 2025-06-21 07:05 | PC.NURSE ---
Upon initial assessment at 1900 ? pt sedated on propofol, fentanyl, and Versed infusions; RASS -5. Nimbex infusing for ARDS, titrated for ventilator synchrony; TOF monitored. Afebrile. NSR/ST on tele, HR 90?120s. PRN Lopressor administered per BONSAI TENDER Miller for hypertension. Generalized non-pitting edema noted; palpable pulses in all four extremities. ETT #8.0 secured at 27 cm at lip, on PCV. PEEP decreased by RT as tolerated. OGT taped at 65 cm at lip; NPO. No BM. Indwelling urinary catheter in place; UOP as charted. Skin overall intact. Repositioned q2hrs as tolerated with pillows/wedges; on IsoTour mattress. Family present at bedside and updated on plan of care and patient status. See EMR/flowsheet for further details.
[2025-06-21] MEDS: Albumin Human 25 % 50 ML 100 ML IV (07:23)
[2025-06-21] MEDS: 0.9 % Sodium Chloride Flush 3 ML SYRINGE IVFLUSH (07:30)
[2025-06-21] MEDS: Chlorhexidine Gluc Oral Rinse 15 ML MOUTHWASH BUCCAL ×3 (08:11→20:45)
[2025-06-21] MEDS: Furosemide 20 MG/2 ML VIAL IVPUSH ×2 (08:12→17:20)
[2025-06-21] MEDS: Thiamine HCL 100 MG in 0.9 % Sodium Chloride 100 ML 202 MG IV (08:12)
--- NOTE | 2025-06-21 08:42 | P.PNCC_ITS ---
Subjective Subjective Date of Service: 06/21/25 Interval History: no significant overnight events; persistent ARDS, continued critical and guarded clinical status Critical Care Time (minutes): 60 Physical Exam 2 Vital Signs: Vital Signs: Last Vital Signs Temp 98.6 F 06/21/25 06:00 Pulse 108 H 06/21/25 06:00 Resp 22 H 06/21/25 06:00 BP 158/105 H 06/21/25 08:12 Pulse Ox 92 06/21/25 07:58 O2 Del Method Mechanical Ventil ation 06/21/25 06:00 O2 Flow Rate 50 06/15/25 03:00 FiO2 100 06/21/25 08:02 BMI result Body Mass Index 29.5 Const: Other: intubated, sedated General: no acute distress and well developed HEENT: Head: Yes normal to inspection, Yes normocephalic and Yes atraumatic Eyes: General: appearance normal, both eyes and all related structures Neck: Neck: Yes normal visual inspection, Yes full ROM, Yes no meningeal signs, Yes trachea midline and Yes supple Chest: Chest palpation & inspection: normal inspection of the chest Resp: Other: appreciable rhonchi throughout; no appreciable overt rales, wheezing Effort & Inspection: normal respiratory effort Cardio: Rate: tachycardic Rhythm: regular rhythm GI: Inspection: Yes normal to inspection, No Abdominal wall edema and Yes distended Palpation (GI): Soft to palpation, not firm, nontender, no guarding and not rigid Skin: General skin exam: no rashes or lesions noted Neuro: General: tone normal and no meningeal signs Extrem: Other: appreciable 1+ pitting edema to bilateral thighs General: Yes normal to inspection, Yes full ROM and Yes capillary refill normal Psych: Other: unable to assess Objective Data Labs 06/21/25 04:28 06/21/25 05:57 Labs: Laboratory Results - last 24 hr 06/20/25 06/20/25 06/20/25 10:12 12:33 18:12 WBC RBC Hgb Hct MCV MCH MCHC RDW Plt Count MPV Immature Gran % (Auto) Neut % (Auto) Lymph % (Auto) Bullock % (Auto) Eos % (Auto) Baso % (Auto) Lymph # (Auto) Bullock # (Auto) Eos # (Auto) Baso # (Auto) Abs Immat Gran (auto) Absolute Neuts (auto) Absolute Nucleated RBC Nucleated RBC % (auto) Neutrophils % (Manual) Band Neutrophils % Lymphocytes % (Manual) Monocytes % (Manual) Eosinophils % (Manual) Basophils % (Manual) Metamyelocytes % Abs Neuts (Manual) Lymphocytes # (Manual) Monocytes # (Manual) Eosinophils # (Manual) Basophils # (Manual) Metamyelocytes # Toxic Granulation Platelet Estimate Plt Morphology Comment RBC Morphology Polychromasia Basophilic Stippling Macrocytosis Target Cells Tear Drop Cells Ovalocytes VBG pH VBG pCO2 VBG pO2 VBG HCO3 VBG O2 Saturation VBG Base Excess Sodium Potassium Chloride Carbon Dioxide Anion Gap BUN Creatinine Estim Creat Clear Calc Estimated GFR POC Glucose 249 H 172 H Random Glucose Calcium Phosphorus Magnesium Total Bilirubin AST ALT Alkaline Phosphatase Total Protein Albumin Random Vancomycin 12.1 L 06/20/25 06/20/25 06/21/25 20:39 23:49 04:28 WBC 10.4 RBC 3.46 L Hgb 9.3 L Hct 29.6 L MCV 85.5 MCH 26.9 L MCHC 31.4 RDW 14.8 Plt Count 415 H MPV 8.9 L Immature Gran % (Auto) Cancelled Neut % (Auto) Cancelled Lymph % (Auto) Cancelled Bullock % (Auto) Cancelled Eos % (Auto) Cancelled Baso % (Auto) Cancelled Lymph # (Auto) Cancelled Bullock # (Auto) Cancelled Eos # (Auto) Cancelled Baso # (Auto) Cancelled Abs Immat Gran (auto) Cancelled Absolute Neuts (auto) Cancelled Absolute Nucleated RBC 0.020 H Nucleated RBC % (auto) 0.2 Neutrophils % (Manual) 71 Band Neutrophils % 6 H Lymphocytes % (Manual) 7 L Monocytes % (Manual) 6 Eosinophils % (Manual) 5 H Basophils % (Manual) 3 H Metamyelocytes % 2 Abs Neuts (Manual) 8.0 Lymphocytes # (Manual) 0.7 L Monocytes # (Manual) 0.6 Eosinophils # (Manual) 0.5 H Basophils # (Manual) 0.3 H Metamyelocytes # 0.2 Toxic Granulation PRESENT Platelet Estimate NORMAL Plt Morphology Comment NORMAL RBC Morphology NOTED Polychromasia 1+ (0-2) Basophilic Stippling 1+ (0-2) Macrocytosis 1+ (5-14) Target Cells 1+ (5-14) Tear Drop Cells 1+ (0-2) Ovalocytes 1+ (5-14) VBG pH VBG pCO2 VBG pO2 VBG HCO3 VBG O2 Saturation VBG Base Excess Sodium Cancelled Potassium Chloride Carbon Dioxide Anion Gap BUN Creatinine Estim Creat Clear Calc Estimated GFR POC Glucose 150 H Random Glucose Calcium Phosphorus Magnesium Total Bilirubin AST ALT Alkaline Phosphatase Total Protein Albumin 3.2 L Random Vancomycin 06/21/25 06/21/25 06/21/25 04:28 04:28 04:28 WBC RBC Hgb Hct MCV MCH MCHC RDW Plt Count MPV Immature Gran % (Auto) Neut % (Auto) Lymph % (Auto) Bullock % (Auto) Eos % (Auto) Baso % (Auto) Lymph # (Auto) Bull[place] # (Auto) Eos # (Auto) Baso # (Auto) Abs Immat Gran (auto) Absolute Neuts (auto) Absolute Nucleated RBC Nucleated RBC % (auto) Neutrophils % (Manual) Band Neutrophils % Lymphocytes % (Manual) Monocytes % (Manual) Eosinophils % (Manual) Basophils % (Manual) Metamyelocytes % Abs Neuts (Manual) Lymphocytes # (Manual) Monocytes # (Manual) Eosinophils # (Manual) Basophils # (Manual) Metamyelocytes # Toxic Granulation Platelet Estimate Plt Morphology Comment RBC Morphology Polychromasia Basophilic Stippling Macrocytosis Target Cells Tear Drop Cells Ovalocytes VBG pH VBG pCO2 VBG pO2 VBG HCO3 VBG O2 Saturation VBG Base Excess Sodium Cancelled Potassium Cancelled Cancelled Chloride Cancelled Cancelled Carbon Dioxide Cancelled Anion Gap BUN Creatinine Estim Creat Clear Calc Estimated GFR POC Glucose Random Glucose Calcium Phosphorus Magnesium Total Bilirubin AST ALT Alkaline Phosphatase Total Protein Albumin Random Vancomycin 06/21/25 06/21/25 06/21/25 04:28 04:28 04:28 WBC RBC Hgb Hct MCV MCH MCHC RDW Plt Count MPV Immature Gran % (Auto) Neut % (Auto) Lymph % (Auto) Bullock % (Auto) Eos % (Auto) Baso % (Auto) Lymph # (Auto) Bullock # (Auto) Eos # (Auto) Baso # (Auto) Abs Immat Gran (auto) Absolute Neuts (auto) Absolute Nucleated RBC Nucleated RBC % (auto) Neutrophils % (Manual) Band Neutrophils % Lymphocytes % (Manual) Monocytes % (Manual) Eosinophils % (Manual) Basophils % (Manual) Metamyelocytes % Abs Neuts (Manual) Lymphocytes # (Manual) Monocytes # (Manual) Eosinophils # (Manual) Basophils # (Manual) Metamyelocytes # Toxic Granulation Platelet Estimate Plt Morphology Comment RBC Morphology Polychromasia Basophilic Stippling Macrocytosis Target Cells Tear Drop Cells Ovalocytes VBG pH VBG pCO2 VBG pO2 VBG HCO3 VBG O2 Saturation VBG Base Excess Sodium Potassium Chloride Carbon Dioxide Cancelled Anion Gap Cancelled Cancelled BUN Cancelled Cancelled Creatinine Cancelled Estim Creat Clear Calc Estimated GFR POC Glucose Random Glucose Calcium Phosphorus Magnesium Total Bilirubin AST ALT Alkaline Phosphatase Total Protein Albumin Random Vancomycin 06/21/25 06/21/25 06/21/25 04:28 04:28 04:28 WBC RBC Hgb Hct MCV MCH MCHC RDW Plt Count MPV Immature Gran % (Auto) Neut % (Auto) Lymph % (Auto) Bullock % (Auto) Eos % (Auto) Baso % (Auto) Lymph # (Auto) Bullock # (Auto) Eos # (Auto) Baso # (Auto) Abs Immat Gran (auto) Absolute Neuts (auto) Absolute Nucleated RBC Nucleated RBC % (auto) Neutrophils % (Manual) Band Neutrophils % Lymphocytes % (Manual) Monocytes % (Manual) Eosinophils % (Manual) Basophils % (Manual) Metamyelocytes % Abs Neuts (Manual) Lymphocytes # (Manual) Monocytes # (Manual) Eosinophils # (Manual) Basophils # (Manual) Metamyelocytes # Toxic Granulation Platelet Estimate Plt Morphology Comment RBC Morphology Polychromasia Basophilic Stippling Macrocytosis Target Cells Tear Drop Cells Ovalocytes VBG pH VBG pCO2 VBG pO2 VBG HCO3 VBG O2 Saturation VBG Base Excess Sodium Potassium Chloride Carbon Dioxide Anion Gap BUN Creatinine Cancelled Estim Creat Clear Calc Cancelled Cancelled Estimated GFR Cancelled Cancelled POC Glucose Random Glucose Cancelled Calcium Phosphorus Magnesium Total Bilirubin AST ALT Alkaline Phosphatase Total Protein Albumin Random Vancomycin 06/21/25 06/21/25 06/21/25 04:28 04:28 04:34 WBC RBC Hgb Hct MCV MCH MCHC RDW Plt Count MPV Immature Gran % (Auto) Neut % (Auto) Lymph % (Auto) Bullock % (Auto) Eos % (Auto) Baso % (Auto) Lymph # (Auto) Bullock # (Auto) Eos # (Auto) Baso # (Auto) Abs Immat Gran (auto) Absolute Neuts (auto) Absolute Nucleated RBC Nucleated RBC % (auto) Neutrophils % (Manual) Band Neutrophils % Lymphocytes % (Manual) Monocytes % (Manual) Eosinophils % (Manual) Basophils % (Manual) Metamyelocytes % Abs Neuts (Manual) Lymphocytes # (Manual) Monocytes # (Manual) Eosinophils # (Manual) Basophils # (Manual) Metamyelocytes # Toxic Granulation Platelet Estimate Plt Morphology Comment RBC Morphology Polychromasia Basophilic Stippling Macrocytosis Target Cells Tear Drop Cells Ovalocytes VBG pH 7.44 H VBG pCO2 40 VBG pO2 70 VBG HCO3 28 H VBG O2 Saturation 90.0 VBG Base Excess 3.8 Sodium Potassium Chloride Carbon Dioxide Anion Gap BUN Creatinine Estim Creat Clear Calc Estimated GFR POC Glucose Random Glucose Cancelled Calcium Cancelled Cancelled Phosphorus Cancelled Magnesium Cancelled Total Bilirubin Cancelled AST Cancelled ALT Cancelled Alkaline Phosphatase Cancelled Total Protein Cancelled Albumin Cancelled Random Vancomycin 06/21/25 06/21/25 06/21/25 05:57 05:57 05:57 WBC RBC Hgb Hct MCV MCH MCHC RDW Plt Count MPV Immature Gran % (Auto) Neut % (Auto) Lymph % (Auto) Bullock % (Auto) Eos % (Auto) Baso % (Auto) Lymph # (Auto) Bullock # (Auto) Eos # (Auto) Baso # (Auto) Abs Immat Gran (auto) Absolute Neuts (auto) Absolute Nucleated RBC Nucleated RBC % (auto) Neutrophils % (Manual) Band Neutrophils % Lymphocytes % (Manual) Monocytes % (Manual) Eosinophils % (Manual) Basophils % (Manual) Metamyelocytes % Abs Neuts (Manual) Lymphocytes # (Manual) Monocytes # (Manual) Eosinophils # (Manual) Basophils # (Manual) Metamyelocytes # Toxic Granulation Platelet Estimate Plt Morphology Comment RBC Morphology Polychromasia Basophilic Stippling Macrocytosis Target Cells Tear Drop Cells Ovalocytes VBG pH VBG pCO2 VBG pO2 VBG HCO3 VBG O2 Saturation VBG Base Excess Sodium Cancelled 148 H Potassium Cancelled 3.7 Chloride Cancelled Carbon Dioxide Anion Gap BUN Creatinine Estim Creat Clear Calc Estimated GFR POC Glucose Random Glucose Calcium Phosphorus Magnesium Total Bilirubin AST ALT Alkaline Phosphatase Total Protein Albumin Random Vancomycin 06/21/25 06/21/25 06/21/25 05:57 05:57 05:57 WBC RBC Hgb Hct MCV MCH MCHC RDW Plt Count MPV Immature Gran % (Auto) Neut % (Auto) Lymph % (Auto) Bullock % (Auto) Eos % (Auto) Baso % (Auto) Lymph # (Auto) Bullock # (Auto) Eos # (Auto) Baso # (Auto) Abs Immat Gran (auto) Absolute Neuts (auto) Absolute Nucleated RBC Nucleated RBC % (auto) Neutrophils % (Manual) Band Neutrophils % Lymphocytes % (Manual) Monocytes % (Manual) Eosinophils % (Manual) Basophils % (Manual) Metamyelocytes % Abs Neuts (Manual) Lymphocytes # (Manual) Monocytes # (Manual) Eosinophils # (Manual) Basophils # (Manual) Metamyelocytes # Toxic Granulation Platelet Estimate Plt Morphology Comment RBC Morphology Polychromasia Basophilic Stippling Macrocytosis Target Cells Tear Drop Cells Ovalocytes VBG pH VBG pCO2 VBG pO2 VBG HCO3 VBG O2 Saturation VBG Base Excess Sodium Potassium Chloride 114 H Carbon Dioxide Cancelled 25 Anion Gap Cancelled 13 BUN Cancelled Creatinine Estim Creat Clear Calc Estimated GFR POC Glucose Random Glucose Calcium Phosphorus Magnesium Total Bilirubin AST ALT Alkaline Phosphatase Total Protein Albumin Random Vancomycin 06/21/25 06/21/25 06/21/25 05:57 05:57 05:57 WBC RBC Hgb Hct MCV MCH MCHC RDW Plt Count MPV Immature Gran % (Auto) Neut % (Auto) Lymph % (Auto) Bullock % (Auto) Eos % (Auto) Baso % (Auto) Lymph # (Auto) Bullock # (Auto) Eos # (Auto) Baso # (Auto) Abs Immat Gran (auto) Absolute Neuts (auto) Absolute Nucleated RBC Nucleated RBC % (auto) Neutrophils % (Manual) Band Neutrophils % Lymphocytes % (Manual) Monocytes % (Manual) Eosinophils % (Manual) Basophils % (Manual) Metamyelocytes % Abs Neuts (Manual) Lymphocytes # (Manual) Monocytes # (Manual) Eosinophils # (Manual) Basophils # (Manual) Metamyelocytes # Toxic Granulation Platelet Estimate Plt Morphology Comment RBC Morphology Polychromasia Basophilic Stippling Macrocytosis Target Cells Tear Drop Cells Ovalocytes VBG pH VBG pCO2 VBG pO2 VBG HCO3 VBG O2 Saturation VBG Base Excess Sodium Potassium Chloride Carbon Dioxide Anion Gap BUN 27 H Creatinine Cancelled 0.63 Estim Creat Clear Calc Cancelled 164.6 Estimated GFR Cancelled POC Glucose Random Glucose Calcium Phosphorus Magnesium Total Bilirubin AST ALT Alkaline Phosphatase Total Protein Albumin Random Vancomycin 06/21/25 06/21/25 06/21/25 05:57 05:57 05:57 WBC RBC Hgb Hct MCV MCH MCHC RDW Plt Count MPV Immature Gran % (Auto) Neut % (Auto) Lymph % (Auto) Bullock % (Auto) Eos % (Auto) Baso % (Auto) Lymph # (Auto) Bullock # (Auto) Eos # (Auto) Baso # (Auto) Abs Immat Gran (auto) Absolute Neuts (auto) Absolute Nucleated RBC Nucleated RBC % (auto) Neutrophils % (Manual) Band Neutrophils % Lymphocytes % (Manual) Monocytes % (Manual) Eosinophils % (Manual) Basophils % (Manual) Metamyelocytes % Abs Neuts (Manual) Lymphocytes # (Manual) Monocytes # (Manual) Eosinophils # (Manual) Basophils # (Manual) Metamyelocytes # Toxic Granulation Platelet Estimate Plt Morphology Comment RBC Morphology Polychromasia Basophilic Stippling Macrocytosis Target Cells Tear Drop Cells Ovalocytes VBG pH VBG pCO2 VBG pO2 VBG HCO3 VBG O2 Saturation VBG Base Excess Sodium Potassium Chloride Carbon Dioxide Anion Gap BUN Creatinine Estim Creat Clear Calc Estimated GFR > 60 POC Glucose Random Glucose Cancelled 117 H Calcium Cancelled 8.6 D Phosphorus 4.1 Magnesium 2.5 Total Bilirubin 0.5 AST 37 ALT 37 Alkaline Phosphatase 86 Total Protein 7.6 Albumin 3.1 L Random Vancomycin Microbiology Microbiology Results: Microbiology 06/15/25 04:00 Sputum - Suctioned Gram Stain - Final 06/15/25 04:00 Sputum - Suctioned Sputum Culture - Final 06/14/25 14:33 Blood - Venous Blood Culture - Final Streptococcus pneumoniae 06/14/25 14:31 Blood - Venous Blood Culture - Final Streptococcus pneumoniae Progress Note: A&P Assessment and plan (1) ARDS (adult respiratory distress syndrome): Status: Acute (2) Pneumonia: Status: Acute Plan Patient?is a 45 Y M w/ hypertension, hyperlipidemia, asthma, and polysubstance misuse including alcohol c/b dilated cardiomyopathy, opioids c/b hepatitis?C, presented?to ED on 06/14 w/ cough found to be in acute hypoxic respiratory failure; ED work-up suggestive of pneumonia; ICU course c/b persistent acute hypoxic respiratory failure, intubated 06/14 N: intubated, agitated, sedated w/ propofol, fentanyl, midazolam gtts, cisatricurium gtts, wean as tolerated CV: hypertension; to closely monitor hemodynamics R: acute hypoxic respiratory failure/ARDS d/t pneumonia, intubated 06/14, persistent and worsening ARDS GI: tube feeds : no acute issues H: no acute issues; chemical DVT prophylaxis ID: pneumonia, likely d/t enterovirus, superimposed MRSA, and strep, c/b strep bacteremia, vanc/zosyn E: to monitor hypo-/hyper-glycemia P: polysubstance misuse S: daily updates given to sister Quality Stroke Does the patient have a stroke diagnosis?: No VTE Prior VTE?: No VTE Risk Level:: Medical - moderate - high VTE Device Contraindication: N/A - Device Ordered VTE Drug Contraindication: N/A - Med Ordered
--- NOTE | 2025-06-21 11:00 | HE.PHANOTE ---
RE: VANCO Trough returned @18.7. Decreasing dose to 1250 mg Q8h to ensure safety. Renal function is stable. Predicted AUC 423 and trough 10.7. Next trough due 06/22 @1000.
[2025-06-21 12:49] LABS: Glucose, Whole Blood 192 mg/dL (60-115)
[2025-06-21 18:17] LABS: Glucose, Whole Blood 143 mg/dL (60-115)
[2025-06-21] MEDS: dexmedeTOMIDine HCL/NS 400 MCG/100 ML PLAST..BAG 22.63 MCG IVCONT (23:52)
[2025-06-22] VITALS (49 sets, daily range): BP systolic 83–169; BP diastolic 38–103; PULSE 57–133; RESP 16–27; TEMP 34.8–39; O2SAT 86–96; BMI 29.5
[2025-06-22] MEDS: 0.9 % Sodium Chloride Flush 3 ML SYRINGE IVFLUSH ×4 (00:02→23:56)
[2025-06-22] MEDS: Cisatracurium Besylate 100 MG in 0.9 % Sodium Chloride 40 ML 8.82 MG IVCONT ×2 (00:28→06:21)
[2025-06-22 00:30] LABS: Glucose, Whole Blood 111 mg/dL (60-115)
[2025-06-22] MEDS: fentaNYL citrate/NS 1,000 MCG/100 ML PLAST..BAG 20 MCG IVCONT ×4 (02:17→15:23)
[2025-06-22] MEDS: levalbuterol HCL 5 MG, Ipratropium Bromide 0.5 MG INHALE ×3 (04:24→15:31)
[2025-06-22] MEDS: dexmedeTOMIDine HCL/NS 400 MCG/100 ML PLAST..BAG 11.31 MCG IVCONT (05:00)
[2025-06-22 05:07] LABS: VBG HCO3 27 mmol/L (22-26); VBG O2 % Saturation 94.0 %
[2025-06-22 05:10] LABS: MANUAL DIFF FLAG NO
[2025-06-22 05:10] LABS: Venous Blood Gas Refer to POC result
[2025-06-22 05:11] LABS: Hematocrit 31.6 % (42.0-52.0); Hemoglobin 9.8 g/dl (14.0-18.0); Imm Gran Abs Auto 0.51 X10*3/uL (0.00-0.03); Imm Gran Pct Auto 3.8 % (0.0-0.4); Lymphocytes Absolute Auto 2.1 X10*3/uL (1.2-4.9); Mean Corpuscular HGB Conc 31.0 g/dl (31.0-36.0); Mean Corpuscular Hemoglobin 26.6 pg (27.0-33.0); Mean Corpuscular Volume 85.6 fL (80.0-98.0); NRBC Abs Auto 0.020 X10*3/uL (0.0-0.012); NRBC Pct Auto 0.2 /100WBC (0.0-0.2); Platelet Count 465 X10*3/uL (160-400); Red Blood Count 3.69 X10*6/uL (4.60-5.80); White Blood Count 13.3 X10*3/uL (4.8-10.8)
[2025-06-22 05:29] LABS: Albumin Level 3.4 g/dL (3.5-5.0); Anion Gap 13 (12-20); Blood Urea Nitrogen 27 mg/dL (9-16); Calcium 9.1 mg/dL (8.4-10.2); Carbon Dioxide 25 mmol/L (22-29); Chloride 111 mmol/L (96-108); Creatinine Clr Calc Pharmacy 164.6; Estimated Glomerular Filt Rate > 60; Magnesium 2.3 mg/dL (1.6-2.6); Potassium 3.5 mmol/L (3.3-5.1); Sodium 145 mmol/L (135-145)
[2025-06-22] MEDS: Midazolam HCl/NS 50 MG/50 ML PLAST..BAG 6 MG IVCONT ×3 (06:23→23:52)
[2025-06-22] MEDS: Potassium Chloride/H20 10 MEQ/100 ML PIGGYBACK 100 MEQ IV ×4 (07:14→11:20)
[2025-06-22] MEDS: Furosemide 20 MG/2 ML VIAL IVPUSH ×2 (07:18→18:27)
[2025-06-22] MEDS: Chlorhexidine Gluc Oral Rinse 15 ML MOUTHWASH BUCCAL ×3 (07:22→19:52)
[2025-06-22] MEDS: Thiamine HCL 100 MG in 0.9 % Sodium Chloride 100 ML 202 MG IV (07:51)
[2025-06-22] MEDS: methADONE HCl 20 MG/2 ML ORAL.CONC 190 MG PO (10:13)
[2025-06-22] MEDS: dexmedeTOMIDine HCL/NS 400 MCG/100 ML PLAST..BAG 22.63 MCG IVCONT (10:30)
--- NOTE | 2025-06-22 10:47 | HE.PHANOTE ---
Addendum entered by Sae Child RPh 06/22/25 10:49: Re: Neelima Original Note: Renal function is stable and improved, Trough returned at 15.6, pt is therapeutic. Continue current dose of 1250mg q8h with predicted AUC 432, predicted trough 11.0. Next trough 06/23 @ 1000.
[2025-06-22 11:20] LABS: Glucose, Whole Blood 192 mg/dL (60-115)
--- NOTE | 2025-06-22 11:20 | PM.CCPN ---
Subjective Subjective Date of Service: 06/22/25 Interval History: 45-year-old gentleman with underlying history of alcohol abuse, hep C, polysubstance abuse, hypertension, systolic heart failure likely secondary to alcoholic cardiomyopathy admitted on 06/14/2025 with acute hypoxic respiratory failure secondary to streptococcal pneumonia requiring intubation ventilatory support on 06/15/2025, further complicated by ARDS, now essentially on maximum ventilatory support. No events overnight. Critical Care Time (minutes): 60 Physical Exam Vital Signs: Vital Signs: Last Vital Signs Temp 100.0 F 06/22/25 09:00 Pulse 116 H 06/22/25 11:00 Resp 16 06/22/25 11:00 BP 148/100 H 06/22/25 11:00 Pulse Ox 96 06/22/25 11:00 O2 Del Method Mechanical Ventil ation 06/22/25 11:00 O2 Flow Rate 50 06/15/25 03:00 FiO2 100 06/22/25 11:02 BMI result Body Mass Index 29.5 Const: General: no acute distress and other (Sedated on ventilatory support) Eyes: Sclerae: sclerae normal EOM: EOMs intact bilaterally Neck: Neck: Yes no lymphadenopathy, Yes trachea midline and Yes supple Resp: Auscultation: crackles (Diffuse bilateral, right greater than left) Cardio: Rate: tachycardic Rhythm: regular rhythm Heart sounds: no gallops, no murmurs and no rubs GI: Palpation (GI): Soft to palpation and Other GI palpation findings present ( Nontender) Auscultation: normal bowel sounds Extrem: General: No clubbing, No cyanosis and Yes edema (Trace lower extremity) Objective Data Labs 06/22/25 04:59 06/22/25 04:59 Labs: Laboratory Results - last 24 hr 06/21/25 06/21/25 06/22/25 12:44 18:15 00:18 WBC RBC Hgb Hct MCV MCH MCHC RDW Plt Count MPV Immature Gran % (Auto) Neut % (Auto) Lymph % (Auto) [place] % (Auto) Eos % (Auto) Baso % (Auto) Lymph # (Auto) [place] # (Auto) Eos # (Auto) Baso # (Auto) Abs Immat Gran (auto) Absolute Neuts (auto) Absolute Nucleated RBC Nucleated RBC % (auto) VBG pH VBG pCO2 VBG pO2 VBG HCO3 VBG O2 Saturation VBG Base Excess Sodium Potassium Chloride Carbon Dioxide Anion Gap BUN Creatinine Estim Creat Clear Calc Estimated GFR POC Glucose 192 H 143 H 111 Random Glucose Calcium Phosphorus Magnesium Albumin Vancomycin Trough 06/22/25 06/22/25 06/22/25 04:59 05:03 09:58 WBC 13.3 H RBC 3.69 L Hgb 9.8 L Hct 31.6 L MCV 85.6 MCH 26.6 L MCHC 31.0 RDW 14.7 Plt Count 465 H MPV 8.7 L Immature Gran % (Auto) 3.8 H Neut % (Auto) 73.4 H Lymph % (Auto) 15.5 L [place] % (Auto) 5.7 Eos % (Auto) 1.1 Baso % (Auto) 0.5 Lymph # (Auto) 2.1 [place] # (Auto) 0.8 Eos # (Auto) 0.2 Baso # (Auto) 0.1 Abs Immat Gran (auto) 0.51 H Absolute Neuts (auto) 9.7 H Absolute Nucleated RBC 0.020 H Nucleated RBC % (auto) 0.2 VBG pH 7.42 VBG pCO2 41 VBG pO2 84 VBG HCO3 27 H VBG O2 Saturation 94.0 VBG Base Excess 2.7 Sodium 145 Potassium 3.5 Chloride 111 H Carbon Dioxide 25 Anion Gap 13 BUN 27 H Creatinine 0.63 Estim Creat Clear Calc 164.6 Estimated GFR > 60 POC Glucose Random Glucose 120 H Calcium 9.1 Phosphorus 3.8 Magnesium 2.3 Albumin 3.4 L Vancomycin Trough 15.6 Microbiology Microbiology Results: Microbiology 06/15/25 04:00 Sputum - Suctioned Gram Stain - Final 06/15/25 04:00 Sputum - Suctioned Sputum Culture - Final 06/14/25 14:33 Blood - Venous Blood Culture - Final Streptococcus pneumoniae 06/14/25 14:31 Blood - Venous Blood Culture - Final Streptococcus pneumoniae Progress Note: A&P Assessment and plan (1) Polysubstance abuse: Status: Acute (2) Systolic heart failure: Status: Acute (3) Hepatitis C infection: Status: Acute (4) Portal hypertension: Status: Acute (5) ARDS (adult respiratory distress syndrome): Status: Acute (6) Acute respiratory failure with hypoxia: Status: Acute (7) Pneumonia: Status: Acute Plan Assessment: 45-year-old gentleman with underlying polysubstance abuse, alcoholic cardiomyopathy, and hypertension admitted with acute hypoxic respiratory failure secondary to streptococcal pneumonia requiring intubation and ventilatory support, further complicated by severe ARDS. Plan: Neuro: Polysubstance withdrawal with methadone dependence, difficulty sedated continue sedative drips. Cardiac: No acute issues. Underlying alcoholic cardiomyopathy. Pulmonary: Acute hypoxic respiratory failure with severe ARDS secondary to streptococcal pneumonia requiring essentially maximum ventilatory support, continue to titrate off as tolerated. Renal: No acute issues. Endo: No acute issues. GI: No acute issues. ID: Empiric broad-spectrum antibiotics and systemic glucocorticoids for streptococcal pneumonia with possible superinfection. Heme/Onc: No acute issues. Psych: No acute issues. Miscellaneous: No acute issues. Prophylaxis: Lovenox, PPI Diet: Tube feeds Critical care time spent: 60 minutes Quality Stroke Does the patient have a stroke diagnosis?: No VTE Prior VTE?: No VTE Risk Level:: Medical - moderate - high VTE Device Contraindication: N/A - Device Ordered VTE Drug Contraindication: N/A - Med Ordered
--- NOTE | 2025-06-22 12:00 | MHC.CLN ---
F/U PT REMAINS INTUBATED AND SEDATED TF CURRENTLY ON HOLD D/T USE OF PARALYTICS IF TF TO RESUME, RECOMMEND VITAL AF 1.2 AT MAX GOAL RATE 40ML/HR WITH 240ML FWF Q 6 HRS PROVIDES 1152KCALS (1826 TOTAL KCALS; 22KCALS/KG), 72G PROTEIN, 1738ML TOTAL FREE WATER FROM FORMULA AND FLUSHES MONITOR TOLERANCE AND LYTES CONSULT RD IF PPN NEEDED
--- NOTE | 2025-06-22 14:23 | MHC.CM.PN ---
Pt continues on maximum ventilatory support in ICU: abnormal VS and labs remain. D/C planning is ongoing and will be based on pt progress.
[2025-06-22 17:52] LABS: Glucose, Whole Blood 138 mg/dL (60-115)
[2025-06-22 20:09] LABS: Anion Gap 16 (12-20); Blood Urea Nitrogen 28 mg/dL (9-16); Calcium 9.5 mg/dL (8.4-10.2); Carbon Dioxide 23 mmol/L (22-29); Chloride 109 mmol/L (96-108); Creatinine Clr Calc Pharmacy 144.0; Estimated Glomerular Filt Rate > 60; Magnesium 2.5 mg/dL (1.6-2.6); Potassium 4.1 mmol/L (3.3-5.1); Sodium 144 mmol/L (135-145)
[2025-06-22] MEDS: Albuterol/Iprat 2.5/0.5MG 3 ML AMPUL.NEB INHALE (20:42)
[2025-06-22] MEDS: fentaNYL citrate/NS 1,000 MCG/100 ML PLAST..BAG 12.5 MCG IVCONT (23:16)
[2025-06-23] VITALS (42 sets, daily range): BP systolic 104–160; BP diastolic 54–100; PULSE 68–128; RESP 15–32; TEMP 34.7–38.6; O2SAT 88–99; BMI 28.3
[2025-06-23 00:34] LABS: Glucose, Whole Blood 106 mg/dL (60-115)
[2025-06-23 05:29] LABS: VBG HCO3 22 mmol/L (22-26); VBG O2 % Saturation 95.0 %
[2025-06-23 05:31] LABS: Venous Blood Gas Refer to POC result
[2025-06-23 05:35] LABS: MANUAL DIFF FLAG NO
[2025-06-23 05:37] LABS: Hematocrit 31.8 % (42.0-52.0); Hemoglobin 10.3 g/dl (14.0-18.0); Imm Gran Abs Auto 0.24 X10*3/uL (0.00-0.03); Imm Gran Pct Auto 1.5 % (0.0-0.4); Lymphocytes Absolute Auto 2.0 X10*3/uL (1.2-4.9); Mean Corpuscular HGB Conc 32.4 g/dl (31.0-36.0); Mean Corpuscular Hemoglobin 27.3 pg (27.0-33.0); Mean Corpuscular Volume 84.4 fL (80.0-98.0); NRBC Abs Auto 0.000 X10*3/uL (0.0-0.012); NRBC Pct Auto 0.0 /100WBC (0.0-0.2); Platelet Count 507 X10*3/uL (160-400); Red Blood Count 3.77 X10*6/uL (4.60-5.80); White Blood Count 16.3 X10*3/uL (4.8-10.8)
[2025-06-23 05:58] LABS: Alanine Aminotransferase 56 U/L (0-40); Albumin Level 3.4 g/dL (3.5-5.0); Alkaline Phosphatase 94 U/L (39-117); Anion Gap 15 (12-20); Aspartate Amino Transferase 57 U/L (5-37); Blood Urea Nitrogen 28 mg/dL (9-16); Calcium 9.0 mg/dL (8.4-10.2); Carbon Dioxide 20 mmol/L (22-29); Chloride 111 mmol/L (96-108); Creatinine Clr Calc Pharmacy 149.8; Estimated Glomerular Filt Rate > 60; Magnesium 2.3 mg/dL (1.6-2.6); Potassium 2.9 mmol/L (3.3-5.1); Sodium 143 mmol/L (135-145); Total Protein 8.1 g/dL (6.5-8.0)
[2025-06-23] MEDS: Potassium Chloride/H20 10 MEQ/100 ML PIGGYBACK 100 MEQ IV ×8 (06:15→16:15)
[2025-06-23] MEDS: fentaNYL citrate/NS 1,000 MCG/100 ML PLAST..BAG 10 MCG IVCONT ×3 (06:30→22:55)
--- NOTE | 2025-06-23 07:10 | PC.NURSE ---
Shift Summary Note 0700. Patient remains intubated, sedated with propofol, Fentanyl and Versed-see MAR. Titus Salas CHEMICAL PROCESS ANALYST orderd to titrated FiO2 as tolerated, able todecrease ventilator settings ACPC RR 16, PC20 Peep 8, FIO2 75% with maintaining O2 sats above 90%. Pt continues to have rhonchi requiring intermittent oral and Inline suctioning for moderate amounts of thick white secretions. Pt overnight ST on monitor with fever temp max 101.4, PRN Tylenol IV provided and cooling blanket utilized. TF restarted and increased to 30mL/hr with goal of 40mL/hr, via OGT, tolerating well without residual noted. Patient continues to be incontinent of loose stool with new rectal management system in place. Urine output approximately 75-100mL/hr via colin cath. Patient repositioned in bed q2hrs with wedges/pillows. Bed locked in lowest position, alarm on. See EMR/flowsheet for further details.
[2025-06-23] MEDS: Albumin Human 25 % 100 ML IV ×2 (07:31→13:16)
[2025-06-23] MEDS: 0.9 % Sodium Chloride Flush 3 ML SYRINGE IVFLUSH ×2 (07:33→22:10)
[2025-06-23] MEDS: methADONE HCl 20 MG/2 ML ORAL.CONC 190 MG PO (07:39)
[2025-06-23] MEDS: Albuterol/Iprat 2.5/0.5MG 3 ML AMPUL.NEB INHALE ×4 (07:44→20:36)
[2025-06-23] MEDS: Chlorhexidine Gluc Oral Rinse 15 ML MOUTHWASH BUCCAL ×3 (07:45→20:25)
[2025-06-23] MEDS: Furosemide 20 MG/2 ML VIAL IVPUSH ×2 (08:19→17:00)
[2025-06-23] MEDS: Thiamine HCL 100 MG in 0.9 % Sodium Chloride 100 ML 202 MG IV (08:27)
[2025-06-23] MEDS: Midazolam HCl/NS 50 MG/50 ML PLAST..BAG 6 MG IVCONT ×3 (08:31→23:33)
--- NOTE | 2025-06-23 10:48 | HE.PHANOTE ---
RE: VANCO DOSING Trough came back as 13.9 mg/L, renal function is stable. Dose is increased to 1500 mg q8h, next trough is scheduled for 06/24/25 @1000.
--- NOTE | 2025-06-23 10:57 | PM.CCPN ---
Subjective Subjective Date of Service: 06/23/25 Interval History: 45-year-old gentleman with underlying history of alcohol abuse, hep C, polysubstance abuse, hypertension, systolic heart failure likely secondary to alcoholic cardiomyopathy admitted on 06/14/2025 with acute hypoxic respiratory failure secondary to streptococcal pneumonia requiring intubation ventilatory support on 06/15/2025, further complicated by ARDS, now with slowly improving ventilatory support requirements. No events overnight. Critical Care Time (minutes): 60 Physical Exam Vital Signs: Vital Signs: Last Vital Signs Temp 98.7 F 06/23/25 10:00 Pulse 100 06/23/25 10:00 Resp 15 06/23/25 10:00 BP 123/80 06/23/25 10:00 Pulse Ox 96 06/23/25 10:00 O2 Del Method Mechanical Ventil ation 06/23/25 10:00 O2 Flow Rate 70 06/23/25 10:00 FiO2 70 06/23/25 08:00 BMI result Body Mass Index 28.3 Const: General: no acute distress and other (Sedated on ventilatory support) Eyes: Sclerae: sclerae normal EOM: EOMs intact bilaterally Neck: Neck: Yes no lymphadenopathy, Yes trachea midline and Yes supple Resp: Auscultation: crackles (Bilateral) Cardio: Rate: tachycardic Rhythm: regular rhythm Heart sounds: no gallops, no murmurs and no rubs GI: Palpation (GI): Soft to palpation and Other GI palpation findings present ( Nontender) Auscultation: normal bowel sounds Extrem: General: Yes no pedal edema, No clubbing and No cyanosis Objective Data Labs 06/23/25 05:19 06/23/25 05:19 Labs: Laboratory Results - last 24 hr 06/22/25 06/22/25 06/22/25 11:17 17:48 19:41 WBC RBC Hgb Hct MCV MCH MCHC RDW Plt Count MPV Immature Gran % (Auto) Neut % (Auto) Lymph % (Auto) [place] % (Auto) Eos % (Auto) Baso % (Auto) Lymph # (Auto) [place] # (Auto) Eos # (Auto) Baso # (Auto) Abs Immat Gran (auto) Absolute Neuts (auto) Absolute Nucleated RBC Nucleated RBC % (auto) VBG pH VBG pCO2 VBG pO2 VBG HCO3 VBG O2 Saturation VBG Base Excess Sodium 144 Potassium 4.1 Chloride 109 H Carbon Dioxide 23 Anion Gap 16 BUN 28 H Creatinine 0.72 Estim Creat Clear Calc 144.0 Estimated GFR > 60 POC Glucose 192 H 138 H Random Glucose 129 H Calcium 9.5 Phosphorus 4.2 Magnesium 2.5 Total Bilirubin AST ALT Alkaline Phosphatase Total Protein Albumin Vancomycin Trough 06/23/25 06/23/25 06/23/25 00:10 05:19 05:25 WBC 16.3 H RBC 3.77 L Hgb 10.3 L Hct 31.8 L MCV 84.4 MCH 27.3 MCHC 32.4 RDW 14.9 Plt Count 507 H MPV 9.2 L Immature Gran % (Auto) 1.5 H Neut % (Auto) 80.8 H Lymph % (Auto) 12.4 L [place] % (Auto) 3.8 Eos % (Auto) 1.2 Baso % (Auto) 0.3 Lymph # (Auto) 2.0 [place] # (Auto) 0.6 Eos # (Auto) 0.2 Baso # (Auto) 0.1 Abs Immat Gran (auto) 0.24 H Absolute Neuts (auto) 13.2 H Absolute Nucleated RBC 0.000 Nucleated RBC % (auto) 0.0 VBG pH 7.53 H VBG pCO2 26 VBG pO2 77 VBG HCO3 22 VBG O2 Saturation 95.0 VBG Base Excess 0.8 Sodium 143 Potassium 2.9 L* D Chloride 111 H Carbon Dioxide 20 L Anion Gap 15 BUN 28 H Creatinine 0.68 Estim Creat Clear Calc 149.8 Estimated GFR > 60 POC Glucose 106 Random Glucose 130 H Calcium 9.0 Phosphorus 2.8 Magnesium 2.3 Total Bilirubin 0.8 AST 57 H ALT 56 H Alkaline Phosphatase 94 Total Protein 8.1 H Albumin 3.4 L Vancomycin Trough 06/23/25 09:51 WBC RBC Hgb Hct MCV MCH MCHC RDW Plt Count MPV Immature Gran % (Auto) Neut % (Auto) Lymph % (Auto) [place] % (Auto) Eos % (Auto) Baso % (Auto) Lymph # (Auto) [place] # (Auto) Eos # (Auto) Baso # (Auto) Abs Immat Gran (auto) Absolute Neuts (auto) Absolute Nucleated RBC Nucleated RBC % (auto) VBG pH VBG pCO2 VBG pO2 VBG HCO3 VBG O2 Saturation VBG Base Excess Sodium Potassium Chloride Carbon Dioxide Anion Gap BUN Creatinine Estim Creat Clear Calc Estimated GFR POC Glucose Random Glucose Calcium Phosphorus Magnesium Total Bilirubin AST ALT Alkaline Phosphatase Total Protein Albumin Vancomycin Trough 13.9 Microbiology Microbiology Results: Microbiology 06/15/25 04:00 Sputum - Suctioned Gram Stain - Final 06/15/25 04:00 Sputum - Suctioned Sputum Culture - Final 06/14/25 14:33 Blood - Venous Blood Culture - Final Streptococcus pneumoniae 06/14/25 14:31 Blood - Venous Blood Culture - Final Streptococcus pneumoniae Progress Note: A&P Assessment and plan (1) Polysubstance abuse: Status: Acute (2) Alcoholic cardiomyopathy: Status: Acute (3) Hepatitis C infection: Status: Acute (4) Portal hypertension: Status: Acute (5) Pneumonia: Status: Acute (6) Acute respiratory failure with hypoxia: Status: Acute (7) ARDS (adult respiratory distress syndrome): Status: Acute Plan Assessment: 45-year-old gentleman with underlying polysubstance abuse, alcoholic cardiomyopathy, and hypertension admitted with acute hypoxic respiratory failure secondary to streptococcal pneumonia requiring intubation and ventilatory support, further complicated by severe ARDS. Plan: Neuro: Polysubstance withdrawal with methadone dependence, difficulty sedated continue sedative drips. Cardiac: No acute issues. Underlying alcoholic cardiomyopathy. Pulmonary: Acute hypoxic respiratory failure with severe ARDS secondary to streptococcal pneumonia requiring high level of ventilatory support, continue to titrate off as tolerated. Renal: No acute issues. Endo: No acute issues. GI: No acute issues. ID: Empiric broad-spectrum antibiotics and systemic glucocorticoids for streptococcal pneumonia with possible superinfection. Heme/Onc: No acute issues. Psych: No acute issues. Miscellaneous: No acute issues. Prophylaxis: Lovenox, PPI Diet: Tube feeds Critical care time spent: 60 minutes Quality Stroke Does the patient have a stroke diagnosis?: No VTE Prior VTE?: No VTE Risk Level:: Medical - moderate - high VTE Device Contraindication: N/A - Device Ordered VTE Drug Contraindication: N/A - Med Ordered
--- NOTE | 2025-06-23 13:11 | P.CDIM_ITS ---
PROVIDER RESPONSE TEXT: To clarify, the appropriate diagnosis supported by the clinical indicators: Hypokalemia QUERY TEXT: PHYSICIAN'S DOCUMENTATION REQUEST Date of Query: 06/23/2025 12:47 PM EST Patient Name: Ole Gonzalez Admit Date: 06/14/2025 Dear Álvaro Key MD, A review of the medical record indicates additional documentation may be needed. Please review below and update the documentation accordingly. Clinical Indicators: LABS: Potassium 2.9 *L Potassium Chloride Based on the above, is there a diagnosis that correlates with these findings? Hypokalemia Labs indicate a diagnosis of (please specify) Other (explain) Clinically unable to determine (explain) Thank you, Brianna Llanos, CCS, CDIS Use of terms such as suspected, likely, concern for, or probable (associated with a specific diagnosis that is being evaluated, monitored, or treated as if it exists) are acceptable and can be coded in the inpatient setting, when documented at the time of discharge. Please use your independent medical judgment in providing your response. THIS QUERY IS PART OF THE PERMANENT MEDICAL RECORD
[2025-06-23 18:00] LABS: Glucose, Whole Blood 140 mg/dL (60-115)
--- NOTE | 2025-06-23 18:28 | PC.NURSE ---
No acute changes to patient status and no acute event today. Slow progress and improvement titrating ventilator support today. Patient tolerating chest PT, repositioning, and suctioning well with sedation. See full shift assessment, see vent assessment, see MAR for further details. Patient family visited and updated today.
[2025-06-23 20:05] LABS: Anion Gap 12 (12-20); Blood Urea Nitrogen 24 mg/dL (9-16); Calcium 8.8 mg/dL (8.4-10.2); Carbon Dioxide 22 mmol/L (22-29); Chloride 110 mmol/L (96-108); Creatinine Clr Calc Pharmacy 169.8; Estimated Glomerular Filt Rate > 60; Magnesium 2.2 mg/dL (1.6-2.6); Potassium 3.6 mmol/L (3.3-5.1); Sodium 140 mmol/L (135-145)
[2025-06-23] MEDS: Potassium Chloride Packet 20 MEQ PACKET 40 MEQ OG-TUBE (22:10)
[2025-06-24] VITALS (39 sets, daily range): BP systolic 101–147; BP diastolic 53–94; PULSE 38–124; RESP 16–116; TEMP 34.7–38.1; O2SAT 88–93; BMI 29.4
[2025-06-24 00:21] LABS: Glucose, Whole Blood 122 mg/dL (60-115)
--- NOTE | 2025-06-24 05:24 | PC.NURSE ---
Assumed care at 1900.? Patient continues on mechanical ventilation, see vent assessment. O2 sats maintaining at 88-92%. Pt requiring every 3-4 hour oral and inline suctioning for moderate amounts of thick cream color secretions. Propofol, Versed and Fentanyl drips continue as documented in eMAR.? OGT reinserted as found to have slightly migrated, CERTIFIED SURGICAL TECH/FIRST ASSISTANT notified and xray obtained confirming correct placement. No signs of aspiration noted and TF infusing without s/s of intolerance.? [id number] patient restless as patient moving his left leg off the bed, moving his hands towards his ETT, RR increase to 28-30 breaths per minute and appeared startled when approached. Fentanyl 100mg IVP x 2 given to assist with vent asynchrony and Versed 2mg IVP given for restless agitation per Titus Salas CERTIFIED SURGICAL TECH/FIRST ASSISTANT orders. RT at bedside and patient lavage and suctioned? for moderated amount thick cream color secretions. Patient repositioned in the bed, therapeutic touch and communication. provided all providing good effect in diminishing restlessness, improved RR (16-18 breaths per min) and promoting rest. O2 sats goal maintained 88-92% as ordered by CERTIFIED SURGICAL TECH/FIRST ASSISTANT.? Pt repositioned q2hrs as tolerated w pillows/wedges on Isotour mattress with skin integrity maintained. Angel cath discontinued at at 0345 DTV at [id number], male purewick in place. Refer to EMAR for complete assessment and interventions.??
[2025-06-24 05:26] LABS: VBG HCO3 19 mmol/L (22-26); VBG O2 % Saturation 93.0 %
[2025-06-24] MEDS: fentaNYL citrate/NS 1,000 MCG/100 ML PLAST..BAG 12.5 MCG IVCONT (05:29)
[2025-06-24 05:30] LABS: MANUAL DIFF FLAG NO
[2025-06-24 05:31] LABS: Hematocrit 28.2 % (42.0-52.0); Hemoglobin 8.9 g/dl (14.0-18.0); Imm Gran Abs Auto 0.17 X10*3/uL (0.00-0.03); Imm Gran Pct Auto 1.5 % (0.0-0.4); Lymphocytes Absolute Auto 1.8 X10*3/uL (1.2-4.9); Mean Corpuscular HGB Conc 31.6 g/dl (31.0-36.0); Mean Corpuscular Hemoglobin 26.6 pg (27.0-33.0); Mean Corpuscular Volume 84.4 fL (80.0-98.0); NRBC Abs Auto 0.000 X10*3/uL (0.0-0.012); NRBC Pct Auto 0.0 /100WBC (0.0-0.2); Platelet Count 448 X10*3/uL (160-400); Red Blood Count 3.34 X10*6/uL (4.60-5.80); White Blood Count 11.1 X10*3/uL (4.8-10.8)
[2025-06-24 05:47] LABS: Albumin Level 3.4 g/dL (3.5-5.0); Anion Gap 14 (12-20); Blood Urea Nitrogen 22 mg/dL (9-16); Calcium 8.5 mg/dL (8.4-10.2); Carbon Dioxide 18 mmol/L (22-29); Chloride 112 mmol/L (96-108); Creatinine Clr Calc Pharmacy 172.6; Estimated Glomerular Filt Rate > 60; Magnesium 2.1 mg/dL (1.6-2.6); Potassium 3.3 mmol/L (3.3-5.1); Sodium 141 mmol/L (135-145)
[2025-06-24 05:57] LABS: Venous Blood Gas Refer to POC result
[2025-06-24] MEDS: Albuterol/Iprat 2.5/0.5MG 3 ML AMPUL.NEB INHALE ×4 (07:46→20:17)
[2025-06-24] MEDS: methADONE HCl 20 MG/2 ML ORAL.CONC 190 MG PO (07:51)
[2025-06-24] MEDS: Potassium Chloride Packet 20 MEQ PACKET 40 MEQ OG-TUBE ×2 (07:52→09:41)
[2025-06-24] MEDS: 0.9 % Sodium Chloride Flush 3 ML SYRINGE IVFLUSH ×3 (07:52→23:57)
[2025-06-24] MEDS: Albumin Human 25 % 100 ML IV ×2 (07:52→14:53)
[2025-06-24] MEDS: Midazolam HCl/NS 50 MG/50 ML PLAST..BAG 6 MG IVCONT (08:52)
--- NOTE | 2025-06-24 09:31 | MHC.CM.PN ---
EMR REVIEWED, PT W/PNA AND BACTEREMIA ON MECH VENT IN ICU, LABS IMPROVING W/CONT'D UNSTABLE VS'S, ANTIC PT WILL NEED PLACEMENT FOR PAPER [employer]ODUCTION ENGINEER IV ABX, CM WILL CONT TO FOLLOW DC NEEDS.
[2025-06-24] MEDS: Furosemide 20 MG/2 ML VIAL IVPUSH ×3 (09:34→16:38)
[2025-06-24] MEDS: Chlorhexidine Gluc Oral Rinse 15 ML MOUTHWASH BUCCAL ×3 (09:34→20:35)
--- NOTE | 2025-06-24 10:59 | MHC.CLN ---
F/U PT REMAINS INTUBATED AND SEDATED TF RE-STARTED ON 06/23 PT RECEIVING VITAL AF 1.2 AT MAX GOAL RATE 40ML/HR WITH 240ML FWF Q 6 HRS PROVIDES 1152KCALS (1826 TOTAL KCALS WITH SEDATION; 22KCALS/KG), 72G PROTEIN, 1738ML TOTAL FREE WATER FROM FORMULA AND FLUSHES MONITOR TOLERANCE AND LYTES
--- NOTE | 2025-06-24 11:08 | PM.CCPN ---
Subjective Subjective Date of Service: 06/24/25 Interval History: 45-year-old gentleman with underlying history of alcohol abuse, hep C, polysubstance abuse, hypertension, systolic heart failure likely secondary to alcoholic cardiomyopathy admitted on 06/14/2025 with acute hypoxic respiratory failure secondary to streptococcal pneumonia requiring intubation ventilatory support on 06/15/2025, further complicated by ARDS, now with slowly improving ventilatory support requirements. No events overnight. Critical Care Time (minutes): 60 Physical Exam Vital Signs: Vital Signs: Last Vital Signs Temp 98.8 F 06/24/25 11:00 Pulse 98 06/24/25 11:00 Resp 18 06/24/25 11:00 BP 117/69 06/24/25 11:00 Pulse Ox 92 06/24/25 11:00 O2 Del Method Mechanical Ventil ation 06/24/25 11:00 O2 Flow Rate 70 06/23/25 11:00 FiO2 50 06/24/25 11:00 BMI result Body Mass Index 29.4 Const: General: no acute distress and other (Sedated on ventilatory support) Eyes: Sclerae: sclerae normal EOM: EOMs intact bilaterally Neck: Neck: Yes no lymphadenopathy, Yes trachea midline and Yes supple Resp: Auscultation: crackles (Mild bilateral) Cardio: Rate: regular rate Rhythm: regular rhythm Heart sounds: no gallops, no murmurs and no rubs GI: Palpation (GI): Soft to palpation and Other GI palpation findings present ( Nontender) Auscultation: normal bowel sounds Extrem: General: No clubbing, No cyanosis and Yes edema (Trace bilateral) Objective Data Labs 06/24/25 05:21 06/24/25 05:21 Labs: Laboratory Results - last 24 hr 06/23/25 06/23/25 06/24/25 17:56 19:28 00:15 WBC RBC Hgb Hct MCV MCH MCHC RDW Plt Count MPV Immature Gran % (Auto) Neut % (Auto) Lymph % (Auto) [place] % (Auto) Eos % (Auto) Baso % (Auto) Lymph # (Auto) [place] # (Auto) Eos # (Auto) Baso # (Auto) Abs Immat Gran (auto) Absolute Neuts (auto) Absolute Nucleated RBC Nucleated RBC % (auto) VBG pH VBG pCO2 VBG pO2 VBG HCO3 VBG O2 Saturation VBG Base Excess Sodium 140 Potassium 3.6 D Chloride 110 H Carbon Dioxide 22 Anion Gap 12 BUN 24 H Creatinine 0.60 Estim Creat Clear Calc 169.8 Estimated GFR > 60 POC Glucose 140 H 122 H Random Glucose 142 H Calcium 8.8 Phosphorus 3.0 Magnesium 2.2 Albumin Random Vancomycin 06/24/25 06/24/25 06/24/25 05:21 05:22 10:02 WBC 11.1 H RBC 3.34 L Hgb 8.9 L Hct 28.2 L MCV 84.4 MCH 26.6 L MCHC 31.6 RDW 15.2 Plt Count 448 H MPV 8.9 L Immature Gran % (Auto) 1.5 H Neut % (Auto) 75.3 H Lymph % (Auto) 15.9 L [place] % (Auto) 4.3 Eos % (Auto) 2.6 Baso % (Auto) 0.4 Lymph # (Auto) 1.8 [place] # (Auto) 0.5 Eos # (Auto) 0.3 Baso # (Auto) 0.1 Abs Immat Gran (auto) 0.17 H Absolute Neuts (auto) 8.4 H Absolute Nucleated RBC 0.000 Nucleated RBC % (auto) 0.0 VBG pH 7.52 H VBG pCO2 23 VBG pO2 68 VBG HCO3 19 L VBG O2 Saturation 93.0 VBG Base Excess -2.3 Sodium 141 Potassium 3.3 Chloride 112 H Carbon Dioxide 18 L Anion Gap 14 BUN 22 H Creatinine 0.60 Estim Creat Clear Calc 172.6 Estimated GFR > 60 POC Glucose Random Glucose 142 H Calcium 8.5 Phosphorus 2.8 Magnesium 2.1 Albumin 3.4 L Random Vancomycin 16.8 Microbiology Microbiology Results: Microbiology 06/15/25 04:00 Sputum - Suctioned Gram Stain - Final 06/15/25 04:00 Sputum - Suctioned Sputum Culture - Final 06/14/25 14:33 Blood - Venous Blood Culture - Final Streptococcus pneumoniae 06/14/25 14:31 Blood - Venous Blood Culture - Final Streptococcus pneumoniae Progress Note: A&P Assessment and plan (1) Polysubstance abuse: Status: Acute (2) Methadone dependence: Status: Acute (3) Alcoholic cardiomyopathy: Status: Acute (4) Portal hypertension: Status: Acute (5) Pneumonia: Status: Acute (6) Acute respiratory failure with hypoxia: Status: Acute Plan Assessment: 45-year-old gentleman with underlying polysubstance abuse, alcoholic cardiomyopathy, and hypertension admitted with acute hypoxic respiratory failure secondary to streptococcal pneumonia requiring intubation and ventilatory support, further complicated by severe ARDS. Plan: Neuro: Polysubstance withdrawal with methadone dependence, continue to titrate off sedative drips as tolerated. Cardiac: No acute issues. Underlying alcoholic cardiomyopathy. Pulmonary: Acute hypoxic respiratory failure with severe ARDS secondary to streptococcal pneumonia requiring high level of ventilatory support, improving slowly, continue to titrate off as tolerated. Renal: No acute issues. Endo: No acute issues. GI: No acute issues. ID: Ceftriaxone and systemic glucocorticoids for streptococcal pneumonia. Heme/Onc: No acute issues. Psych: No acute issues. Miscellaneous: No acute issues. Prophylaxis: Lovenox, PPI Diet: Tube feeds Critical care time spent: 60 minutes Quality Stroke Does the patient have a stroke diagnosis?: No VTE Prior VTE?: No VTE Risk Level:: Medical - moderate - high VTE Device Contraindication: N/A - Device Ordered VTE Drug Contraindication: N/A - Med Ordered
[2025-06-24 11:30] LABS: Glucose, Whole Blood 131 mg/dL (60-115)
[2025-06-24] MEDS: fentaNYL citrate/NS 1,000 MCG/100 ML PLAST..BAG 2.5 MCG IVCONT (14:56)
[2025-06-24] MEDS: dexmedeTOMIDine HCL/NS 400 MCG/100 ML PLAST..BAG 22.55 MCG IVCONT ×3 (15:32→23:54)
[2025-06-24 18:31] LABS: Glucose, Whole Blood 145 mg/dL (60-115)
[2025-06-24 19:40] LABS: Blood Urea Nitrogen 22 mg/dL (9-16); Creatinine Clr Calc Pharmacy 161.8; Estimated Glomerular Filt Rate > 60; Magnesium 2.3 mg/dL (1.6-2.6)
[2025-06-24 19:49] LABS: Anion Gap 15 (12-20); Calcium 9.3 mg/dL (8.4-10.2); Carbon Dioxide 21 mmol/L (22-29); Chloride 108 mmol/L (96-108); Potassium 4.1 mmol/L (3.3-5.1); Sodium 140 mmol/L (135-145)
[2025-06-24] MEDS: fentaNYL citrate/NS 1,000 MCG/100 ML PLAST..BAG 15 MCG IVCONT (20:51)
[2025-06-25] VITALS (33 sets, daily range): BP systolic 106–137; BP diastolic 55–77; PULSE 68–87; RESP 12–26; TEMP 34.8–37.8; O2SAT 88–97; BMI 28.2
[2025-06-25 00:31] LABS: Glucose, Whole Blood 146 mg/dL (60-115)
[2025-06-25] MEDS: fentaNYL citrate/NS 1,000 MCG/100 ML PLAST..BAG 17.5 MCG IVCONT ×3 (02:44→13:56)
[2025-06-25] MEDS: dexmedeTOMIDine HCL/NS 400 MCG/100 ML PLAST..BAG 22.55 MCG IVCONT ×5 (04:14→22:18)
[2025-06-25 05:04] LABS: VBG HCO3 22 mmol/L (22-26); VBG O2 % Saturation 96.0 %
[2025-06-25 05:07] LABS: Venous Blood Gas Refer to POC result
[2025-06-25 05:08] LABS: MANUAL DIFF FLAG NO
[2025-06-25 05:10] LABS: Hematocrit 28.0 % (42.0-52.0); Hemoglobin 9.1 g/dl (14.0-18.0); Imm Gran Abs Auto 0.11 X10*3/uL (0.00-0.03); Imm Gran Pct Auto 1.2 % (0.0-0.4); Lymphocytes Absolute Auto 2.0 X10*3/uL (1.2-4.9); Mean Corpuscular HGB Conc 32.5 g/dl (31.0-36.0); Mean Corpuscular Hemoglobin 26.9 pg (27.0-33.0); Mean Corpuscular Volume 82.8 fL (80.0-98.0); NRBC Abs Auto 0.000 X10*3/uL (0.0-0.012); NRBC Pct Auto 0.0 /100WBC (0.0-0.2); Platelet Count 469 X10*3/uL (160-400); Red Blood Count 3.38 X10*6/uL (4.60-5.80); White Blood Count 8.9 X10*3/uL (4.8-10.8)
[2025-06-25 05:27] LABS: Albumin Level 4.2 g/dL (3.5-5.0); Anion Gap 15 (12-20); Blood Urea Nitrogen 26 mg/dL (9-16); Calcium 9.4 mg/dL (8.4-10.2); Carbon Dioxide 21 mmol/L (22-29); Chloride 108 mmol/L (96-108); Creatinine Clr Calc Pharmacy 154.5; Estimated Glomerular Filt Rate > 60; Magnesium 2.3 mg/dL (1.6-2.6); Potassium 3.6 mmol/L (3.3-5.1); Sodium 140 mmol/L (135-145)
[2025-06-25] MEDS: methADONE HCl 20 MG/2 ML ORAL.CONC 190 MG PO (07:26)
--- NOTE | 2025-06-25 07:28 | PC.NURSE ---
Assumed care of the patient at 1900. Patient remains intubated/ventilated on sedation. Patient sinus rhythm on telemetry. The patient was switched from PSV to ACPC vent settings at 2000, to rest overnight. Attempted to wean sedation, patient wakeful, attempting to place legs outside of bed. Patient is able to track and follow commands with the reduction in sedation. Sedation was titrated back to levels at the start of the shift, and is now less wakeful.
[2025-06-25] MEDS: Albuterol/Iprat 2.5/0.5MG 3 ML AMPUL.NEB INHALE ×4 (07:56→19:08)
[2025-06-25] MEDS: Potassium Chloride Packet 20 MEQ PACKET 40 MEQ PO (08:28)
[2025-06-25] MEDS: Furosemide 20 MG/2 ML VIAL IVPUSH ×3 (08:28→18:12)
[2025-06-25] MEDS: 0.9 % Sodium Chloride Flush 3 ML SYRINGE IVFLUSH ×2 (08:28→16:19)
[2025-06-25] MEDS: Chlorhexidine Gluc Oral Rinse 15 ML MOUTHWASH BUCCAL ×3 (08:28→20:53)
--- NOTE | 2025-06-25 09:10 | PM.CCPN ---
Subjective Subjective Date of Service: 06/25/25 Interval History: 45-year-old gentleman with underlying history of alcohol abuse, hep C, polysubstance abuse, hypertension, systolic heart failure likely secondary to alcoholic cardiomyopathy admitted on 06/14/2025 with acute hypoxic respiratory failure secondary to streptococcal pneumonia requiring intubation ventilatory support on 06/15/2025, further complicated by ARDS, now with slowly improving ventilatory support requirements. No events overnight. Critical Care Time (minutes): 60 Physical Exam Vital Signs: Vital Signs: Last Vital Signs Temp 99.4 F 06/25/25 07:00 Pulse 84 06/25/25 09:00 Resp 18 06/25/25 09:00 BP 137/76 06/25/25 09:00 Pulse Ox 91 L 06/25/25 09:00 O2 Del Method Mechanical Ventil ation 06/25/25 09:00 O2 Flow Rate 70 06/23/25 11:00 FiO2 60 06/25/25 09:00 BMI result Body Mass Index 28.2 Const: General: no acute distress and other (Sedated on ventilatory support) Eyes: Sclerae: sclerae normal EOM: EOMs intact bilaterally Neck: Neck: Yes no lymphadenopathy, Yes trachea midline and Yes supple Resp: Auscultation: crackles (Bilateral) Cardio: Rate: regular rate Rhythm: regular rhythm Heart sounds: no gallops, no murmurs and no rubs GI: Palpation (GI): Soft to palpation and Other GI palpation findings present ( Nontender) Auscultation: normal bowel sounds Extrem: General: No clubbing, No cyanosis and Yes edema (Trace bilateral) Objective Data Labs 06/25/25 04:57 06/25/25 04:57 Labs: Laboratory Results - last 24 hr 06/24/25 06/24/25 06/24/25 10:02 11:24 18:23 WBC RBC Hgb Hct MCV MCH MCHC RDW Plt Count MPV Immature Gran % (Auto) Neut % (Auto) Lymph % (Auto) [place] % (Auto) Eos % (Auto) Baso % (Auto) Lymph # (Auto) [place] # (Auto) Eos # (Auto) Baso # (Auto) Abs Immat Gran (auto) Absolute Neuts (auto) Absolute Nucleated RBC Nucleated RBC % (auto) VBG pH VBG pCO2 VBG pO2 VBG HCO3 VBG O2 Saturation VBG Base Excess Sodium Potassium Chloride Carbon Dioxide Anion Gap BUN Creatinine Estim Creat Clear Calc Estimated GFR POC Glucose 131 H 145 H Random Glucose Calcium Phosphorus Magnesium Albumin Random Vancomycin 16.8 06/24/25 06/25/25 06/25/25 19:17 00:26 04:57 WBC 8.9 RBC 3.38 L Hgb 9.1 L Hct 28.0 L MCV 82.8 MCH 26.9 L MCHC 32.5 RDW 14.9 Plt Count 469 H MPV 9.1 L Immature Gran % (Auto) 1.2 H Neut % (Auto) 68.2 Lymph % (Auto) 22.6 [place] % (Auto) 5.0 Eos % (Auto) 2.7 Baso % (Auto) 0.3 Lymph # (Auto) 2.0 [place] # (Auto) 0.5 Eos # (Auto) 0.2 Baso # (Auto) 0.0 Abs Immat Gran (auto) 0.11 H Absolute Neuts (auto) 6.1 Absolute Nucleated RBC 0.000 Nucleated RBC % (auto) 0.0 VBG pH VBG pCO2 VBG pO2 VBG HCO3 VBG O2 Saturation VBG Base Excess Sodium 140 140 Potassium 4.1 D 3.6 Chloride 108 108 Carbon Dioxide 21 L 21 L Anion Gap 15 15 BUN 22 H 26 H Creatinine 0.64 0.67 Estim Creat Clear Calc 161.8 154.5 Estimated GFR > 60 > 60 POC Glucose 146 H Random Glucose 121 H 141 H Calcium 9.3 D 9.4 Phosphorus 4.6 H 3.8 Magnesium 2.3 2.3 Albumin 4.2 Random Vancomycin 06/25/25 05:01 WBC RBC Hgb Hct MCV MCH MCHC RDW Plt Count MPV Immature Gran % (Auto) Neut % (Auto) Lymph % (Auto) [place] % (Auto) Eos % (Auto) Baso % (Auto) Lymph # (Auto) [place] # (Auto) Eos # (Auto) Baso # (Auto) Abs Immat Gran (auto) Absolute Neuts (auto) Absolute Nucleated RBC Nucleated RBC % (auto) VBG pH 7.48 H VBG pCO2 29 VBG pO2 83 VBG HCO3 22 VBG O2 Saturation 96.0 VBG Base Excess -0.3 Sodium Potassium Chloride Carbon Dioxide Anion Gap BUN Creatinine Estim Creat Clear Calc Estimated GFR POC Glucose Random Glucose Calcium Phosphorus Magnesium Albumin Random Vancomycin Microbiology Microbiology Results: Microbiology 06/15/25 04:00 Sputum - Suctioned Gram Stain - Final 06/15/25 04:00 Sputum - Suctioned Sputum Culture - Final 06/14/25 14:33 Blood - Venous Blood Culture - Final Streptococcus pneumoniae 06/14/25 14:31 Blood - Venous Blood Culture - Final Streptococcus pneumoniae Progress Note: A&P Assessment and plan (1) Polysubstance abuse: Status: Acute (2) Methadone dependence: Status: Acute (3) Alcoholic cardiomyopathy: Status: Acute (4) Portal hypertension: Status: Acute (5) Hepatitis C infection: Status: Acute (6) Pneumonia: Status: Acute (7) Acute respiratory failure with hypoxia: Status: Acute (8) ARDS (adult respiratory distress syndrome): Status: Acute Plan Assessment: 45-year-old gentleman with underlying polysubstance abuse, alcoholic cardiomyopathy, and hypertension admitted with acute hypoxic respiratory failure secondary to streptococcal pneumonia requiring intubation and ventilatory support, further complicated by severe ARDS. Plan: Neuro: Polysubstance withdrawal with methadone dependence, continue to titrate off sedative drips as tolerated. Cardiac: No acute issues. Underlying alcoholic cardiomyopathy. Pulmonary: Acute hypoxic respiratory failure with severe ARDS secondary to streptococcal pneumonia requiring high level of ventilatory support, improving slowly, continue to titrate off as tolerated. Renal: No acute issues. Endo: No acute issues. GI: No acute issues. ID: Continue ceftriaxone for streptococcal pneumonia. Heme/Onc: No acute issues. Psych: No acute issues. Miscellaneous: No acute issues. Prophylaxis: Lovenox, PPI Diet: Tube feeds Critical care time spent: 60 minutes Quality Stroke Does the patient have a stroke diagnosis?: No VTE Prior VTE?: No VTE Risk Level:: Medical - moderate - high VTE Device Contraindication: N/A - Device Ordered VTE Drug Contraindication: N/A - Med Ordered
--- NOTE | 2025-06-25 09:33 | MHC.CM.PN ---
Pt remains intubated and on pressor support in ICU: condition remains guarded: Plans for today include diuresis and trial of pressure support. Pt from home w/family: CM to follow for finalization of d/c planning needs.
[2025-06-25 12:07] LABS: Glucose, Whole Blood 196 mg/dL (60-115)
[2025-06-25 18:26] LABS: Glucose, Whole Blood 194 mg/dL (60-115)
[2025-06-25] MEDS: fentaNYL citrate/NS 1,000 MCG/100 ML PLAST..BAG 20 MCG IVCONT (19:11)
--- NOTE | 2025-06-25 19:21 | PC.NURSE ---
patient continues sedated and vented, see vent and shift assessment for full details, patient O2 down to 86-87% and sustaining, FIO2 increased to 70% and O2 Sat up to 90-91%, plan to rest today and possibly PSV tomorrow and sedation vacation, family at bedside and made aware. Sedation increased this evening due to patient very restless attempting to get out of bed, see MAR for full details.
[2025-06-26] VITALS (40 sets, daily range): BP systolic 103–163; BP diastolic 58–103; PULSE 63–115; RESP 11–24; TEMP 34.8–38; O2SAT 90–99; BMI 31.1
[2025-06-26] MEDS: fentaNYL citrate/NS 1,000 MCG/100 ML PLAST..BAG 20 MCG IVCONT ×2 (00:01→04:59)
[2025-06-26] MEDS: 0.9 % Sodium Chloride Flush 3 ML SYRINGE IVFLUSH ×4 (00:39→20:01)
[2025-06-26 00:56] LABS: Glucose, Whole Blood 154 mg/dL (60-115)
[2025-06-26] MEDS: dexmedeTOMIDine HCL/NS 400 MCG/100 ML PLAST..BAG 22.55 MCG IVCONT ×3 (02:50→21:15)
[2025-06-26 04:37] LABS: MANUAL DIFF FLAG NO
[2025-06-26 04:45] LABS: VBG HCO3 25 mmol/L (22-26); VBG O2 % Saturation 99.0 %
[2025-06-26 04:46] LABS: Venous Blood Gas Refer to POC result
[2025-06-26 05:02] LABS: Hematocrit 28.5 % (42.0-52.0); Hemoglobin 9.3 g/dl (14.0-18.0); Imm Gran Abs Auto 0.10 X10*3/uL (0.00-0.03); Imm Gran Pct Auto 1.2 % (0.0-0.4); Lymphocytes Absolute Auto 2.3 X10*3/uL (1.2-4.9); Mean Corpuscular HGB Conc 32.6 g/dl (31.0-36.0); Mean Corpuscular Hemoglobin 27.1 pg (27.0-33.0); Mean Corpuscular Volume 83.1 fL (80.0-98.0); NRBC Abs Auto 0.000 X10*3/uL (0.0-0.012); NRBC Pct Auto 0.0 /100WBC (0.0-0.2); Platelet Count 547 X10*3/uL (160-400); Red Blood Count 3.43 X10*6/uL (4.60-5.80); White Blood Count 8.2 X10*3/uL (4.8-10.8)
[2025-06-26 05:20] LABS: Albumin Level 4.0 g/dL (3.5-5.0); Anion Gap 15 (12-20); Blood Urea Nitrogen 25 mg/dL (9-16); Calcium 9.4 mg/dL (8.4-10.2); Carbon Dioxide 22 mmol/L (22-29); Chloride 106 mmol/L (96-108); Creatinine Clr Calc Pharmacy 156.3; Estimated Glomerular Filt Rate > 60; Magnesium 2.1 mg/dL (1.6-2.6); Potassium 3.5 mmol/L (3.3-5.1); Sodium 139 mmol/L (135-145)
--- NOTE | 2025-06-26 07:22 | PC.NURSE ---
Assumed care of the patient at 1900. Patient remains intubated/ventilated on sedation. Patient sinus rhythm on telemetry. Patient intermittently able to track and follow commands.
[2025-06-26] MEDS: Albuterol/Iprat 2.5/0.5MG 3 ML AMPUL.NEB INHALE ×4 (07:33→19:00)
[2025-06-26] MEDS: methADONE HCl 20 MG/2 ML ORAL.CONC 190 MG PO (09:18)
[2025-06-26] MEDS: Chlorhexidine Gluc Oral Rinse 15 ML MOUTHWASH BUCCAL (09:18)
[2025-06-26] MEDS: Potassium Chloride Packet 20 MEQ PACKET 40 MEQ OG-TUBE (09:19)
[2025-06-26] MEDS: Furosemide 20 MG/2 ML VIAL IVPUSH ×2 (09:19→18:27)
--- NOTE | 2025-06-26 09:21 | P.PNCC_ITS ---
Subjective Subjective Date of Service: 06/26/25 Interval History: 45-year-old gentleman with underlying history of alcohol abuse, hep C, polysubstance abuse, hypertension, systolic heart failure likely secondary to alcoholic cardiomyopathy admitted on 06/14/2025 with acute hypoxic respiratory failure secondary to streptococcal pneumonia requiring intubation ventilatory support on 06/15/2025, further complicated by ARDS, now with slowly improving ventilatory support requirements. No events overnight. Critical Care Time (minutes): 60 Physical Exam 2 Vital Signs: Vital Signs: Last Vital Signs Temp 99.0 F 06/26/25 08:00 Pulse 65 06/26/25 08:00 Resp 15 06/26/25 08:00 BP 108/65 06/26/25 08:00 Pulse Ox 91 L 06/26/25 08:00 O2 Del Method Mechanical Ventil ation 06/26/25 08:00 O2 Flow Rate 70 06/23/25 11:00 FiO2 50 06/26/25 08:00 BMI result Body Mass Index 28.2 Const: General: no acute distress and other (Sedated on ventilatory support) Eyes: Sclerae: sclerae normal EOM: EOMs intact bilaterally Neck: Neck: Yes no lymphadenopathy, Yes trachea midline and Yes supple Resp: Auscultation: crackles (Mild bilateral) Cardio: Rate: regular rate Rhythm: regular rhythm Heart sounds: no gallops, no murmurs and no rubs GI: Palpation (GI): Soft to palpation and Other GI palpation findings present ( Nontender) Auscultation: normal bowel sounds Extrem: General: Yes no pedal edema, No clubbing and No cyanosis Objective Data Labs 06/26/25 04:34 06/26/25 04:34 Labs: Laboratory Results - last 24 hr 06/25/25 06/25/25 06/26/25 12:04 18:22 00:52 WBC RBC Hgb Hct MCV MCH MCHC RDW Plt Count MPV Immature Gran % (Auto) Neut % (Auto) Lymph % (Auto) [place] % (Auto) Eos % (Auto) Baso % (Auto) Lymph # (Auto) [place] # (Auto) Eos # (Auto) Baso # (Auto) Abs Immat Gran (auto) Absolute Neuts (auto) Absolute Nucleated RBC Nucleated RBC % (auto) VBG pH VBG pCO2 VBG pO2 VBG HCO3 VBG O2 Saturation VBG Base Excess Sodium Potassium Chloride Carbon Dioxide Anion Gap BUN Creatinine Estim Creat Clear Calc Estimated GFR POC Glucose 196 H 194 H 154 H Random Glucose Calcium Phosphorus Magnesium Albumin 06/26/25 06/26/25 04:34 04:40 WBC 8.2 RBC 3.43 L Hgb 9.3 L Hct 28.5 L MCV 83.1 MCH 27.1 MCHC 32.6 RDW 15.2 Plt Count 547 H MPV 9.3 L Immature Gran % (Auto) 1.2 H Neut % (Auto) 62.0 Lymph % (Auto) 27.5 [place] % (Auto) 5.8 Eos % (Auto) 2.9 Baso % (Auto) 0.6 Lymph # (Auto) 2.3 [place] # (Auto) 0.5 Eos # (Auto) 0.2 Baso # (Auto) 0.1 Abs Immat Gran (auto) 0.10 H Absolute Neuts (auto) 5.1 Absolute Nucleated RBC 0.000 Nucleated RBC % (auto) 0.0 VBG pH 7.46 H VBG pCO2 34 VBG pO2 103 VBG HCO3 25 VBG O2 Saturation 99.0 VBG Base Excess 1.8 Sodium 139 Potassium 3.5 Chloride 106 Carbon Dioxide 22 Anion Gap 15 BUN 25 H Creatinine 0.65 Estim Creat Clear Calc 156.3 Estimated GFR > 60 POC Glucose Random Glucose 122 H Calcium 9.4 Phosphorus 3.9 Magnesium 2.1 Albumin 4.0 Microbiology Microbiology Results: Microbiology 06/15/25 04:00 Sputum - Suctioned Gram Stain - Final 06/15/25 04:00 Sputum - Suctioned Sputum Culture - Final 06/14/25 14:33 Blood - Venous Blood Culture - Final Streptococcus pneumoniae 06/14/25 14:31 Blood - Venous Blood Culture - Final Streptococcus pneumoniae Progress Note: A&P Assessment and plan (1) Polysubstance abuse: Status: Acute (2) Alcohol dependence: Status: Acute (3) Methadone dependence: Status: Acute (4) Alcoholic cardiomyopathy: Status: Acute (5) Portal hypertension: Status: Acute (6) Hepatitis C infection: Status: Acute (7) Pneumonia: Status: Acute (8) Acute respiratory failure with hypoxia: Status: Acute (9) ARDS (adult respiratory distress syndrome): Status: Acute Plan Assessment: 45-year-old gentleman with underlying polysubstance abuse, alcoholic cardiomyopathy, and hypertension admitted with acute hypoxic respiratory failure secondary to streptococcal pneumonia requiring intubation and ventilatory support, further complicated by severe ARDS. Plan: Neuro: Polysubstance withdrawal with methadone dependence, continue to titrate off sedative drips as tolerated. Cardiac: No acute issues. Underlying alcoholic cardiomyopathy. Pulmonary: Acute hypoxic respiratory failure with severe ARDS secondary to streptococcal pneumonia requiring high level of ventilatory support, improving slowly, continue to titrate off as tolerated. Renal: No acute issues. Endo: No acute issues. GI: No acute issues. ID: Continue ceftriaxone for streptococcal pneumonia. Heme/Onc: No acute issues. Psych: No acute issues. Miscellaneous: No acute issues. Prophylaxis: Lovenox, PPI Diet: Tube feeds Critical care time spent: 60 minutes Quality Stroke Does the patient have a stroke diagnosis?: No VTE Prior VTE?: No VTE Risk Level:: Medical - moderate - high VTE Device Contraindication: N/A - Device Ordered VTE Drug Contraindication: N/A - Med Ordered
--- NOTE | 2025-06-26 09:39 | MHC.CLN ---
F/U PT REMAINS INTUBATED AND SEDATED DISCUSSED AT ROUNDS WITH MD-PLAN TO EXTUBATE TODAY PT RECEIVING VITAL AF 1.2 AT MAX GOAL RATE 40ML/HR WITH 240ML FWF Q 6 HRS PROVIDES 1152KCALS (1556 TOTAL KCALS WITH SEDATION), 72G PROTEIN, 1738ML TOTAL FREE WATER FROM FORMULA AND FLUSHES MONITOR TOLERANCE AND LYTES IF PT IS EXTUBATED TODAY; RECOMMEND 2GM NA DIET IF ABLE TO TOLERATE RD CAN BE REACHED VIA TIGER CONNECT DURING OFF HOURS IF NEEDED
--- NOTE | 2025-06-26 11:56 | MHC.CM.PN ---
Pt extubated and making clinical progress: pt may need a skilled eval for determination of d/c needs - pt to be monitored in ICU for the remainder of day. Pt from home w/family: CM to follow
[2025-06-26 13:45] LABS: Glucose, Whole Blood 151 mg/dL (60-115)
--- NOTE | 2025-06-26 16:56 | PC.NURSE ---
Assumed care @ 0700? Upon initial assessment sedated/intubated. Extubated approx @ 9:35. ?Alert & Oriented x2. (P&P). On 11L [place], Sp02 94%. Sinus Rhythm on tele ?LBM 06/26, FMD removed, +bowel sounds, NPO, POC Q6HR. External catheter in place.
[2025-06-26 17:32] LABS: Glucose, Whole Blood 136 mg/dL (60-115)
--- NOTE | 2025-06-26 20:15 | PC.NURSE ---
Assumed care of patient at 1900. Upon initial assessment, patient alert and oriented to self and place, vague to situation and unsure of time. Pleasant, able to follow commands and verbalize understanding. Attempted nursing bedside speech eval, patient passed (see intervention). Approx 10 minutes later, patient vomited 200mL yellow bile. Patient immediately positioned in high fowlers, ALLERGIST/IMMUNOLOGIST Josue notified. GLOBAL TECHNICAL WRITER consult placed, patient returned to NPO with supervised ice chips.
[2025-06-26] MEDS: dexmedeTOMIDine HCL/NS 400 MCG/100 ML PLAST..BAG 31.57 MCG IVCONT (23:43)
[2025-06-27] VITALS (24 sets, daily range): BP systolic 107–156; BP diastolic 70–94; PULSE 61–107; RESP 12–20; TEMP 36–36.5; O2SAT 91–100; BMI 31.2
[2025-06-27 00:16] LABS: Glucose, Whole Blood 130 mg/dL (60-115)
[2025-06-27] MEDS: dexmedeTOMIDine HCL/NS 400 MCG/100 ML PLAST..BAG 31.57 MCG IVCONT (02:36)
[2025-06-27 05:27] LABS: VBG HCO3 24 mmol/L (22-26); VBG O2 % Saturation 100.0 %
[2025-06-27 05:39] LABS: Venous Blood Gas Refer to POC result
[2025-06-27 05:54] LABS: Hematocrit 32.5 % (42.0-52.0); Hemoglobin 10.4 g/dl (14.0-18.0); Imm Gran Abs Auto 0.12 X10*3/uL (0.00-0.03); Imm Gran Pct Auto 1.3 % (0.0-0.4); Lymphocytes Absolute Auto 1.7 X10*3/uL (1.2-4.9); Mean Corpuscular HGB Conc 32.0 g/dl (31.0-36.0); Mean Corpuscular Hemoglobin 26.9 pg (27.0-33.0); Mean Corpuscular Volume 84.2 fL (80.0-98.0); NRBC Abs Auto 0.000 X10*3/uL (0.0-0.012); NRBC Pct Auto 0.0 /100WBC (0.0-0.2); PLT CLUMP 1; Red Blood Count 3.86 X10*6/uL (4.60-5.80); SCAN SMEAR FLAG 1
[2025-06-27 05:55] LABS: MANUAL DIFF FLAG NO; White Blood Count 8.9 X10*3/uL (4.8-10.8)
[2025-06-27 05:57] LABS: Albumin Level 4.2 g/dL (3.5-5.0); Anion Gap 16 (12-20); Blood Urea Nitrogen 28 mg/dL (9-16); Calcium 9.9 mg/dL (8.4-10.2); Carbon Dioxide 22 mmol/L (22-29); Chloride 105 mmol/L (96-108); Creatinine Clr Calc Pharmacy 171.8; Estimated Glomerular Filt Rate > 60; Magnesium 2.4 mg/dL (1.6-2.6); Potassium 3.8 mmol/L (3.3-5.1); Sodium 139 mmol/L (135-145)
[2025-06-27] MEDS: dexmedeTOMIDine HCL/NS 400 MCG/100 ML PLAST..BAG 13.53 MCG IVCONT (06:00)
[2025-06-27 06:11] LABS: Platelet Count 451 X10*3/uL (160-400)
[2025-06-27] MEDS: Albuterol/Iprat 2.5/0.5MG 3 ML AMPUL.NEB INHALE ×4 (07:34→18:47)
[2025-06-27] MEDS: Furosemide 20 MG/2 ML VIAL IVPUSH ×2 (07:39→17:18)
[2025-06-27] MEDS: 0.9 % Sodium Chloride Flush 3 ML SYRINGE IVFLUSH ×3 (07:44→20:35)
[2025-06-27] MEDS: methADONE HCl 20 MG/2 ML ORAL.CONC 190 MG PO (08:37)
--- NOTE | 2025-06-27 09:43 | MHC.SL.SWA ---
Addendum entered and electronically signed by Taniya Rivas MA, CCC-REGIONAL TRANSPORTATION MANAGER 06/27/25 10:09: Discussed observations w/ MD: Per MD, no concern for illeus or obstruction, until yesterday he tolerated tube feeds and had rectal tube with good output. Recc NPO d/t GI instability, patient vomiting after small amount PO intake, risk of aspiration on vomit. REGIONAL TRANSPORTATION MANAGER to re-evaluate once vomiting has resolved. Original Note: Speech Pathologist Impression: Esophageal Dysphagia Risk of Aspiration Due to: Vomiting after consuming PO Dysphasia Diet Status: No Change Liquid Consistency and Strategies for Safe Swallow: Liquid Intake Recommendation: NPO Solid Food Consistency: Dietary Recommendations: NPO Additional Modifications to Solid Foods: Patient seen for bedside swallow eval w/ REGIONAL TRANSPORTATION MANAGER. Patient consumed thin liquid, puree, and ground texture. Patient presents with limited dentition (on bottom jaw, reports he does not have his top dentures with him). Patient was able to adequately chew up softened solid, though he did have coating of residue on the tongue after swallowing. He was able to clear when cued to take more puree. Swallow trigger was timely, with complete laryngeal elevation. No overt s/s of aspiration throughout PO trials. O2 sat level remained stable. At one point, patient expressed his stomach felt bloated and then patient projectile vomited large amount of yellow bile with carolina cracker bits across the room. RN and TOBACCO FLAVORER arrived to clean the patient up. Recommend GI consultation for concern of esophageal involvement, mild oral phase d/t limited dentition, pharyngeal phase otherwise unremarkable. Recommend NPO pending GI consult, REGIONAL TRANSPORTATION MANAGER to re-evaluate once cleared by GI to resume PO. Allow ice chips in the meantime for comfort. Oral Medication Intake: NPO Please contact the pharmacy regarding appropriate crushable or liquid drug formulations that are available whenever modified delivery is recommended. Supervision While Eating and Drinking for Safe Swallow: PO with REGIONAL TRANSPORTATION MANAGER Recommendation for Speech: Further Testing Needed Inpatient Speech Therapy Comment: REGIONAL TRANSPORTATION MANAGER to eval pending GI consult Frequency/Duration: Date Range for Service Req: Timeline to reassess: Six Pack Loader Operator Clinican/Clinical Fellow: No Supervisory Statement: I have reviewed and agree with the student/clinical fellow's documentation: N/A Speech Language Pathologist: Taniya Rivas M.A., CCC-REGIONAL TRANSPORTATION MANAGER
--- NOTE | 2025-06-27 10:06 | PM.CCPN ---
Subjective Subjective Date of Service: 06/27/25 Interval History: 45-year-old gentleman with underlying history of alcohol abuse, hep C, polysubstance abuse, hypertension, systolic heart failure likely secondary to alcoholic cardiomyopathy admitted on 06/14/2025 with acute hypoxic respiratory failure secondary to streptococcal pneumonia requiring intubation ventilatory support on 06/15/2025, further complicated by ARDS, extubated on 06/26/2025. Continues to require significant amounts of supplemental oxygen. No events overnight. Critical Care Time (minutes): 0 Physical Exam Vital Signs: Vital Signs: Last Vital Signs Temp 96.8 F 06/27/25 07:00 Pulse 76 06/27/25 08:55 Resp 17 06/27/25 08:55 BP 127/86 06/27/25 08:55 Pulse Ox 94 06/27/25 08:55 O2 Del Method Nasal Cannula 06/27/25 08:55 O2 Flow Rate 11 06/27/25 08:55 FiO2 60 06/26/25 15:00 BMI result Body Mass Index 31.2 Const: General: no acute distress, alert and awake Eyes: Sclerae: sclerae normal EOM: EOMs intact bilaterally Neck: Neck: Yes no lymphadenopathy, Yes trachea midline and Yes supple Resp: Effort & Inspection: normal respiratory effort and no respiratory distress Auscultation: crackles (Bilateral) Cardio: Rate: regular rate Rhythm: regular rhythm Heart sounds: no gallops, no murmurs and no rubs GI: Palpation (GI): Soft to palpation and Other GI palpation findings present ( Nontender) Auscultation: normal bowel sounds Extrem: General: Yes no pedal edema, No clubbing and No cyanosis Objective Data Labs 06/27/25 05:21 06/27/25 05:21 Labs: Laboratory Results - last 24 hr 06/26/25 06/26/25 06/27/25 13:37 17:29 00:09 WBC RBC Hgb Hct MCV MCH MCHC RDW Plt Count MPV Immature Gran % (Auto) Neut % (Auto) Lymph % (Auto) [place] % (Auto) Eos % (Auto) Baso % (Auto) Lymph # (Auto) [place] # (Auto) Eos # (Auto) Baso # (Auto) Abs Immat Gran (auto) Absolute Neuts (auto) Absolute Nucleated RBC Nucleated RBC % (auto) VBG pH VBG pCO2 VBG pO2 VBG HCO3 VBG O2 Saturation VBG Base Excess Sodium Potassium Chloride Carbon Dioxide Anion Gap BUN Creatinine Estim Creat Clear Calc Estimated GFR POC Glucose 151 H 136 H 130 H Random Glucose Calcium Phosphorus Magnesium Albumin 06/27/25 05:21 WBC 8.9 RBC 3.86 L Hgb 10.4 L Hct 32.5 L MCV 84.2 MCH 26.9 L MCHC 32.0 RDW 15.8 Plt Count 451 H MPV 10.2 Immature Gran % (Auto) 1.3 H Neut % (Auto) 69.9 Lymph % (Auto) 18.8 L [place] % (Auto) 7.2 Eos % (Auto) 2.1 Baso % (Auto) 0.7 Lymph # (Auto) 1.7 [place] # (Auto) 0.6 Eos # (Auto) 0.2 Baso # (Auto) 0.1 Abs Immat Gran (auto) 0.12 H Absolute Neuts (auto) 6.2 Absolute Nucleated RBC 0.000 Nucleated RBC % (auto) 0.0 VBG pH 7.56 H VBG pCO2 27 VBG pO2 114 VBG HCO3 24 VBG O2 Saturation 100.0 VBG Base Excess 3.3 Sodium 139 Potassium 3.8 Chloride 105 Carbon Dioxide 22 Anion Gap 16 BUN 28 H Creatinine 0.62 Estim Creat Clear Calc 171.8 Estimated GFR > 60 POC Glucose Random Glucose 115 Calcium 9.9 Phosphorus 4.6 H Magnesium 2.4 Albumin 4.2 Microbiology Microbiology Results: Microbiology 06/15/25 04:00 Sputum - Suctioned Gram Stain - Final 06/15/25 04:00 Sputum - Suctioned Sputum Culture - Final 06/14/25 14:33 Blood - Venous Blood Culture - Final Streptococcus pneumoniae 06/14/25 14:31 Blood - Venous Blood Culture - Final Streptococcus pneumoniae Progress Note: A&P Assessment and plan (1) Alcohol dependence: Status: Acute (2) Polysubstance abuse: Status: Acute (3) Methadone dependence: Status: Acute (4) Alcoholic cardiomyopathy: Status: Acute (5) Hepatitis C infection: Status: Acute (6) Hepatic steatosis: Status: Acute (7) Portal hypertension: Status: Acute (8) Pneumonia: Status: Acute (9) Acute respiratory failure with hypoxia: Status: Acute Plan Assessment: 45-year-old gentleman with underlying polysubstance abuse, alcoholic cardiomyopathy, and hypertension admitted with acute hypoxic respiratory failure secondary to streptococcal pneumonia requiring intubation and ventilatory support, further complicated by severe ARDS. Plan: Neuro: Polysubstance withdrawal with methadone dependence, continue to titrate off sedative drips as tolerated. Cardiac: No acute issues. Underlying alcoholic cardiomyopathy. Pulmonary: Acute hypoxic respiratory failure with severe ARDS secondary to streptococcal pneumonia requiring high level of ventilatory support extubated 06/26/2025. Continue to titrate off supplemental oxygen as tolerated. Renal: No acute issues. Endo: No acute issues. GI: No acute issues. ID: Continue ceftriaxone for streptococcal pneumonia. Heme/Onc: No acute issues. Psych: No acute issues. Miscellaneous: No acute issues. Prophylaxis: Lovenox Diet: Pending swallow evaluation Quality Stroke Does the patient have a stroke diagnosis?: No VTE Prior VTE?: No VTE Risk Level:: Medical - moderate - high VTE Device Contraindication: N/A - Device Ordered VTE Drug Contraindication: N/A - Med Ordered
[2025-06-27 12:05] LABS: Glucose, Whole Blood 113 mg/dL (60-115)
[2025-06-27 18:13] LABS: Glucose, Whole Blood 116 mg/dL (60-115)
[2025-06-28] VITALS (12 sets, daily range): BP systolic 124–154; BP diastolic 77–99; PULSE 92–113; RESP 18–20; TEMP 36.2–37.2; O2SAT 1–98; BMI 28.2
[2025-06-28 01:44] LABS: Glucose, Whole Blood 117 mg/dL (60-115)
[2025-06-28 06:29] LABS: Glucose, Whole Blood 126 mg/dL (60-115)
[2025-06-28] MEDS: Albuterol/Iprat 2.5/0.5MG 3 ML AMPUL.NEB INHALE ×3 (07:36→19:05)
[2025-06-28 07:53] LABS: MANUAL DIFF FLAG NO
[2025-06-28 07:59] LABS: Venous Blood Gas Refer to POC result
[2025-06-28 08:00] LABS: VBG HCO3 25 mmol/L (22-26); VBG O2 % Saturation 100.0 %
[2025-06-28 08:03] LABS: Hematocrit 34.6 % (42.0-52.0); Hemoglobin 11.1 g/dl (14.0-18.0); Imm Gran Abs Auto 0.13 X10*3/uL (0.00-0.03); Imm Gran Pct Auto 1.2 % (0.0-0.4); Lymphocytes Absolute Auto 1.6 X10*3/uL (1.2-4.9); Mean Corpuscular HGB Conc 32.1 g/dl (31.0-36.0); Mean Corpuscular Hemoglobin 26.9 pg (27.0-33.0); Mean Corpuscular Volume 84.0 fL (80.0-98.0); NRBC Abs Auto 0.000 X10*3/uL (0.0-0.012); NRBC Pct Auto 0.0 /100WBC (0.0-0.2); Red Blood Count 4.12 X10*6/uL (4.60-5.80); White Blood Count 10.6 X10*3/uL (4.8-10.8)
[2025-06-28 08:11] LABS: Alanine Aminotransferase 260 U/L (0-40); Albumin Level 4.5 g/dL (3.5-5.0); Alkaline Phosphatase 128 U/L (39-117); Anion Gap 16 (12-20); Aspartate Amino Transferase 122 U/L (5-37); Blood Urea Nitrogen 31 mg/dL (9-16); Calcium 10.2 mg/dL (8.4-10.2); Carbon Dioxide 23 mmol/L (22-29); Chloride 101 mmol/L (96-108); Creatinine Clr Calc Pharmacy 161.3; Estimated Glomerular Filt Rate > 60; Magnesium 2.3 mg/dL (1.6-2.6); Potassium 3.4 mmol/L (3.3-5.1); Sodium 137 mmol/L (135-145); Total Protein 9.1 g/dL (6.5-8.0)
[2025-06-28 08:31] LABS: Platelet Count 722 X10*3/uL (160-400)
[2025-06-28] MEDS: methADONE HCl 20 MG/2 ML ORAL.CONC 190 MG PO (09:06)
[2025-06-28] MEDS: Calcium + Vitamin D 250 MG TABLET 500 MG PO (09:14)
[2025-06-28] MEDS: Metoprolol Succinate ER 50 MG TAB.ER.24H PO (09:14)
--- NOTE | 2025-06-28 10:36 | MHC.SL.SWA ---
Speech Pathologist Impression: Mild oral phase dysphagia d/t limited dentition Dysphasia Diet Status: Start on NDD2 Liquid Consistency and Strategies for Safe Swallow: Liquid Intake Recommendation: Thin Liquid Intake Strategies: Unrestricted Solid Food Consistency: Dietary Recommendations: Grnd/Mech Altered (NDD2) Additional Modifications to Solid Foods: Recommend START on GROUND/MECH ALTERED (NDD2) diet for ease of mastication (patient w/ limited dentition, reports he does not have his dentures with him) and THIN liquids, pills WHOLE with LIQUID. Patient is encouraged to feed himself when possible, but will need assistance throughout meals d/t UE weakness. Advised RN in person, MD & RD informed via secure text. Oral Medication Intake: Whole with Liquid Please contact the pharmacy regarding appropriate crushable or liquid drug formulations that are available whenever modified delivery is recommended. Compensatory Strategies and Precautions to be Taken for Safe Swallow: Sit Upright (90 deg) Small Bites and Sips Alternate Liquids/Solids Rate of Ingestion Change Supervision While Eating and Drinking for Safe Swallow: Direct Supervision (1:1) Swallowing Recommended Treatments: Compens. Strategy Educat. Recommendation for Speech: Inpatient Speech Therapy Hvac Technician Clinican/Clinical Fellow: No Supervisory Statement: I have reviewed and agree with the student/clinical fellow's documentation: N/A Speech Language Pathologist: Taniya Rivas M.A., CCC-GEAR MACHINE OPERATOR GENERAL
[2025-06-28 11:25] LABS: Glucose, Whole Blood 144 mg/dL (60-115)
--- NOTE | 2025-06-28 11:28 | P.PNIM_ITS ---
Subjective Subjective Date of Service: 06/28/25 Interval History: feeling better Physical Exam 2 Exam: Exam: General: AO X 3, no acute distress Resp: Crackles bilateral, no accessory muscles used CVS: S1,S2,RRR GI: soft, non tender, non distended Neuro: motor grossly weak, alert Vital Signs: Vital Signs: Last Vital Signs Temp 98.9 F 06/28/25 07:00 Pulse 109 H 06/28/25 11:12 Resp 20 06/28/25 11:12 BP 140/82 H 06/28/25 09:14 Pulse Ox 93 06/28/25 07:00 O2 Del Method Nasal Cannula 06/28/25 07:00 O2 Flow Rate 3 06/28/25 07:00 FiO2 60 06/26/25 15:00 BMI result Body Mass Index 28.2 Objective Data Active Medications Albuterol/Ipratropium (Albuterol/Iprat 2.5/0.5mg 3 Ml Ampul.Neb) 3 ml INHALE RQ4H WHILE AWAKE [facility] Last Admin: 06/28/25 11:10 Dose: 3 ml Documented By: JANETH Amitriptyline HCl (Amitriptyline Hcl 50 Mg Tablet) 100 mg PO BEDTIME [facility] Buspirone HCl (Buspirone Hcl 10 Mg Tablet) 30 mg PO BID [facility] Last Admin: 06/28/25 09:12 Dose: 30 mg Documented By: DESI Calcium Carbonate/Cholecalciferol (Calcium + Vitamin D 250 Mg Tablet) 500 mg PO DAILY [facility] Last Admin: 06/28/25 09:14 Dose: 500 mg Documented By: DESI Chlorpromazine HCl (Chlorpromazine Hcl 25 Mg Tablet) 50 mg PO BID [facility] Last Admin: 06/28/25 09:14 Dose: 50 mg Documented By: DESI Clonidine HCl (Clonidine Hcl 0.1 Mg Tablet) 0.1 mg PO TID PRN; Protocol PRN Reason: for anxiety Enoxaparin Sodium (Enoxaparin Sodium 40 Mg/0.4 Ml Syringe) 40 mg SUBCUT Q24H [facility] Last Admin: 06/27/25 16:10 Dose: 40 mg Documented By: ROBERT Furosemide (Furosemide 40 Mg Tablet) 40 mg PO DAILY [facility]; Protocol Last Admin: 06/28/25 09:14 Dose: 40 mg Documented By: DESI Ceftriaxone Sodium 2 gm/ (Sodium Chloride) 50 mls @ 100 mls/hr IV Q24H [facility] Last Infusion: 06/28/25 10:01 Dose: Infused Documented By: DESI Levalbuterol HCl (Levalbuterol Hcl 1.25 Mg/3 Ml Vial.Neb) 1.25 mg INHALE Q4H PRN PRN Reason: Shortness of Breath/Wheezing Magnesium Oxide (Magnesium Oxide 400 Mg Tablet) 400 mg PO DAILY [facility] Last Admin: 06/28/25 09:14 Dose: 400 mg Documented By: DESI Methadone HCl (Methadone Hcl 20 Mg/2 Ml Oral.Conc) 190 mg PO DAILY@0800 [facility] Last Admin: 06/28/25 09:06 Dose: 190 mg Documented By: DESI Co-signed By: LORRI Metoprolol Succinate (Metoprolol Succinate Er 50 Mg Tab.Er.24h) 50 mg PO DAILY [facility]; Protocol Last Admin: 06/28/25 09:14 Dose: 50 mg Documented By: DESI Nystatin (Nystatin Powder 15 Gm Bottle) 1 appl TOPICAL BID [facility]; Protocol Last Admin: 06/28/25 09:33 Dose: 1 appl Documented By: DESI Omeprazole (Omeprazole 20 Mg Capsule.) 20 mg PO DAILY@0630 [facility] Polyethylene Glycol (Polyethylene Glycol 3350 17 Gm Powd.Pack) 17 gm PO DAILY PRN PRN Reason: Constipation Last Admin: 06/21/25 17:27 Dose: 17 gm Documented By: ADDIE Quetiapine Fumarate (Quetiapine Fumarate 200 Mg Tablet) 200 mg PO BEDTIME [facility] Quetiapine Fumarate (Quetiapine Fumarate 50 Mg Tablet) 50 mg PO BID@0800,1400 [facility] Last Admin: 06/28/25 09:11 Dose: 50 mg Documented By: DESI Sodium Chloride (0.9 % Sodium Chloride Flush 3 Ml Syringe) 3 ml IVFLUSH QSHIFT [facility] Last Admin: 06/28/25 09:35 Dose: Not Given Documented By: DESI Non-Admin Reason: Previously Administered Labs 06/28/25 07:42 06/28/25 07:42 Labs: Laboratory Results - last 24 hr 06/27/25 06/27/2525 11:59 18:08 01:39 MCV MCH MCHC RDW Plt Count MPV Immature Gran % (Auto) Neut % (Auto) Lymph % (Auto) [place] % (Auto) Eos % (Auto) Baso % (Auto) Lymph # (Auto) [place] # (Auto) Eos # (Auto) Baso # (Auto) Abs Immat Gran (auto) Absolute Neuts (auto) Absolute Nucleated RBC Nucleated RBC % (auto) VBG pH VBG pCO2 VBG pO2 VBG HCO3 VBG O2 Saturation VBG Base Excess Anion Gap Estim Creat Clear Calc Estimated GFR POC Glucose 113 116 H 117 H Random Glucose Calcium Phosphorus Magnesium Total Bilirubin AST ALT Alkaline Phosphatase Total Protein Albumin 06/28/25 06/28/25 06/28/25 06:20 07:42 07:56 MCV 84.0 MCH 26.9 L MCHC 32.1 RDW 16.1 H Plt Count 722 H D MPV 9.0 L Immature Gran % (Auto) 1.2 H Neut % (Auto) 73.7 H Lymph % (Auto) 14.8 L [place] % (Auto) 8.2 Eos % (Auto) 1.4 Baso % (Auto) 0.7 Lymph # (Auto) 1.6 [place] # (Auto) 0.9 Eos # (Auto) 0.2 Baso # (Auto) 0.1 Abs Immat Gran (auto) 0.13 H Absolute Neuts (auto) 7.8 Absolute Nucleated RBC 0.000 Nucleated RBC % (auto) 0.0 VBG pH 7.48 H VBG pCO2 34 VBG pO2 174 VBG HCO3 25 VBG O2 Saturation 100.0 VBG Base Excess 2.4 Anion Gap 16 Estim Creat Clear Calc 161.3 Estimated GFR > 60 POC Glucose 126 H Random Glucose 119 H Calcium 10.2 Phosphorus 4.1 Magnesium 2.3 Total Bilirubin 0.9 AST 122 H ALT 260 H Alkaline Phosphatase 128 H Total Protein 9.1 H Albumin 4.5 06/28/25 11:19 MCV MCH MCHC RDW Plt Count MPV Immature Gran % (Auto) Neut % (Auto) Lymph % (Auto) [place] % (Auto) Eos % (Auto) Baso % (Auto) Lymph # (Auto) [place] # (Auto) Eos # (Auto) Baso # (Auto) Abs Immat Gran (auto) Absolute Neuts (auto) Absolute Nucleated RBC Nucleated RBC % (auto) VBG pH VBG pCO2 VBG pO2 VBG HCO3 VBG O2 Saturation VBG Base Excess Anion Gap Estim Creat Clear Calc Estimated GFR POC Glucose 144 H Random Glucose Calcium Phosphorus Magnesium Total Bilirubin AST ALT Alkaline Phosphatase Total Protein Albumin Assessment and Plan (1) Pneumonia: Status: Acute Plan 45M PMH alcohol dependence, hepatitis-C, polysubstance dependence, hypertension, depression, chronic systolic CHF due to alcoholic cardiomyopathy, hyperlipidemia admitted 06/14/2025 with fever and cough was placed on high-flow oxygen in the ED due to risk of decompensation was admitted to the intensive care unit, patient required intubation on 06/15/2025, blood cultures positive for Streptococcus pneumoniae, treated with ceftriaxone, eventually extubated 06/26/2025 and downgraded to medical floor 06/27/2025. Severe sepsis and acute hypoxic respiratory failure due to pneumococcal bacteremia and pneumonia Continue ceftriaxone, now requiring 3 L oxygen to saturate low 90s, continue to wean Speech therapy recommending ndd2 solids and thin liquids Alcohol dependence and polysubstance dependence No signs of withdrawal, continue methadone CHF with recovered EF with history of alcoholic cardiomyopathy Repeat echo showed EF of 55-60% Mood disorder Seroquel, BuSpar, Elavil DVT prophylaxis-Lovenox Full code reason for continued hospitalization: Weaning O2 Quality Stroke Does the patient have a stroke diagnosis?: No VTE Prior VTE?: No VTE Risk Level:: Medical - moderate - high VTE Device Contraindication: N/A - Device Ordered VTE Drug Contraindication: N/A - Med Ordered
[2025-06-28 18:06] LABS: Glucose, Whole Blood 152 mg/dL (60-115)
[2025-06-29] VITALS (10 sets, daily range): BP systolic 110–138; BP diastolic 65–87; PULSE 100–156; RESP 18; TEMP 36.2–37.5; O2SAT 90–98; BMI 27.7
[2025-06-29 00:16] LABS: Glucose, Whole Blood 104 mg/dL (60-115)
[2025-06-29 06:54] LABS: Glucose, Whole Blood 133 mg/dL (60-115)
[2025-06-29 07:37] LABS: Anion Gap 19 (12-20); Blood Urea Nitrogen 23 mg/dL (9-16); Calcium 9.6 mg/dL (8.4-10.2); Carbon Dioxide 20 mmol/L (22-29); Chloride 100 mmol/L (96-108); Creatinine Clr Calc Pharmacy 150.5; Estimated Glomerular Filt Rate > 60; Magnesium 2.1 mg/dL (1.6-2.6); Potassium 3.5 mmol/L (3.3-5.1); Sodium 135 mmol/L (135-145)
[2025-06-29] MEDS: methADONE HCl 20 MG/2 ML ORAL.CONC 190 MG PO (07:39)
[2025-06-29 07:44] LABS: Hematocrit 34.1 % (42.0-52.0); Hemoglobin 10.9 g/dl (14.0-18.0); Mean Corpuscular HGB Conc 32.0 g/dl (31.0-36.0); Mean Corpuscular Hemoglobin 27.3 pg (27.0-33.0); Mean Corpuscular Volume 85.3 fL (80.0-98.0); NRBC Abs Auto 0.000 X10*3/uL (0.0-0.012); NRBC Pct Auto 0.0 /100WBC (0.0-0.2); Platelet Count 426 X10*3/uL (160-400); Red Blood Count 4.00 X10*6/uL (4.60-5.80); White Blood Count 6.4 X10*3/uL (4.8-10.8)
[2025-06-29] MEDS: Albuterol/Iprat 2.5/0.5MG 3 ML AMPUL.NEB INHALE ×4 (07:50→20:45)
[2025-06-29] MEDS: Calcium + Vitamin D 250 MG TABLET 500 MG PO (07:52)
[2025-06-29] MEDS: Metoprolol Succinate ER 50 MG TAB.ER.24H PO (07:56)
[2025-06-29] MEDS: 0.9 % Sodium Chloride Flush 3 ML SYRINGE IVFLUSH (07:58)
--- NOTE | 2025-06-29 08:48 | HO.PM.IMPN ---
Subjective Subjective Date of Service: 06/29/25 Interval History: Improving Physical Exam Exam: Exam: General: AO X 3, no acute distress Resp: Crackles bilateral, no accessory muscles used CVS: S1,S2,RRR GI: soft, non tender, non distended Neuro: motor grossly weak, alert Vital Signs: Vital Signs: Last Vital Signs Temp 98.0 F 06/29/25 07:42 Pulse 156 H 06/29/25 08:16 Resp 18 06/29/25 07:47 BP 137/65 06/29/25 07:42 Pulse Ox 90 L 06/29/25 08:16 O2 Del Method Nasal Cannula 06/29/25 07:42 O2 Flow Rate 2 06/29/25 07:42 FiO2 60 06/26/25 15:00 BMI result Body Mass Index 27.7 Objective Data Active Medications Albuterol/Ipratropium (Albuterol/Iprat 2.5/0.5mg 3 Ml Ampul.Neb) 3 ml INHALE RQ4H WHILE AWAKE [facility] Last Admin: 06/29/25 07:50 Dose: 3 ml Documented By: DIONICIO Amitriptyline HCl (Amitriptyline Hcl 50 Mg Tablet) 100 mg PO BEDTIME [facility] Last Admin: 06/28/25 21:05 Dose: 100 mg Documented By: EDEN Buspirone HCl (Buspirone Hcl 10 Mg Tablet) 30 mg PO BID [facility] Last Admin: 06/29/25 07:53 Dose: 30 mg Documented By: ADDIE Calcium Carbonate/Cholecalciferol (Calcium + Vitamin D 250 Mg Tablet) 500 mg PO DAILY [facility] Last Admin: 06/29/25 07:52 Dose: 500 mg Documented By: ADDIE Chlorpromazine HCl (Chlorpromazine Hcl 25 Mg Tablet) 50 mg PO BID [facility] Last Admin: 06/29/25 07:55 Dose: 50 mg Documented By: ADDIE Clonidine HCl (Clonidine Hcl 0.1 Mg Tablet) 0.1 mg PO TID PRN; Protocol PRN Reason: for anxiety Last Admin: 06/28/25 21:05 Dose: 0.1 mg Documented By: EDEN Enoxaparin Sodium (Enoxaparin Sodium 40 Mg/0.4 Ml Syringe) 40 mg SUBCUT Q24H [facility] Last Admin: 06/28/25 17:08 Dose: 40 mg Documented By: DESI Furosemide (Furosemide 40 Mg Tablet) 40 mg PO DAILY [facility]; Protocol Last Admin: 06/29/25 07:56 Dose: 40 mg Documented By: ADDIE Ceftriaxone Sodium 2 gm/ (Sodium Chloride) 50 mls @ 100 mls/hr IV Q24H [facility] Last Infusion: 06/28/25 10:01 Dose: Infused Documented By: DESI Levalbuterol HCl (Levalbuterol Hcl 1.25 Mg/3 Ml Vial.Neb) 1.25 mg INHALE Q4H PRN PRN Reason: Shortness of Breath/Wheezing Magnesium Oxide (Magnesium Oxide 400 Mg Tablet) 400 mg PO DAILY [facility] Last Admin: 06/29/25 07:54 Dose: 400 mg Documented By: ADDIE Methadone HCl (Methadone Hcl 20 Mg/2 Ml Oral.Conc) 190 mg PO DAILY@0800 [facility] Last Admin: 06/29/25 07:39 Dose: 190 mg Documented By: ADDIE Co-signed By: SHO Metoprolol Succinate (Metoprolol Succinate Er 50 Mg Tab.Er.24h) 50 mg PO DAILY [facility]; Protocol Last Admin: 06/29/25 07:56 Dose: 50 mg Documented By: ADDIE Nystatin (Nystatin Powder 15 Gm Bottle) 1 appl TOPICAL BID [facility]; Protocol Last Admin: 06/29/25 07:59 Dose: 1 appl Documented By: ADDIE Omeprazole (Omeprazole 20 Mg Capsule.Dr) 20 mg PO DAILY@0630 [facility] Last Admin: 06/29/25 06:12 Dose: 20 mg Documented By: EDEN Polyethylene Glycol (Polyethylene Glycol 3350 17 Gm Powd.Pack) 17 gm PO DAILY PRN PRN Reason: Constipation Last Admin: 06/21/25 17:27 Dose: 17 gm Documented By: ADDIE Quetiapine Fumarate (Quetiapine Fumarate 200 Mg Tablet) 200 mg PO BEDTIME [facility] Last Admin: 06/28/25 21:05 Dose: 200 mg Documented By: EDEN Quetiapine Fumarate (Quetiapine Fumarate 50 Mg Tablet) 50 mg PO BID@0800,1400 [facility] Last Admin: 06/29/25 07:56 Dose: 50 mg Documented By: ADDIE Sodium Chloride (0.9 % Sodium Chloride Flush 3 Ml Syringe) 3 ml IVFLUSH QSHIFT [facility] Last Admin: 06/29/25 07:58 Dose: 3 ml Documented By: ADDIE Labs 06/29/25 06:45 06/29/25 06:45 Labs: Laboratory Results - last 24 hr 06/28/25 06/28/25 06/29/25 11:19 18:01 00:13 MCV MCH MCHC RDW Plt Count MPV Absolute Nucleated RBC Nucleated RBC % (auto) Anion Gap Estim Creat Clear Calc Estimated GFR POC Glucose 144 H 152 H 104 Random Glucose Calcium Magnesium 06/29/25 06/29/25 06:45 06:50 MCV 85.3 MCH 27.3 MCHC 32.0 RDW 16.3 H Plt Count 426 H D MPV 10.9 Absolute Nucleated RBC 0.000 Nucleated RBC % (auto) 0.0 Anion Gap 19 Estim Creat Clear Calc 150.5 Estimated GFR > 60 POC Glucose 133 H Random Glucose 131 H Calcium 9.6 Magnesium 2.1 Assessment and Plan (1) Pneumonia: Status: Acute Plan 45M PMH alcohol dependence, hepatitis-C, polysubstance dependence, hypertension, depression, chronic systolic CHF due to alcoholic cardiomyopathy, hyperlipidemia admitted 06/14/2025 with fever and cough was placed on high-flow oxygen in the ED due to risk of decompensation was admitted to the intensive care unit, patient required intubation on 06/15/2025, blood cultures positive for Streptococcus pneumoniae, treated with ceftriaxone, eventually extubated 06/26/2025 and downgraded to medical floor 06/27/2025. Severe sepsis and acute hypoxic respiratory failure due to pneumococcal bacteremia and pneumonia Continue ceftriaxone, now requiring 3 L oxygen to saturate low 90s, continue to wean, became tachycardic and tachypneic deciding to 90% on room air today Speech therapy recommending ndd2 solids and thin liquids PT Alcohol dependence and polysubstance dependence No signs of withdrawal, continue methadone CHF with recovered EF with history of alcoholic cardiomyopathy Repeat echo showed EF of 55-60% Mood disorder Seroquel, BuSpar, Elavil DVT prophylaxis-Lovenox Full code reason for continued hospitalization: Weaning O2, PT eval Quality Stroke Does the patient have a stroke diagnosis?: No VTE Prior VTE?: No VTE Risk Level:: Medical - moderate - high VTE Device Contraindication: N/A - Device Ordered VTE Drug Contraindication: N/A - Med Ordered
--- NOTE | 2025-06-29 10:17 | P.DS_ITS ---
DS: Providers Provider Date of Service: 06/29/25 Date of admission: 06/14/25 16:18 Date of discharge: 06/29/25 Primary care physician: Meghana Junior NP DS: Diagnosis Discharge Diagnosis (1) Pneumonia: Status: Acute DS: Summary Hospital Course Hospital Course: from initial hpi: 45-year-old male with underlying history of alcohol abuse, hepatitis- C, polysubstance abuse, hypertension, depression, systolic CHF, alcoholic cardiomyopathy, asthma, methadone dependence , hyperlipidemia .? Presented to emergency room with complaints of having a fever, he was transported via EMS.? The patient reported feeling unwell after drinking about a L of hard liquor last night followed by ingestion of listerine today.? The patient's reported he has had a cough for several days and did not look well.? The patient has had some vomiting.? On arrival to the emergency room he was noted to be tachycardic, hypoxic with O2 sat of 83% on 100% non-rebreather mask.? His workup showed white count 5.9, H and H of 9.9 and 30.0 respectively, platelets 183, 19% band neutrophils.? ABG showed PO2 of 70 otherwise normal.? No electrolyte abnormalities.? Lactic acid was 5.0 and subsequently came down to 2.9 and 1.9.? Albumin 3.4.? Chest x-ray showed right lower lobe pneumonia. The patient had received 1 L of IV fluid and was started on broad-spectrum antibiotics including vancomycin and Zosyn.? The patient had been placed on high-flow and given the possibility of decompensation both from the respiratory standpoint as well as his alcohol withdrawal risk the patient was admitted to the ICU for further care. hospital course: Patient was admitted for severe sepsis and acute hypoxic respiratory failure due to pneumonia from Streptococcus pneumonia complicated by bacteremia. He was admitted to the intensive care unit treated with ceftriaxone. On 06/15/2025 required intubation. He was eventually extubated on 06/26/2025 and downgraded to medical floor on 06/27/2025. Was able to be weaned down to 3 L, sepsis resolved mental status returned to baseline. Due to ICU myopathy was seen by physical therapy who recommended acute rehab to which patient will be discharge. On discharge he will continue 1 more week of p.o. Amoxil. For alcohol dependence and polysubstance dependence he had no signs of withdrawal and was continued on methadone. For history of CHF due to alcoholic cardiomyopathy was noted to have recovered ejection fraction with an EF of 55-60%. For mood disorder was continued on Seroquel, BuSpar, Elavil. Time Attestation Discharge Coordination Time (in mins): 37 Quality: Safe Use of Opioids Does Pt have an Active Cancer Diagnosis on the Problem List?: No Quality: Stroke Does the patient have a stroke diagnosis?: No Physical Exam Exam: Exam: General: AO X 3, no acute distress Resp: Crackles bilateral, no accessory muscles used CVS: S1,S2,RRR GI: soft, non tender, non distended Neuro: motor grossly weak, alert Vital Signs: Vital Signs: Last Vital Signs Temp 98.0 F 06/29/25 07:42 Pulse 156 H 06/29/25 08:16 Resp 18 06/29/25 07:47 BP 137/65 06/29/25 07:42 Pulse Ox 90 L 06/29/25 08:16 O2 Del Method Nasal Cannula 06/29/25 07:42 O2 Flow Rate 2 06/29/25 07:42 FiO2 60 06/26/25 15:00 BMI result Body Mass Index 27.7 DS: Data Data Completed and Pending Completed studies during hospitalization [Text1]: Procedures Detoxification Services for Substance Abuse Treatment (02/21/25) Labs on day of discharge: Laboratory Results - last 24 hr 06/28/25 06/28/25 06/29/25 11:19 18:01 00:13 WBC RBC Hgb Hct MCV MCH MCHC RDW Plt Count MPV Absolute Nucleated RBC Nucleated RBC % (auto) Sodium Potassium Chloride Carbon Dioxide Anion Gap BUN Creatinine Estim Creat Clear Calc Estimated GFR POC Glucose 144 H 152 H 104 Random Glucose Calcium Magnesium 06/29/25 06/29/25 06:45 06:50 WBC 6.4 RBC 4.00 L Hgb 10.9 L Hct 34.1 L MCV 85.3 MCH 27.3 MCHC 32.0 RDW 16.3 H Plt Count 426 H D MPV 10.9 Absolute Nucleated RBC 0.000 Nucleated RBC % (auto) 0.0 Sodium 135 Potassium 3.5 Chloride 100 Carbon Dioxide 20 L Anion Gap 19 BUN 23 H Creatinine 0.67 Estim Creat Clear Calc 150.5 Estimated GFR > 60 POC Glucose 133 H Random Glucose 131 H Calcium 9.6 Magnesium 2.1 Discharge Plan Discharge Anticipated Discharge Date/Time: 06/29/25 10:12 Patient Disposition: Xfer Acute Care Hospital Discharge Diagnosis: pneumococcal bacteremia Referrals: Meghana Junior NP [Primary Care Provider, Primary Care] - 1 Week Discharge Medications: New amoxicillin 875 mg tablet 875 mg PO BID Qty: 14 0RF Continued cyclobenzaprine 5 mg tablet 5 mg PO TID PRN (Reason: Pain) Qty: 60 0RF quetiapine 50 mg tablet 50 mg PO BID@0800,1400 90 Days Qty: 180 0RF quetiapine 100 mg tablet 200 mg PO BEDTIME 90 Days Qty: 180 0RF calcium carbonate-vitamin D3 600 mg-10 mcg (400 unit) tablet 1 tab PO DAILY methadone 10 mg/mL Concentrate 190 mg PO DAILY furosemide [Lasix] 40 mg tablet 40 mg PO DAILY Qty: 90 0RF clonidine HCl 0.1 mg tablet 0.1 mg PO TID PRN (Reason: for anxiety) Qty: 90 0RF metoprolol succinate 50 mg tablet extended release 24 hr 50 mg PO DAILY Qty: 90 0RF hydroxyzine pamoate 50 mg capsule 50 mg PO TID Qty: 270 0RF aspirin [Adult Aspirin Regimen] 81 mg tablet,delayed release (DR/EC) 81 mg PO DAILY Qty: 90 0RF magnesium oxide 400 mg (241.3 mg magnesium) tablet 400 mg PO DAILY 90 Days Qty: 90 0RF buspirone 30 mg tablet 30 mg PO BID Qty: 180 0RF albuterol sulfate 90 mcg/actuation HFA aerosol inhaler 2 inh inhalation Q4H PRN (Reason: shortness of breath or wheezing) Qty: 8.5 3RF amitriptyline 100 mg tablet 100 mg PO BEDTIME Qty: 90 0RF chlorpromazine 50 mg tablet 50 mg PO BID Qty: 180 0RF omeprazole 20 mg capsule,delayed release(DR/EC) 20 mg PO DAILY@0630 Discontinued potassium chloride 10 mEq tablet,ER particles/crystals 10 meq PO DAILY Qty: 90 0RF Diet: Advance to usual diet Activity on Discharge: As tolerated Stand Alone Forms: Patient Portal Discharge page Print Language: Pakistani Care Plan Goals: recovery Health Concerns: pneumonia Plan of Treatment: 7 more days amoxil Assessment: see above
[2025-06-29 11:47] LABS: Glucose, Whole Blood 146 mg/dL (60-115)
--- NOTE | 2025-06-29 12:25 | MHC.CLN ---
F/U PT EXTUBATED AND TRANSFERRED TO MEDICAL FLOOR PO INTAKE 100% X1 MEAL DIET RX: GRD M/S MONITOR PO INTAKE RD TO FOLLOW WEEKLY
--- NOTE | 2025-06-29 15:12 | MHC.CM.PN ---
PT MEDICALLY CLEARED, ACUTE REHAB BEING RECOMMENDED, [facility] OFFERING PENDING AUTH, HOWEVER WILL NEED AN OT EVAL MD WILL ORDER OT EVAL, PT LIKELY TO DC TOMORROW
--- NOTE | 2025-06-29 15:55 | MHC.SL.SWA ---
Speech Pathologist Impression: Mild oropharyngeal dysphagia Risk of Aspiration Due to: current dentition status, prolonged intubation Dysphasia Diet Status: Recommend UPGRADE to NDD3 (chopped/advanced), Thin liquids Liquid Consistency and Strategies for Safe Swallow: Liquid Intake Recommendation: Thin Liquid Intake Strategies: Unrestricted Solid Food Consistency: Dietary Recommendations: Chopped/Advanced (NDD3) Additional Modifications to Solid Foods: Oral Medication Intake: Whole with Liquid Please contact the pharmacy regarding appropriate crushable or liquid drug formulations that are available whenever modified delivery is recommended. Compensatory Strategies and Precautions to be Taken for Safe Swallow: Sitting Upright (90 deg) Small Bites and Sips Alternate Liquids/Solids Rate of Ingestion Change Supervision While Eating and Drinking for Safe Swallow: Intermittent Supervision Foods to Avoid: [place] hard to chew foods Swallowing Recommended Treatments: Compens. Strategy Educat. Recommendation for Speech: Further Testing Needed Inpatient Speech Therapy Comment: Patient met in room for dysphagia tx. Patient given trial of PBJ sandwich and saltines. Patient with missing upper denture for ~2 weeks. Patient reports that is able to chew more than what has been given to him during meals. Patient educated of reasons for modifications and showed understanding. Patient feeding self this date with no difficulties noted. Patient taking multiple small bites of sandwich requiring cues to modify self-feeding rate. Patient with occasional prolonged mastication, yet adequate cohesion and clearance for advanced solids. Patient with no s/sx of penetration/aspiration. Recommend UPGRADE to NDD3, Thin Liquids with intermittent supervision to provide cues if needed. Encourage patient to select softer solids for meals. Patient and family (mother coming into room during tx) in agreement with POC. RN notified of diet recommendations in-person. This OCCASIONAL BABYSITTER changing diet order in expanse. Frequency/Duration: M-F daily Date Range for Service Req: Timeline to reassess: Stone Rigger Clinican/Clinical Fellow: No Supervisory Statement: I have reviewed and agree with the student/clinical fellow's documentation: N/A Speech Language Pathologist: Meeta Alvarado M.A., CCC-OCCASIONAL BABYSITTER
[2025-06-29 18:17] LABS: Glucose, Whole Blood 147 mg/dL (60-115)
[2025-06-30] VITALS (10 sets, daily range): BP systolic 124–131; BP diastolic 65–85; PULSE 104–130; RESP 16–20; TEMP 36.2–37.2; O2SAT 91–98
[2025-06-30 00:43] LABS: Glucose, Whole Blood 151 mg/dL (60-115)
[2025-06-30] MEDS: methADONE HCl 20 MG/2 ML ORAL.CONC 190 MG PO (07:22)
[2025-06-30] MEDS: Albuterol/Iprat 2.5/0.5MG 3 ML AMPUL.NEB INHALE (07:45)
[2025-06-30] MEDS: Metoprolol Succinate ER 50 MG TAB.ER.24H PO (08:19)
[2025-06-30] MEDS: Calcium + Vitamin D 250 MG TABLET 500 MG PO (08:19)
[2025-06-30] MEDS: 0.9 % Sodium Chloride Flush 3 ML SYRINGE IVFLUSH ×3 (08:20→20:56)
[2025-06-30] MEDS: Lactated Ringers 1,000 ML 999 ML IV (11:09)
--- NOTE | 2025-06-30 11:22 | HO.PM.IMPN ---
Subjective Subjective Date of Service: 06/30/25 Interval History: feeling better Physical Exam Exam: Exam: General: AO X 3, no acute distress Resp: Crackles bilateral, no accessory muscles used CVS: S1,S2,Rapid regular GI: soft, non tender, non distended Neuro: motor grossly weak, alert Vital Signs: Vital Signs: Last Vital Signs Temp 97.6 F 06/30/25 07:16 Pulse 117 H 06/30/25 08:19 Resp 18 06/30/25 07:46 BP 127/82 06/30/25 08:19 Pulse Ox 96 06/30/25 07:16 O2 Del Method Room Air 06/30/25 07:16 O2 Flow Rate 2 06/29/25 07:42 FiO2 60 06/26/25 15:00 BMI result Body Mass Index 27.7 Objective Data Active Medications Amitriptyline HCl (Amitriptyline Hcl 50 Mg Tablet) 100 mg PO BEDTIME [facility] Last Admin: 06/29/25 20:23 Dose: 100 mg Documented By: SANDRA Buspirone HCl (Buspirone Hcl 10 Mg Tablet) 30 mg PO BID [facility] Last Admin: 06/30/25 08:20 Dose: 30 mg Documented By: JENNIFER Calcium Carbonate/Cholecalciferol (Calcium + Vitamin D 250 Mg Tablet) 500 mg PO DAILY [facility] Last Admin: 06/30/25 08:19 Dose: 500 mg Documented By: JENNIFER Chlorpromazine HCl (Chlorpromazine Hcl 25 Mg Tablet) 50 mg PO BID [facility] Last Admin: 06/30/25 08:19 Dose: 50 mg Documented By: JENNIFER Clonidine HCl (Clonidine Hcl 0.1 Mg Tablet) 0.1 mg PO TID PRN; Protocol PRN Reason: for anxiety Last Admin: 06/29/25 20:24 Dose: 0.1 mg Documented By: SANDRA Enoxaparin Sodium (Enoxaparin Sodium 40 Mg/0.4 Ml Syringe) 40 mg SUBCUT Q24H [facility] Last Admin: 06/29/25 17:22 Dose: 40 mg Documented By: SANDRA Furosemide (Furosemide 40 Mg Tablet) 40 mg PO DAILY [facility]; Protocol Last Admin: 06/30/25 08:19 Dose: 40 mg Documented By: JENNIFER Ceftriaxone Sodium 2 gm/ (Sodium Chloride) 50 mls @ 100 mls/hr IV Q24H [facility] Last Infusion: 06/30/25 08:50 Dose: Infused Documented By: JENNIFER Lactated Ringer's (Lr) 1,000 mls @ 999 mls/hr IV .Q1H1M [facility] Stop: 06/30/25 12:00 Last Admin: 06/30/25 11:09 Dose: 999 mls/hr Documented By: JENNIFER Magnesium Oxide (Magnesium Oxide 400 Mg Tablet) 400 mg PO DAILY [facility] Last Admin: 06/30/25 08:19 Dose: 400 mg Documented By: JENNIFER Methadone HCl (Methadone Hcl 20 Mg/2 Ml Oral.Conc) 190 mg PO DAILY@0800 [facility] Last Admin: 06/30/25 07:22 Dose: 190 mg Documented By: MAKAYLA Co-signed By: ADAIR Metoprolol Succinate (Metoprolol Succinate Er 50 Mg Tab.Er.24h) 50 mg PO DAILY [facility]; Protocol Last Admin: 06/30/25 08:19 Dose: 50 mg Documented By: JENNIFER Nystatin (Nystatin Powder 15 Gm Bottle) 1 appl TOPICAL BID [facility]; Protocol Last Admin: 06/30/25 08:21 Dose: 1 appl Documented By: JENNIFER Omeprazole (Omeprazole 20 Mg Capsule.Dr) 20 mg PO DAILY@0630 [facility] Last Admin: 06/30/25 05:51 Dose: 20 mg Documented By: MAKAYLA Polyethylene Glycol (Polyethylene Glycol 3350 17 Gm Powd.Pack) 17 gm PO DAILY PRN PRN Reason: Constipation Last Admin: 06/21/25 17:27 Dose: 17 gm Documented By: ADDIE Quetiapine Fumarate (Quetiapine Fumarate 200 Mg Tablet) 200 mg PO BEDTIME [facility] Last Admin: 06/29/25 20:24 Dose: 200 mg Documented By: SANDRA Quetiapine Fumarate (Quetiapine Fumarate 50 Mg Tablet) 50 mg PO BID@0800,1400 [facility] Last Admin: 06/30/25 07:23 Dose: 50 mg Documented By: MAKAYLA Sodium Chloride (0.9 % Sodium Chloride Flush 3 Ml Syringe) 3 ml IVFLUSH QSHIFT [facility] Last Admin: 06/30/25 08:20 Dose: 3 ml Documented By: JENNIFRE Labs 06/29/25 06:45 06/29/25 06:45 Labs: Laboratory Results - last 24 hr 06/29/25 06/29/25 06/30/25 11:42 18:14 00:12 POC Glucose 146 H 147 H 151 H Assessment and Plan (1) Pneumonia: Status: Acute Plan 45M PMH alcohol dependence, hepatitis-C, polysubstance dependence, hypertension, depression, chronic systolic CHF due to alcoholic cardiomyopathy, hyperlipidemia admitted 06/14/2025 with fever and cough was placed on high-flow oxygen in the ED due to risk of decompensation was admitted to the intensive care unit, patient required intubation on 06/15/2025, blood cultures positive for Streptococcus pneumoniae, treated with ceftriaxone, eventually extubated 06/26/2025 and downgraded to medical floor 06/27/2025. Severe sepsis and acute hypoxic respiratory failure due to pneumococcal bacteremia and pneumonia Continue ceftriaxone, 7 more days amoxil on discharge, now on room air Speech therapy recommending ndd2 solids and thin liquids PT recommending acute rehab sinus tachycardia tsh wnl, mag wnl, check CTA will give 1L LR cardio eval Alcohol dependence and polysubstance dependence No signs of withdrawal, continue methadone CHF with recovered EF with history of alcoholic cardiomyopathy Repeat echo showed EF of 55-60% Mood disorder Seroquel, BuSpar, Elavil DVT prophylaxis-Lovenox Full code reason for continued hospitalization: sinus tach Quality Stroke Does the patient have a stroke diagnosis?: No VTE Prior VTE?: No VTE Risk Level:: Medical - moderate - high VTE Device Contraindication: N/A - Device Ordered VTE Drug Contraindication: N/A - Med Ordered
--- NOTE | 2025-06-30 15:27 | MHC.SL.SWA ---
Speech Pathologist Impression: Mild oropharyngeal dysphagia Risk of Aspiration Due to: Dentition status, prolonged intubation Dysphasia Diet Status: Recommend CONTINUE with current diet of NDD3, Thin liquids Liquid Consistency and Strategies for Safe Swallow: Liquid Intake Recommendation: Thin Liquid Intake Strategies: Unrestricted Solid Food Consistency: Dietary Recommendations: Chopped/Advanced (NDD3) Additional Modifications to Solid Foods: Oral Medication Intake: Whole with Liquid Please contact the pharmacy regarding appropriate crushable or liquid drug formulations that are available whenever modified delivery is recommended. Compensatory Strategies and Precautions to be Taken for Safe Swallow: Sitting Upright (90 deg) Small Bites and Sips Alternate Liquids/Solids Rate of Ingestion Change Supervision While Eating and Drinking for Safe Swallow: Intermittent Supervision Foods to Avoid: [place] hard to chew foods Swallowing Recommended Treatments: Compens. Strategy Educat. Recommendation for Speech: Inpatient Speech Therapy Comment: Patient met in room during lunch for dysphagia tx. Patient seen with lunch of NDD3 solids, thin liquids. Patient reporting happiness of current diet consistencies vs previous of NDD2. Patient reporting no difficulties with mastication; no upper denture present, patient hoping he just misplaced them at home. Patient with timely mastication, adequate cohesion and clearance. Patient with cough x1 on initial straw sip, no other overt s/sx of penetration/aspiration. Patient educated on use of compensatory strategies and to take smaller sips with straw as straws increase amount of liquids taken and rate of liquids taken. Patient requiring some set-up assistance this date d/t UE shakiness. Recommend CONTINUE with current diet of NDD3, Thin liquids with tray set-up and intermittent supervision to ensure safety. Patient reports going to rehab after discharge; recommend continuing [employer] after this level of care. [employer] to continue to follow. Frequency/Duration: Date Range for Service Req: Timeline to reassess: Water Softener Servicer Clinican/Clinical Fellow: No Supervisory Statement: I have reviewed and agree with the student/clinical fellow's documentation: N/A Speech Language Pathologist: Meeta Alvarado M.A., [facility]-[employer]
[2025-06-30] MEDS: iohexoL 350 MG/ML 100 ML INFUS..BTL 65 ML IV (21:21)
[2025-07-01 03:01] VITALS: BP 123/70; PULSE 103; RESP 16; TEMP 37.7; O2SAT 94
[2025-07-01] MEDS: Metoprolol Succinate ER 50 MG TAB.ER.24H PO (07:29)
[2025-07-01] MEDS: Calcium + Vitamin D 250 MG TABLET 500 MG PO (07:29)
[2025-07-01 07:32] LABS: Hematocrit 30.9 % (42.0-52.0); Hemoglobin 9.8 g/dl (14.0-18.0); Mean Corpuscular HGB Conc 31.7 g/dl (31.0-36.0); Mean Corpuscular Hemoglobin 27.2 pg (27.0-33.0); Mean Corpuscular Volume 85.8 fL (80.0-98.0); NRBC Abs Auto 0.000 X10*3/uL (0.0-0.012); NRBC Pct Auto 0.0 /100WBC (0.0-0.2); Platelet Count 450 X10*3/uL (160-400); Red Blood Count 3.60 X10*6/uL (4.60-5.80); White Blood Count 7.4 X10*3/uL (4.8-10.8)
[2025-07-01] MEDS: methADONE HCl 20 MG/2 ML ORAL.CONC 190 MG PO (07:34)
[2025-07-01] MEDS: 0.9 % Sodium Chloride Flush 3 ML SYRINGE IVFLUSH (07:36)
[2025-07-01 07:49] LABS: Anion Gap 16 (12-20); Blood Urea Nitrogen 11 mg/dL (9-16); Calcium 9.4 mg/dL (8.4-10.2); Carbon Dioxide 22 mmol/L (22-29); Chloride 102 mmol/L (96-108); Creatinine Clr Calc Pharmacy 166.1; Estimated Glomerular Filt Rate > 60; Magnesium 1.9 mg/dL (1.6-2.6); Potassium 3.5 mmol/L (3.3-5.1); Sodium 136 mmol/L (135-145)
[2025-07-01 07:54] VITALS: BP 131/82; PULSE 113; RESP 17; TEMP 36.7; O2SAT 92
--- NOTE | 2025-07-01 10:02 | P.CONCA_ITS ---
History of Present Illness History of Present Illness Date of Service: 07/01/25 Requesting physician: Luis Rodriguez Consult reason: other (Sinus tachycardia) Chief complaint: Pneumonia Narrative: I was consulted to see Ole in cardiology consultation today for persistent sinus tachycardia with heart rate up to 140. He is not able to be discharged to retirement facility because of the same. Patient since then has received about a L of normal saline and has been improving with his heart rate. Patient had a very prolonged hospitalization and admission to ICU with acute respiratory failure with hypoxemia due to ARDS related to pneumonia. Patient carries a prior diagnose of alcoholic cardiomyopathy although echo done during this hospitalization shows normal EF. Patient has PTSD and significant anxiety disorder. Patient also has significant alcohol use and tobacco use disorder. Prior history of hypertension. Patient feels anxious currently. His heart rate has settled down from 140 to 103-110 sinus tachycardia. Yesterday on CT scan of chest was done without any evidence of pulmonary embolism. Cardiology consult was sought because of sinus tachycardia. Denies any fast heart rate or palpitations or chest pain. Review of Systems 2 Constitutional: Constitutional: Reports other (Anxiety) Eyes: Eyes: Reports no additional eye complaints Cardiovascular: Cardiovascular: Reports no additional cardiovascular complaints Respiratory: Respiratory: Reports no additional respiratory complaints Gastrointestinal: Gastrointestinal: Reports no additional gastrointestinal complaints Genitourinary: Genitourinary: Reports no additional male genitourinary complaints Musculoskeletal: Musculoskeletal: Reports no additional musculoskeletal complaints Integumentary/Breasts: Skin/Breast: Reports system reviewed and no additional complaints, except as docu Neurologic: Reports system reviewed and no additional complaints, except as documented PMFSH Past Medical History Medical History Abnormal chest x-ray Dry mouth Alcoholic cardiomyopathy Systolic heart failure Rash of neck Portal hypertension Hepatic steatosis Chest pain Mixed hyperlipidemia Asthma Tobacco use disorder Essential hypertension Atrial fibrillation Depression Anxiety Hepatitis C infection Methadone dependence History of syphilis Polysubstance abuse Alcohol dependence Alcohol abuse Opiate use No known health problems Surgical History Surgical History History of back surgery Social History Social History Household Members: Unknown / Unable to assess Housing: Unknown / Unable to assess Do you presently have visiting nurse or other home services: No Alcohol intake: current Alcohol intake frequency: 3 or more drinks per day Alcohol type: beer and hard liquor Patient Tobacco Use Status: Tobacco use Unknown Tobacco use type: Cigarette Cigarette Packs Per Day: 1 Cigarettes Per Day: 20.0 e-Cigarette/Vaping Use: Never Used Second Hand Smoke Exposure: Yes Substance Use Type: Crack/Cocaine and Opiates Currently Displaying Signs/Symptoms of Drug Intoxication Withdrawal: No Advance Directives: No Advance Directives Information Provided: No Do you have a plan to hurt others: No Plan service: No Current occupational status: unemployed Current occupational exposures/hazards: No Cognitive needs: Yes (adhd) Hearing needs: No Vision needs: No Meds Allergies Allergy/AdvReac Type Severity Reaction Status Date / Time Fish Containing Products Allergy Unknown UNKNOWN Verified 06/14/25 14:19 Active Medications: Current Medications Amitriptyline HCl (Amitriptyline Hcl 50 Mg Tablet) 100 mg PO BEDTIME [facility] Last Admin: 06/30/25 20:53 Dose: 100 mg Buspirone HCl (Buspirone Hcl 10 Mg Tablet) 30 mg PO BID JEAN Last Admin: 07/01/25 07:29 Dose: 30 mg Calcium Carbonate/Cholecalciferol (Calcium + Vitamin D 250 Mg Tablet) 500 mg PO DAILY [facility] Last Admin: 07/01/25 07:29 Dose: 500 mg Chlorpromazine HCl (Chlorpromazine Hcl 25 Mg Tablet) 50 mg PO BID [facility] Last Admin: 07/01/25 07:28 Dose: 50 mg Clonidine HCl (Clonidine Hcl 0.1 Mg Tablet) 0.1 mg PO TID PRN; Protocol PRN Reason: for anxiety Last Admin: 06/29/25 20:24 Dose: 0.1 mg Enoxaparin Sodium (Enoxaparin Sodium 40 Mg/0.4 Ml Syringe) 40 mg SUBCUT Q24H [facility] Last Admin: 06/30/25 15:30 Dose: 40 mg Furosemide (Furosemide 40 Mg Tablet) 40 mg PO DAILY [facility]; Protocol Last Admin: 07/01/25 07:29 Dose: 40 mg Ceftriaxone Sodium 2 gm/ (Sodium Chloride) 50 mls @ 100 mls/hr IV Q24H [facility] Last Infusion: 07/01/25 08:00 Dose: Infused Magnesium Oxide (Magnesium Oxide 400 Mg Tablet) 400 mg PO DAILY [facility] Last Admin: 07/01/25 07:29 Dose: 400 mg Methadone HCl (Methadone Hcl 20 Mg/2 Ml Oral.Conc) 190 mg PO DAILY@0800 [facility] Last Admin: 07/01/25 07:34 Dose: 190 mg Metoprolol Succinate (Metoprolol Succinate Er 50 Mg Tab.Er.24h) 50 mg PO DAILY [facility]; Protocol Last Admin: 07/01/25 07:29 Dose: 50 mg Nystatin (Nystatin Powder 15 Gm Bottle) 1 appl TOPICAL BID [facility]; Protocol Last Admin: 07/01/25 07:41 Dose: 1 appl Omeprazole (Omeprazole 20 Mg Capsule.Dr) 20 mg PO DAILY@0630 [facility] Last Admin: 07/01/25 06:17 Dose: 20 mg Polyethylene Glycol (Polyethylene Glycol 3350 17 Gm Powd.Pack) 17 gm PO DAILY PRN PRN Reason: Constipation Last Admin: 06/21/25 17:27 Dose: 17 gm Quetiapine Fumarate (Quetiapine Fumarate 200 Mg Tablet) 200 mg PO BEDTIME [facility] Last Admin: 06/30/25 20:53 Dose: 200 mg Quetiapine Fumarate (Quetiapine Fumarate 50 Mg Tablet) 50 mg PO BID@0800,1400 [facility] Last Admin: 07/01/25 07:29 Dose: 50 mg Sodium Chloride (0.9 % Sodium Chloride Flush 3 Ml Syringe) 3 ml IVFLUSH QSHIFT [facility] Last Admin: 07/01/25 07:36 Dose: 3 ml Home Medications ?Medication ?Instructions ?Recorded ?Confirmed ?Last Taken ?Type calcium 600 mg (as 1 tab PO DAILY 02/21/25 1002/1102/20/25 History carbonate)-vitamin D3 10 mcg (400 unit) tablet methadone 10 mg/mL oral concentrate 190 mg PO DAILY 06/20/25 06/14/25 07:00 History omeprazole 20 mg capsule,delayed 20 mg PO DAILY@0630 1 06/14/25 Unknown History release Physical Exam 2 Vital Signs: Vital Signs: Last Vital Signs Temp 98.1 F 07/01/25 07:54 Pulse 113 H 07/01/25 07:54 Resp 17 07/01/25 07:54 BP 131/82 07/01/25 07:54 Pulse Ox 92 07/01/25 07:54 O2 Del Method Room Air 07/01/25 07:54 O2 Flow Rate 2 06/29/25 07:42 FiO2 60 06/26/25 15:00 BMI result Body Mass Index 30.0 Const: General: cooperative, comfortable, no acute distress, alert, awake and anxious Nutritional Appearance: overweight Orientation/consciousness: p atient oriented x3 HEENT: Head: Yes normocephalic and Yes atraumatic Neck: Neck: Yes trachea midline and Yes no JVD Resp: Effort & Inspection: normal respiratory effort Auscultation: clear to auscultation bilaterally and diminished lung sounds Cardio: Jugular venous distension: no JVD Rate: tachycardic Rhythm: r egular rhythm Heart sounds: S1 normal heart sound present, S2 normal heart sound present, no click, no gallops and no murmurs GI: Auscultation: normal bowel sounds Skin: General skin exam: no rashes or lesions noted Neuro: General: patient oriented x3 and no focal motor deficits Extrem: General: Yes no clubbing, cyanosis or edema Objective Labs and Meds 07/01/25 06:41 07/01/25 06:41 Lab results: Laboratory Results - last 24 hr 07/01/25 06:41 WBC 7.4 RBC 3.60 L Hgb 9.8 L Hct 30.9 L MCV 85.8 MCH 27.2 MCHC 31.7 RDW 15.9 Plt Count 450 H MPV 9.3 L Absolute Nucleated RBC 0.000 Nucleated RBC % (auto) 0.0 Sodium 136 Potassium 3.5 Chloride 102 Carbon Dioxide 22 Anion Gap 16 BUN 11 Creatinine 0.63 Estim Creat Clear Calc 166.1 Estimated GFR > 60 Random Glucose 109 Calcium 9.4 Magnesium 1.9 Imaging Radiologist's impression: Impressions Chest CTA 06/30/25 21:16 IMPRESSION: No evidence of PE. No evidence of aneurysm or dissection. Right upper and lower lobe infiltrate/atelectasis. Platelike atelectasis in the lingula and left lower lobe. Fleischner guidelines were followed. Electronically signed by: Zac Fonseca MD 07/01/2025 07:19 AM [facility] [place] and Plan (1) Sinus tachycardia: Status: Acute Sinus tachycardia which appears to be multifactorial most likely also driven by his anxiety/probably some amount of withdrawal disorder as well as hypovolemia. His heart rate improved with IV fluid. Will give him another bolus of normal saline 1 L given his normal EF. That has no risk for heart failure. I would also given his central disposition for anxiety would benefit from clonidine therapy for short term at least for a month with 0.1 mg b.i.d. to reduce his central adrenergic output. Eventually plan should not be to keep him on clonidine director long term care. Can use metoprolol. Treatment of his anxiety was discussed. Also strongly discussed with him about avoiding alcohol and other substance use in the future including nicotine. He shows understanding. I think he will need support from that perspective. Advised him to push oral fluid intake. From cardiac perspective I will sign of the case. Patient can be discharged at this point time. Procedures Date of Service Date of Service: 07/01/25
[2025-07-01 11:40] VITALS: BP 112/73; PULSE 115; RESP 17; TEMP 36.8; O2SAT 95
--- NOTE | 2025-07-01 12:14 | MHC.SL.SWA ---
Speech Pathologist Impression: Mild Oral Phase Dysphagia d/t Minimal Dentition Dysphasia Diet Status: No Change, Allow Sandwiches on NDD3 Diet Liquid Consistency and Strategies for Safe Swallow: Liquid Intake Recommendation: Thin Liquid Intake Strategies: Unrestricted Solid Food Consistency: Dietary Recommendations: Chopped/Advanced (NDD3) Additional Modifications to Solid Foods: Allow soft sandwiches (i.e. pb&j, chicken salad, moistened turkey sandwich) from the kitchenette Oral Medication Intake: Whole with Liquid Please contact the pharmacy regarding appropriate crushable or liquid drug formulations that are available whenever modified delivery is recommended. Compensatory Strategies and Precautions to be Taken for Safe Swallow: Sitting Upright (90 deg) Small Bites and Sips Alternate Liquids/Solids Rate of Ingestion Change Supervision While Eating and Drinking for Safe Swallow: Intermittent Supervision Foods to Avoid: [place] hard to chew foods Swallowing Recommended Treatments: Compens. Strategy Educat. Recommendation for Speech: Inpatient Speech Therapy Manufacture Specialist Clinican/Clinical Fellow: No Supervisory Statement: I have reviewed and agree with the student/clinical fellow's documentation: N/A Speech Language Pathologist: Taniya Rivas M.A., CCC-SCIENTIFIC EDITOR
--- NOTE | 2025-07-01 15:25 | MHC.CM.PN ---
Addendum entered by Socorro Paulson 07/01/25 15:44: Auth obtained, wants pt. to stay until tomorrow. Original Note: Pt. seen by cardiology today, note sent to [facility] per their request, they have submitted for auth, awaiting response.
[2025-07-01 15:57] VITALS: BP 118/72; PULSE 91; RESP 18; TEMP 36.6; O2SAT 92
--- NOTE | 2025-07-01 17:16 | P.PNIM_ITS ---
Subjective Subjective Date of Service: 07/01/25 Interval History: Tachycardic, generalized weak. Review of Systems Denies shortness of breath or chest pain Review of Systems: Yes all other systems are reviewed and are negative Physical Exam 2 Exam: Exam: General: AO X 3, no acute distress Resp: air entry dimished. CVS: S1,S2,Rapid regular GI: soft, non tender, non distended Neuro: motor grossly weak, alert Vital Signs: Vital Signs: Last Vital Signs Temp 97.8 F 07/01/25 15:57 Pulse 91 07/01/25 15:57 Resp 18 07/01/25 15:57 BP 118/72 07/01/25 15:57 Pulse Ox 92 07/01/25 15:57 O2 Del Method Room Air 07/01/25 15:57 O2 Flow Rate 2 06/29/25 07:42 FiO2 60 06/26/25 15:00 BMI result Body Mass Index 30.0 Objective Data Active Medications Amitriptyline HCl (Amitriptyline Hcl 50 Mg Tablet) 100 mg PO BEDTIME [facility] Last Admin: 06/30/25 20:53 Dose: 100 mg Documented By: MARLEN Buspirone HCl (Buspirone Hcl 10 Mg Tablet) 30 mg PO BID [facility] Last Admin: 07/01/25 07:29 Dose: 30 mg Documented By: JENNIFER Calcium Carbonate/Cholecalciferol (Calcium + Vitamin D 250 Mg Tablet) 500 mg PO DAILY [facility] Last Admin: 07/01/25 07:29 Dose: 500 mg Documented By: JENNIFER Chlorpromazine HCl (Chlorpromazine Hcl 25 Mg Tablet) 50 mg PO BID [facility] Last Admin: 07/01/25 07:28 Dose: 50 mg Documented By: JENNIFER Clonidine HCl (Clonidine Hcl 0.1 Mg Tablet) 0.1 mg PO BID [facility]; Protocol Enoxaparin Sodium (Enoxaparin Sodium 40 Mg/0.4 Ml Syringe) 40 mg SUBCUT Q24H [facility] Last Admin: 07/01/25 17:13 Dose: 40 mg Documented By: JENNIFER Furosemide (Furosemide 40 Mg Tablet) 40 mg PO DAILY [facility]; Protocol Last Admin: 07/01/25 07:29 Dose: 40 mg Documented By: JENNIFER Ceftriaxone Sodium 2 gm/ (Sodium Chloride) 50 mls @ 100 mls/hr IV Q24H [facility] Last Infusion: 07/01/25 08:00 Dose: Infused Documented By: JENNIFER Sodium Chloride (Ns) 1,000 mls @ 100 mls/hr IVCONT .Q10H [facility] Last Admin: 07/01/25 10:39 Dose: 100 mls/hr Documented By: JENNIEFR Magnesium Oxide (Magnesium Oxide 400 Mg Tablet) 400 mg PO DAILY [facility] Last Admin: 07/01/25 07:29 Dose: 400 mg Documented By: JENNIFER Methadone HCl (Methadone Hcl 20 Mg/2 Ml Oral.Conc) 190 mg PO DAILY@0800 [facility] Last Admin: 07/01/25 07:34 Dose: 190 mg Documented By: JENNIFER Co-signed By: DOBROB Metoprolol Succinate (Metoprolol Succinate Er 50 Mg Tab.Er.24h) 50 mg PO DAILY [facility]; Protocol Last Admin: 07/01/25 07:29 Dose: 50 mg Documented By: JENNIFER Nystatin (Nystatin Powder 15 Gm Bottle) 1 appl TOPICAL BID [facility]; Protocol Last Admin: 07/01/25 07:41 Dose: 1 appl Documented By: JENNIFER Omeprazole (Omeprazole 20 Mg Capsule.Dr) 20 mg PO DAILY@0630 [facility] Last Admin: 07/01/25 06:17 Dose: 20 mg Documented By: MARLEN Polyethylene Glycol (Polyethylene Glycol 3350 17 Gm Powd.Pack) 17 gm PO DAILY PRN PRN Reason: Constipation Last Admin: 06/21/25 17:27 Dose: 17 gm Documented By: ASHKANTC Quetiapine Fumarate (Quetiapine Fumarate 200 Mg Tablet) 200 mg PO BEDTIME [facility] Last Admin: 06/30/25 20:53 Dose: 200 mg Documented By: MARLEN Quetiapine Fumarate (Quetiapine Fumarate 50 Mg Tablet) 50 mg PO BID@0800,1400 [facility] Last Admin: 07/01/25 13:25 Dose: 50 mg Documented By: JENNIFER Sodium Chloride (0.9 % Sodium Chloride Flush 3 Ml Syringe) 3 ml IVFLUSH QSHIFT [facility] Last Admin: 07/01/25 17:13 Dose: Not Given Documented By: JENNIFER Non-Admin Reason: IV Running Labs 07/01/25 06:41 07/01/25 06:41 Labs: Laboratory Results - last 24 hr 07/01/25 06:41 MCV 85.8 MCH 27.2 MCHC 31.7 RDW 15.9 Plt Count 450 H MPV 9.3 L Absolute Nucleated RBC 0.000 Nucleated RBC % (auto) 0.0 Anion Gap 16 Estim Creat Clear Calc 166.1 Estimated GFR > 60 Random Glucose 109 Calcium 9.4 Magnesium 1.9 Assessment and Plan (1) Pneumonia: Status: Acute Plan 45M PMH alcohol dependence, hepatitis-C, polysubstance dependence, hypertension, depression, chronic systolic CHF due to alcoholic cardiomyopathy, hyperlipidemia admitted 06/14/2025 with fever and cough was placed on high-flow oxygen in the ED due to risk of decompensation was admitted to the intensive care unit, patient required intubation on 06/15/2025, blood cultures positive for Streptococcus pneumoniae, treated with ceftriaxone, eventually extubated 06/26/2025 and downgraded to medical floor 06/27/2025. Severe sepsis and acute hypoxic respiratory failure due to pneumococcal bacteremia and pneumonia Continue ceftriaxone, 7 more days amoxil on discharge, now on room air Speech therapy recommending ndd2 solids and thin liquids PT recommending acute rehab sinus tachycardia tsh wnl, mag wnl, check CTA cardio eval:added ivf and clonidine -for tachycardia/alcohol withdrawals. Alcohol dependence and polysubstance dependence No signs of withdrawal, continue methadone CHF with recovered EF with history of alcoholic cardiomyopathy Repeat echo showed EF of 55-60% Mood disorder Seroquel, BuSpar, Elavil DVT prophylaxis-Lovenox Full code reason for continued hospitalization: sinus tach,alcohol [facility] Quality Stroke Does the patient have a stroke diagnosis?: No VTE Prior VTE?: No VTE Risk Level:: Medical - moderate - high VTE Device Contraindication: N/A - Device Ordered VTE Drug Contraindication: N/A - Med Ordered
[2025-07-01 19:34] VITALS: BP 133/81; PULSE 100; RESP 16; TEMP 36.7; O2SAT 96
--- NOTE | 2025-07-01 20:55 | PC.NURSE ---
per previous nurse report, d/c fluids once current bag is complete
[2025-07-02] VITALS: BP 143/87; PULSE 87; RESP 18; TEMP 36.2; O2SAT 94
[2025-07-02 03:18] VITALS: BP 148/55; PULSE 88; RESP 18; TEMP 36.2; O2SAT 94
[2025-07-02 06:00] VITALS: BMI 30.1
[2025-07-02 07:03] VITALS: BP 128/71; PULSE 103; RESP 16; TEMP 36.9; O2SAT 94
[2025-07-02] MEDS: Metoprolol Succinate ER 50 MG TAB.ER.24H PO (08:46)
[2025-07-02] MEDS: Calcium + Vitamin D 250 MG TABLET 500 MG PO (08:47)
[2025-07-02] MEDS: methADONE HCl 20 MG/2 ML ORAL.CONC 190 MG PO (08:48)
[2025-07-02 11:30] VITALS: BP 136/78; PULSE 104; RESP 16; TEMP 36.4; O2SAT 96
--- NOTE | 2025-07-02 14:20 | MHC.SL.SWA ---
Speech Pathologist Impression: Risk of Aspiration Due to: Dysphasia Diet Status: Recommend continue on Chopped/Advanced, Thin liquids, pills whole with liquid, assistance with tray set up. Patient is allowed soft sandwiches. Liquid Consistency and Strategies for Safe Swallow: Liquid Intake Recommendation: Thin Liquid Intake Strategies: Unrestricted Solid Food Consistency: Dietary Recommendations: Chopped/Advanced (NDD3) Additional Modifications to Solid Foods: Soft sandwiches allowed. Oral Medication Intake: Whole with Liquid Please contact the pharmacy regarding appropriate crushable or liquid drug formulations that are available whenever modified delivery is recommended. Compensatory Strategies and Precautions to be Taken for Safe Swallow: Sitting Upright (90 deg) Small Bites and Sips Alternate Liquids/Solids Rate of Ingestion Change Supervision While Eating and Drinking for Safe Swallow: Tray Set Up Foods to Avoid: [place] hard to chew foods Swallowing Recommended Treatments: Compens. Strategy Educat. Recommendation for Speech: Further Testing Needed Inpatient Speech Therapy Comment: Patient seen by GROUNDWATER CONSULTANT at lunch for toleration of diet. Patient very pleasant and engaging, had lunch set up in front of him while he was seated upright in bed. Patient noted that he has tremor from medication, however this does not impede his ability to eat independently. Patient independently prepared his meal with butter on mashed vegetables and adding gravy to chopped turkey. Patient then independently consumed meal, trying all items on tray, and demonstrating no difficulties with the consistency. Patient noted pleasure with meal. Patient also drinking liquids with straw with no difficulty. Patient is now hoping that he will be discharged home with services, however his status is unclear. Current diet is appropriate with absence of upper denture, diet should be advanced if patient is able to obtain denture from home (he believes it is at his mother's house). Recommend continue on Chopped/Advanced, Thin liquids, pills whole with liquid, assistance with tray set up. Frequency/Duration: Date Range for Service Req: Timeline to reassess: Service Center Representative Clinican/Clinical Fellow: No Supervisory Statement: I have reviewed and agree with the student/clinical fellow's documentation: N/A Speech Language Pathologist: Jannet Burton M.A., CCC-GROUNDWATER CONSULTANT
--- NOTE | 2025-07-02 14:55 | W.MHC.F2F ---
Service Date Service Date: 07/02/25 Encounter Date of encounter: 07/02/25 Encounter: Pneumococcal bacteremia and pneumonia Reasons for Services Signs and symptoms assessed: Shortness of breaths or fever or cough Reason for half-way: medication management, medication treatment and teach disease management Reason for physical therapy: home safety and mobility, therapeutic exercises, restore joint function, gait/transfer training, assess need for DME, ADL training, energy conservation and other MD Overseeing Care: Meghana Junior Homebound: Leaving the home is medically contraindicated at this time without the asist of a device and/or another person due th the listed conditions above and below. Reason homebound: weakness related to hospital stay Homebound supporting statement: Patient is generalised weak post hospitlisation and need help with going to appointments and labs draws as well as PT. Certification: Based on the above findings, I certify that this patient is confined to the home and needs intermittent half-way care, physical therapy and/or speech therapy, or continues to need occupational therapy. The patient is under my care, and I have initiated the establishment of the plan of care. The patient will be followed by a physician who will periodically review the plan of care. Time Spent With Patient Time: Total time managing care of this patient today ____ minutes.
--- NOTE | 2025-07-02 14:56 | P.DS_ITS ---
DS: Providers Provider Date of Service: 07/02/25 Date of admission: 06/14/25 16:18 Date of discharge: 07/02/25 Primary care physician: Meghana Junior NP Consults: 06/30/25 10:23 Consult to Cardiology Routine Consulting Provider: [facility] [place] [facility] Reason for consultation: acute rehab requesting consult for sinus tach Has provider been notified: Yes Attending physician on discharge: Ani Lopez Discharging clinician: Ani Lopez DS: Diagnosis Discharge Diagnosis (1) Pneumonia: Status: Acute DS: Summary Hospital Course Hospital Course: from initial hpi: 45-year-old male with underlying history of alcohol abuse, hepatitis- C, polysubstance abuse, hypertension, depression, systolic CHF, alcoholic cardiomyopathy, asthma, methadone dependence , hyperlipidemia .? Presented to emergency room with complaints of having a fever, he was transported via EMS.? The patient reported feeling unwell after drinking about a L of hard liquor last night followed by ingestion of listerine today.? The patient's reported he has had a cough for several days and did not look well.? The patient has had some vomiting.? On arrival to the emergency room he was noted to be tachycardic, hypoxic with O2 sat of 83% on 100% non-rebreather mask.? His workup showed white count 5.9, H and H of 9.9 and 30.0 respectively, platelets 183, 19% band neutrophils.? ABG showed PO2 of 70 otherwise normal.? No electrolyte abnormalities.? Lactic acid was 5.0 and subsequently came down to 2.9 and 1.9.? Albumin 3.4.? Chest x-ray showed right lower lobe pneumonia. The patient had received 1 L of IV fluid and was started on broad-spectrum antibiotics including vancomycin and Zosyn.? The patient had been placed on high-flow and given the possibility of decompensation both from the respiratory standpoint as well as his alcohol withdrawal risk the patient was admitted to the ICU for further care. hospital course: Patient was admitted for severe sepsis and acute hypoxic respiratory failure due to pneumonia from Streptococcus pneumonia complicated by bacteremia. He was admitted to the intensive care unit treated with ceftriaxone. On 06/15/2025 required intubation. He was eventually extubated on 06/26/2025 and downgraded to medical floor on 06/27/2025. Was able to be weaned down to 3 L, sepsis resolved mental status returned to baseline. Due to ICU myopathy was seen by physical therapy who recommended acute rehab to which patient will be discharge. On discharge he will continue 1 more week of p.o. Amoxil. For alcohol dependence and polysubstance dependence he had no signs of withdrawal and was continued on methadone. For history of CHF due to alcoholic cardiomyopathy was noted to have recovered ejection fraction with an EF of 55-60%. For mood disorder was continued on Seroquel, BuSpar, Elavil. sinus tachycardia: has during previous visit also (per chart review): tsh wnl, mag wnl, check CTA-negtaive for pulm emboli. echo showed EF of 55-60% Seen by cardiology: Received ivf and clonidine added: With the above management patient tachycardia somewhat improving, no symptoms with the ablation or palpitations or any chest pain. Discussed with the Cardiology we will continue clonidine short term for a month or so, consider adjusting metoprolol out patiently if needed for tachycardia. In addition sinus tachycardia might also related to understand anxiety , as per patient clonidine helping. Also strongly discussed with him about avoiding alcohol and other substance use in the future including nicotine Further management outpatient with PCP and consider outpatient cardio follow-up if needed. Seen by PT recommended acute rehab but patient declined-he understands the risks of going to rehab in detail length. Patient will be going home with VNA and PT. plan: Strongly advised to abstain from alcohol. 1 more week of p.o. augmentin. Repeat chest imaging in 3-4 weeks to see resolution of pneumonia. Clonidine 0.1 mg b.i.d.-short course for 1 month. Follow up with PCP, psych, cardiology outpatient. Above management discussed with the patient detail length he understand and in agreement with the above plan, time spent 50 minute. Time Attestation Total time managing care of this patient today: 50 mintues. Discharge Coordination Time (in mins): 50 min Quality: Safe Use of Opioids Does Pt have an Active Cancer Diagnosis on the Problem List?: No Quality: Stroke Does the patient have a stroke diagnosis?: No Physical Exam Exam: Exam: General: AO X 3, no acute distress Resp: Air entry fair, no rales no wheezing. CVS: S1,S2,Rapid regular GI: soft, non tender, non distended Neuro: generlaised weak but improving Vital Signs: Vital Signs: Last Vital Signs Temp 97.6 F 07/02/25 11:30 Pulse 104 H 07/02/25 11:30 Resp 16 07/02/25 11:30 BP 136/78 07/02/25 11:30 Pulse Ox 96 07/02/25 11:30 O2 Del Method Room Air 07/02/25 11:30 O2 Flow Rate 2 06/29/25 07:42 FiO2 60 06/26/25 15:00 BMI result Body Mass Index 30.1 DS: Data Data Completed and Pending Completed studies during hospitalization [Text1]: Procedures Detoxification Services for Substance Abuse Treatment (02/21/25) Imaging Chest x-ray: Radiologist's impression: ITS Impressions Chest X-Ray 06/18/25 09:37 IMPRESSION: Satisfactory position of support tubes. Bilateral multilobar airspace disease probably representing pneumonia and low lung volumes. This may be slightly increased at the left lung base compared to most recent exam. Chest X-Ray 06/25/25 08:45 IMPRESSION: 1. Lines and tubes in place without change. 2. Improvement in airspace opacity in the left upper lung zone. Opacities in the lower lung zones are unchanged. Chest CTA 06/30/25 21:16 IMPRESSION: No evidence of PE. No evidence of aneurysm or dissection. Right upper and lower lobe infiltrate/atelectasis. Platelike atelectasis in the lingula and left lower lobe. Fleischner guidelines were followed. echo: Conclusions: - The left ventricular systolic function is normal. The visually estimated ejection fraction is between 55-60%. - No obvious valvular pathology seen on this study. Findings Procedure Information The quality of the study was technically difficult. The study quality is limited by the presence of a ventilator. Left Ventricle Normal left ventricular cavity size. There is mildly increased left ventricular wall thickness. The left ventricular systolic function is normal. The visually estimated ejection fraction is between 55-60%. There is no evidence of regional wall motion abnormalities. Diastolic function is normal for age. Right Ventricle Normal right ventricular cavity size and systolic function. Atria The left atrium is mildly dilated. The right atrium is normal in size. Aortic Valve The aortic valve was not well visualized. There is no aortic valve stenosis. There is no aortic valve regurgitation. Mitral Valve The mitral valve appears normal. There is no mitral valve regurgitation. There is no mitral valve stenosis. Pulmonic Valve The pulmonic valve is likely normal. Tricuspid Valve There is mild tricuspid valve regurgitation. Mild pulmonary hypertension is present. (patient intubated). Great Vessels The asc aorta is normal in size. Venous The inferior vena cava is mildly dilated and collapses less than 50% with inspiration. Pericardium/Pleural There is a trivial pericardial effusion. Prior Study Comparison No prior study available for comparison. Recommendations, Care & Conclusions No obvious valvular pathology seen on this study. Discharge Plan Discharge Anticipated Discharge Date/Time: 06/29/25 10:12 Patient Disposition: Home Health Service Discharge Diagnosis: pneumococcal bacteremia Referrals: Meghana Junior NP [Primary Care Provider, Primary Care] - 1 Week Discharge Medications: New amoxicillin 875 mg tablet 875 mg PO BID Qty: 14 0RF thiamine HCl (vitamin B1) 100 mg capsule 100 mg PO DAILY Qty: 60 0RF folic acid 1 mg tablet 1 mg PO DAILY Qty: 60 0RF Continued cyclobenzaprine 5 mg tablet 5 mg PO TID PRN (Reason: Pain) Qty: 60 0RF quetiapine 50 mg tablet 50 mg PO BID@0800,1400 90 Days Qty: 180 0RF quetiapine 100 mg tablet 200 mg PO BEDTIME 90 Days Qty: 180 0RF calcium carbonate-vitamin D3 600 mg-10 mcg (400 unit) tablet 1 tab PO DAILY methadone 10 mg/mL Concentrate 190 mg PO DAILY furosemide [Lasix] 40 mg tablet 40 mg PO DAILY Qty: 90 0RF clonidine HCl 0.1 mg tablet 0.1 mg PO TID PRN (Reason: for anxiety) Qty: 90 0RF metoprolol succinate 50 mg tablet extended release 24 hr 50 mg PO DAILY Qty: 90 0RF hydroxyzine pamoate 50 mg capsule 50 mg PO TID Qty: 270 0RF aspirin [Adult Aspirin Regimen] 81 mg tablet,delayed release (DR/EC) 81 mg PO DAILY Qty: 90 0RF magnesium oxide 400 mg (241.3 mg magnesium) tablet 400 mg PO DAILY 90 Days Qty: 90 0RF buspirone 30 mg tablet 30 mg PO BID Qty: 180 0RF albuterol sulfate 90 mcg/actuation HFA aerosol inhaler 2 inh inhalation Q4H PRN (Reason: shortness of breath or wheezing) Qty: 8.5 3RF amitriptyline 100 mg tablet 100 mg PO BEDTIME Qty: 90 0RF chlorpromazine 50 mg tablet 50 mg PO BID Qty: 180 0RF omeprazole 20 mg capsule,delayed release(DR/EC) 20 mg PO DAILY@0630 Discontinued potassium chloride 10 mEq tablet,ER particles/crystals 10 meq PO DAILY Qty: 90 0RF Discharge Orders: Discharge Order (Routine); Ordered 07/02/25 Ordered By: Ani Lopez Diet: Advance to usual diet Activity on Discharge: As tolerated Stand Alone Forms: Patient Portal Discharge page Print Language: Upper Sorbian Care Plan Goals: recovery Health Concerns: pneumonia Plan of Treatment: 7 more days amoxil Assessment: see above Patient Instructions: Pneumonia (DC)
--- NOTE | 2025-07-02 15:19 | MHC.CM.PN ---
Pt has been medically cleared to [place], he was accepted at [place] [facility], but said he is going home, he will arrange a ride home, home care to be provided by [facility].
--- NOTE | 2025-07-02 15:50 | MHC.CM.PN ---
[facility] called [facility] to inform us that pt. will not be eligible for services from them because he has not seen his PCP in a long time. CM called pt. to inform him of this and he said he will contact his PCP to follow up.
== END 2025-07-02 15:49 | disposition home health service (06) | DRG 720 ==
LOC: HO.ED 15:42 → HO.EDOVER 16:34 → HO.ICU 16:48 → HO.IMC 06-27 16:43
PROVIDERS: Internal Medicine; Internal Medicine Critical Care Medicine; Internal Medicine Pulmonary Disease; Nurse Practitioner Family; Physician Assistant Medical; Registered Nurse Community Health; Admitting Provider Internal Medicine Critical Care Medicine; Emergency Provider Emergency Medicine Emergency Medical Services; Visit Provider Internal Medicine
DX: A40.3 Sepsis due to Streptococcus pneumoniae (principal); J80 Acute respiratory distress syndrome; J69.0 Pneumonitis due to inhalation of food and vomit; R65.20 Severe sepsis without septic shock; J13 Pneumonia due to Streptococcus pneumoniae; I42.6 Alcoholic cardiomyopathy; J12.89 Other viral pneumonia; I50.22 Chronic systolic (congestive) heart failure; R00.0 Tachycardia, unspecified; F39 Unspecified mood [affective] disorder; E86.1 Hypovolemia; F19.239 Other psychoactive substance dependence with withdrawal, unspecified; E87.6 Hypokalemia; F11.20 Opioid dependence, uncomplicated; F10.20 Alcohol dependence, uncomplicated; B97.10 Unspecified enterovirus as the cause of diseases classified elsewhere; Z20.822 Contact with and (suspected) exposure to COVID-19; Z22.322 Carrier or suspected carrier of Methicillin resistant Staphylococcus aureus; Z79.899 Other long term (current) drug therapy
CPT/HCPCS: 36415; 36600; 71045; 71275; 80048; 80053; 80202; 82040; 82803; 82947; 83605; 83735; 84100; 84443; 84478; 84484; 85007; 85025; 85027; 87040; 87070; 87077; 87205; 87633; 87640; 87641; 92526; 92610; 93005; 93306; 94002; 94003; 94640; 97116; 97162; 97166; 97530; 97535; 99285; J0131; J0616; J0696; J1100; J1171; J1650; J1808; J1938; J2250; J2251; J2404; J2470; J2543; J2560; J2704; J3010; J3374; J3411; J3480; J7120; P9047; Q9967

== ENCOUNTER → 2025-06-14 14:21 | Outpatient (BNV) | payer OTHER, SELFPAY | PROVIDERS: Emergency Provider Emergency Medicine Emergency Medical Services; Visit Provider Radiology Diagnostic Radiology | DX: J18.1 Lobar pneumonia, unspecified organism (principal) | CPT/HCPCS: 71045 ==

== ENCOUNTER → 2025-06-14 14:22 | Outpatient (BNV) | payer OTHER, SELFPAY | PROVIDERS: Admitting Provider Internal Medicine Critical Care Medicine; Emergency Provider Emergency Medicine Emergency Medical Services; Visit Provider Internal Medicine | DX: R00.0 Tachycardia, unspecified (principal) | CPT/HCPCS: 93010 ==

== ENCOUNTER 2025-06-14 16:18 | Outpatient (BNV) | payer OTHER, SELFPAY | END 2025-06-15 03:53 | PROVIDERS: Admitting Provider Internal Medicine Critical Care Medicine; Emergency Provider Emergency Medicine Emergency Medical Services; Visit Provider Radiology Vascular & Interventional Radiology | DX: Z97.8 Presence of other specified devices (principal) | CPT/HCPCS: 71045 ==

== ENCOUNTER 2025-06-14 16:18 | Outpatient (BNV) | payer OTHER, SELFPAY | END 2025-06-25 08:45 | PROVIDERS: Admitting Provider Internal Medicine Critical Care Medicine; Emergency Provider Emergency Medicine Emergency Medical Services; Visit Provider Radiology Diagnostic Radiology | DX: R91.8 Other nonspecific abnormal finding of lung field (principal) | CPT/HCPCS: 71045 ==

== ENCOUNTER 2025-06-14 16:18 | Outpatient (BNV) | payer OTHER, SELFPAY | END 2025-06-20 06:20 | PROVIDERS: Admitting Provider Internal Medicine Critical Care Medicine; Emergency Provider Emergency Medicine Emergency Medical Services; Visit Provider Radiology Diagnostic Radiology | DX: R09.02 Hypoxemia (principal) | CPT/HCPCS: 71045 ==

== ENCOUNTER 2025-06-14 16:18 | Outpatient (BNV) | payer OTHER, SELFPAY | END 2025-06-19 07:00 | PROVIDERS: Admitting Provider Internal Medicine Critical Care Medicine; Emergency Provider Emergency Medicine Emergency Medical Services; Visit Provider Internal Medicine | DX: R00.0 Tachycardia, unspecified (principal) | CPT/HCPCS: 93306 ==

== ENCOUNTER 2025-06-14 16:18 | Outpatient (BNV) | payer OTHER, SELFPAY | END 2025-06-23 21:20 | PROVIDERS: Admitting Provider Internal Medicine Critical Care Medicine; Emergency Provider Emergency Medicine Emergency Medical Services; Visit Provider Student in an Organized Health Care Education/Training Program | DX: R91.8 Other nonspecific abnormal finding of lung field (principal) | CPT/HCPCS: 71045 ==

== ENCOUNTER 2025-06-14 16:18 | Outpatient (BNV) | payer OTHER, SELFPAY | END 2025-06-30 21:16 | PROVIDERS: Admitting Provider Internal Medicine Critical Care Medicine; Emergency Provider Emergency Medicine Emergency Medical Services; Visit Provider Radiology Diagnostic Radiology | DX: R00.0 Tachycardia, unspecified (principal) | CPT/HCPCS: 71275 ==

== ENCOUNTER 2025-06-14 16:18 | Outpatient (BNV) | payer OTHER, SELFPAY | END 2025-06-18 09:37 | PROVIDERS: Admitting Provider Internal Medicine Critical Care Medicine; Emergency Provider Emergency Medicine Emergency Medical Services; Visit Provider Radiology Diagnostic Radiology | DX: R09.02 Hypoxemia (principal) | CPT/HCPCS: 71045 ==

== ENCOUNTER → 2025-06-14 16:18 | Outpatient (BNV) | payer OTHER, SELFPAY | PROVIDERS: Admitting Provider Internal Medicine Critical Care Medicine; Emergency Provider Emergency Medicine Emergency Medical Services; Visit Provider Internal Medicine | DX: J18.9 Pneumonia, unspecified organism (principal) | CPT/HCPCS: 99232; 99233 ==

== ENCOUNTER → 2025-06-14 16:18 | Outpatient (BNV) | payer OTHER, SELFPAY | PROVIDERS: Admitting Provider Internal Medicine Critical Care Medicine; Emergency Provider Emergency Medicine Emergency Medical Services; Visit Provider Internal Medicine Cardiovascular Disease | DX: R00.0 Tachycardia, unspecified (principal) | CPT/HCPCS: 99222 ==

== ENCOUNTER → 2025-06-14 16:18 | Outpatient (BNV) | payer OTHER, SELFPAY | PROVIDERS: Admitting Provider Internal Medicine Critical Care Medicine; Emergency Provider Emergency Medicine Emergency Medical Services; Visit Provider Internal Medicine Critical Care Medicine | DX: J80 Acute respiratory distress syndrome (principal); J18.9 Pneumonia, unspecified organism | CPT/HCPCS: 99291; 99292 ==

== ENCOUNTER → 2025-06-14 16:18 | Outpatient (BNV) | payer OTHER, SELFPAY | PROVIDERS: Admitting Provider Internal Medicine Critical Care Medicine; Emergency Provider Emergency Medicine Emergency Medical Services; Visit Provider Internal Medicine Pulmonary Disease | DX: I42.6 Alcoholic cardiomyopathy (principal); F19.10 Other psychoactive substance abuse, uncomplicated; K76.6 Portal hypertension; B19.20 Unspecified viral hepatitis C without hepatic coma; J18.9 Pneumonia, unspecified organism; J96.01 Acute respiratory failure with hypoxia; J80 Acute respiratory distress syndrome | CPT/HCPCS: 99291 ==

== ENCOUNTER → 2025-07-20 15:50 | Outpatient (BNVA) | payer OTHER, SELFPAY | PROVIDERS: PCP Physician Assistant Medical; Visit Provider Physician Assistant Medical | DX: Z51.89 Encounter for other specified aftercare (principal); J18.9 Pneumonia, unspecified organism; A40.9 Streptococcal sepsis, unspecified; R65.20 Severe sepsis without septic shock; J96.01 Acute respiratory failure with hypoxia; F10.20 Alcohol dependence, uncomplicated; I42.6 Alcoholic cardiomyopathy; R00.0 Tachycardia, unspecified; J45.909 Unspecified asthma, uncomplicated; F17.200 Nicotine dependence, unspecified, uncomplicated; Z23 Encounter for immunization | CPT/HCPCS: 90471; 90656; 99212 ==

== ENCOUNTER → 2025-07-20 15:50 | Outpatient (AMB) | payer OTHER, SELFPAY ==
--- NOTE | 2025-07-20 15:52 | A.OFFPC_ITS ---
Vital Signs 07/20/25 16:05 Height 5 ft 9 in Weight 208 lb BMI 30.7 BP 120/68 Blood Pressure Location Rt brachial Position Sitting Respiration 16 Pulse 92 Pulse Source Pulse Oximeter Temp 98.2 F Temp Source Temporal Artery Scan Pulse Oximetry (%) 95 Oxygen Delivery Method Room Air Intake Visit Reasons: HDF Intake Note: Ole presents in the office today for hospital discharge. Nanotechnology Engineering Technician Required: No Allergies Fish Containing Products Allergy (Unknown, Verified 07/20/25 15:59) UNKNOWN Medication List - Last Reconciled 07/21/25 by JAMES Escudero acamprosate 666 mg PO BID albuterol sulfate 90 mcg/actuation 2 inhalations inhalation Q4H PRN amitriptyline 100 mg PO BEDTIME aspirin (Adult Aspirin Regimen) 81 mg PO DAILY buspirone 30 mg PO BID calcium carbonate-vitamin D3 600 mg-10 mcg (400 unit) 1 tab PO DAILY clonidine HCl 0.1 mg PO TID PRN cyclobenzaprine 5 mg PO TID PRN folic acid 1 mg PO DAILY furosemide (Lasix) 40 mg PO DAILY hydroxyzine pamoate 50 mg PO TID inhalat.spacing dev,large mask (BreatheRite Spacer and Mask, Adult) As directed magnesium oxide 400 mg PO DAILY 90 days methadone 190 mg PO DAILY metoprolol succinate ER 50 mg PO DAILY nifedipine ER 60 mg PO DAILY omeprazole 20 mg PO DAILY@0630 potassium chloride ER 40 mEq PO DAILY quetiapine 200 mg (2 x 100 mg) PO BEDTIME 90 days quetiapine 50 mg PO BID@0800,1400 90 days thiamine HCl (vitamin B1) 100 mg PO DAILY Tobacco use date assessed: 07/20/25 Dental Screening Dental Screen Date: 07/20/25 Did you have a dental visit in the last 12 months?: Yes Did you have a dental problem in the last 6 months where you did not have access to dental care?: No Was dental information given to patient?: Patient has dentist HPI HPI Comments History of Present Illness Details 45-year-old male with a past medical his tory of alcoholic cardiomyopathy, asthma, hyperlipidemia, hypertension, hepatitis-C infection, polysubstance abuse, with methadone and alcohol dependence presents for hospital follow up. He is here with his girlfriend, Anaid. Patient was admitted June 14, 2025 to July 02, 2025 at [facility] after presenting to the emergency room having a fever, he was transported by EMS. He reported feeling unwell after drinking about a L of hard liquor the previous night followed by ingestion of Listerine that day. Anaid reported he had a cough for several days and did not look well and he had some vomiting. He was tachycardic and hypoxic. Labs demonstrated anemia. Lactic acid was 5.0 initially and subsequent currently trended down to 1.9. Chest x-ray showed right lower lobe pneumonia. He was admitted to the ICU for severe sepsis and hypoxic respiratory failure due to pneumonia from Streptococcus pneumonia complicated by bacteremia. He was treated with ceftriaxone. He required intubation on 06/15/2025. He was extubated on 06/26/2025. Sepsis resolved in mental status returned to baseline. Due to ICU myopathy was seen by Physical therapy who recommended acute rehab which he declined. He was noted to have recovered ejection fraction with EF 55- 60%. He saw cardiology who recommended continuation of clonidine and reassessment in a month or so. He was also instructed to continue metoprolol. CTA was negative for PE. Sinus tachycardia was thought to be multifactorial driven by anxiety, some amount of withdrawal disorder as well as hypovolemia. Patient says lower extremity edema has improved since hospitalization. He is taking furosemide 40 mg daily. VNA and PT services are in place. Outpatient recommendations were to follow up with PCP, psych, Cardiology and repeat chest x-ray in 3-4 weeks. He completed outpatient antibiotics. Today he says he is continuing to slowly improve. He still has not regained his full strength and is fatigued easily. He denies fevers, chills, cough, wheezing and shortness of breath. He is a smoker, and prior to hospitalization he had a chronic cough at baseline. Patient reported being diagnosed with asthma in the past. He has an albuterol rescue inhaler, but he has not required it since being discharged. Reports he has not drank alcohol since admission. Prior to this he was inpatient at [facility] for a week. He is taking acamprosate. He struggles with insomnia despite clonidine, amitriptyline and Seroquel. He has been referred to psych previously, but now he would like a new referral. Overall he says that he is very scared by what happened to him, and he acknowledges the role that alcohol played in the severity of the illness, and he wants to avoid further admissions. He is requesting to check his testosterone level. ROS: Constitutional: No unexplained weight loss, fever, chills or night sweats. +fatigue Eyes: No vision changes ENT: No ear pain, congestion, runny nose or sore throat. Respiratory: No shortness of breath, cough or sputum production. Denies hemoptysis. Cardiovascular: No chest pain, chest pressure or chest discomfort. No palpitat ions. Gastrointestinal: Appetite is decreased since hospitalization. Denies vomiting, abdominal pain, diarrhea or blood in stools. He felt nauseous yesterday which resolved. Genitourinary: No dysuria, hematuria, urinary frequency. Neurologic: No headache, dizziness or syncope Hematologic/Lymphatics: No bleeding or bruising. Skin: No rash Endocrine: No polyuria or polydipsia. Psychiatric: +anxiety and PTSD. He does not feel depressed today. Denies SI/HI. Physical exam: Constitutional: Alert, in no distress. Eyes: Pupils are equal, round and reactive to light. Extraocular muscles intact. Ear, Nose and Throat: Canals clear. TMs normal. Normal nasal mucosa. No nasal discharge. No oral lesions. Neck: Supple, Full range of motion. No lymphadenopathy. Respiratory: Clear to auscultation in all tan. No tachypnea. Cardiovascular: S1 S2 regular. No murmurs. Gastrointestinal: Abdomen soft, non-tender, non-distended. Normal bowel sounds. No palpable masses. Neurologic: No focal neurological deficits. Symmetric patellar reflexes. Sensation intact bilaterally. Skin: Normal color, warm Extremities: Warm and well perfused. No clubbing or cyanosis. 1+ bilateral lower extremity edema. Psychiatric: Normal mood and affect [facility] Medical History (Updated 07/21/25 @ 08:48 by JAMES Escudero) History of acute respiratory distress syndrome (ARDS) Sepsis Right lower lobe pneumonia Hospital discharge follow-up Abnormal chest x-ray Dry mouth Alcoholic cardiomyopathy Systolic heart failure Rash of neck Portal hypertension Hepatic steatosis Chest pain Mixed hyperlipidemia Asthma Tobacco use disorder Essential hypertension Atrial fibrillation Depression Anxiety Hepatitis C infection Methadone dependence History of syphilis Polysubstance abuse Alcohol dependence Alcohol abuse Opiate use No known health problems Surgical History History of back surgery Family History (Updated 07/20/25 @ 16:05 by Mona Umanzor CMA) Mother Alcoholism Sister Methadone dependence Social History (Updated 07/20/25 @ 16:05 by Mona Umanzor CMA) Household Members: Unknown / Unable to assess Housing: Unknown / Unable to assess Do you presently have visiting nurse or other home services: No Alcohol intake: former Patient Tobacco Use Status: Current everyday Tobacco user Tobacco use type: Cigarette Cigarette Packs Per Day: 1 Cigarettes Per Day: 20.0 e-Cigarette/Vaping Use: Never Used Second Hand Smoke Exposure: Yes Use of substances other than those prescribed or required for medical reasons: No Substance Use Type: Crack/Cocaine and Opiates service: No Current occupational status: unemployed Current occupational exposures/hazards: No Cognitive needs: Yes (adhd) Hearing needs: No Vision needs: No Questionnaire Thrive Questionnaire Date Thrive assessed: 11/13/24 I am a: Patient What is your living situation today?: I have a steady place to live Within the past 12 months, did the food you bought not last and you didn't have the money to get more?: Sometimes True Within the past 12 months, did you worry whether your food would run out before you got money to buy more?: Sometimes True Do you have trouble paying for medicines?: Yes Do you have trouble getting transportation to medical appointments?: No Do you have trouble paying your heating and electricity bill?: No Do you have trouble taking care of your child, family member or friend?: No Do you have trouble with day-to-day activities such as bathing, preparing meals, shopping, managing finances, etc.?: Yes Are you currently unemployed and looking for a job?: Yes Are you interested in more education?: No Currently or been in a relationship where the following occur: No concerns reported THRIVE Score: 2 DANAY-7 AMB Questionnaire DANAY-7 Date DANAY - 7 assessed: 11/13/24 Source: Developed by Drs. Christiano Fisher, Rhonda Bernal, Cholo Taylor and colleagues, with an educational renée from [employer]. Physical exam (Primary Care) Vital Signs: Last Vital Signs Temp 98.2 F 07/20/25 16:05 Pulse 92 07/20/25 16:05 Resp 16 07/20/25 16:05 BP 120/68 07/20/25 16:05 Pulse Ox 95 07/20/25 16:05 Oxygen Delivery Method Room Air 07/20/25 16:05 BMI result Body Mass Index 30.7 Tobacco/Smoking Status: Tobacco use Status Tobacco use date assessed 07/20/25 07/20/25 16:10 Patient Tobacco Use Status Current everyday Tobacco 07/20/25 16:10 Tobacco use type Cigarette 07/20/25 16:05 e-Cigarette/Vaping Use Never Used 07/20/25 16:05 Thrive Assessment: Date of Thrive Assessment Date Thrive assessed 11/13/24 07/20/25 15:54 Currently or been in a relationship where the following occur: No concerns reported Office Procedures Flu Questionnaire Does the patient have a severe egg allergy?: No Does the patient have severe life threatening allergies?: No Does the patient have a fever or illness today?: No Has the patient ever had Guillain-[place]ell Syndrome?: No Has the patient ever had any past reaction to a flu shot?: No Immunizations Fluarix [id number] (PF) 45 mcg (15 mcg x 3)/0.5 mL IM syringe Performing Provider: JAMES Escudero Performing Location: [facility] Administered by: Adilia Roman RN on 07/20/25 17:01 Dose Route Admin Location Dispensed Lot Number Expiration Date [facility] Air Conditioning Installer Supervisor 0.5 mL IM Left Deltoid 0.5 mL [id number] 02/16/26 [id number] [employer] VIS Given Date VIS Provided VIS Publication Date 07/20/25 Single Vaccine 24 Eligibility Eligibility Date Funding Source Not [facility] Eligible 07/20/25 Private Coding Level of Care Code Est Pt Level 5 (87063) Complex visit Add On G2211 Diagnoses Hospital discharge follow-up Z51.89 Pneumonia of right lower lobe due to infectious organism J18.9 Pneumonia type: due to unspecified organism Sepsis due to Streptococcus species with acute hypoxic respiratory failure without septic shock A40.9; R65.20; J96.01 Sepsis type: Streptococcus, unspecified Sepsis acute organ dysfunction status: with acute organ dysfunction Severe sepsis acute organ dysfunction type: acute respiratory failure Acute respiratory failure type: with hypoxia Severe sepsis shock status: without septic shock Polysubstance abuse F19.10 Alcohol use disorder, severe, dependence F10.20 Essential hypertension I10 Alcoholic cardiomyopathy I42.6 Sinus tachycardia R00.0 Asthma J45.909 Asthma severity: unspecified severity Asthma complication type: unspecified Tobacco use disorder F17.200 Time Spent (min) 65 Comment Reviewing chart, seeing the patient, completing documentation Assessment & Plan Assessment & Plan (1) Hospital discharge follow-up: Code(s): Z51.89 - Encounter for other specified aftercare Category: Medical (2) Right lower lobe pneumonia: Comment: ARDS requiring intubation [facility] May 2025 Code(s): J18.9 - Pneumonia, unspecified organism Category: Medical Qualifiers: Pneumonia type: due to unspecified organism Qualified Code(s): J18.9 - Pneumonia, unspecified organism (3) Sepsis: Comment: Admitted to [facility] May 2025 Code(s): A41.9 - Sepsis, unspecified organism Category: Medical Qualifiers: Sepsis type: Streptococcus, unspecified Sepsis acute organ dysfunction status: with acute organ dysfunction Severe sepsis acute organ dysfunction type: acute respiratory failure Acute respiratory failure type: with hypoxia Severe sepsis shock status: without septic shock Qualified Code(s): A40.9 - Streptococcal sepsis, unspecified; R65.20 - Severe sepsis without septic shock; J96.01 - Acute respiratory failure with hypoxia (4) Polysubstance abuse: Code(s): F19.10 - Other psychoactive substance abuse, uncomplicated Category: Medical (5) Alcohol use disorder, severe, dependence: Code(s): F10.20 - Alcohol dependence, uncomplicated Category: Medical (6) Essential hypertension: Code(s): I10 - Essential (primary) hypertension Category: Medical (7) Alcoholic cardiomyopathy: Code(s): I42.6 - Alcoholic cardiomyopathy Category: Medical (8) Sinus tachycardia: Code(s): R00.0 - Tachycardia, unspecified Category: Medical (9) Asthma: Code(s): J45.909 - Unspecified asthma, uncomplicated Category: Medical Qualifiers: Asthma severity: unspecified severity Asthma complication type: unspecified (10) Tobacco use disorder: Code(s): F17.200 - Nicotine dependence, unspecified, uncomplicated Category: Medical Plan In summary this is a 45-year-old male who was discharged recently after admission for bacteremia and ARDS requiring intubation in the setting of pne umonia and severe alcohol dependence. The patient's vitals are good today. He was evaluated by Cardiology. He will continue clonidine at this time and reassess in 1 month. Patient says it is beneficial for his anxiety so this may need to be continued longer term. He has a history of PTSD, anxiety and depression. I explained the importance of following up with a psychologist and psychiatrist to support his sobriety and manage his psychiatric medications. Referrals placed. EF was normal though he does have a history of alcoholic cardiomyopathy. I will refer him to Cardiology outpatient and continue metoprolol ER 50 mg daily at this time. Lower extremity edema is at baseline per patient. Continue furosemide 40 mg daily. He is on potassium. Check labs in 2 weeks. Patient seems motivated to maintain sobriety. Continue acamprosate. He is also on methadone. He completed antibiotics. Repeat chest x-ray in 2 weeks. Warning signs warranting re-evaluation reviewed with the patient. Reviewed the importance of smoking cessation. PFT ordered. Albuterol as needed. Consider referral to pulmonology pending results. Flu vaccine administered today. Patient will follow up at pharmacy for Prevnar vaccination. Follow up in 1 month. Orders: Orders XR chest 2V 07/20/25 J18.9 - Pneumonia, unspecified organism Comprehensive Met. Panel 07/20/25 J18.9 - Pneumonia, unspecified organism, R00.0 - Tachycardia, unspecified TSH reflex Free T4 07/20/25 J18.9 - Pneumonia, unspecified organism, R00.0 - Tachycardia, unspecified Testosterone, Free/Total 07/20/25 F32.A - Depression, unspecified Influenza [id number] Immunization 07/20/25 Z23 - Encounter for immunization Complete Blood Count no Diff 07/20/25 J18.9 - Pneumonia, unspecified organism, R00.0 - Tachycardia, unspecified IRON PROFILE 07/20/25 D64.9 - Anemia, unspecified, J18.9 - Pneumonia, unspecified organism, R00.0 - Tachycardia, unspecified Vitamin B12 and Folate 07/20/25 D64.9 - Anemia, unspecified, J18.9 - Pneumonia, unspecified organism, R00.0 - Tachycardia, unspecified PFT pulmonary function test 07/20/25 J45.909 - Unspecified asthma, uncomplicated Vitamin B1 Today F10.220 - Alcohol dependence with intoxication, uncomplicated Referrals Psychiatry Referral F10.20 - Alcohol dependence, uncomplicated, F19.10 - Other psychoactive substance abuse, uncomplicated, F32.A - Depression, unspecified, F41.9 - Anxiety disorder, unspecified Psychology Referral F10.20 - Alcohol dependence, uncomplicated, F19.10 - Other psychoactive substance abuse, uncomplicated, F32.A - Depression, unspecified, F41.9 - Anxiety disorder, unspecified Medications: New nifedipine ER 60 mg PO DAILY 90 tabs 3RF inhalat.spacing dev,large mask (BreatheRite Spacer and Mask, Adult) As directed 1 ea 0RF Refilled metoprolol succinate ER 50 mg PO DAILY 90 tabs 3RF clonidine HCl 0.1 mg PO TID PRN 270 tabs 3RF for anxiety amitriptyline 100 mg PO BEDTIME 90 tabs 3RF cyclobenzaprine 5 mg PO TID PRN 60 tabs 0RF Pain quetiapine 200 mg (2 x 100 mg) PO BEDTIME 180 tabs 0RF 90 days albuterol sulfate 90 mcg/actuation 2 inhalations inhalation Q4H PRN 8.5 grams 3RF shortness of breath or wheezing thiamine HCl (vitamin B1) 100 mg PO DAILY 90 caps 1RF albuterol sulfate 90 mcg/actuation 2 inhalations inhalation Q4H PRN 8.5 grams 3RF shortness of breath or wheezing aspirin (Adult Aspirin Regimen) 81 mg PO DAILY 90 tabs 3RF
[2025-07-20 16:05] VITALS: BP 120/68; PULSE 92; RESP 16; TEMP 36.8; O2SAT 95; BMI 30.7
--- OUTSIDE RECORDS SUMMARY | 2025-07-20 18:34 | XMS_ITS | Clinical Summary ---
Author Organization [facility] Address [address] [place] [address] Care Team Providers Care Oil Heater Installer Name Role Phone Ref, Hasnopcp Primary Care Provider Unavailabl e Allergies Active Allergy Reactions Criticality Noted Date [...] 2:20 PM EDT): Patient coming in from [facility]. He self admitted himself for alcohol [...] 11:04 PM EDT): Patient coming in from [facility]. He self admitted himself for alcohol [...] 6:17 AM EDT): Patient coming in from [facility]. He self admitted himself for alcohol withdrawal. Reports using 20 nips a day. Last drink 1 PM yesterday. CIWA scores in the ER have been 11 x 16 x 12. Patient was started on phenobarbital, transition to Valium. 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 -Continue CIIL protocol -Thiamine folic acid Shortness of breath 03/31/2024 Assessment & Plan (04/02/2024 2:15 PM EDT): Patient transferred from [facility] for sudden onset shortness of breath. [...] (04/01/2024 2:21 PM EDT): Patient transferred from [facility] for sudden onset shortness of breath. [...] (03/31/2024 11:08 PM EDT): Patient transferred from [facility] for sudden onset shortness of breath. [...] (03/31/2024 6:22 AM EDT): Patient transferred from [facility] to oriented [place] for sudden onset shortness of breath. Patient [...] also reports taking methadone 160 mg from [facility] in [place] . Dose confirmed. Last given sunday -Methadone 160mg Po daily Assessment & Plan (04/01/2024 2:21 PM EDT): Patient also reports taking methadone 160 mg from [facility] in [place] . Dose confirmed. Last given sunday -Methadone 160mg Po daily Assessment & Plan (03/31/2024 11:07 PM EDT): Patient also reports taking methadone 160 mg from [facility] in [place] . Dose confirmed. Last given sunday -Methadone 160mg Po daily Assessment & Plan (03/31/2024 6:43 AM EDT): Patient also reports taking methadone 160 mg from [facility] in [place] . Dose confirmed. Last given sunday -Methadone [...] irregularly irregular heartbeat. Due to his low [id number] of 1, we decided to place him [...] of hard liquor or more a day [facility] Utilities Answer Date Recorded In the past 12 months has e electric, gas, oil, or water [employer] threatened to shut off services in your [...] Social Drivers of Health Annual Screening 08/20/2024 Influenza Vaccine (#1) 2025 COVID-19 Vaccine (1 - 2024- season) 2025 Insurance [employer] Advance Directives * Full Code (Latest Code Status on File) Date Activated Date Inactivated Comments 03/31/2024 6:00 AM 04/04/2024 12:41 PM Care Teams Oil Heater Installer Relationship Specialty Start Date End Date Ref, Hasamaya DO NOT EDIT THIS RECORD VIA PROVIDER ON THE FLY PCP - General Ammonia Technician 01/26/24
--- OUTSIDE RECORDS SUMMARY | 2025-07-20 18:34 | XMS_ITS | Clinical Summary ---
Author Organization [facility] Address [address] [place] [address] Phone Care Team Providers Care Direct Support Specialist Name Role Phone Physician, No Pcp Primary [...] complete this topic Insurance [place] - [place] [facility] [employer] Care Teams Direct Support Specialist Relationship Specialty Start Date End Date Physician, No Pcp PCP - General 11/03/24
== END ==
PROVIDERS: PCP Physician Assistant Medical; Visit Provider Physician Assistant Medical
DX: Z23 Encounter for immunization (principal)

== ENCOUNTER 2025-07-24 11:56 | Emergency (ER) | payer OTHER, SELFPAY ==
--- NOTE | 2025-07-24 12:02 | ED.GENADULT ---
HPI - General Adult General Chief complaint: General Medical Stated complaint: neuro issues Time Seen by Provider: 07/24/25 16:53 Source: patient Mode of arrival: ambulatory Limitations: no limitations History of Present Illness ED Provider: Dr. Frederick HPI narrative: 45-year-old male history of alcohol use disorder, ARDS, recent admission for pneumonia and hypoxic respiratory failure requiring intubation see discharge on 02 of July. Presented to the ER today for evaluation of shakiness since being discharged home. Patient denies any pain. The patient noticed that these symptoms started worse yesterday. He has difficulty talking with stuttering. Patient is also has difficulty ambulating due to shakiness. Patient stated that this is an all 4 extremities. Related Data Home Medications ?Medication ?Instructions ?Recorded ?Confirmed calcium 600 mg (as 1 tab PO DAILY 02/21/25 06/14/25 carbonate)-vitamin D3 10 mcg (400 unit) tablet methadone 10 mg/mL oral concentrate 190 mg PO DAILY 02/21/25 06/20/25 omeprazole 20 mg capsule,delayed 20 mg PO DAILY@0630 06/14/25 06/14/25 release acamprosate 333 mg tablet,delayed 666 mg PO BID 07/20/25 release potassium chloride 10 mEq 40 meq PO DAILY 07/20/25 tablet,extended release(part/cryst) Previous Rx's ?Medication ?Instructions ?Recorded buspirone 30 mg tablet 30 mg PO BID #180 tabs 02/24/25 furosemide 40 mg tablet (Lasix) 40 mg PO DAILY #90 tabs 02/24/25 hydroxyzine pamoate 50 mg capsule 50 mg PO TID #270 caps 02/24/25 magnesium oxide 400 mg (241.3 mg 400 mg PO DAILY 90 days #90 tabs 02/24/25 magnesium) tablet folic acid 1 mg tablet 1 mg PO DAILY #60 tabs 07/02/25 albuterol sulfate 90 mcg/actuation 2 inh inhalation Q4H PRN shortness 07/20/25 aerosol inhaler of breath or wheezing #8.5 grams amitriptyline 100 mg tablet 100 mg PO BEDTIME #90 tabs 07/20/25 aspirin 81 mg tablet,delayed 81 mg PO DAILY #90 tabs 07/20/25 release (Adult Aspirin Regimen) clonidine HCl 0.1 mg tablet 0.1 mg PO TID PRN for anxiety #270 07/20/25 tabs cyclobenzaprine 5 mg tablet 5 mg PO TID PRN Pain #60 tabs 07/20/25 inhalat.spacing dev,large mask #1 ea 07/20/25 (BreatheRite Spacer and Mask, Adult) metoprolol succinate 50 mg 50 mg PO DAILY #90 tabs 07/20/25 tablet,extended release 24 hr nifedipine 60 mg tablet,extended 60 mg PO DAILY #90 tabs 07/20/25 release quetiapine 100 mg tablet 200 mg (2 x 100 mg) PO BEDTIME 90 07/20/25 days #180 tabs thiamine HCl (vitamin B1) 100 mg 100 mg PO DAILY #90 caps 07/20/25 capsule quetiapine 50 mg tablet 50 mg PO BID@0800,1400 90 days 07/23/25 #180 tabs diazepam 2 mg tablet (Valium) 2 mg PO TID PRN tremor #14 tabs 07/24/25 Allergies Allergy/AdvReac Type Severity Reaction Status Date / Time Fish Containing Products Allergy Unknown UNKNOWN Verified 07/24/25 12:09 Review of Systems Review of Systems: Pertinent review of systems as mentioned in HPI. All other system otherwise negative. [facility] Past Medical History [facility] Narrative: Alcohol use disorder, opiate use disorder, cardiomyopathy, hypertension Medical History (Updated 07/24/25 @ 19:36 by Liliana Frederick DO) History of acute respiratory distress syndrome (ARDS) Sepsis Right lower lobe pneumonia Hospital discharge follow-up Abnormal chest x-ray Dry mouth Alcoholic cardiomyopathy Systolic heart failure Rash of neck Portal hypertension Hepatic steatosis Chest pain Mixed hyperlipidemia Asthma Tobacco use disorder Essential hypertension Atrial fibrillation Depression Anxiety Hepatitis C infection Methadone dependence History of syphilis Polysubstance abuse Alcohol dependence Alcohol abuse Opiate use No known health problems Surgical History History of back surgery Family History Family History (Updated 07/20/25 @ 16:05 by Mona Umanzor CMA) Mother Alcoholism Sister Methadone dependence Social History Social History (Updated 07/20/25 @ 16:05 by Mona Umanzor CMA) Household Members: Unknown / Unable to assess Housing: Unknown / Unable to assess Do you presently have visiting nurse or other home services: No Alcohol intake: former Patient Tobacco Use Status: Current everyday Tobacco user Tobacco use type: Cigarette Cigarette Packs Per Day: 1 Cigarettes Per Day: 20.0 e-Cigarette/Vaping Use: Never Used Second Hand Smoke Exposure: Yes Substance Use Type: Crack/Cocaine and Opiates Advance Directives: No Advance Directives Information Provided: No Do you have a plan to hurt others: No Plan service: No Current occupational status: unemployed Current occupational exposures/hazards: No Cognitive needs: Yes (adhd) Hearing needs: No Vision needs: No Physical Exam ED Exam Exam: General: Pleasant, no distress, interacting appropriately Head: Normacephalic, atraumatic ENT: oral mucosa moist, neck supple, no tracheal deviation Cardiovascular: regular rate, regular rhythm, no murmurs, rubbing, gallops Respiratory: CTAB, no wheeze, rales, rhonchi Gastrointestinal: Soft, non distended, non tender, non guarding Neurological: Awake and alert, no facial droop noted, good strength in upper and lower extremities bilaterally, there is some tremors identified on exam. No obvious facial droop or dysarthria or aphasia, patient does have stuttering on exam. No sign of ataxia Skin: Warm and dry Psychiatric: Appropriate mood and thoughts Vital Signs: Vital Signs - 24 hr 07/24/25 12:03 07/24/25 16:00 07/24/25 18:33 Temperature 97.3 F 97.6 F 98.3 F Pulse Rate 93 88 66 Respiratory Rate 18 20 16 Blood Pressure 116/81 113/75 106/73 Pulse Oximetry 95 98 96 Oxygen Delivery Method Room Air Room Air Room Air BMI result Body Mass Index 30.8 Course Course Course Narrative: Rapid medical examination performed in triage by Tova Jacobo PA-C: Patient is a 45 year old assigned male at presenting to the emergency department with feeling generally unwell. Patient states he has been stuttering a lot and doing unwell since being discharged from the hospital. Detailed physical exam and review of systems are deferred to the help desk representative. EKG, labs ordered. Patient placed back in the waiting room pending room availability and results. Medications Administered Discontinued Medications Generic Name Dose Route Start Last Admin Trade Name Freq PRN Reason Stop Dose Admin Diazepam 10 mg 07/24/25 17:16 07/24/25 17:31 Diazepam 5 Mg Tablet PO 07/24/25 17:17 10 mg ONCE ONE Administration Folic Acid 1 mg 07/24/25 18:18 07/24/25 18:48 Folic Acid 1 Mg Tablet PO 12/05/25 18:19 1 mg ONCE ONE Administration Sodium Chloride 1,000 mls @ 999 mls/hr 07/24/25 17:30 07/24/25 17:55 Ns IV 07/24/25 18:30 999 mls/hr .Q1H1M JEAN Administration Thiamine HCl 100 mg 07/24/25 18:18 07/24/25 18:48 Thiamine Hcl 100 Mg Tablet PO 07/24/25 18:19 100 mg ONCE ONE Administration Medical Decision Making Medical Decision Making [facility] Narrative: This is a 45-year-old male history of alcohol use disorder, recent admission for hypoxic respiratory failure secondary to her pneumonia and alcohol withdrawal presenting to ER today for stuttering, bilateral tremors. I do not think patient has a stroke. Patient does appear to be stuttering however his tremor is intermittent in nature. It isn't continuous tremor. It is worsened when he moves. No sign of ataxia on exam. There was no signs of weakness. No facial droop Patient has good strength in upper and lower extremities. Basic lab work will be obtained with the assess him magnesium level. CK level will be obtained. We will screen patient for bacteremia with blood cultures and lactic acid. We will repeat a chest x-ray as well. A dose of p.o. Valium will be given to the patient and a bucket bolus IV fluid. We will plan to give some p.o. folic acid and thiamine as well. Patient stated his symptoms has improved after a dose of Valium and IV fluid. No signs of sepsis at this time. He is requesting to be discharged at this time. We will plan to discharge patient. Differential Diagnosis Differential Diagnoses: The differential diagnosis associated with the presentation includes Alcohol use disorder, stuttering, tremors Lab Data [facility] Lab Attestation statement: I reviewed the patient's lab results. 07/24/25 12:49 07/24/25 12:49 Labs: Lab Results 07/24/25 07/24/25 07/24/25 Range/Units 12:49 12:50 17:55 WBC 6.5 (4.8-10.8) X10*3/uL RBC 4.55 L D (4.60-5.80) X10*6/uL Hgb 12.7 L D (14.0-18.0) g/dl Hct 37.7 L D (42.0-52.0) % MCV 82.9 (80.0-98.0) fL MCH 27.9 (27.0-33.0) pg MCHC 33.7 (31.0-36.0) g/dl RDW 14.9 (11.0-16.0) % Plt Count 280 D (160-400) X10*3/uL MPV 8.1 L (9.4-12.4) fL Immature Gran % (Auto) 0.5 H (0.0-0.4) % Neut % (Auto) 56.5 (45-73) % Lymph % (Auto) 32.6 (20-40) % [place] % (Auto) 6.8 (2-11) % Eos % (Auto) 3.1 (0-4) % Baso % (Auto) 0.5 (0-2) % Lymph # (Auto) 2.1 (1.2-4.9) X10*3/uL [place] # (Auto) 0.4 (0.1-1.2) X10*3/uL Eos # (Auto) 0.2 (0.0-0.4) X10*3/uL Baso # (Auto) 0.0 (0.0-0.2) X10*3/uL Abs Immat Gran (auto) 0.03 (0.00-0.03) X10*3/uL Absolute Neuts (auto) 3.7 (2.0-8.3) x10*3/uL Absolute Nucleated RBC 0.000 (0.0-0.012) X10*3/uL Nucleated RBC % (auto) 0.0 (0.0-0.2) /100WBC Sodium 138 (135-145) mmol/L Potassium 4.0 (3.3-5.1) mmol/L Chloride 100 (96-108) mmol/L Carbon Dioxide 28 (22-29) mmol/L Anion Gap 14 (12-20) BUN 9 (9-16) mg/dL Creatinine 0.86 (0.5-1.4) mg/dL Estim Creat Clear Calc 123.1 Estimated GFR > 60 Random Glucose 123 H (60-115) mg/dL Lactic Acid (0.5-2.0) mmol/L Calcium 9.6 (8.4-10.2) mg/dL Magnesium 1.9 (1.6-2.6) mg/dL Total Bilirubin 0.2 (0.0-1.0) mg/dL AST 25 (5-37) U/L ALT 24 (0-40) U/L Alkaline Phosphatase 119 H (39-117) U/L Ammonia 36 (13-55) umol/L Total Creatine Kinase 72 (38-174) U/L Total Protein 8.4 H (6.5-8.0) g/dL Albumin 4.4 (3.5-5.0) g/dL 07/24/25 Range/Units 18:32 WBC (4.8-10.8) X10*3/uL RBC (4.60-5.80) X10*6/uL Hgb (14.0-18.0) g/dl Hct (42.0-52.0) % MCV (80.0-98.0) fL MCH (27.0-33.0) pg MCHC (31.0-36.0) g/dl RDW (11.0-16.0) % Plt Count (160-400) X10*3/uL MPV (9.4-12.4) fL Immature Gran % (Auto) (0.0-0.4) % Neut % (Auto) (45-73) % Lymph % (Auto) (20-40) % [place] % (Auto) (2-11) % Eos % (Auto) (0-4) % Baso % (Auto) (0-2) % Lymph # (Auto) (1.2-4.9) X10*3/uL [place] # (Auto) (0.1-1.2) X10*3/uL Eos # (Auto) (0.0-0.4) X10*3/uL Baso # (Auto) (0.0-0.2) X10*3/uL Abs Immat Gran (auto) (0.00-0.03) X10*3/uL Absolute Neuts (auto) (2.0-8.3) x10*3/uL Absolute Nucleated RBC (0.0-0.012) X10*3/uL Nucleated RBC % (auto) (0.0-0.2) /100WBC Sodium (135-145) mmol/L Potassium (3.3-5.1) mmol/L Chloride (96-108) mmol/L Carbon Dioxide (22-29) mmol/L Anion Gap (12-20) BUN (9-16) mg/dL Creatinine (0.5-1.4) mg/dL Estim Creat Clear Calc Estimated GFR Random Glucose (60-115) mg/dL Lactic Acid 1.4 (0.5-2.0) mmol/L Calcium (8.4-10.2) mg/dL Magnesium (1.6-2.6) mg/dL Total Bilirubin (0.0-1.0) mg/dL AST (5-37) U/L ALT (0-40) U/L Alkaline Phosphatase (39-117) U/L Ammonia (13-55) umol/L Total Creatine Kinase (38-174) U/L Total Protein (6.5-8.0) g/dL Albumin (3.5-5.0) g/dL Discharge Plan Discharge Clinical Impression: Tremor Patient Disposition: Home, Self-Care Instructions: Tremors (ED) Prescriptions: New diazepam [Valium] 2 mg tablet 2 mg PO TID PRN (Reason: tremor) Qty: 14 0RF No Action acamprosate 333 mg tablet,delayed release (DR/EC) 666 mg PO BID quetiapine 50 mg tablet 50 mg PO BID@0800,1400 90 Days Qty: 180 0RF calcium carbonate-vitamin D3 600 mg-10 mcg (400 unit) tablet 1 tab PO DAILY methadone 10 mg/mL Concentrate 190 mg PO DAILY furosemide [Lasix] 40 mg tablet 40 mg PO DAILY Qty: 90 0RF hydroxyzine pamoate 50 mg capsule 50 mg PO TID Qty: 270 0RF magnesium oxide 400 mg (241.3 mg magnesium) tablet 400 mg PO DAILY 90 Days Qty: 90 0RF buspirone 30 mg tablet 30 mg PO BID Qty: 180 0RF omeprazole 20 mg capsule,delayed release(DR/EC) 20 mg PO DAILY@0630 folic acid 1 mg tablet 1 mg PO DAILY Qty: 60 0RF potassium chloride 10 mEq tablet,ER particles/crystals 40 meq PO DAILY metoprolol succinate 50 mg tablet extended release 24 hr 50 mg PO DAILY Qty: 90 3RF clonidine HCl 0.1 mg tablet 0.1 mg PO TID PRN (Reason: for anxiety) Qty: 270 3RF thiamine HCl (vitamin B1) 100 mg capsule 100 mg PO DAILY Qty: 90 1RF albuterol sulfate 90 mcg/actuation HFA aerosol inhaler 2 inh inhalation Q4H PRN (Reason: shortness of breath or wheezing) Qty: 8.5 3RF amitriptyline 100 mg tablet 100 mg PO BEDTIME Qty: 90 3RF nifedipine 60 mg tablet extended release 60 mg PO DAILY Qty: 90 3RF cyclobenzaprine 5 mg tablet 5 mg PO TID PRN (Reason: Pain) Qty: 60 0RF quetiapine 100 mg tablet 200 mg PO BEDTIME 90 Days Qty: 180 0RF aspirin [Adult Aspirin Regimen] 81 mg tablet,delayed release (DR/EC) 81 mg PO DAILY Qty: 90 3RF (DME) BreatheRite Spacer-Mask,Adult Spacer See Rx Instructions .Route Qty: 1 0RF Rx Instructions: As directed Referrals: [facility] [Provider Group, Internal Medicine] Print Language: Mauritian
[2025-07-24 12:03] VITALS: BP 116/81; PULSE 93; RESP 18; TEMP 36.3; O2SAT 95; BMI 30.8
[2025-07-24 12:55] LABS: MANUAL DIFF FLAG NO
[2025-07-24 13:00] LABS: Hematocrit 37.7 % (42.0-52.0); Hemoglobin 12.7 g/dl (14.0-18.0); Imm Gran Abs Auto 0.03 X10*3/uL (0.00-0.03); Imm Gran Pct Auto 0.5 % (0.0-0.4); Lymphocytes Absolute Auto 2.1 X10*3/uL (1.2-4.9); Mean Corpuscular HGB Conc 33.7 g/dl (31.0-36.0); Mean Corpuscular Hemoglobin 27.9 pg (27.0-33.0); Mean Corpuscular Volume 82.9 fL (80.0-98.0); NRBC Abs Auto 0.000 X10*3/uL (0.0-0.012); NRBC Pct Auto 0.0 /100WBC (0.0-0.2); Platelet Count 280 X10*3/uL (160-400); Red Blood Count 4.55 X10*6/uL (4.60-5.80); White Blood Count 6.5 X10*3/uL (4.8-10.8)
[2025-07-24 13:08] LABS: Ammonia 36 umol/L (13-55)
[2025-07-24 13:18] LABS: Alanine Aminotransferase 24 U/L (0-40); Albumin Level 4.4 g/dL (3.5-5.0); Alkaline Phosphatase 119 U/L (39-117); Anion Gap 14 (12-20); Aspartate Amino Transferase 25 U/L (5-37); Blood Urea Nitrogen 9 mg/dL (9-16); Calcium 9.6 mg/dL (8.4-10.2); Carbon Dioxide 28 mmol/L (22-29); Chloride 100 mmol/L (96-108); Creatinine Clr Calc Pharmacy 123.1; Estimated Glomerular Filt Rate > 60; Magnesium 1.9 mg/dL (1.6-2.6); Potassium 4.0 mmol/L (3.3-5.1); Sodium 138 mmol/L (135-145); Total Protein 8.4 g/dL (6.5-8.0)
[2025-07-24 16:00] VITALS: BP 113/75; PULSE 88; RESP 20; TEMP 36.4; O2SAT 98
--- NOTE | 2025-07-24 17:41 | PC.NURSE ---
Patient presented to ED with rigors and stuttered speech that began yesterday. Patient states that ever since he left ICU last month, he has felt more fatigued but rigors came on last night. Patient states he is free of alcohol for one month now but previously was a heavy drinker. Patient also endorses dizziness that came on last night. VSS and afebrile. Attempted for IV insertion without success. Awaiting US guided IV placement.
[2025-07-24 18:33] VITALS: BP 106/73; PULSE 66; RESP 16; TEMP 36.8; O2SAT 96
--- OUTSIDE RECORDS SUMMARY | 2025-07-24 19:48 | XMS_ITS | Clinical Summary ---
Author Organization [facility] Address [address] [place] [address] Care Team Providers Care Camp Manager Name Role Phone Ref, Hasnopcp Primary Care [...] 2:20 PM EDT): Patient coming in from [facility]. He self admitted himself for alcohol withdrawal. [...] 11:04 PM EDT): Patient coming in from [facility]. He self admitted himself for alcohol withdrawal. [...] 6:17 AM EDT): Patient coming in from [facility]. He self admitted himself for alcohol withdrawal. Reports using 20 nips a day. Last drink 1 PM yesterday. CIWA scores in the ER have been 11 x 16 x 12. Patient was started on phenobarbital, transition to Valium. 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 -Continue CICT protocol -Thiamine folic acid Shortness of breath 03/31/2024 Assessment & Plan (04/02/2024 2:15 PM EDT): Patient transferred from [facility] for sudden onset shortness of breath. Patient [...] (04/01/2024 2:21 PM EDT): Patient transferred from [facility] for sudden onset shortness of breath. Patient [...] (03/31/2024 11:08 PM EDT): Patient transferred from [facility] for sudden onset shortness of breath. Patient [...] (03/31/2024 6:22 AM EDT): Patient transferred from [facility] to [facility] [place] for sudden onset shortness [...] also reports taking methadone 160 mg from [facility] in [place] . Dose confirmed. Last given sunday -Methadone 160mg Po daily Assessment & Plan (04/01/2024 2:21 PM EDT): Patient also reports taking methadone 160 mg from [facility] [place] . Dose confirmed. Last given sunday -Methadone 160mg Po daily Assessment & Plan (03/31/2024 11:07 PM EDT): Patient also reports taking methadone 160 mg from [facility] [place] . Dose confirmed. Last given sunday -Methadone 160mg Po daily Assessment & Plan (03/31/2024 6:43 AM EDT): Patient also reports taking methadone 160 mg from [facility] [place] . Dose confirmed. Last given sunday -Methadone [...] irregularly irregular heartbeat. Due to his low [id number] of 1, we decided to place him [...] liquor or more a day [facility] Utilities Answer Date Recorded In the past 12 months has e electric, gas, oil, or water [employer] threatened to shut off services in your [...] 6:00 AM 04/04/2024 12:41 PM Care Teams Camp Manager Relationship Specialty Start Date End Date Ref, Hasamaya DO NOT EDIT THIS RECORD VIA PROVIDER ON THE FLY PCP - General Vp 01/26/24
--- OUTSIDE RECORDS SUMMARY | 2025-07-24 19:48 | XMS_ITS | Clinical Summary ---
Author Organization [facility] Address [address] [place] [address] Phone Care Team Providers Care Bench Assembler Electrical Name Role Phone Physician, No Pcp Primary [...] complete this topic Insurance MED[place]ID - [place] Member Subscriber Plan / Payer (Ef fective 2024-Present) Name:Ole Barnett Relation to Subscriber:Self Name:Ole Barnett Payer ID:[id number] Group ID:Not on file Type:Not on file Address: [facility] [employer] ATTN:CLAIM[employer] [address] [place] [address] [facility] [employer] Care Teams Bench Assembler Electrical Relationship Specialty Start Date End Date Physician, No Pcp PCP - General 11/03/24
[2025-07-24 20:20] VITALS: BP 110/77; PULSE 74; RESP 16; TEMP 36.5; O2SAT 96
== END 2025-07-24 20:25 | disposition home or self-care (01) ==
PROVIDERS: Physician Assistant Medical; Emergency Provider Student in an Organized Health Care Education/Training Program
DX: R25.1 Tremor, unspecified (principal); R11.0 Nausea; Z79.899 Other long term (current) drug therapy; F17.210 Nicotine dependence, cigarettes, uncomplicated
CPT/HCPCS: 36415; 80053; 82140; 82550; 83605; 83735; 85025; 87040; 96360; 99283; 99284

== ENCOUNTER 2025-08-05 22:22 | Inpatient (IN) | payer OTHER, SELFPAY ==
--- NOTE | ~2025-08-05 | MR_ITS ---
EXAMINATION: MR BRAIN WITHOUT CONTRAST CLINICAL INFORMATION: Frequent falls. Ataxia. New tremor. COMPARISON: Correlated to CT dated August 05, 2025. TECHNIQUE: MRI of the brain was obtained using routine sequences without contrast. FINDINGS: No restricted diffusion. No acute intracranial hemorrhage, mass effect, midline shift, hydrocephalus or herniation. [place]-white matter differentiation is normal. Posterior cranial fossa contents demonstrated no acute hemorrhage or mass effect. Normal position of the cerebellar tonsils. Sellar/suprasellar region is normal. No abnormal susceptibility signal in the substantia nigra. Flow-void signal within the main cerebral vessels is normal. Hyperintense T2 FLAIR signal, both mastoid air cells. Mild mucosal thickening in the paranasal sinuses without air-fluid levels. MR/MR head/brain wo con IMPRESSION: No acute or structural brain abnormality. Probable inflammatory processes and mastoid air cells. Electronically signed by: Jonas Rahman MD 08/06/2025 01:02 PM [facility]
--- NOTE | ~2025-08-05 | CT_ITS ---
CLINICAL HISTORY: sudden onset stuttering, blurred vission CTA HEAD WITH CONTRAST AND 3D POST PROCESSING CTA NECK WITH CONTRAST AND 3D POST PROCESSING COMPARISON: None provided. FINDINGS: CTA NECK: Sagittal and coronal MIP 3D reconstruction images were performed.There is no significant stenosis, occlusion, dissection, aneurysm, or vascular malformation. There is no active bleeding.Common carotid arteries, internal carotid arteries, external carotid arteries, and vertebral arteries are unremarkable. Straightening of the normal cervical lordosis is noted. No evidence of an acute fracture or dislocation within the cervical spine and visualized thoracic spine. Multilevel endplate degenerative changes are noted within the cervical spine. No prevertebral soft tissue swelling. There is mild atelectatic change in the right upper lobe. No pneumothorax in the lung apices. CTA HEAD: Sagittal and coronal MIP 3D reconstruction images were performed.There is no significant stenosis, occlusion, dissection, aneurysm, or vascular malformation. There is no active bleeding.Terminal internal carotid arteries, middle cerebral arteries, anterior cerebral arteries, basilar artery, and posterior cerebral arteries are unremarkable. No evidence of dural venous sinus thrombosis. The calvarium and the facial bones are intact. There is mild mucosal thickening within the ethmoid air cells and left sphenoid sinus. IMPRESSION: 1. Unremarkable CTA neck and CTA head. This document has been electronically signed by: Lalit Doll M.D. on 08/06/2025 01:10:04
--- NOTE | ~2025-08-05 | CT_ITS ---
CLINICAL HISTORY: sudden onset stuttering, multiple falls CT BRAIN WITHOUT CONTRAST COMPARISON: None provided. FINDINGS: There is no evidence of an acute infarct or intraparenchymal hemorrhage. There is no mass effect, midline shift, or extra-axial blood. The ventricles are normal in size without evidence of hydrocephalus. The bone windows are unremarkable. IMPRESSION: 1. No acute disease in the brain. This document has been electronically signed by: Lalit Doll M.D. on 08/05/2025 23:37:27
[2025-08-05 22:25] VITALS: BP 142/95; PULSE 92; RESP 16; TEMP 35.9; O2SAT 95; BMI 29.5
--- NOTE | 2025-08-05 22:38 | PC.NURSE ---
per Dr. Velazquez, is to please wait in the waiting room until assessment is completed.
--- NOTE | 2025-08-05 22:40 | ECG_ITS ---
Test Reason : WEAKNESS Blood Pressure : */* mmHG Vent. Rate : 88 BPM Atrial Rate : 88 BPM P-R Int : 162 ms QRS Dur : 110 ms QT Int : 422 ms P-R-T Axes : 58 53 43 degrees QTcB Int : 510 ms Normal sinus rhythm Possible Left atrial enlargement Prolonged QT Abnormal ECG When compared with ECG of 14-Jun-2025 14:24, Vent. rate has decreased by 44 bpm Referred By: Jamia Velazquez Electronically Signed By: Lucio Jean-Baptiste
[2025-08-05 23:07] LABS: Hematocrit 34.2 % (42.0-52.0); Hemoglobin 11.3 g/dl (14.0-18.0); Imm Gran Abs Auto 0.06 X10*3/uL (0.00-0.03); Imm Gran Pct Auto 0.8 % (0.0-0.4); Lymphocytes Absolute Auto 2.6 X10*3/uL (1.2-4.9); MANUAL DIFF FLAG NO; Mean Corpuscular HGB Conc 33.0 g/dl (31.0-36.0); Mean Corpuscular Hemoglobin 26.9 pg (27.0-33.0); Mean Corpuscular Volume 81.4 fL (80.0-98.0); NRBC Abs Auto 0.000 X10*3/uL (0.0-0.012); NRBC Pct Auto 0.0 /100WBC (0.0-0.2); Platelet Count 228 X10*3/uL (160-400); Red Blood Count 4.20 X10*6/uL (4.60-5.80); White Blood Count 7.5 X10*3/uL (4.8-10.8)
[2025-08-05] MEDS: diazePAM 10 MG/2 ML CARTRIDGE 5 MG IVPUSH (23:08)
[2025-08-05 23:24] LABS: Alanine Aminotransferase 19 U/L (0-40); Albumin Level 4.1 g/dL (3.5-5.0); Alkaline Phosphatase 102 U/L (39-117); Anion Gap 14 (12-20); Aspartate Amino Transferase 26 U/L (5-37); Blood Urea Nitrogen 16 mg/dL (9-16); Calcium 9.5 mg/dL (8.4-10.2); Carbon Dioxide 26 mmol/L (22-29); Chloride 100 mmol/L (96-108); Creatinine Clr Calc Pharmacy 85.1; Estimated Glomerular Filt Rate > 60; Magnesium 2.1 mg/dL (1.6-2.6); Potassium 4.2 mmol/L (3.3-5.1); Sodium 136 mmol/L (135-145); Total Protein 8.0 g/dL (6.5-8.0)
[2025-08-05] MEDS: iohexoL 350 MG/ML 100 ML INFUS..BTL 75 ML IV (23:24)
[2025-08-05 23:30] LABS: Troponin-I High Sensitivity < 2.7 ng/L (<3.5-35.0)
--- OUTSIDE RECORDS SUMMARY | 2025-08-05 23:31 | XMS_ITS | Clinical Summary ---
Author Organization [facility] Address [address] [place] [address] Care Team Providers Care Entry Level Civil Engineer Name Role Phone Ref, Hasnopcp Primary Care [...] 2:20 PM EDT): Patient coming in from [facility]. He self admitted himself for alcohol withdrawal. [...] 11:04 PM EDT): Patient coming in from [facility]. He self admitted himself for alcohol withdrawal. [...] 6:17 AM EDT): Patient coming in from [facility]. He self admitted himself for alcohol withdrawal. Reports using 20 nips a day. Last drink 1 PM yesterday. CIWA scores in the ER have been 11 x 16 x 12. Patient was started on phenobarbital, transition to Valium. 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 -Continue [employer] protocol -Thiamine folic acid Shortness of breath 03/31/2024 Assessment & Plan (04/02/2024 2:15 PM EDT): Patient transferred from [facility] for sudden onset shortness of [...] (04/01/2024 2:21 PM EDT): Patient transferred from [facility] for sudden onset shortness of [...] (03/31/2024 11:08 PM EDT): Patient transferred from [facility] for sudden onset shortness of [...] (03/31/2024 6:22 AM EDT): Patient transferred from [facility] to [facility] [place] for sudden onset shortness [...] also reports taking methadone 160 mg from [facility] in [place] . Dose confirmed. Last given sunday -Methadone 160mg Po daily Assessment & Plan (04/01/2024 2:21 PM EDT): Patient also reports taking methadone 160 mg from [facility] in [place] . Dose confirmed. Last given sunday -Methadone 160mg Po daily Assessment & Plan (03/31/2024 11:07 PM EDT): Patient also reports taking methadone 160 mg from [facility] [place] . Dose confirmed. Last given sunday -Methadone 160mg Po daily Assessment & Plan (03/31/2024 6:43 AM EDT): Patient also reports taking methadone 160 mg from [facility] [place] . Dose confirmed. Last given sunday -Methadone [...] irregularly irregular heartbeat. Due to his low [id number] of 1, we decided to place him [...] of hard liquor or more a day [facility] Utilities Answer Date Recorded In the past 12 months has e electric, gas, oil, or water [employer] threatened to shut off services in your [...] 6:00 AM 04/04/2024 12:41 PM Care Teams Entry Level Civil Engineer Relationship Specialty Start Date End Date Ref, Hasamaya DO NOT EDIT THIS RECORD VIA PROVIDER ON THE FLY PCP - General [employer] 01/26/24
--- OUTSIDE RECORDS SUMMARY | 2025-08-05 23:31 | XMS_ITS | Clinical Summary ---
Author Organization [facility] Address [address] [place] [address] Phone Care Team Providers Care [place] Stayer Machine Operator Name Role Phone Physician, No Pcp Primary [...] complete this topic Insurance MED[place] - [place] [facility] [employer] [address] PLAN Care Teams [place] Stayer Machine Operator Relationship Specialty Start Date End Date Physician, No Pcp PCP - General 11/03/24
[2025-08-05 23:55] VITALS: BP 128/87; PULSE 66; O2SAT 94
[2025-08-06] VITALS (10 sets, daily range): BP systolic 111–166; BP diastolic 63–107; PULSE 73–96; RESP 12–18; TEMP 36.4–37.1; O2SAT 95–98
--- NOTE | 2025-08-06 00:17 | ED.NEUROSD ---
HPI - Neuro Symptoms/Deficit General Chief Complaint: Neuro Symptoms/Deficit Stated Complaint: neurological issues Time Seen by Provider: 08/05/25 22:39 Source: patient and family Mode of arrival: ambulatory Limitations: no limitations History of Present Illness ED Provider: Dr. Jamia Velazquez HPI Narrative: Patient comes to the emergency room accompanied by his . Patient reports that 1 hour prior to arrival, patient was walking up the stairs, his legs gave out and he fell backwards and rolled down a flight of stairs. Patient states that he did not lose consciousness. Patient states that he does not have any significant headache or neck pain. Patient states that before he fell today, a few hours he started stuttering. However, patient states that the stuttering is not new. It has been going on intermittently for about a month. According to the patient's , all of his symptoms started a proximally in the middle of June, 1 month ago after he was discharged from the hospital for ARDS. The patient is stuttering and has some trouble getting some history. However, the patient does state that he has been falling ?a lot? lately. Patient believes that in a 2 week. He has fallen at least 10 times. Patient states that his legs just give out and he falls. Patient denies head injuries or losing consciousness. However, this time he fell down the stairs. I was able to get in touch with the patient's over the phone, she reports pretty much the same, for about a month patient has had intermittent stuttering but has gotten much worse over last week. Also, intermittent bilateral leg weakness and giving out causing the patient to foam multiple times, at least 10 times. Patient has had some tremors in upper and lower extremities. Also, the patient's reports that seems that the patient has had trouble swallowing for 1-2 weeks. Patient is known to have history of alcohol abuse. With the according to the patient's , the patient has not had a single drink of alcohol since the middle of June. Related Data Home Medications ?Medication ?Instructions ?Recorded ?Confirmed calcium 600 mg (as 1 tab PO DAILY 02/21/25 06/14/25 carbonate)-vitamin D3 10 mcg (400 unit) tablet methadone 10 mg/mL oral concentrate 190 mg PO DAILY 02/21/25 06/20/25 omeprazole 20 mg capsule,delayed 20 mg PO DAILY@0630 10/26/25 10/26/25 release potassium chloride 10 mEq 40 meq PO DAILY 07/20/25 tablet,extended release(part/cryst) Previous Rx's ?Medication ?Instructions ?Recorded buspirone 30 mg tablet 30 mg PO BID #180 tabs 02/24/25 furosemide 40 mg tablet (Lasix) 40 mg PO DAILY #90 tabs 02/24/25 hydroxyzine pamoate 50 mg capsule 50 mg PO TID #270 caps 02/24/25 magnesium oxide 400 mg (241.3 mg 400 mg PO DAILY 90 days #90 tabs 02/24/25 magnesium) tablet folic acid 1 mg tablet 1 mg PO DAILY #60 tabs 07/02/25 albuterol sulfate 90 mcg/actuation 2 inh inhalation Q4H PRN shortness 07/20/25 aerosol inhaler of breath or wheezing #8.5 grams amitriptyline 100 mg tablet 100 mg PO BEDTIME #90 tabs 07/20/25 aspirin 81 mg tablet,delayed 81 mg PO DAILY #90 tabs 07/20/25 release (Adult Aspirin Regimen) clonidine HCl 0.1 mg tablet 0.1 mg PO TID PRN for anxiety #270 07/20/25 tabs cyclobenzaprine 5 mg tablet 5 mg PO TID PRN Pain #60 tabs 07/20/25 inhalat.spacing dev,large mask #1 ea 07/20/25 (BreatheRite Spacer and Mask, Adult) nifedipine 60 mg tablet,extended 60 mg PO DAILY #90 tabs 07/20/25 release quetiapine 100 mg tablet 200 mg (2 x 100 mg) PO BEDTIME 90 07/20/25 days #180 tabs thiamine HCl (vitamin B1) 100 mg 100 mg PO DAILY #90 caps 07/20/25 capsule diazepam 2 mg tablet (Valium) 2 mg PO TID PRN tremor #14 tabs 07/24/25 acamprosate 333 mg tablet,delayed 666 mg (2 x 333 mg) PO TID 90 days 07/27/25 release #540 tabs ibuprofen 600 mg tablet 600 mg PO Q8H PRN pain #90 tabs 07/27/25 metoprolol succinate 50 mg 50 mg PO DAILY #90 tabs 07/27/25 tablet,extended release 24 hr quetiapine 50 mg tablet 50 mg PO BID@0800,1400 90 days 07/27/25 #180 tabs Allergies Allergy/AdvReac Type Severity Reaction Status Date / Time Fish Containing Products Allergy Unknown UNKNOWN Verified 08/05/25 22:26 Review of Systems Review of Systems: Constitutional : No Weight loss, No Fever, No Chills, No Night Sweats, No Fatigue, No Malaise ENT/Mouth : No Hearing loss, No Ear Pain, No Nasal Congestion, No Sinus Pain, No Hoarseness, No sore throat, No Rhinorrhea, No Swallowing Difficulty Eyes: No Eye Pain, No Swelling, No Redness, No Foreign Body, No Discharge, No Vision Changes Cardiovascular : No Chest Pain, No SOB, No Dyspnea on Exertion, No Orthopnea, No Edema, No Palpitations Respiratory : No Cough, No Sputum, No Wheezing, No Smoke Exposure, No Dyspnea Gastrointestinal : No Nausea, No Vomiting, No Diarrhea, No Constipation, No abdominal Pain, No Hematochezia, No Melena Genitourinary : no irregular bleeding, No Dysuria, No Urinary Frequency, No Hematuria, No Urinary Incontinence, No Urgency, No Flank Pain, No Urinary Flow Changes, No Hesitancy Musculoskeletal : No joint pain, No Myalgias, No Joint Swelling Skin : No Skin Lesions, No rash Neuro : Complaining of intermittent weakness in bilateral lower extremities, wobbly gait intermittently, intermittent stuttering, submit having trouble swallowing that started 1-2 weeks ago intermittent upper extremity tremors Psych : No Anxiety/Panic, No Depression, No SI/HI/AH/VH, No Social Issues, Heme/Lymph: No Bruising, No Bleeding,No Lymphadenopathy Endocrine : No Polyuria, No Polydipsia, No Temperature Intolerance [facility] Past Medical History Medical History History of acute respiratory distress syndrome (ARDS) Sepsis Right lower lobe pneumonia Hospital discharge follow-up Abnormal chest x-ray Dry mouth Alcoholic cardiomyopathy Systolic heart failure Rash of neck Portal hypertension Hepatic steatosis Chest pain Mixed hyperlipidemia Asthma Tobacco use disorder Essential hypertension Atrial fibrillation Depression Anxiety Hepatitis C infection Methadone dependence History of syphilis Polysubstance abuse Alcohol dependence Alcohol abuse Opiate use No known health problems Surgical History History of back surgery Family History Family History (Updated 07/20/25 @ 16:05 by Mona Umanzor CMA) Mother Alcoholism Sister Methadone dependence Social History Social History (Updated 07/20/25 @ 16:05 by Mona Umanzor CMA) Household Members: Unknown / Unable to assess Housing: Unknown / Unable to assess Do you presently have visiting nurse or other home services: No Alcohol intake: former Patient Tobacco Use Status: Current everyday Tobacco user Tobacco use type: Cigarette Cigarette Packs Per Day: 1 Cigarettes Per Day: 20.0 Smoked in Last 30 Days: Yes e-Cigarette/Vaping Use: Never Used Second Hand Smoke Exposure: Yes Use of substances other than those prescribed or required for medical reasons: Yes Substance Use Type: Marijuana Substance Use Frequency: Weekly Advance Directives: No Advance Directives Information Provided: Yes service: No Current occupational status: unemployed Current occupational exposures/hazards: No Cognitive needs: Yes (adhd) Hearing needs: No Vision needs: No Physical Exam Exam: Exam: Appearance: Alert. Oriented X3. No acute distress. Eyes: Pupils equal, round and reactive to light. No nystagmus ENT: Pharynx normal. Neck: Normal inspection. Neck supple. No lymph nodes noted. No crepitus CVS: Normal heart rate and rhythm. Pulses normal. Normal S1 and S2 Respiratory: No respiratory distress. Breath sounds normal. No Wheezing. No rales Abdomen: Soft and nontender. No rigidity. No distention. Skin: Skin warm and dry. Normal skin color. Normal skin turgor. Extremities: No lower extremity edema. No Lacerations. No Rash Neuro: Oriented X 3. Patient has significant trouble speaking due to stuttering, patient's history of previous events within the last month, patient is able to tell us the story but keeps changing his story slightly a seems to have trouble with memory. Patient has a bit of trouble with [id number] test especially with the left hand. Sometimes misses his nose. Patient is able to give a few steps. Patient walked in when he arrived. However, patient is afraid to walk any further than his bed because that his legs could give out any moment. Psych: calm, cooperative, normal affect, very frustrated with his stuttering Vital Signs: Vital Signs: Last Vital Signs Temp 96.7 F L 08/05/25 22:25 Pulse 66 08/05/25 23:55 Resp 16 08/05/25 22:25 BP 128/87 08/05/25 23:55 Pulse Ox 94 08/05/25 23:55 O2 Del Method Room Air 08/05/25 23:55 BMI result Body Mass Index 29.5 Course Course Course Narrative: Patient's symptoms has been intermittently for about a month, worsening for the last couple of weeks. Much worse today. Unlikely that this would be a TIA or CVA. However, given the timing of the worsening of symptoms, we will go ahead and order a CT scan and a CTA. Patient is starting quite a bit, patient was given diazepam to help him with the symptoms. All of patient's labs and imaging pending Medications Administered Discontinued Medications Generic Name Dose Route Start Last Admin Trade Name Ana PRN Reason Stop Dose Admin Diazepam 5 mg 08/05/25 22:51 08/05/25 23:08 Diazepam 10 Mg/2 Ml Cartridge IVPUSH 08/05/25 22:52 5 mg STAT STA Administration Thiamine HCl 500 mg/ Sodium 105 mls @ 210 mls/hr 08/06/25 00:32 08/06/25 00:51 Chloride IV 08/06/25 01:01 210 mls/hr ONCE ONE Administration Iohexol 75 ml 08/05/25 23:24 08/05/25 23:24 Iohexol 350 Mg/Ml 100 Ml Infus..Btl IV 08/05/25 23:25 75 ml ONCE ONE Administration Medical Decision Making Medical Decision Making [facility] Narrative: My interpretation of labs, no significant acute abnormality, patient has been chronically anemic, chemistry does not show any acute abnormality. Normal LFTs Pending: Vitamin B1 B6 B12 and folate ETOH is negative CT scan of the head does not show any acute abnormality. Physical exam, patient is able to stand by himself, patient's seems to have a bit of trouble with [id number] test especially with the left hand. Patient is afraid of walking since he has fallen more than 10 times within the last couple of weeks. Patient is able talk and make sense. However, patient's seems to have a little trouble with memory and the stuttering is very obvious. Patient's seems to be very frustrated with the stuttering. Patient was given 5 mg of IV diazepam earlier today, no effect. Patient has not had any fever or any chills. No headache. Earlier today, he did have head trauma, fell down a flight of stairs. However, all of the patient's symptoms started before the fall today. According to the patient's , all of the patient's symptoms started after he was discharged from the hospital. Patient has not had any alcohol since then. Empirically, patient was given a dose of IV thiamine. Patient will likely need an MRI tomorrow and a neurology consult. CTA negative Urine negative for UTI, urine toxicology positive for methadone which she gets prescribed and benzodiazepines which got here in the emergency Differential Diagnosis Differential Diagnoses: The differential diagnosis associated with the presentation includes (TIA, CVA, Wernicke, Korsakoff) Admission/Observation Consideration of admission/observation: Escalation of care including admission/observation considered Consult Healthcare Provider Management of the patient was discussed with: Hospitalist Lab Data [facility] Lab Attestation statement: I reviewed the patient's lab results. 08/05/25 23:03 08/05/25 23:03 Labs: Lab Results 08/05/25 08/06/25 Range/Units 23:03 01:09 WBC 7.5 (4.8-10.8) X10*3/uL RBC 4.20 L (4.60-5.80) X10*6/uL Hgb 11.3 L (14.0-18.0) g/dl Hct 34.2 L (42.0-52.0) % MCV 81.4 (80.0-98.0) fL MCH 26.9 L (27.0-33.0) pg MCHC 33.0 (31.0-36.0) g/dl RDW 14.4 (11.0-16.0) % Plt Count 228 (160-400) X10*3/uL MPV 7.8 L (9.4-12.4) fL Immature Gran % (Auto) 0.8 H (0.0-0.4) % Neut % (Auto) 52.0 (45-73) % Lymph % (Auto) 34.4 (20-40) % [place] % (Auto) 8.4 (2-11) % Eos % (Auto) 3.9 (0-4) % Baso % (Auto) 0.5 (0-2) % Lymph # (Auto) 2.6 (1.2-4.9) X10*3/uL [place] # (Auto) 0.6 (0.1-1.2) X10*3/uL Eos # (Auto) 0.3 (0.0-0.4) X10*3/uL Baso # (Auto) 0.0 (0.0-0.2) X10*3/uL Abs Immat Gran (auto) 0.06 H (0.00-0.03) X10*3/uL Absolute Neuts (auto) 3.9 (2.0-8.3) x10*3/uL Absolute Nucleated RBC 0.000 (0.0-0.012) X10*3/uL Nucleated RBC % (auto) 0.0 (0.0-0.2) /100WBC Sodium 136 (135-145) mmol/L Potassium 4.2 (3.3-5.1) mmol/L Chloride 100 (96-108) mmol/L Carbon Dioxide 26 (22-29) mmol/L Anion Gap 14 (12-20) BUN 16 (9-16) mg/dL Creatinine 1.22 (0.5-1.4) mg/dL Estim Creat Clear Calc 85.1 Estimated GFR > 60 Random Glucose 105 (60-115) mg/dL Calcium 9.5 (8.4-10.2) mg/dL Magnesium 2.1 (1.6-2.6) mg/dL Total Bilirubin 0.2 (0.0-1.0) mg/dL Direct Bilirubin < 0.2 (0.0-0.5) mg/dL AST 26 (5-37) U/L ALT 19 (0-40) U/L Alkaline Phosphatase 102 (39-117) U/L Total Creatine Kinase 55 (38-174) U/L Troponin I High Sens < 2.7 (<3.5-35.0) ng/L Total Protein 8.0 (6.5-8.0) g/dL Albumin 4.1 (3.5-5.0) g/dL Urine Color Yellow Urine Appearance Clear Urine pH 7.5 (5.0-9.0) Ur Specific [address] 1.020 (1.005-1.025) Urine Protein Negative (Neg-Trace) mg/dL Urine Glucose (UA) Negative (Negative) mg/dL Urine Ketones Negative (Negative) mg/dL Urine Blood Negative (Negative) Urine Nitrite Negative (Negative) Ur Leukocyte Esterase Negative (Negative) Urine Opiates Screen Not Detected (Not Detect) Ur Buprenorphine Scrn Not Detected (Not Detect) ng/mL Ur Oxycodone Screen Not Detected (Not Detect) ng/mL Urine Methadone Screen Positive H (Not Detect) ng/mL Urine Fentanyl Screen Not Detected (Not Detect) Ur Barbiturates Screen Not Detected (Not Detect) Ur Phencyclidine Scrn Not Detected (Not Detect) Ur Amphetamines Screen Not Detected (Not Detect) U Benzodiazepines Scrn POSITIVE H (Not Detect) Urine Cocaine Screen Not Detected (Not Detect) U Marijuana (THC) Screen Not Detected (Not Detect) Ethyl Alcohol < 10 mg/dL Independent Interpretation I performed an independent interpretation of an: CT Scan Radiology Impression Discussion of test interpretation with radiology: I have reviewed the radiologist's reading. Radiologist Impression: FINDINGS: There is no evidence of an acute infarct or intraparenchymal hemorrhage. There is no mass effect, midline shift, or extra-axial blood. The ventricles are normal in size without evidence of hydrocephalus. The bone windows are unremarkable. IMPRESSION: 1. No acute disease in the brain. CTA NECK: Sagittal and coronal MIP 3D reconstruction images were performed.There is no significant stenosis, occlusion, dissection, aneurysm, or vascular malformation. There is no active bleeding.Common carotid arteries, internal carotid arteries, external carotid arteries, and vertebral arteries are unremarkable. Straightening of the normal cervical lordosis is noted. No evidence of an acute fracture or dislocation within the cervical spine and visualized thoracic spine. Multilevel endplate degenerative changes are noted within the cervical spine. No prevertebral soft tissue swelling. There is mild atelectatic change in the right upper lobe. No pneumothorax in the lung apices. CTA HEAD: Sagittal and coronal MIP 3D reconstruction images were performed.There is no significant stenosis, occlusion, dissection, aneurysm, or vascular malformation. There is no active bleeding.Terminal internal carotid arteries, middle cerebral arteries, anterior cerebral arteries, basilar artery, and posterior cerebral arteries are unremarkable. No evidence of dural venous sinus thrombosis. The calvarium and the facial bones are intact. There is mild mucosal thickening within the ethmoid air cells and left sphenoid sinus. IMPRESSION: 1. Unremarkable CTA neck and CTA head. Critical Care Time Critical Care Time Critical Care Time: Yes Total Critical Care Time: 60 Attestation: I have personally provided critical care time. Time includes review of lab data, radiology results, discussion with consultants, and monitoring for potential decompensation. Intervention performed as documented. Discharge Plan Discharge Clinical Impression: Multiple falls, Weakness, Stuttering Patient Disposition: Admitted As Inpatient Print Language: Pashto
[2025-08-06 01:16] LABS: Appearance Urine Clear; Glucose Urine UA Negative (Negative); PH 7.5 (5.0-9.0); Specific Gravity - Urine 1.020 (1.005-1.025)
[2025-08-06 01:28] LABS: Cannabinoid Screen Urine Not Detected (Not Detect)
[2025-08-06 01:44] LABS: Folate 11.4 ng/mL (> or = 4.0); Vitamin B12 567 pg/mL (200-900)
--- NOTE | 2025-08-06 01:58 | HO.NURTONUR ---
Addendum entered by Latonya Gage RN 08/06/25 12:41: Update 08/06 1300 Pt currently in MRI. Able to walk w/ SB assist to BR. Pt continues to be intermittently shaky/tremulous and stuttering speech. Seems to almost self resolve midconversation. A&O x 4 Neuro Consult: Rule out metabolic causes of this syndrome and performed a thorough metabolic testing including calcium, magnesium, phosphorus, and ammonia. An EEG is also recommended. If all that is negative, methadone should be considered as a cause as it can lead to this kind of syndrome. INSTALLATION HELPER: Reg diet, passed swallow eval Addiction med to see. Original Note: pt presented to ED after falling down approx 10 steps. no laceration or bleeding noted to pt head or body. CT done - negative result. being admitted for MRI tomorrow. pt got valium 5mg and thiamine 500mg ivpb. In & out cath to obtain his urine for lab put out 550cc clear yellow urine. has his cell phone to speak with his . 20g IV placed in left forearm. resting without difficulty at this time
--- NOTE | 2025-08-06 02:12 | PM.IMHP ---
History of Present Illness Date of Service: 08/06/25 Attending physician on admission: Stephen Cuellar Chief Complaint: fall Pt is a 45 yo male with a pmhx of alcohol use disorder (sober x1.5 months), hx syphillis (documented in chart but pt denies), recent admission for ARDS/pneumonia requiring intubation on 06/15, mild intermittent asthma, HLD, HTN, and mood disorder, who presented to the ED after a fall. The patient reported that 1 hour prior to arriving to the ED he was walking up the stairs in his legs gave out and he fell backwards Xarelto down the flight of stairs. He did not lose consciousness, no head strike. No headache or neck pain. He also reports developing a new stutter over the past month intermittently and tremor. He has had issues with swallowing reported by the patient's to the ED provider however he states this is not true. The patient reported that he has fallen 10 times in the past 2 weeks. He has a known history of alcoholism who reports that he has not alcoholic beverages since his admission back in the end of May. The patient has a very hard time providing a history due to his stutter. Most of this history is obtained from the ED provider. Review of Systems Constitutional: Constitutional: Denies chills, Denies fatigue, Denies fever(s) and Denies headache(s) Eyes: Eyes: Reports blurry vision ENT: Denies facial pain, Denies headache(s), Denies nasal discharge and Denies sore throat Cardiovascular: Cardiovascular: Denies chest pain, Denies rapid heart rate, Denies leg edema, Denies lightheadedness and Denies dyspnea Respiratory: Respiratory: Denies chest congestion, Denies cough, Denies dyspnea and Denies wheezing Gastrointestinal: Gastrointestinal: Denies abdominal pain, Denies diarrhea, Denies nausea and Denies vomiting Genitourinary: Genitourinary: Denies dysuria, Denies urinary frequency and Denies urinary urgency Musculoskeletal: Musculoskeletal: Denies back pain and Denies myalgias Neurologic: Denies confusion and Denies headache(s) Psychiatric: Psychiatric: Denies confusion Endocrine: Endocrine: Denies fatigue Hematologic/Lymphatic: Hematologic/Lymphatic: Denies easy bleeding Allergic/Immunologic: Allergic/Immunologic: Denies wheezing [facility] Medical History History of acute respiratory distress syndrome (ARDS) Sepsis Right lower lobe pneumonia Hospital discharge follow-up Abnormal chest x-ray Dry mouth Alcoholic cardiomyopathy Systolic heart failure Rash of neck Portal hypertension Hepatic steatosis Chest pain Mixed hyperlipidemia Asthma Tobacco use disorder Essential hypertension Atrial fibrillation Depression Anxiety Hepatitis C infection Methadone dependence History of syphilis Polysubstance abuse Alcohol dependence Alcohol abuse Opiate use No known health problems Family History Mother Alcoholism Sister Methadone dependence Surgical History History of back surgery Social History Household Members: Unknown / Unable to assess Housing: Unknown / Unable to assess Do you presently have visiting nurse or other home services: No Alcohol intake: former Patient Tobacco Use Status: Current everyday Tobacco user Tobacco use type: Cigarette Cigarette Packs Per Day: 1 Cigarettes Per Day: 20.0 Smoked in Last 30 Days: Yes e-Cigarette/Vaping Use: Never Used Second Hand Smoke Exposure: Yes Use of substances other than those prescribed or required for medical reasons: Yes Substance Use Type: Marijuana Substance Use Frequency: Weekly Advance Directives: No Advance Directives Information Provided: Yes service: No Current occupational status: unemployed Current occupational exposures/hazards: No Cognitive needs: Yes (adhd) Hearing needs: No Vision needs: No Meds Allergies Allergy/AdvReac Type Severity Reaction Status Date / Time Fish Containing Products Allergy Unknown UNKNOWN Verified 08/05/25 22:26 Active Medications: Current Medications Thiamine HCl 500 mg/ Sodium (Chloride) 105 mls @ 210 mls/hr IV Q12H JEAN Home Medications ?Medication ?Instructions ?Recorded ?Confirmed ?Last Taken ?Type calcium 600 mg (as 1 tab PO DAILY 02/21/25 06/14/25 02/20/25 History carbonate)-vitamin D3 10 mcg (400 unit) tablet methadone 10 mg/mL oral concentrate 190 mg PO DAILY 02/21/25 06/20/25 06/14/25 07:00 History omeprazole 20 mg capsule,delayed 20 mg PO DAILY@0630 06/14/25 06/14/25 Unknown History release potassium chloride 10 mEq 40 meq PO DAILY 07/20/25 Unknown History tablet,extended release(part/cryst) Physical Exam Vital Signs and Narrative: Vital Signs: Last Vital Signs Temp 97.8 F 08/06/25 01:50 Pulse 73 08/06/25 01:50 Resp 16 08/05/25 22:25 BP 111/83 08/06/25 01:50 Pulse Ox 95 08/06/25 01:50 O2 Del Method Room Air 08/06/25 01:50 BMI result Body Mass Index 29.5 General: AOx3, no acute distress Resp: CTA bilaterally CVS: S1, S2, RRR GI: +BS, NT, no distention Skin: Warm, dry Neuro: Cranial nerves II-XII grossly intact bilaterally. Motor grossly intact bilaterally. stuttered speech. poor coordination with upper extremities. Extremities: No pitting edema Psych: Appropriate affect Const: General: No confusion Orientation/consciousness: No confusion Neuro: General: No confusion Results Labs 08/05/25 23:03 08/05/25 23:03 Labs: Laboratory Results - last 24 hr 08/05/25 08/06/25 08/06/25 23:03 00:41 01:09 MCV 81.4 MCH 26.9 L MCHC 33.0 RDW 14.4 Plt Count 228 MPV 7.8 L Immature Gran % (Auto) 0.8 H Neut % (Auto) 52.0 Lymph % (Auto) 34.4 [place] % (Auto) 8.4 Eos % (Auto) 3.9 Baso % (Auto) 0.5 Lymph # (Auto) 2.6 [place] # (Auto) 0.6 Eos # (Auto) 0.3 Baso # (Auto) 0.0 Abs Immat Gran (auto) 0.06 H Absolute Neuts (auto) 3.9 Absolute Nucleated RBC 0.000 Nucleated RBC % (auto) 0.0 Anion Gap 14 Estim Creat Clear Calc 85.1 Estimated GFR > 60 Random Glucose 105 Calcium 9.5 Magnesium 2.1 Total Bilirubin 0.2 Direct Bilirubin < 0.2 AST 26 ALT 19 Alkaline Phosphatase 102 Total Creatine Kinase 55 Troponin I High Sens < 2.7 Total Protein 8.0 Albumin 4.1 Vitamin B12 567 Folate 11.4 Urine Color Yellow Urine Appearance Clear Urine pH 7.5 Ur Specific [place] 1.020 Urine Protein Negative Urine Glucose (UA) Negative Urine Ketones Negative Urine Blood Negative Urine Nitrite Negative Ur Leukocyte Esterase Negative Urine Opiates Screen Not Detected Ur Buprenorphine Scrn Not Detected Ur Oxycodone Screen Not Detected Urine Methadone Screen Positive H Urine Fentanyl Screen Not Detected Ur Barbiturates Screen Not Detected Ur Phencyclidine Scrn Not Detected Ur Amphetamines Screen Not Detected U Benzodiazepines Scrn POSITIVE H Urine Cocaine Screen Not Detected U Marijuana (THC) Screen Not Detected Ethyl Alcohol < 10 Assessment and Plan (1) Weakness: Status: Acute (2) Multiple falls: Status: Acute (3) History of alcohol abuse: Status: Acute Plan Pt is a 45 yo male with a pmhx of alcohol use disorder (sober x1.5 months), hx syphillis (documented in chart but pt denies), recent admission for ARDS/pneumonia requiring intubation on 06/15, mild intermittent asthma, HLD, HTN, and mood disorder, who presented to the ED after a fall. weakness with multiple recent falls, new stutter, hx etoh abuse, ?hx syphillis - B12 normal, B1, B6 and RPR pending - MRI brain in AM - neuro checks - neurology consult - bedside swallow prior to PO (pt denying dysphagia) - monitor on tele - thiamine 500mg IV BID due to hx etoh abuse, concern for wernicke's mild intermittent asthma, no acute exacerbation - continue home meds hx polysubstance abuse - methadone, will need dose verified in AM HLD - continue home meds HTN - normotensive, hold BP meds for now mood - continue home meds med rec pending full code VTE prophy: SCDs Pt with weakness, multiple recent falls, new speech stutter, requiring admission for obsevation for neurology consult and further evaluation. Quality Stroke Does the patient have a stroke diagnosis?: No VTE Prior VTE?: No VTE Risk Level:: Medical - moderate - high VTE Device Contraindication: N/A - Device Ordered VTE Drug Contraindication: Treatment Not Indicated
[2025-08-06 04:37] LABS: MANUAL DIFF FLAG NO
[2025-08-06 04:40] LABS: Hematocrit 34.3 % (42.0-52.0); Hemoglobin 11.2 g/dl (14.0-18.0); Imm Gran Abs Auto 0.04 X10*3/uL (0.00-0.03); Imm Gran Pct Auto 0.6 % (0.0-0.4); Lymphocytes Absolute Auto 2.7 X10*3/uL (1.2-4.9); Mean Corpuscular HGB Conc 32.7 g/dl (31.0-36.0); Mean Corpuscular Hemoglobin 27.1 pg (27.0-33.0); Mean Corpuscular Volume 82.9 fL (80.0-98.0); NRBC Abs Auto 0.000 X10*3/uL (0.0-0.012); NRBC Pct Auto 0.0 /100WBC (0.0-0.2); Platelet Count 224 X10*3/uL (160-400); Red Blood Count 4.14 X10*6/uL (4.60-5.80); White Blood Count 7.2 X10*3/uL (4.8-10.8)
[2025-08-06 04:52] LABS: Syphilis Screen Nonreactive (Nonreactive)
[2025-08-06 04:57] LABS: Anion Gap 14 (12-20); Blood Urea Nitrogen 14 mg/dL (9-16); Calcium 8.9 mg/dL (8.4-10.2); Carbon Dioxide 25 mmol/L (22-29); Chloride 102 mmol/L (96-108); Creatinine Clr Calc Pharmacy 101.8; Estimated Glomerular Filt Rate > 60; Potassium 3.6 mmol/L (3.3-5.1); Sodium 137 mmol/L (135-145)
--- NOTE | 2025-08-06 07:15 | PC.NURSE ---
called [facility] for patient methadone last dose information, [facility] verified patient got 190mg in clinic n 08/04 and was given 2 take home bottles. form faxed to pharmacy
--- NOTE | 2025-08-06 07:27 | HE.PHANOTE ---
Methadone verification form received. Dose is 190 mg from [facility], last dose 08/04/25 given 2 take home bottles
--- NOTE | 2025-08-06 11:14 | MHC.CM.PN ---
Liza 08/06/25, Pt. lives with his , he is active with [facility]. HCP discussed, pt. declined to complete form at this time. He goes to [facility] Annelise Almaguer in [facility] for Methadone. PCP is Adriana Gaona [facility] in [place]. Pt. is able to arrange a ride home at [place], DCP: home with services, CM to follow for DC needs.
--- NOTE | 2025-08-06 11:18 | P.CNNE_ITS ---
History of Present Illness Data of Consult Service Date: 08/06/25 Primary Care Provider: Meghana Junior NP HPI Reason for consult: Fall 45 yo male with a pmhx of alcohol use disorder (sober x1.5 months), hx syphillis (documented in chart but pt denies), recent admission for ARDS/pneumonia requiring intubation on 06/15, mild intermittent asthma, HLD, HTN, and mood disorder, who presented to the ED after a fall. He said that he did not have any problem with shaking or balance before he was admitted in ICU and now he was having shaking in loss of balance. There was no complain of pain. He denied recent drug abuse. His tox screen was positive for benzodiazepine and methadone. Review of Systems 2 Review of Systems: General: No significant change in weight Cardiovascular: No recent chest pain or palpitation Pulmonary: Recent admission to ICU with pneumonia Gastrointestinal: No nausea or vomiting Genitourinary: No loss of bowel bladder control Neurological: No history of seizure disorder Psychiatric: Denied any mental disorder PMFSH Past Medical History Medical History History of acute respiratory distress syndrome (ARDS) Sepsis Right lower lobe pneumonia Hospital discharge follow-up Abnormal chest x-ray Dry mouth Alcoholic cardiomyopathy Systolic heart failure Rash of neck Portal hypertension Hepatic steatosis Chest pain Mixed hyperlipidemia Asthma Tobacco use disorder Essential hypertension Atrial fibrillation Depression Anxiety Hepatitis C infection Methadone dependence History of syphilis Polysubstance abuse Alcohol dependence Alcohol abuse Opiate use No known health problems Family History Family History Mother Alcoholism Sister Methadone dependence Surgical History Surgical History History of back surgery Social History Social History Household Members: Unknown / Unable to assess Housing: Unknown / Unable to assess Do you presently have visiting nurse or other home services: No Alcohol intake: former Patient Tobacco Use Status: Current everyday Tobacco user Tobacco use type: Cigarette Cigarette Packs Per Day: 1 Cigarettes Per Day: 20.0 Smoked in Last 30 Days: Yes e-Cigarette/Vaping Use: Never Used Second Hand Smoke Exposure: Yes Use of substances other than those prescribed or required for medical reasons: Yes Substance Use Type: Marijuana Substance Use Frequency: Weekly Advance Directives: No Advance Directives Information Provided: Yes service: No Current occupational status: unemployed Current occupational exposures/hazards: No Cognitive needs: Yes (adhd) Hearing needs: No Vision needs: No Meds Allergies Allergy/AdvReac Type Severity Reaction Status Date / Time Fish Containing Products Allergy Unknown UNKNOWN Verified 08/05/25 22:26 Active Medications: Current Medications Acetaminophen (Acetaminophen 325 Mg Tablet) 975 mg PO Q6H PRN PRN Reason: Pain, Mild 1-3,fever,headache Calcium Carbonate (Calcium Carbonate 750 Mg Tab.Chew) 750 mg PO Q4H PRN PRN Reason: Heartburn Thiamine HCl 500 mg/ Sodium (Chloride) 105 mls @ 210 mls/hr IV Q12H JEAN Magnesium Hydroxide (Milk Of Magnesia 30 Ml Oral.Susp) 30 ml PO DAILY PRN PRN Reason: Constipation Melatonin (Melatonin 3 Mg Tablet) 6 mg PO BEDTIME PRN PRN Reason: Insomnia Oxycodone HCl (Oxycodone Hcl Immed Release 5 Mg Tablet) 5 mg PO Q6H PRN PRN Reason: Pain, Severe (Pain Scale 7-10) Sodium Chloride (0.9 % Sodium Chloride Flush 3 Ml Syringe) 3 ml IVFLUSH QSHIFT [facility] Last Admin: 08/06/25 07:15 Dose: Not Given Tramadol HCl (Tramadol Hcl 50 Mg Tablet) 50 mg PO Q6H PRN PRN Reason: Pain, Moderate(Pain Scale 4-6) Last Admin: 08/06/25 09:20 Dose: 50 mg Home Medications ?Medication ?Instructions ?Recorded ?Confirmed ?Last Taken ?Type calcium 600 mg (as 1 tab PO DAILY 02/21/25 10/02/1102/20/25 History carbonate)-vitamin D3 10 mcg (400 unit) tablet methadone 10 mg/mL oral concentrate 190 mg PO DAILY 08/06/25 06/14/25 07:00 History omeprazole 20 mg capsule,delayed 20 mg PO DAILY@0630 1 06/14/25 Unknown History release potassium chloride 10 mEq 40 meq PO DAILY 07/20/25 Un known History tablet,extended release(part/cryst) Physical Exam 2 Vital Signs: Vital Signs: Last Vital Signs Temp 98.7 F 08/06/25 10:10 Pulse 78 08/06/25 10:10 Resp 16 08/06/25 10:10 BP 152/92 H 08/06/25 10:10 Pulse Ox 96 08/06/25 10:10 O2 Del Method Room Air 08/06/25 10:10 BMI result Body Mass Index 29.5 Neuro: Other: Mental Status: Alert and oriented to person, place, and time. Normal attention. Normal spontaneous speech, fluency, and comprehension. Cranial Nerves: CN II: Visual tan full to confrontation, visual acuity intact. CN III, IV, : Pupils equal, round, reactive to light and accommodation. Extraocular movements are normal. CN V: Facial sensation is normal. CN VII: Facial movements symmetrical. CN VIII: Hearing intact to bedside conversation is normal. CN IX, X: Palate elevates symmetrically. CN XI: Shoulder shrug and head turn symmetrical. CN XII: Tongue midline without atrophy or fasciculations. Motor: No obvious focal arm or leg weakness Reflexes: Deep tendon reflexes are trace to absent with flexor plantars Intermittent hand and arm tremor and dyskinetic movement of right side of face. Some of this seems choreiform. Extrapyramidal: Full facial expressions and blinking. No rigidity. Movements are appropriate with no tremor or abnormality. Speech: Normal; no dysarthria or tremor. Results Labs 08/06/25 04:20 08/06/25 04:20 Labs: Short CBC 08/05/25 08/06/25 Range/Units 23:03 04:20 WBC 7.5 7.2 (4.8-10.8) X10*3/uL Hgb 11.3 L 11.2 L (14.0-18.0) g/dl Hct 34.2 L 34.3 L (42.0-52.0) % Plt Count 228 224 (160-400) X10*3/uL BMP 08/05/25 08/06/25 23:03 04:20 Sodium 136 137 Potassium 4.2 3.6 Chloride 100 102 Carbon Dioxide 26 25 BUN 16 14 Creatinine 1.22 1.02 Calcium 9.5 8.9 D Cardiac Enzymes 08/05/25 Range/Units 23:03 Total Creatine Kinase 55 (38-174) U/L Liver Function 08/05/25 Range/Units 23:03 Total Bilirubin 0.2 (0.0-1.0) mg/dL Direct Bilirubin < 0.2 (0.0-0.5) mg/dL AST 26 (5-37) U/L ALT 19 (0-40) U/L Alkaline Phosphatase 102 (39-117) U/L Albumin 4.1 (3.5-5.0) g/dL Urine 08/06/25 Range/Units 01:09 Urine Color Yellow Urine Appearance Clear Urine pH 7.5 (5.0-9.0) Ur Specific [place] 1.020 (1.005-1.025) Urine Protein Negative (Neg-Trace) mg/dL Urine Glucose (UA) Negative (Negative) mg/dL CTA NECK: Sagittal and coronal MIP 3D reconstruction images were performed.There is no significant stenosis, occlusion, dissection, aneurysm, or vascular malformation. There is no active bleeding.Common carotid arteries, internal carotid arteries, external carotid arteries, and vertebral arteries are unremarkable. Straightening of the normal cervical lordosis is noted. No evidence of an acute fracture or dislocation within the cervical spine and visualized thoracic spine. Multilevel endplate degenerative changes are noted within the cervical spine. No prevertebral soft tissue swelling. There is mild atelectatic change in the right upper lobe. No pneumothorax in the lung apices. CTA HEAD: Sagittal and coronal MIP 3D reconstruction images were performed.There is no significant stenosis, occlusion, dissection, aneurysm, or vascular malformation. There is no active bleeding.Terminal internal carotid arteries, middle cerebral arteries, anterior cerebral arteries, basilar artery, and posterior cerebral arteries are unremarkable. No evidence of dural venous sinus thrombosis. The calvarium and the facial bones are intact. There is mild mucosal thickening within the ethmoid air cells and left sphenoid sinus. IMPRESSION: 1. Unremarkable CTA neck and CTA head. Assessment and Plan (1) Movement disorder: Status: Acute New onset of movement disorder with some features of chorea in this 45 years old man with history of alcohol use, on Suboxone, and recent admission to ICU. My recommendation is to 1st rule out metabolic causes of this syndrome and performed a thorough metabolic testing including calcium, magnesium, phosphorus, and ammonia. An EEG is also recommended. If all that is negative, methadone should be considered as a cause as it can lead to this kind of syndrome. In that case, it is dose should be decreased. Procedures Date of Service Date of Service: 08/06/25
--- NOTE | 2025-08-06 11:42 | PC.NURSE ---
Assumed care of this patient at 1100, pt currently w/ [facility] [employer] [facility] for speech eval. MRI screening formed completed by pt w/ t/w and faxed to MRI.
--- NOTE | 2025-08-06 12:07 | P.PNIM_ITS ---
Subjective Subjective Date of Service: 08/06/25 Interval History: unsteady Physical Exam 2 Vital Signs: Vital Signs: Last Vital Signs Temp 97.8 F 08/06/25 12:04 Pulse 96 08/06/25 12:04 Resp 18 08/06/25 12:04 BP 159/63 H 08/06/25 12:04 Pulse Ox 98 08/06/25 12:04 O2 Del Method Room Air 08/06/25 12:04 BMI result Body Mass Index 29.5 Neuro: Other: Mental Status: Alert and oriented to person, place, and time. Normal attention. Normal spontaneous speech, fluency, and comprehension. Cranial Nerves: CN II: Visual tan full to confrontation, visual acuity intact. CN III, IV, : Pupils equal, round, reactive to light and accommodation. Extraocular movements are normal. CN V: Facial sensation is normal. CN VII: Facial movements symmetrical. CN VIII: Hearing intact to bedside conversation is normal. CN IX, X: Palate elevates symmetrically. CN XI: Shoulder shrug and head turn symmetrical. CN XII: Tongue midline without atrophy or fasciculations. Motor: No obvious focal arm or leg weakness Reflexes: Deep tendon reflexes are trace to absent with flexor plantars Intermittent hand and arm tremor and dyskinetic movement of right side of face. Some of this seems choreiform. Extrapyramidal: Full facial expressions and blinking. No rigidity. Movements are appropriate with no tremor or abnormality. Speech: Normal; no dysarthria or tremor. Objective Data Active Medications Acetaminophen (Acetaminophen 325 Mg Tablet) 975 mg PO Q6H PRN PRN Reason: Pain, Mild 1-3,fever,headache Calcium Carbonate (Calcium Carbonate 750 Mg Tab.Chew) 750 mg PO Q4H PRN PRN Reason: Heartburn Thiamine HCl 500 mg/ Sodium (Chloride) 105 mls @ 210 mls/hr IV Q12H JEAN Last Admin: 08/06/25 12:01 Dose: 210 mls/hr Documented By: DITOLC Magnesium Hydroxide (Milk Of Magnesia 30 Ml Oral.Susp) 30 ml PO DAILY PRN PRN Reason: Constipation Melatonin (Melatonin 3 Mg Tablet) 6 mg PO BEDTIME PRN PRN Reason: Insomnia Oxycodone HCl (Oxycodone Hcl Immed Release 5 Mg Tablet) 5 mg PO Q6H PRN PRN Reason: Pain, Severe (Pain Scale 7-10) Sodium Chloride (0.9 % Sodium Chloride Flush 3 Ml Syringe) 3 ml IVFLUSH QSHIFT JEAN Last Admin: 08/06/25 07:15 Dose: Not Given Documented By: AMBER Non-Admin Reason: See Note Tramadol HCl (Tramadol Hcl 50 Mg Tablet) 50 mg PO Q6H PRN PRN Reason: Pain, Moderate(Pain Scale 4-6) Last Admin: 08/06/25 09:20 Dose: 50 mg Documented By: AMBER Labs 08/06/25 04:20 08/06/25 04:20 Labs: Laboratory Results - last 24 hr 08/05/25 08/06/25 08/06/25 23:03 00:41 01:09 MCV 81.4 MCH 26.9 L MCHC 33.0 RDW 14.4 Plt Count 228 MPV 7.8 L Immature Gran % (Auto) 0.8 H Neut % (Auto) 52.0 Lymph % (Auto) 34.4 [place] % (Auto) 8.4 Eos % (Auto) 3.9 Baso % (Auto) 0.5 Lymph # (Auto) 2.6 [place] # (Auto) 0.6 Eos # (Auto) 0.3 Baso # (Auto) 0.0 Abs Immat Gran (auto) 0.06 H Absolute Neuts (auto) 3.9 Absolute Nucleated RBC 0.000 Nucleated RBC % (auto) 0.0 Hold Purple Top SEE NOTE Anion Gap 14 Estim Creat Clear Calc 85.1 Estimated GFR > 60 Random Glucose 105 Calcium 9.5 Magnesium 2.1 Total Bilirubin 0.2 Direct Bilirubin < 0.2 AST 26 ALT 19 Alkaline Phosphatase 102 Total Creatine Kinase 55 Troponin I High Sens < 2.7 Total Protein 8.0 Albumin 4.1 Vitamin B12 567 Folate 11.4 Urine Color Yellow Urine Appearance Clear Urine pH 7.5 Ur Specific [place] 1.020 Urine Protein Negative Urine Glucose (UA) Negative Urine Ketones Negative Urine Blood Negative Urine Nitrite Negative Ur Leukocyte Esterase Negative Urine Opiates Screen Not Detected Ur Buprenorphine Scrn Not Detected Ur Oxycodone Screen Not Detected Urine Methadone Screen Positive H Urine Fentanyl Screen Not Detected Ur Barbiturates Screen Not Detected Ur Phencyclidine Scrn Not Detected Ur Amphetamines Screen Not Detected U Benzodiazepines Scrn POSITIVE H Urine Cocaine Screen Not Detected U Marijuana (THC) Screen Not Detected Ethyl Alcohol < 10 T.pallidum Ab (EIA) Nonreactive 08/06/25 04:20 MCV 82.9 MCH 27.1 MCHC 32.7 RDW 14.2 Plt Count 224 MPV 8.1 L Immature Gran % (Auto) 0.6 H Neut % (Auto) 51.3 Lymph % (Auto) 38.1 [place] % (Auto) 4.5 Eos % (Auto) 4.9 H Baso % (Auto) 0.6 Lymph # (Auto) 2.7 [place] # (Auto) 0.3 Eos # (Auto) 0.4 Baso # (Auto) 0.0 Abs Immat Gran (auto) 0.04 H Absolute Neuts (auto) 3.7 Absolute Nucleated RBC 0.000 Nucleated RBC % (auto) 0.0 Hold Purple Top Anion Gap 14 Estim Creat Clear Calc 101.8 Estimated GFR > 60 Random Glucose 161 H Calcium 8.9 D Magnesium Total Bilirubin Direct Bilirubin AST ALT Alkaline Phosphatase Total Creatine Kinase Troponin I High Sens Total Protein Albumin Vitamin B12 Folate Urine Color Urine Appearance Urine pH Ur Specific [place] Urine Protein Urine Glucose (UA) Urine Ketones Urine Blood Urine Nitrite Ur Leukocyte Esterase Urine Opiates Screen Ur Buprenorphine Scrn Ur Oxycodone Screen Urine Methadone Screen Urine Fentanyl Screen Ur Barbiturates Screen Ur Phencyclidine Scrn Ur Amphetamines Screen U Benzodiazepines Scrn Urine Cocaine Screen U Marijuana (THC) Screen Ethyl Alcohol T.pallidum Ab (EIA) Assessment and Plan (1) Alcohol dependence: Status: Acute Plan 45M PMH etoh dependence (1.5 months sober), mild intermittent asthma, htn, hld, mood disorder presented with unsteady gait, falls weakness, falls, aphasia eeg, mri, vitamins - check levels, check ammonia, phos pt ?decrease methadone mild intermittent asthma stable etoh dependence currently sober opiate dependence addiciton eval, ?decrease dose dvt prophylaxis - lovenox full code reason for continued hospitalization:working up abnormal neuro exam Quality Stroke Does the patient have a stroke diagnosis?: No VTE Prior VTE?: No VTE Risk Level:: Medical - moderate - high VTE Device Contraindication: N/A - Device Ordered VTE Drug Contraindication: Treatment Not Indicated
--- NOTE | 2025-08-06 12:23 | PC.NURSE ---
Pt to MRI w/ ED transport
[2025-08-06] MEDS: methADONE HCl 20 MG/2 ML ORAL.CONC 190 MG PO (14:25)
--- NOTE | 2025-08-06 14:54 | PHA.MEDREC ---
Pharmacy Consult ? Medication Reconciliation Pharmacy has completed the medication reconciliation. Spoke to patient to confirm medication list. Patient was recently discharged on 07/02/2025 and confirmed that nothing has changed and he has started taking the new meds that were started from last discharge. He was not aware that he's supposed to stop taking potassium so he is still taking it 10 mEq daily. Last dose of medications was yesterday 08/05/25 morning.
--- NOTE | 2025-08-06 15:10 | HO.ADDICTCON ---
History of Present Illness Date of Service: 08/06/2025 Chief Complaint: Ataxia Reason for Consult: new onset weakness and spastic movements ? related to methadone Sources of Information: patient interviewed and chart reviewed HPI Narrative: Patient is a 45 year old male history of AUD, OUD with recent medical admission for ARDS. Presented to [facility] reporting frequent falls over the last 2 weeks and worsening tremor. Consult requested to assess for possibility of methadone contributing to sudden onset of sx. Per admission note, patient has been abstaining from alcohol since most recent admission at the end of May. Patient seen in ED, bed 14. He is awake, alert, laying on his side. Baseline stutter making it challenging for patient to communicate fluidly and frustrating patient. He does note that it has worsened recently. Tremor noted when arms extended--which he states has improved since yesterday. He states that he has a mild tremor at baseline. Reporting my legs just gave out on me and I feel down the stairs He denies any new medications or dose changes He stated that he felt he was taking too many medicines . Inquired about flexeril--stated he took that as needed for muscle spasms. Has been on current dose of methadone for over a year. He presented as anxious, but appropriate Inquiring about methadone dose as he had not yet received it today (190mg QD) Did not appear restless, diaphoretic UDS +methadone and benzodiazepines (both prescribed) Review of Systems Constitutional: Reports as per HPI Diagnostics Vital Signs (24Hr): Vital Signs - 24 hr 08/05/25 22:25 08/05/25 23:55 08/06/25 01:50 Temperature 96.7 F L 97.8 F Pulse Rate 92 66 73 Respiratory Rate 16 Blood Pressure 142/95 H 128/87 111/83 Pulse Oximetry 95 94 95 Oxygen Delivery Method Room Air Room Air Room Air 08/06/25 04:00 08/06/25 05:41 08/06/25 08:17 Temperature 98.2 F 98.2 F 97.6 F Pulse Rate 75 80 74 Respiratory Rate 16 Blood Pressure 125/72 131/73 140/78 H Pulse Oximetry 95 96 95 Oxygen Delivery Method Room Air Room Air Room Air 08/06/25 10:10 08/06/25 12:04 08/06/25 14:46 Temperature 98.7 F 97.8 F Pulse Rate 78 96 84 Respiratory Rate 16 18 14 Blood Pressure 152/92 H 159/63 H 156/107 H Pulse Oximetry 96 98 96 Oxygen Delivery Method Room Air Room Air Room Air BMI result Body Mass Index 29.5 Labs 08/06/25 04:20 08/06/25 04:20 Labs: Laboratory Results - last 48 hr 08/05/25 08/06/25 08/06/25 23:03 00:41 01:09 WBC 7.5 RBC 4.20 L Hgb 11.3 L Hct 34.2 L MCV 81.4 MCH 26.9 L MCHC 33.0 RDW 14.4 Plt Count 228 MPV 7.8 L Immature Gran % (Auto) 0.8 H Neut % (Auto) 52.0 Lymph % (Auto) 34.4 [place] % (Auto) 8.4 Eos % (Auto) 3.9 Baso % (Auto) 0.5 Lymph # (Auto) 2.6 [place] # (Auto) 0.6 Eos # (Auto) 0.3 Baso # (Auto) 0.0 Abs Immat Gran (auto) 0.06 H Absolute Neuts (auto) 3.9 Absolute Nucleated RBC 0.000 Nucleated RBC % (auto) 0.0 Hold Purple Top SEE NOTE Sodium 136 Potassium 4.2 Chloride 100 Carbon Dioxide 26 Anion Gap 14 BUN 16 Creatinine 1.22 Estim Creat Clear Calc 85.1 Estimated GFR > 60 Random Glucose 105 Calcium 9.5 Phosphorus Magnesium 2.1 Total Bilirubin 0.2 Direct Bilirubin < 0.2 AST 26 ALT 19 Alkaline Phosphatase 102 Total Creatine Kinase 55 Troponin I High Sens < 2.7 Total Protein 8.0 Albumin 4.1 Vitamin B12 567 Folate 11.4 Urine Color Yellow Urine Appearance Clear Urine pH 7.5 Ur Specific [place] 1.020 Urine Protein Negative Urine Glucose (UA) Negative Urine Ketones Negative Urine Blood Negative Urine Nitrite Negative Ur Leukocyte Esterase Negative Urine Opiates Screen Not Detected Ur Buprenorphine Scrn Not Detected Ur Oxycodone Screen Not Detected Urine Methadone Screen Positive H Urine Fentanyl Screen Not Detected Ur Barbiturates Screen Not Detected Ur Phencyclidine Scrn Not Detected Ur Amphetamines Screen Not Detected U Benzodiazepines Scrn POSITIVE H Urine Cocaine Screen Not Detected U Marijuana (THC) Screen Not Detected Ethyl Alcohol < 10 T.pallidum Ab (EIA) Nonreactive 08/06/25 04:20 WBC 7.2 RBC 4.14 L Hgb 11.2 L Hct 34.3 L MCV 82.9 MCH 27.1 MCHC 32.7 RDW 14.2 Plt Count 224 MPV 8.1 L Immature Gran % (Auto) 0.6 H Neut % (Auto) 51.3 Lymph % (Auto) 38.1 [place] % (Auto) 4.5 Eos % (Auto) 4.9 H Baso % (Auto) 0.6 Lymph # (Auto) 2.7 [place] # (Auto) 0.3 Eos # (Auto) 0.4 Baso # (Auto) 0.0 Abs Immat Gran (auto) 0.04 H Absolute Neuts (auto) 3.7 Absolute Nucleated RBC 0.000 Nucleated RBC % (auto) 0.0 Hold Purple Top Sodium 137 Potassium 3.6 Chloride 102 Carbon Dioxide 25 Anion Gap 14 BUN 14 Creatinine 1.02 Estim Creat Clear Calc 101.8 Estimated GFR > 60 Random Glucose 161 H Calcium 8.9 D Phosphorus 5.2 H Magnesium Total Bilirubin Direct Bilirubin AST ALT Alkaline Phosphatase Total Creatine Kinase Troponin I High Sens Total Protein Albumin Vitamin B12 Folate Urine Color Urine Appearance Urine pH Ur Specific [place] Urine Protein Urine Glucose (UA) Urine Ketones Urine Blood Urine Nitrite Ur Leukocyte Esterase Urine Opiates Screen Ur Buprenorphine Scrn Ur Oxycodone Screen Urine Methadone Screen Urine Fentanyl Screen Ur Barbiturates Screen Ur Phencyclidine Scrn Ur Amphetamines Screen U Benzodiazepines Scrn Urine Cocaine Screen U Marijuana (THC) Screen Ethyl Alcohol T.pallidum Ab (EIA) Imaging Radiology Impressions: ITS Impressions Brain MRI 08/06/25 12:26 IMPRESSION: No acute or structural brain abnormality. Probable inflammatory processes and mastoid air cells. Electronically signed by: Jonas Rahman MD 08/06/2025 01:02 PM [facility] Mental Status Exam Mental Status Exam Level of Consciousness: Awake and Appropriate Patient Behavior: Appropriate Mood Description: Appropriate and Anxious Affect Description: Appropriate and Anxious Speech Pattern: Stuttering Hallucinations: None Thought Process: Intact Thought Content: positive for Intact Judgement: Good Medications Medications Current Medications Acamprosate (Acamprosate Calcium 333 Mg Tablet.) 666 mg PO TID JEAN Acetaminophen (Acetaminophen 325 Mg Tablet) 975 mg PO Q6H PRN PRN Reason: Pain, Mild 1-3,fever,headache Albuterol Sulfate (Albuterol Sulfate 90 Mcg 8 Gm Inhaler) 2 puff INHALE Q4H PRN PRN Reason: shortness of breath or wheezing Aspirin (Aspirin Enteric Coated 81 Mg Tablet.Dr) 81 mg PO DAILY [facility] Calcium Carbonate (Calcium Carbonate 750 Mg Tab.Chew) 750 mg PO Q4H PRN PRN Reason: Heartburn Enoxaparin Sodium (Enoxaparin Sodium 40 Mg/0.4 Ml Syringe) 40 mg SUBCUT Q24H [facility] Folic Acid (Folic Acid 1 Mg Tablet) 1 mg PO DAILY [facility] Thiamine HCl 500 mg/ Sodium (Chloride) 105 mls @ 210 mls/hr IV Q12H [facility] Last Infusion: 08/06/25 12:23 Dose: Infused Magnesium Hydroxide (Milk Of Magnesia 30 Ml Oral.Susp) 30 ml PO DAILY PRN PRN Reason: Constipation Melatonin (Melatonin 3 Mg Tablet) 6 mg PO BEDTIME PRN PRN Reason: Insomnia Methadone HCl (Methadone Hcl 20 Mg/2 Ml Oral.Conc) 190 mg PO DAILY@0800 [facility] Last Admin: 08/06/25 14:25 Dose: 190 mg Metoprolol Succinate (Metoprolol Succinate Er 50 Mg Tab.Er.24h) 50 mg PO DAILY [facility]; Protocol Nifedipine (Nifedipine Er 60 Mg Tab.Er.24) 60 mg PO DAILY [facility] Omeprazole (Omeprazole 20 Mg Capsule.Dr) 20 mg PO DAILY@0630 [facility] Oxycodone HCl (Oxycodone Hcl Immed Release 5 Mg Tablet) 5 mg PO Q6H PRN PRN Reason: Pain, Severe (Pain Scale 7-10) Sodium Chloride (0.9 % Sodium Chloride Flush 3 Ml Syringe) 3 ml IVFLUSH QSHIFT [facility] Last Admin: 08/06/25 07:15 Dose: Not Given Tramadol HCl (Tramadol Hcl 50 Mg Tablet) 50 mg PO Q6H PRN PRN Reason: Pain, Moderate(Pain Scale 4-6) Last Admin: 08/06/25 09:20 Dose: 50 mg Allergies Allergies Allergy/AdvReac Type Severity Reaction Status Date / Time Fish Containing Products Allergy Unknown UNKNOWN Verified 08/05/25 22:26 Assessment & Plan Assessment & Plan (1) Opioid use disorder: Status: Acute Code(s): F11.90 - Opioid use, unspecified, uncomplicated Assessment and Plan: unclear if methadone is contributing to current presentation --dose has not changed in over a year patient is prescribed a number of medications that can contribute to serotonin syndrome -including cyclobenzaprine, amitryptiline, methadone, methadone restarted at home dose--if sx persist, consider 5mg dose decrease and re-eval. Total time managing care of this patient today __40__ minutes. [facility] Past Medical History Medical History History of acute respiratory distress syndrome (ARDS) Sepsis Right lower lobe pneumonia Hospital discharge follow-up Abnormal chest x-ray Dry mouth Alcoholic cardiomyopathy Systolic heart failure Rash of neck Portal hypertension Hepatic steatosis Chest pain Mixed hyperlipidemia Asthma Tobacco use disorder Essential hypertension Atrial fibrillation Depression Anxiety Hepatitis C infection Methadone dependence History of syphilis Polysubstance abuse Alcohol dependence Alcohol abuse Opiate use No known health problems Family History Family History Mother Alcoholism Sister Methadone dependence Surgical History Surgical History History of back surgery Social History Social History Household Members: Unknown / Unable to assess Housing: Unknown / Unable to assess Do you presently have visiting nurse or other home services: No Alcohol intake: former Patient Tobacco Use Status: Current everyday Tobacco user Tobacco use type: Cigarette Cigarette Packs Per Day: 1 Cigarettes Per Day: 20.0 Smoked in Last 30 Days: Yes e-Cigarette/Vaping Use: Never Used Second Hand Smoke Exposure: Yes Use of substances other than those prescribed or required for medical reasons: Yes Substance Use Type: Marijuana Substance Use Frequency: Weekly Advance Directives: No Advance Directives Information Provided: Yes service: No Current occupational status: unemployed Current occupational exposures/hazards: No Cognitive needs: Yes (adhd) Hearing needs: No Vision needs: No
[2025-08-06] MEDS: 0.9 % Sodium Chloride Flush 3 ML SYRINGE IVFLUSH (17:10)
--- NOTE | 2025-08-06 17:26 | MHC.SL.SWA ---
Speech Pathologist Impression: Swallow WFL; New onset stuttering disorder. Risk of Aspiration Due to: Dysphasia Diet Status: Liquid Consistency and Strategies for Safe Swallow: Liquid Intake Recommendation: Thin Liquid Intake Strategies: Solid Food Consistency: Dietary Recommendations: Regular Additional Modifications to Solid Foods: Oral Medication Intake: Whole with Liquid Please contact the pharmacy regarding appropriate crushable or liquid drug formulations that are available whenever modified delivery is recommended. Compensatory Strategies and Precautions to be Taken for Safe Swallow: Supervision While Eating and Drinking for Safe Swallow: None Needed Foods to Avoid: n/a Swallowing Recommended Treatments: Recommendation for Speech: Further Testing Needed Comment: Patient presents with oral motor function and all aspects of swallow WFL. Recommend upgrade to Regular Diet, thin liquids, pills whole with liquid. Patient is independent and able to self feed. However, patient presenting with moderate to severe stuttering disorder of new onset, with initial sound/syllable repetitions, blocking, facial grimacing/blinking/head nodding. Patient reports this began about a week ago, along with increased tremor, and involuntary leg movements. Patient recently had MRI with no findings, Neurology consult did not note this stuttering behavior. ? apraxia v. dystonia secondary to medication. Further assessment is recommended, speech issue will likely need follow-up as outpatient v. inpatient STR. , RD notified of recommendation by secure carrie, RN in person. Frequency/Duration: Date Range for Service Req: Timeline to reassess: Organ Recovery Coordinator Clinican/Clinical Fellow: No Supervisory Statement: I have reviewed and agree with the student/clinical fellow's documentation: N/A Speech Language Pathologist: Jannet Burton M.A., CCC-MANAGER STUDIO
--- NOTE | 2025-08-06 21:11 | PC.NURSE ---
Pt requesting night time Seroquel dose, covering night provider made aware
--- NOTE | 2025-08-07 | EEG_ITS ---
History: (ARDS) Sepsis Right lower lobe pneumonia Hospital discharge follow-up Abnormal chest x-ray Alcoholic cardiomyopathy Systolic heart failure Portal hypertension Hepatic steatosis Chest pain Mixed hyperlipidemia Asthma Tobacco use disorder Essential hypertension Atrial fibrillation Depression Anxiety Hepatitis C infection Methadone dependence History of syphilis Polysubstance abuse Alcohol dependence Alcohol abuse Opiate use Reason for consult: Fall 45 yo male with a pmhx of alcohol use disorder (sober x1.5 months), hx syphillis (documented in chart but pt denies), recent admission for ARDS/pneumonia requiring intubation on 06/15, mild intermittent asthma, HLD, HTN, and mood disorder, who presented to the ED after a fall. He said that he did not have any problem with shaking or balance before he was admitted in ICU and now he was having shaking in loss of balance. There was no complain of pain. He denied recent drug abuse. His tox screen was positive for benzodiazepine and methadone. Medication: Acetaminophen Calcium CarbonateThiamine HCl Hydroxide Melatonin Oxycodone HCl Sodium Chloride Tramadol HCl Technical Description Photic Stimulation: Yes Hyperventilation: Yes Behavioral State: Cooperative State of Consciousness: Awake Skull Defect: None Sedation: None Handedness: Right Duration: 29:32 Dry Cleaning Teacher Comments: Last Meal: Time / date of last symptom: Description: This is a 16 channel EEG with an EKG lead. Patient is reported awake during the tracing. Background EEG rhythm is mixed theta beta with frequent sharp and slow wave complexes that seem to originate in left hemisphere. Photic stimulation does not produce any significant driving. Hyperventilation does not produce any other abnormality. Cardiac lead does not reveal any significant abnormality. Impression: Abnormal EEG suggestive of underlying tendency for seizure disorder from left hemisphere. MTDD
[2025-08-07 00:51] VITALS: BP 140/103; PULSE 88; RESP 18; TEMP 36.8; O2SAT 95
[2025-08-07 04:00] VITALS: BP 127/79; PULSE 76; RESP 17; TEMP 36.4; O2SAT 93
[2025-08-07 07:17] VITALS: BP 155/92; PULSE 86; RESP 16; TEMP 36.4; O2SAT 97
[2025-08-07 07:30] LABS: Hematocrit 37.5 % (42.0-52.0); Hemoglobin 12.3 g/dl (14.0-18.0); Mean Corpuscular HGB Conc 32.8 g/dl (31.0-36.0); Mean Corpuscular Hemoglobin 27.0 pg (27.0-33.0); Mean Corpuscular Volume 82.4 fL (80.0-98.0); NRBC Abs Auto 0.000 X10*3/uL (0.0-0.012); NRBC Pct Auto 0.0 /100WBC (0.0-0.2); Platelet Count 263 X10*3/uL (160-400); Red Blood Count 4.55 X10*6/uL (4.60-5.80); White Blood Count 7.1 X10*3/uL (4.8-10.8)
[2025-08-07 07:43] LABS: Ammonia 37 umol/L (13-55)
[2025-08-07 07:51] LABS: Alanine Aminotransferase 21 U/L (0-40); Albumin Level 3.8 g/dL (3.5-5.0); Alkaline Phosphatase 92 U/L (39-117); Anion Gap 13 (12-20); Aspartate Amino Transferase 22 U/L (5-37); Blood Urea Nitrogen 10 mg/dL (9-16); Calcium 9.0 mg/dL (8.4-10.2); Carbon Dioxide 25 mmol/L (22-29); Chloride 102 mmol/L (96-108); Creatinine Clr Calc Pharmacy 131.4; Estimated Glomerular Filt Rate > 60; Magnesium 2.0 mg/dL (1.6-2.6); Potassium 4.0 mmol/L (3.3-5.1); Sodium 136 mmol/L (135-145); Total Protein 7.3 g/dL (6.5-8.0)
--- NOTE | 2025-08-07 09:29 | MHC.CM.PN ---
A referral has been sent to [facility]. A request to resume services has been sent. DP Home with resumption of [facility]. Patient will arrange for private transport.
--- NOTE | 2025-08-07 09:32 | HO.PM.IMPN ---
Subjective Subjective Date of Service: 08/07/25 Interval History: unsteady Physical Exam Vital Signs: Vital Signs: Last Vital Signs Temp 97.6 F 08/07/25 07:17 Pulse 86 08/07/25 07:17 Resp 16 08/07/25 07:17 BP 155/92 H 08/07/25 07:17 Pulse Ox 97 08/07/25 07:17 O2 Del Method Room Air 08/07/25 07:17 BMI result Body Mass Index 29.5 Neuro: Other: Mental Status: Alert and oriented to person, place, and time. Normal attention. Normal spontaneous speech, fluency, and comprehension. Cranial Nerves: CN II: Visual tan full to confrontation, visual acuity intact. CN III, IV, : Pupils equal, round, reactive to light and accommodation. Extraocular movements are normal. CN V: Facial sensation is normal. CN VII: Facial movements symmetrical. CN VIII: Hearing intact to bedside conversation is normal. CN IX, X: Palate elevates symmetrically. CN XI: Shoulder shrug and head turn symmetrical. CN XII: Tongue midline without atrophy or fasciculations. Motor: No obvious focal arm or leg weakness Reflexes: Deep tendon reflexes are trace to absent with flexor plantars Intermittent hand and arm tremor and dyskinetic movement of right side of face. Some of this seems choreiform. Extrapyramidal: Full facial expressions and blinking. No rigidity. Movements are appropriate with no tremor or abnormality. Speech: Normal; no dysarthria or tremor. Objective Data Active Medications Acamprosate (Acamprosate Calcium 333 Mg Tablet.) 666 mg PO TID [facility] Last Admin: 08/06/25 22:14 Dose: 666 mg Documented By: DITOTAWANDA Acetaminophen (Acetaminophen 325 Mg Tablet) 975 mg PO Q6H PRN PRN Reason: Pain, Mild 1-3,fever,headache Albuterol Sulfate (Albuterol Sulfate 90 Mcg 8 Gm Inhaler) 2 puff INHALE Q4H PRN PRN Reason: shortness of breath or wheezing Aspirin (Aspirin Enteric Coated 81 Mg Tablet.) 81 mg PO DAILY [facility] Calcium Carbonate (Calcium Carbonate 750 Mg Tab.Chew) 750 mg PO Q4H PRN PRN Reason: Heartburn Enoxaparin Sodium (Enoxaparin Sodium 40 Mg/0.4 Ml Syringe) 40 mg SUBCUT Q24H [facility] Folic Acid (Folic Acid 1 Mg Tablet) 1 mg PO DAILY [facility] Thiamine HCl 500 mg/ Sodium (Chloride) 105 mls @ 210 mls/hr IV Q12H [facility] Last Infusion: 08/07/25 01:57 Dose: Infused Documented By: CHANTEL Magnesium Hydroxide (Milk Of Magnesia 30 Ml Oral.Susp) 30 ml PO DAILY PRN PRN Reason: Constipation Melatonin (Melatonin 3 Mg Tablet) 6 mg PO BEDTIME PRN PRN Reason: Insomnia Methadone HCl (Methadone Hcl 20 Mg/2 Ml Oral.Conc) 190 mg PO DAILY@0800 [facility] Last Admin: 08/06/25 14:25 Dose: 190 mg Documented By: DURAN Co-signed By: MARCOS Metoprolol Succinate (Metoprolol Succinate Er 50 Mg Tab.Er.24h) 50 mg PO DAILY [facility]; Protocol Nifedipine (Nifedipine Er 60 Mg Tab.Er.24) 60 mg PO DAILY [facility] Omeprazole (Omeprazole 20 Mg Capsule.Dr) 20 mg PO DAILY@0630 [facility] Last Admin: 08/07/25 06:41 Dose: 20 mg Documented By: CHANTEL Oxycodone HCl (Oxycodone Hcl Immed Release 5 Mg Tablet) 5 mg PO Q6H PRN PRN Reason: Pain, Severe (Pain Scale 7-10) Sodium Chloride (0.9 % Sodium Chloride Flush 3 Ml Syringe) 3 ml IVFLUSH QSHIFT [facility] Last Admin: 08/07/25 01:57 Dose: Not Given Documented By: CHANTEL Non-Admin Reason: Previously Administered Tramadol HCl (Tramadol Hcl 50 Mg Tablet) 50 mg PO Q6H PRN PRN Reason: Pain, Moderate(Pain Scale 4-6) Last Admin: 08/06/25 09:20 Dose: 50 mg Documented By: AMBER Labs 08/07/25 07:21 08/07/25 07:21 Labs: Laboratory Results - last 24 hr 08/06/25 08/07/25 04:20 07:21 MCV 82.4 MCH 27.0 MCHC 32.8 RDW 14.1 Plt Count 263 MPV 8.0 L Absolute Nucleated RBC 0.000 Nucleated RBC % (auto) 0.0 Anion Gap 13 Estim Creat Clear Calc 131.4 Estimated GFR > 60 Random Glucose 123 H Calcium 9.0 Phosphorus 5.2 H Magnesium 2.0 Total Bilirubin 0.2 Direct Bilirubin < 0.2 AST 22 ALT 21 Alkaline Phosphatase 92 Ammonia 37 Total Protein 7.3 Albumin 3.8 Assessment and Plan (1) Alcohol dependence: Status: Acute Plan 45M PMH etoh dependence (1.5 months sober), mild intermittent asthma, htn, hld, mood disorder presented with unsteady gait, falls weakness, falls, aphasia eeg, vitamins pt -discharged mild intermittent asthma stable etoh dependence currently sober opiate dependence addiciton eval mood disorder hold seroquel, amitryptilline buspar dvt prophylaxis - lovenox full code reason for continued hospitalization:working up abnormal neuro exam Quality Stroke Does the patient have a stroke diagnosis?: No VTE Prior VTE?: No VTE Risk Level:: Medical - moderate - high VTE Device Contraindication: N/A - Device Ordered VTE Drug Contraindication: Treatment Not Indicated
[2025-08-07] MEDS: methADONE HCl 20 MG/2 ML ORAL.CONC 190 MG PO (09:43)
[2025-08-07] MEDS: 0.9 % Sodium Chloride Flush 3 ML SYRINGE IVFLUSH ×3 (09:47→20:04)
[2025-08-07] MEDS: Metoprolol Succinate ER 50 MG TAB.ER.24H PO (09:48)
[2025-08-07] MEDS: Aspirin Enteric Coated 81 MG TABLET.DR PO (09:48)
[2025-08-07] MEDS: NIFEdipine ER 60 MG TAB.ER.24 PO (09:49)
[2025-08-07 12:00] VITALS: BP 148/96; PULSE 84; RESP 16; TEMP 36.6; O2SAT 98
[2025-08-07 15:25] VITALS: BP 123/85; PULSE 83; RESP 18; TEMP 36.6; O2SAT 95
--- NOTE | 2025-08-07 16:53 | MHC.SLORD ---
Speech Language Pathology Order Status: SALES OFFICE ADMINISTRATOR unable to see patient this date. RN with no concerns; reports continued stuttering and tolerating current diet. SALES OFFICE ADMINISTRATOR to continue to follow.
[2025-08-07 19:53] VITALS: BP 127/90; PULSE 87; RESP 20; TEMP 36.6; O2SAT 96
[2025-08-08] VITALS (7 sets, daily range): BP systolic 117–152; BP diastolic 74–95; PULSE 68–105; RESP 16–18; TEMP 36.2–36.6; O2SAT 94–98
[2025-08-08] MEDS: 0.9 % Sodium Chloride Flush 3 ML SYRINGE IVFLUSH (09:34)
[2025-08-08] MEDS: methADONE HCl 20 MG/2 ML ORAL.CONC 190 MG PO (09:34)
[2025-08-08] MEDS: Aspirin Enteric Coated 81 MG TABLET.DR PO (09:37)
[2025-08-08] MEDS: Metoprolol Succinate ER 50 MG TAB.ER.24H PO (09:38)
[2025-08-08] MEDS: NIFEdipine ER 60 MG TAB.ER.24 PO (09:38)
--- NOTE | 2025-08-08 11:18 | P.PNIM_ITS ---
Subjective Subjective Date of Service: 08/08/25 Interval History: stutter Physical Exam 2 Vital Signs: Vital Signs: Last Vital Signs Temp 97.9 F 08/08/25 08:00 Pulse 79 08/08/25 08:00 Resp 18 08/08/25 08:00 BP 151/95 H 08/08/25 08:00 Pulse Ox 98 08/08/25 08:00 O2 Del Method Room Air 08/08/25 08:00 BMI result Body Mass Index 29.5 Neuro: Other: Mental Status: Alert and oriented to person, place, and time. Normal attention. Normal spontaneous speech, fluency, and comprehension. Cranial Nerves: CN II: Visual tan full to confrontation, visual acuity intact. CN III, IV, : Pupils equal, round, reactive to light and accommodation. Extraocular movements are normal. CN V: Facial sensation is normal. CN VII: Facial movements symmetrical. CN VIII: Hearing intact to bedside conversation is normal. CN IX, X: Palate elevates symmetrically. CN XI: Shoulder shrug and head turn symmetrical. CN XII: Tongue midline without atrophy or fasciculations. Motor: No obvious focal arm or leg weakness Reflexes: Deep tendon reflexes are trace to absent with flexor plantars Intermittent hand and arm tremor and dyskinetic movement of right side of face. Some of this seems choreiform. Extrapyramidal: Full facial expressions and blinking. No rigidity. Movements are appropriate with no tremor or abnormality. Speech: Normal; no dysarthria or tremor. Objective Data Active Medications Acamprosate (Acamprosate Calcium 333 Mg Tablet.) 666 mg PO TID [facility] Last Admin: 08/08/25 09:37 Dose: 666 mg Documented By: FARZANEH Acetaminophen (Acetaminophen 325 Mg Tablet) 975 mg PO Q6H PRN PRN Reason: Pain, Mild 1-3,fever,headache Last Admin: 08/07/25 20:01 Dose: 975 mg Documented By: NARENDRA Albuterol Sulfate (Albuterol Sulfate 90 Mcg 8 Gm Inhaler) 2 puff INHALE Q4H PRN PRN Reason: shortness of breath or wheezing Aspirin (Aspirin Enteric Coated 81 Mg Tablet.) 81 mg PO DAILY [facility] Last Admin: 08/08/25 09:37 Dose: 81 mg Documented By: FARZANEH Calcium Carbonate (Calcium Carbonate 750 Mg Tab.Chew) 750 mg PO Q4H PRN PRN Reason: Heartburn Clonidine HCl (Clonidine Hcl 0.1 Mg Tablet) 0.1 mg PO TID PRN; Protocol PRN Reason: for anxiety Last Admin: 08/07/25 14:02 Dose: 0.1 mg Documented By: LIMA Enoxaparin Sodium (Enoxaparin Sodium 40 Mg/0.4 Ml Syringe) 40 mg SUBCUT Q24H [facility] Last Admin: 08/08/25 09:37 Dose: 40 mg Documented By: FARZANEH Folic Acid (Folic Acid 1 Mg Tablet) 1 mg PO DAILY [facility] Last Admin: 08/08/25 09:38 Dose: 1 mg Documented By: FARZANEH Hydroxyzine HCl (Hydroxyzine Hcl 50 Mg Tablet) 50 mg PO TID [facility] Last Admin: 08/08/25 09:38 Dose: 50 mg Documented By: FARZANEH Thiamine HCl 500 mg/ Sodium (Chloride) 105 mls @ 210 mls/hr IV Q12H [facility] Last Infusion: 08/08/25 00:46 Dose: Infused Documented By: NARENDRA Magnesium Hydroxide (Milk Of Magnesia 30 Ml Oral.Susp) 30 ml PO DAILY PRN PRN Reason: Constipation Melatonin (Melatonin 3 Mg Tablet) 6 mg PO BEDTIME PRN PRN Reason: Insomnia Methadone HCl (Methadone Hcl 20 Mg/2 Ml Oral.Conc) 190 mg PO DAILY@0800 [facility] Last Admin: 08/08/25 09:34 Dose: 190 mg Documented By: FARZANEH Co-signed By: DOBROClair Metoprolol Succinate (Metoprolol Succinate Er 50 Mg Tab.Er.24h) 50 mg PO DAILY [facility]; Protocol Last Admin: 08/08/25 09:38 Dose: 50 mg Documented By: FARZANEH Nifedipine (Nifedipine Er 60 Mg Tab.Er.24) 60 mg PO DAILY [facility] Last Admin: 08/08/25 09:38 Dose: 60 mg Documented By: FARZANEH Omeprazole (Omeprazole 20 Mg Capsule.Dr) 20 mg PO DAILY@0630 [facility] Last Admin: 08/08/25 05:44 Dose: 20 mg Documented By: NARENDRA Oxycodone HCl (Oxycodone Hcl Immed Release 5 Mg Tablet) 5 mg PO Q6H PRN PRN Reason: Pain, Severe (Pain Scale 7-10) Quetiapine Fumarate (Quetiapine Fumarate 50 Mg Tablet) 50 mg PO BID@0800,1400 [facility] Last Admin: 08/08/25 09:38 Dose: 50 mg Documented By: FARZANEH Quetiapine Fumarate (Quetiapine Fumarate 200 Mg Tablet) 200 mg PO BEDTIME [facility] Last Admin: 08/07/25 20:00 Dose: 200 mg Documented By: NARENDRA Sodium Chloride (0.9 % Sodium Chloride Flush 3 Ml Syringe) 3 ml IVFLUSH QSHIFT [facility] Last Admin: 08/08/25 09:34 Dose: 3 ml Documented By: FARZANEH Tramadol HCl (Tramadol Hcl 50 Mg Tablet) 50 mg PO Q6H PRN PRN Reason: Pain, Moderate(Pain Scale 4-6) Last Admin: 08/06/25 09:20 Dose: 50 mg Documented By: AMBER Labs 08/07/25 07:21 08/07/25 07:21 Assessment and Plan (1) Alcohol dependence: Status: Acute Plan 45M PMH etoh dependence (1.5 months sober), mild intermittent asthma, htn, hld, mood disorder presented with unsteady gait, falls weakness, falls, aphasia follow up eeg, vitamins pt -discharged mild intermittent asthma stable etoh dependence currently sober opiate dependence addiciton following mood disorder hold seroquel, amitryptilline buspar dvt prophylaxis - lovenox full code reason for continued hospitalization:working up abnormal neuro exam Quality Stroke Does the patient have a stroke diagnosis?: No VTE Prior VTE?: No VTE Risk Level:: Medical - moderate - high VTE Device Contraindication: N/A - Device Ordered VTE Drug Contraindication: Treatment Not Indicated
[2025-08-09] MEDS: 0.9 % Sodium Chloride Flush 3 ML SYRINGE IVFLUSH ×2 (01:58→08:32)
[2025-08-09 03:49] VITALS: BP 96/55; PULSE 72; RESP 16; TEMP 36.3; O2SAT 96
[2025-08-09 07:35] VITALS: BP 136/94; PULSE 81; RESP 18; TEMP 36.8; O2SAT 97
[2025-08-09] MEDS: methADONE HCl 20 MG/2 ML ORAL.CONC 190 MG PO (08:17)
[2025-08-09] MEDS: Metoprolol Succinate ER 50 MG TAB.ER.24H PO (08:17)
[2025-08-09] MEDS: Aspirin Enteric Coated 81 MG TABLET.DR PO (08:17)
[2025-08-09] MEDS: NIFEdipine ER 60 MG TAB.ER.24 PO (08:17)
--- NOTE | 2025-08-09 10:24 | P.PNIM_ITS ---
Subjective Subjective Date of Service: 08/09/25 Interval History: stutter Physical Exam 2 Vital Signs: Vital Signs: Last Vital Signs Temp 98.2 F 08/09/25 07:35 Pulse 81 08/09/25 07:35 Resp 18 08/09/25 07:35 BP 136/94 H 08/09/25 07:35 Pulse Ox 97 08/09/25 07:35 O2 Del Method Room Air 08/09/25 07:35 BMI result Body Mass Index 29.5 Neuro: Other: Mental Status: Alert and oriented to person, place, and time. Normal attention. Normal spontaneous speech, fluency, and comprehension. Cranial Nerves: CN II: Visual tan full to confrontation, visual acuity intact. CN III, IV, : Pupils equal, round, reactive to light and accommodation. Extraocular movements are normal. CN V: Facial sensation is normal. CN VII: Facial movements symmetrical. CN VIII: Hearing intact to bedside conversation is normal. CN IX, X: Palate elevates symmetrically. CN XI: Shoulder shrug and head turn symmetrical. CN XII: Tongue midline without atrophy or fasciculations. Motor: No obvious focal arm or leg weakness Reflexes: Deep tendon reflexes are trace to absent with flexor plantars Intermittent hand and arm tremor and dyskinetic movement of right side of face. Some of this seems choreiform. Extrapyramidal: Full facial expressions and blinking. No rigidity. Movements are appropriate with no tremor or abnormality. Speech: Normal; no dysarthria or tremor. Objective Data Active Medications Acamprosate (Acamprosate Calcium 333 Mg Tablet.) 666 mg PO TID [facility] Last Admin: 08/09/25 08:17 Dose: 666 mg Documented By: ROBERT Acetaminophen (Acetaminophen 325 Mg Tablet) 975 mg PO Q6H PRN PRN Reason: Pain, Mild 1-3,fever,headache Last Admin: 08/08/25 21:23 Dose: 975 mg Documented By: NARENDRA Albuterol Sulfate (Albuterol Sulfate 90 Mcg 8 Gm Inhaler) 2 puff INHALE Q4H PRN PRN Reason: shortness of breath or wheezing Aspirin (Aspirin Enteric Coated 81 Mg Tablet.) 81 mg PO DAILY [facility] Last Admin: 08/09/25 08:17 Dose: 81 mg Documented By: ROBERT Calcium Carbonate (Calcium Carbonate 750 Mg Tab.Chew) 750 mg PO Q4H PRN PRN Reason: Heartburn Clonidine HCl (Clonidine Hcl 0.1 Mg Tablet) 0.1 mg PO TID PRN; Protocol PRN Reason: for anxiety Last Admin: 08/08/25 21:23 Dose: 0.1 mg Documented By: NARENDRA Enoxaparin Sodium (Enoxaparin Sodium 40 Mg/0.4 Ml Syringe) 40 mg SUBCUT Q24H [facility] Last Admin: 08/09/25 08:17 Dose: 40 mg Documented By: ROBERT Folic Acid (Folic Acid 1 Mg Tablet) 1 mg PO DAILY [facility] Last Admin: 08/09/25 08:17 Dose: 1 mg Documented By: ROBERT Hydroxyzine HCl (Hydroxyzine Hcl 50 Mg Tablet) 50 mg PO TID [facility] Last Admin: 08/09/25 08:17 Dose: 50 mg Documented By: ROBERT Thiamine HCl 500 mg/ Sodium (Chloride) 105 mls @ 210 mls/hr IV Q12H [facility] Last Infusion: 08/09/25 01:18 Dose: Infused Documented By: NARENDRA Magnesium Hydroxide (Milk Of Magnesia 30 Ml Oral.Susp) 30 ml PO DAILY PRN PRN Reason: Constipation Melatonin (Melatonin 3 Mg Tablet) 6 mg PO BEDTIME PRN PRN Reason: Insomnia Methadone HCl (Methadone Hcl 20 Mg/2 Ml Oral.Conc) 190 mg PO DAILY@0800 [facility] Last Admin: 08/09/25 08:17 Dose: 190 mg Documented By: ROBERT Co-signed By: LENA Metoprolol Succinate (Metoprolol Succinate Er 50 Mg Tab.Er.24h) 50 mg PO DAILY [facility]; Protocol Last Admin: 08/09/25 08:17 Dose: 50 mg Documented By: ROBERT Nifedipine (Nifedipine Er 60 Mg Tab.Er.24) 60 mg PO DAILY [facility] Last Admin: 08/09/25 08:17 Dose: 60 mg Documented By: ROBERT Omeprazole (Omeprazole 20 Mg Capsule.Dr) 20 mg PO DAILY@0630 [facility] Last Admin: 08/09/25 06:38 Dose: 20 mg Documented By: NARENDRA Oxycodone HCl (Oxycodone Hcl Immed Release 5 Mg Tablet) 5 mg PO Q6H PRN PRN Reason: Pain, Severe (Pain Scale 7-10) Quetiapine Fumarate (Quetiapine Fumarate 50 Mg Tablet) 50 mg PO BID@0800,1400 [facility] Last Admin: 08/09/25 08:17 Dose: 50 mg Documented By: ROBERT Quetiapine Fumarate (Quetiapine Fumarate 200 Mg Tablet) 200 mg PO BEDTIME [facility] Last Admin: 08/08/25 21:17 Dose: 200 mg Documented By: NARENDRA Sodium Chloride (0.9 % Sodium Chloride Flush 3 Ml Syringe) 3 ml IVFLUSH QSHIFT [facility] Last Admin: 08/09/25 08:32 Dose: 3 ml Documented By: ROBERT Tramadol HCl (Tramadol Hcl 50 Mg Tablet) 50 mg PO Q6H PRN PRN Reason: Pain, Moderate(Pain Scale 4-6) Last Admin: 08/06/25 09:20 Dose: 50 mg Documented By: AMBER Labs 08/07/25 07:21 08/07/25 07:21 Assessment and Plan (1) Alcohol dependence: Status: Acute Plan 45M PMH etoh dependence (1.5 months sober), mild intermittent asthma, htn, hld, mood disorder presented with unsteady gait, falls weakness, falls, aphasia follow up eeg, vitamins, neuro continues to have symptoms PT -discharged mild intermittent asthma stable etoh dependence currently sober opiate dependence addiction following, continue metahdone mood disorder hold seroquel, amitryptilline buspar dvt prophylaxis - lovenox full code reason for continued hospitalization:working up abnormal neuro exam Quality Stroke Does the patient have a stroke diagnosis?: No VTE Prior VTE?: No VTE Risk Level:: Medical - moderate - high VTE Device Contraindication: N/A - Device Ordered VTE Drug Contraindication: Treatment Not Indicated
[2025-08-09 11:52] VITALS: BP 133/84; PULSE 66; RESP 18; TEMP 36.2; O2SAT 97
[2025-08-09 15:23] VITALS: BP 113/78; PULSE 81; RESP 18; TEMP 36.3; O2SAT 96
[2025-08-09 19:25] VITALS: BP 110/77; PULSE 79; RESP 20; TEMP 36.4; O2SAT 95
[2025-08-09 23:44] VITALS: BP 128/87; PULSE 80; RESP 16; TEMP 36.6; O2SAT 97
[2025-08-10 03:46] VITALS: BP 126/87; PULSE 77; RESP 18; TEMP 36.2; O2SAT 97
[2025-08-10 07:03] VITALS: BP 149/96; PULSE 88; RESP 18; TEMP 36.1; O2SAT 94
[2025-08-10 08:09] VITALS: BP 149/96; PULSE 88
[2025-08-10] MEDS: Metoprolol Succinate ER 50 MG TAB.ER.24H PO (08:09)
[2025-08-10] MEDS: methADONE HCl 20 MG/2 ML ORAL.CONC 190 MG PO (08:09)
[2025-08-10] MEDS: Aspirin Enteric Coated 81 MG TABLET.DR PO (08:09)
[2025-08-10] MEDS: NIFEdipine ER 60 MG TAB.ER.24 PO (08:09)
--- NOTE | 2025-08-10 08:30 | PC.NURSE ---
Received care over the patient at 0700, pt has no IV access. This RN attempted to place an IV but pt refused. Dr. Rodriguez made aware and ok with pt not having an IV access.
--- NOTE | 2025-08-10 08:55 | HO.PM.IMPN ---
Subjective Subjective Date of Service: 08/10/25 Interval History: stutter a bit better Physical Exam Vital Signs: Vital Signs: Last Vital Signs Temp 96.9 F 08/10/25 07:03 Pulse 88 08/10/25 08:09 Resp 18 08/10/25 07:03 BP 149/96 H 08/10/25 08:09 Pulse Ox 94 08/10/25 07:03 O2 Del Method Room Air 08/10/25 07:03 BMI result Body Mass Index 29.5 Neuro: Other: Mental Status: Alert and oriented to person, place, and time. Normal attention. Normal spontaneous speech, fluency, and comprehension. Cranial Nerves: CN II: Visual tan full to confrontation, visual acuity intact. CN III, IV, : Pupils equal, round, reactive to light and accommodation. Extraocular movements are normal. CN V: Facial sensation is normal. CN VII: Facial movements symmetrical. CN VIII: Hearing intact to bedside conversation is normal. CN IX, X: Palate elevates symmetrically. CN XI: Shoulder shrug and head turn symmetrical. CN XII: Tongue midline without atrophy or fasciculations. Motor: No obvious focal arm or leg weakness Reflexes: Deep tendon reflexes are trace to absent with flexor plantars Intermittent hand and arm tremor and dyskinetic movement of right side of face. Some of this seems choreiform. Extrapyramidal: Full facial expressions and blinking. No rigidity. Movements are appropriate with no tremor or abnormality. Speech: Normal; no dysarthria or tremor. Objective Data Active Medications Acamprosate (Acamprosate Calcium 333 Mg Tablet.) 666 mg PO TID [facility] Last Admin: 08/10/25 08:08 Dose: 666 mg Documented By: JENNIFER Acetaminophen (Acetaminophen 325 Mg Tablet) 975 mg PO Q6H PRN PRN Reason: Pain, Mild 1-3,fever,headache Last Admin: 08/08/25 21:23 Dose: 975 mg Documented By: NARENDRA Albuterol Sulfate (Albuterol Sulfate 90 Mcg 8 Gm Inhaler) 2 puff INHALE Q4H PRN PRN Reason: shortness of breath or wheezing Aspirin (Aspirin Enteric Coated 81 Mg Tablet.) 81 mg PO DAILY [facility] Last Admin: 08/10/25 08:09 Dose: 81 mg Documented By: JENNIFER Calcium Carbonate (Calcium Carbonate 750 Mg Tab.Chew) 750 mg PO Q4H PRN PRN Reason: Heartburn Clonidine HCl (Clonidine Hcl 0.1 Mg Tablet) 0.1 mg PO TID PRN; Protocol PRN Reason: for anxiety Last Admin: 08/08/25 21:23 Dose: 0.1 mg Documented By: NARENDRA Enoxaparin Sodium (Enoxaparin Sodium 40 Mg/0.4 Ml Syringe) 40 mg SUBCUT Q24H [facility] Last Admin: 08/10/25 08:09 Dose: 40 mg Documented By: JENNIFER Folic Acid (Folic Acid 1 Mg Tablet) 1 mg PO DAILY [facility] Last Admin: 08/10/25 08:09 Dose: 1 mg Documented By: JENNIFER Hydroxyzine HCl (Hydroxyzine Hcl 50 Mg Tablet) 50 mg PO TID [facility] Last Admin: 08/10/25 08:09 Dose: 50 mg Documented By: JENNIFER Magnesium Hydroxide (Milk Of Magnesia 30 Ml Oral.Susp) 30 ml PO DAILY PRN PRN Reason: Constipation Melatonin (Melatonin 3 Mg Tablet) 6 mg PO BEDTIME PRN PRN Reason: Insomnia Methadone HCl (Methadone Hcl 20 Mg/2 Ml Oral.Conc) 190 mg PO DAILY@0800 [facility] Last Admin: 08/10/25 08:09 Dose: 190 mg Documented By: JENNIFER Co-signed By: TIFFANY Metoprolol Succinate (Metoprolol Succinate Er 50 Mg Tab.Er.24h) 50 mg PO DAILY [facility]; Protocol Last Admin: 08/10/25 08:09 Dose: 50 mg Documented By: JENNIFER Nifedipine (Nifedipine Er 60 Mg Tab.Er.24) 60 mg PO DAILY [facility] Last Admin: 08/10/25 08:09 Dose: 60 mg Documented By: JENNIFER Omeprazole (Omeprazole 20 Mg Capsule.Dr) 20 mg PO DAILY@0630 [facility] Last Admin: 08/10/25 05:42 Dose: 20 mg Documented By: NARENDRA Oxycodone HCl (Oxycodone Hcl Immed Release 5 Mg Tablet) 5 mg PO Q6H PRN PRN Reason: Pain, Severe (Pain Scale 7-10) Quetiapine Fumarate (Quetiapine Fumarate 50 Mg Tablet) 50 mg PO BID@0800,1400 [facility] Last Admin: 08/10/25 08:09 Dose: 50 mg Documented By: JENNIFER Quetiapine Fumarate (Quetiapine Fumarate 200 Mg Tablet) 200 mg PO BEDTIME [facility] Last Admin: 08/09/25 20:57 Dose: 200 mg Documented By: NARENDRA Sodium Chloride (0.9 % Sodium Chloride Flush 3 Ml Syringe) 3 ml IVFLUSH QSHIFT [facility] Last Admin: 08/10/25 08:15 Dose: Not Given Documented By: JENNIFER Non-Admin Reason: No Access Thiamine HCl (Thiamine Hcl 100 Mg Tablet) 100 mg PO TID [facility] Last Admin: 08/10/25 08:09 Dose: 100 mg Documented By: JENNIFER Tramadol HCl (Tramadol Hcl 50 Mg Tablet) 50 mg PO Q6H PRN PRN Reason: Pain, Moderate(Pain Scale 4-6) Last Admin: 08/06/25 09:20 Dose: 50 mg Documented By: AMBER Labs 08/07/25 07:21 08/07/25 07:21 Assessment and Plan (1) Alcohol dependence: Status: Acute Plan 45M PMH etoh dependence (1.5 months sober), mild intermittent asthma, htn, hld, mood disorder presented with unsteady gait, falls weakness, falls, aphasia follow up eeg, vitamins changed to po, neuro continues to have symptoms PT -discharged mild intermittent asthma stable etoh dependence currently sober opiate dependence addiction following, continue metahdone mood disorder hold seroquel, amitryptilline buspar dvt prophylaxis - lovenox full code reason for continued hospitalization:eeg pending Quality Stroke Does the patient have a stroke diagnosis?: No VTE Prior VTE?: No VTE Risk Level:: Medical - moderate - high VTE Device Contraindication: N/A - Device Ordered VTE Drug Contraindication: Treatment Not Indicated
[2025-08-10 11:26] VITALS: BP 143/78; PULSE 99; RESP 18; TEMP 36.2; O2SAT 96
--- NOTE | 2025-08-10 11:49 | P.DS_ITS ---
DS: Providers Provider Date of admission: 08/07/25 10:43 Date of discharge: 08/10/25 Primary care physician: Meghana Junior NP Consults: 08/06/25 02:09 Consult to Neurology Routine Consulting Provider: [facility] Reason for consultation: new ataxia, falls, tremor, dysphagia 08/06/25 11:33 Addiction Medicine Provider Routine Consulting Provider: Addiction Covering Reason for consultation: on methadone, ?having side movement disorder side effects DS: Diagnosis Discharge Diagnosis (1) Alcohol dependence: Status: Acute DS: Summary Hospital Course Hospital Course: from initial hpi: 45 yo male with a pmhx of alcohol use disorder (sober x1.5 months), hx syphillis (documented in chart but pt denies), recent admission for ARDS/pneumonia requiring intubation on 06/15, mild intermittent asthma, HLD, HTN, and mood disorder, who presented to the ED after a fall. The patient reported that 1 hour prior to arriving to the ED he was walking up the stairs in his legs gave out and he fell backwards Xarelto down the flight of stairs. He did not lose consciousness, no head strike. No headache or neck pain. He also reports developing a new stutter over the past month intermittently and tremor. He has had issues with swallowing reported by the patient's to the ED provider however he states this is not true. The patient reported that he has fallen 10 times in the past 2 weeks. He has a known history of alcoholism who reports that he has not alcoholic beverages since his admission back in the end of May. The patient has a very hard time providing a history due to his stutter. Most of this history is obtained from the ED provider. hospital course: Patient was admitted for weakness falls aphasia, movement disorder. Was seen by Neurology recommended MRI which was unremarkable, electrolyte and vitamin screen which is so far unremarkable and EEG which showed background rhythm of mixed theta beta with frequent sharp and slow wave complexes originating and left hemisphere recommendations were to start Keppra 500 mg b.i.d.. For mild intermittent asthma remained stable. For alcohol dependence maintaining sobriety was encouraged. For opiate dependence was continued on methadone. Patient is feeling better and he will be discharged home. Time Attestation Discharge Coordination Time (in mins): 34 Quality: Safe Use of Opioids Does Pt have an Active Cancer Diagnosis on the Problem List?: No Quality: Stroke Does the patient have a stroke diagnosis?: No Physical Exam Vital Signs: Vital Signs: Last Vital Signs Temp 97.1 F 08/10/25 11:26 Pulse 99 08/10/25 11:26 Resp 18 08/10/25 11:26 BP 143/78 H 08/10/25 11:26 Pulse Ox 96 08/10/25 11:26 O2 Del Method Room Air 08/10/25 11:26 BMI result Body Mass Index 29.5 Neuro: Other: Mental Status: Alert and oriented to person, place, and time. Normal attention. Normal spontaneous speech, fluency, and comprehension. Cranial Nerves: CN II: Visual tan full to confrontation, visual acuity intact. CN III, IV, : Pupils equal, round, reactive to light and accommodation. Extraocular movements are normal. CN V: Facial sensation is normal. CN VII: Facial movements symmetrical. CN VIII: Hearing intact to bedside conversation is normal. CN IX, X: Palate elevates symmetrically. CN XI: Shoulder shrug and head turn symmetrical. CN XII: Tongue midline without atrophy or fasciculations. Motor: No obvious focal arm or leg weakness Reflexes: Deep tendon reflexes are trace to absent with flexor plantars Intermittent hand and arm tremor and dyskinetic movement of right side of face. Some of this seems choreiform. Extrapyramidal: Full facial expressions and blinking. No rigidity. Movements are appropriate with no tremor or abnormality. Speech: Normal; no dysarthria or tremor. DS: Data Data Completed and Pending Completed studies during hospitalization [Text1]: Procedures Detoxification Services for Substance Abuse Treatment (02/21/25) Insertion of Endotracheal Airway into Trachea, Via Natural or Artificial Opening (06/14/25) Respiratory Ventilation, Greater than 96 Consecutive Hours (06/14/25) Discharge Plan Discharge Anticipated Discharge Date/Time: 08/10/25 11:42 Patient Disposition: Home, Self-Care Discharge Diagnosis: movement disorder Referrals: Dallas Henry MD [Physician, Neurology] - 1 Week Meghana Junior NP [Primary Care Provider, Primary Care] - 1 Week Discharge Medications: New levetiracetam 500 mg Tablet 500 mg PO BID 90 Days Qty: 180 0RF thiamine mononitrate (vit B1) 100 mg Tablet 100 mg PO TID 90 Days Qty: 270 0RF Continued metoprolol succinate 50 mg tablet extended release 24 hr 50 mg PO DAILY Qty: 90 3RF quetiapine 50 mg tablet 50 mg PO BID@0800,1400 90 Days Qty: 180 0RF acamprosate 333 mg tablet,delayed release (DR/EC) 666 mg PO TID 90 Days Qty: 540 0RF ibuprofen 600 mg tablet 600 mg PO Q8H PRN (Reason: pain) Qty: 90 0RF calcium carbonate-vitamin D3 600 mg-10 mcg (400 unit) tablet 1 tab PO DAILY methadone 10 mg/mL Concentrate 190 mg PO DAILY Rx Instructions: 2 TAKE HOME BOTTLES GIVEN 08/04/25 furosemide [Lasix] 40 mg tablet 40 mg PO DAILY Qty: 90 0RF hydroxyzine pamoate 50 mg capsule 50 mg PO TID Qty: 270 0RF magnesium oxide 400 mg (241.3 mg magnesium) tablet 400 mg PO DAILY 90 Days Qty: 90 0RF buspirone 30 mg tablet 30 mg PO BID Qty: 180 0RF omeprazole 20 mg capsule,delayed release(DR/EC) 20 mg PO DAILY@0630 folic acid 1 mg tablet 1 mg PO DAILY Qty: 60 0RF diazepam [Valium] 2 mg tablet 2 mg PO TID PRN (Reason: tremor) Qty: 14 0RF potassium chloride 10 mEq tablet,ER particles/crystals 10 meq PO DAILY clonidine HCl 0.1 mg tablet 0.1 mg PO TID PRN (Reason: for anxiety) Qty: 270 3RF albuterol sulfate 90 mcg/actuation HFA aerosol inhaler 2 inh inhalation Q4H PRN (Reason: shortness of breath or wheezing) Qty: 8.5 3RF amitriptyline 100 mg tablet 100 mg PO BEDTIME Qty: 90 3RF nifedipine 60 mg tablet extended release 60 mg PO DAILY Qty: 90 3RF cyclobenzaprine 5 mg tablet 5 mg PO TID PRN (Reason: Pain) Qty: 60 0RF quetiapine 100 mg tablet 200 mg PO BEDTIME 90 Days Qty: 180 0RF aspirin [Adult Aspirin Regimen] 81 mg tablet,delayed release (DR/EC) 81 mg PO DAILY Qty: 90 3RF (DME) [employer] Spacer-Mask,Adult Spacer See Rx Instructions .Route Qty: 1 0RF Rx Instructions: As directed Discontinued thiamine HCl (vitamin B1) 100 mg capsule 100 mg PO DAILY Qty: 90 1RF Discharge Orders: Discharge Order (Routine); Ordered 08/10/25 Ordered By: Luis Rodriguez Diet: Advance to usual diet Activity on Discharge: As tolerated Stand Alone Forms: Patient Portal Discharge page Print Language: Kinyarwanda Care Plan Goals: recovery Health Concerns: abnormal eeg Plan of Treatment: start keppra, follow up with neuro, vitamins Assessment: see above
--- NOTE | 2025-08-10 12:11 | MHC.CM.PN ---
Patient has been medically cleared for dc to home today with services. Patient was active with [facility], who has been made aware of today's dc.
== END 2025-08-10 15:49 | disposition home health service (06) | DRG 42 ==
LOC: HO.ED 08-06 01:03 → HO.EDOVER 08-06 02:46 → HO.IMC 08-06 23:21
PROVIDERS: Physician Assistant; Admitting Provider Family Medicine; Emergency Provider Emergency Medicine; Visit Provider Internal Medicine
DX: G25.9 Extrapyramidal and movement disorder, unspecified (principal); R47.01 Aphasia; F17.210 Nicotine dependence, cigarettes, uncomplicated; E78.5 Hyperlipidemia, unspecified; F10.21 Alcohol dependence, in remission; R29.6 Repeated falls; F19.10 Other psychoactive substance abuse, uncomplicated; I10 Essential (primary) hypertension; F39 Unspecified mood [affective] disorder; F11.20 Opioid dependence, uncomplicated; W10.9XXA Fall (on) (from) unspecified stairs and steps, initial encounter; Z91.81 History of falling; J45.20 Mild intermittent asthma, uncomplicated; Z71.6 Tobacco abuse counseling; Z79.82 Long term (current) use of aspirin; Z79.899 Other long term (current) drug therapy
CPT/HCPCS: 36415; 70450; 70496; 70498; 70551; 80048; 80076; 80307; 81003; 82140; 82550; 82607; 82746; 83735; 84100; 84207; 84425; 84484; 85025; 85027; 86780; 92610; 93005; 95816; 97162; 99222; 99285; J1650; J3360; J3411; Q9967

== ENCOUNTER → 2025-08-05 22:40 | Outpatient (BNV) | payer OTHER, SELFPAY | PROVIDERS: Admitting Provider Family Medicine; Emergency Provider Emergency Medicine; Visit Provider Internal Medicine Cardiovascular Disease | DX: R94.31 Abnormal electrocardiogram [ECG] [EKG] (principal); R53.1 Weakness | CPT/HCPCS: 93010 ==

== ENCOUNTER → 2025-08-05 22:58 | Outpatient (BNV) | payer OTHER, SELFPAY | PROVIDERS: Emergency Provider Emergency Medicine; Visit Provider Radiology Diagnostic Radiology | DX: H53.8 Other visual disturbances (principal); R47.89 Other speech disturbances; R29.6 Repeated falls | CPT/HCPCS: 70450; 70496; 70498 ==

== ENCOUNTER 2025-08-06 01:50 | Outpatient (BNV) | payer OTHER, SELFPAY | END 2025-08-06 12:26 | PROVIDERS: Admitting Provider Family Medicine; Emergency Provider Emergency Medicine; Visit Provider Radiology Diagnostic Radiology | DX: R27.0 Ataxia, unspecified (principal); R25.1 Tremor, unspecified; R29.6 Repeated falls | CPT/HCPCS: 70551 ==

== ENCOUNTER → 2025-08-06 01:50 | Outpatient (BNV) | payer OTHER, SELFPAY | PROVIDERS: Admitting Provider Family Medicine; Emergency Provider Emergency Medicine; Visit Provider Nurse Practitioner Psychiatric/Mental Health | DX: F11.90 Opioid use, unspecified, uncomplicated (principal) | CPT/HCPCS: 99222 ==

== ENCOUNTER → 2025-08-06 01:50 | Outpatient (BNV) | payer OTHER, SELFPAY | PROVIDERS: Admitting Provider Family Medicine; Emergency Provider Emergency Medicine; Visit Provider Psychiatry & Neurology Neurology | DX: G25.9 Extrapyramidal and movement disorder, unspecified (principal) | CPT/HCPCS: 99222 ==

== ENCOUNTER → 2025-08-06 01:50 | Outpatient (BNV) | payer OTHER, SELFPAY | PROVIDERS: Admitting Provider Family Medicine; Emergency Provider Emergency Medicine; Visit Provider Internal Medicine | DX: F10.220 Alcohol dependence with intoxication, uncomplicated (principal) | CPT/HCPCS: 99222; 99232; 99499 ==

== ENCOUNTER 2025-08-07 10:43 | Outpatient (BNV) | payer OTHER, SELFPAY | END 2025-08-07 11:20 | PROVIDERS: Admitting Provider Family Medicine; Emergency Provider Emergency Medicine; Visit Provider Psychiatry & Neurology Neurology | DX: G25.5 Other chorea (principal) | CPT/HCPCS: 95816 ==